=== PATIENT | female | born 1985 | race Caucasian/White ===

== ENCOUNTER 2023-04-05 19:44 | Outpatient (REF) | payer MEDICAID, SELFPAY ==
[2023-04-12 16:09] LABS: Age Gdln ACOG Testing Note (.); HPV Aptima Negative (Negative); IGP, Aptima HPV, rfx 16/18,45 Note (.)
== END 2023-04-05 19:45 ==
LOC: LAB 19:44
PROVIDERS: PCP Physician Assistant; Visit Provider Physician Assistant
DX: Z12.4 Encounter for screening for malignant neoplasm of cervix (principal)
CPT/HCPCS: 87624; G0145

== ENCOUNTER 2023-05-03 16:01 | Outpatient (OUT) | payer MEDICAID, SELFPAY ==
--- NOTE | 2023-05-03 16:18 | XR_ITS ---
[address] [address] Patient Name: KATIA CODY MRN: [id number] date: 1985 Sex: F Assigned Patient Location: [facility] Current Patient Location: Accession/Order Number: [id number] Exam Date: 05/03/2023 16:10 Report Date: 05/04/2023 05:57 At the request of: JOEL CLARK Procedure: XR ankle RT min 3V PROCEDURE: XR ankle RT min 3V COMPARISON: None. HISTORY: M25.579 ANKLE PAIN FINDINGS: BONES:No fracture, acute abnormality, or significant arthropathy. SOFT TISSUES:Negative. No visible soft tissue swelling. EFFUSION:None visible. OTHER: Negative. IMPRESSION: No acute radiographic abnormality Electronically authenticated by: BENITO SHAVER Date: 05/04/2023 05:57
== END 2023-05-03 16:02 | disposition home or self-care (01) ==
LOC: RAD 16:02
PROVIDERS: PCP Family Medicine; Visit Provider Family Medicine
DX: M25.571 Pain in right ankle and joints of right foot (principal)
CPT/HCPCS: 73610

== ENCOUNTER 2023-06-20 10:35 | Emergency (ER) | payer OTHER, MEDICAID, SELFPAY ==
[2023-06-20 10:43] VITALS: BP 130/84; PULSE 77; RESP 18; TEMP 36.8; O2SAT 98; BMI 22.9
--- NOTE | 2023-06-20 10:57 | XR_ITS ---
The [address] [address] Patient Name: KATIA CODY MRN: [id number] date: 1985 Sex: F Assigned Patient Location: ER Current Patient Location: ER Accession/Order Number: [id number] Exam Date: 06/20/2023 11:22 Report Date: 06/20/2023 11:43 At the request of: MONROE FREEMAN Procedure: XR lumbar spine 2-3V XR lumbar spine 2-3V, 06/20/2023 11:22 AM EDT, OH001 INDICATION: pain, injury COMPARISON: None FINDINGS: 3 images are submitted. The vertebral bodies demonstrate normal sagittal alignment. No acute fracture or subluxation is identified. There is slight disc space narrowing and endplate osteophyte formation at L2-L3. The visualized soft tissues appear unremarkable. XR/XR lumbar spine 2-3V IMPRESSION: No acute fracture or subluxation is seen. Slight degenerative change. Electronically authenticated by: JEN BARLOW Date: 06/20/2023 11:43
--- NOTE | 2023-06-20 10:59 | ED_ITS ---
HPI - Back Pain/Injury General Chief Complaint: Back Pain/Injury Stated Complaint: POSS STRAIN IN BACK Time Seen by Provider: 06/20/23 10:38 Source: family Mode of arrival: walk-in Limitations: no limitations History of Present Illness HPI Narrative: 37-year-old female to the emergency Department chief complaint of back injury. She works for the [employer]. 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 She denies any numbness, weakness, tingling. She denies any bowel or bladder incontinence/retention. Injury and hour and half prior to arrival in the emergency department. She reports the pain is spasm like. The Lower Lumbar Back. It Does Not Radiate. She has otherwise been at her baseline health. She denies fever, sweats, chills, nausea, abdominal pain. She denies , has history of tubal ligation. Related Data Previous Rx's Medication Instructions Recorded cyclobenzaprine 10 mg tablet 10 mg PO BID PRN muscle spasm #10 06/20/23 tabs naproxen 500 mg tablet 500 mg PO BID PRN pain #14 tabs 06/20/23 Allergies Allergy/AdvReac Type Severity Reaction Status Date / Time EFFEXOR AdvReac Intermediate Hypertensio Uncoded 06/20/23 10:49 n Review of Systems ROS Status of ROS 10 or more systems reviewed and unremarkable except as noted in history and below [facility] Social History Smoking status: Current every day smoker Exam Narrative Exam Narrative: VITALS: I have reviewed the triage vital signs. GENERAL: Well developed, well appearing adult in no acute distress. NEURO: Alert and oriented. Moves all extremities. Face is symmetric and expressive. Patellar reflexes brisk and equal bilaterally. Normal gait. Plantar flexion/dorsiflexion, knee flexion/extension, hip flexion/extension are grossly intact with 5/5 strength. Sensation is intact across the bilateral lower extremities. SPINE: No midline cervical, thoracic, or lumbar tenderness. No step-off or deformities. No paraspinal muscle tenderness or increased tone. EYES: PERRL. No scleral icterus or conjunctival injection. No discharge. HENT: Normocephalic, atraumatic. Hearing is grossly intact. Nares grossly patent and without discharge. Mucous membranes moist. NECK: No JVD. Patient moves neck without restriction. EXTREMITIES: Symmetric muscle bulk. No joint swelling. No clubbing, cyanosis, or deformity. SKIN: Warm and dry. Normal turgor. No rash or lesions appreciated. PSYCH: Mood, affect, and interaction is appropriate to the setting. Constitutional Vital Signs, click to edit/add: Last Vital Signs Temp 98.3 F 06/20/23 10:43 Pulse 77 06/20/23 10:43 Resp 18 06/20/23 10:43 BP 130/84 06/20/23 10:43 Pulse Ox 98 06/20/23 10:43 O2 Del Method Room Air 06/20/23 10:43 Course Vital Signs Vital signs: Vital Signs Temperature 98.3 F 06/20/23 10:43 Pulse Rate 77 06/20/23 10:43 Respiratory Rate 18 06/20/23 10:43 Blood Pressure 130/84 06/20/23 10:43 Pulse Oximetry 98 06/20/23 10:43 Oxygen Delivery Method Room Air 06/20/23 10:43 Temperature 98.3 F 06/20/23 10:43 Pulse Rate 77 06/20/23 10:43 Respiratory Rate 18 06/20/23 10:43 Blood Pressure 130/84 06/20/23 10:43 Pulse Oximetry 98 06/20/23 10:43 Oxygen Delivery Method Room Air 06/20/23 10:43 MDM - Back Pain/Injury MDM Narrative Medical decision making narrative: MDM Data External documents reviewed: Not applicable My EKG interpretation: Not applicable My CT interpretation: Not applicable My X-ray interpretation: Reviewed My Ultrasound interpretation: Not applicable Decision rules/scores evaluated: Not applicable Discussed with: Not applicable Treatment and Disposition ED Course: 29-year-old female C emergency department with chief complaint of back pain after attempting to 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 Vital stable, the patient is afebrile. X-ray to be ordered. Symptomatically therapy of IM Toradol and Norflex. She complains test. Her neurologic exam is nonfocal. No signs of cord compressing lesion by history or exam. X-ray without acute findings. She is able to ambulate. Has no apparent limitations at this time. MEDCO completed. Naproxen and Flexeril for symptoms. F/u with [facility]. Patient was discharged home. Shared decision making: As above Code status: Not addressed during this visit Discharge Plan Discharge Chief Complaint: Back Pain/Injury Clinical Impression: Strain of lumbar region Patient Disposition: Home, Self-Care Time of Disposition Decision: 11:55 Condition: Good Mode of Transportation: Private Vehicle Prescriptions / Home Meds: New cyclobenzaprine 10 mg tablet 10 mg PO BID PRN (Reason: muscle spasm) Qty: 10 0RF naproxen 500 mg tablet 500 mg PO BID PRN (Reason: pain) Qty: 14 0RF Print Language: Liberian Instructions: Low Back Strain (ED), Lower Back Exercises (ED) Stand Alone Forms: Portal Instructions Referrals: [facility] - 1 week Arnold Schroeder MD [Primary Care Provider] - 1 week
[2023-06-20] MEDS: ORPHENADRINE 60 MG/ 2 ML VIAL IM (11:12)
[2023-06-20] MEDS: KETOROLAC TROMETHAMINE 30 MG/ML VIAL IM (11:13)
[2023-06-20 12:18] VITALS: BP 121/84; PULSE 61; RESP 18; O2SAT 94
== END 2023-06-20 12:20 | disposition home or self-care (01) ==
PROVIDERS: Emergency Provider Student in an Organized Health Care Education/Training Program; PCP Family Medicine
DX: S39.012A Strain of muscle, fascia and tendon of lower back, initial encounter (principal); X50.0XXA Overexertion from strenuous movement or load, initial encounter
CPT/HCPCS: 72100; 96372; 99284

== ENCOUNTER 2023-08-11 10:54 | Outpatient (OUT) | payer MEDICAID, SELFPAY ==
[2023-08-11 11:33] LABS: Basophils Absolute Auto 0.1 10^3/uL (0.0-0.1); Basophils Percent Auto 0.6 % (0.2-2.0); Eosinophils Percent Auto 0.4 % (0.9-7.0); Hematocrit 38.4 % (36.0-48.0); Hemoglobin 12.8 g/dL (12.0-16.0); Immature Granulocytes Abs Auto 0.02 10^3/uL (0.00-0.03); Immature Granulocytes Pct Auto 0.2 % (0.0-0.5); Lymphocytes Absolute Auto 2.1 10^3/uL (1.2-3.8); Lymphocytes Percent Auto 24.7 % (20.5-60.0); Mean Corpuscular HGB Conc 33.3 g/dL (29.9-35.2); Mean Corpuscular Volume 90.1 fL (81.0-99.0); Mean Platelet Volume 9.2 fL (9.5-13.5); Monocytes Absolute Auto 0.5 10^3/uL (0.3-0.8); Monocytes Percent Auto 6.4 % (1.7-12.0); Neutrophils Absolute Auto 5.6 10^3/uL (1.4-6.5); Neutrophils Percent Auto 67.7 % (43.0-75.0); Platelet Count 280 10^3/uL (150-450); Red Blood Count 4.26 10^6/uL (4.20-5.40); Red Cell Distribution Width 13.2 % (11.0-15.0); White Blood Count 8.3 10^3/uL (4.0-11.0)
== END 2023-08-11 10:55 | disposition home or self-care (01) ==
LOC: PST 10:55
PROVIDERS: PCP Family Medicine; Visit Provider Obstetrics & Gynecology
DX: Z01.812 Encounter for preprocedural laboratory examination (principal); R39.89 Other symptoms and signs involving the genitourinary system; A63.0 Anogenital (venereal) warts
CPT/HCPCS: 85025

== ENCOUNTER 2023-08-25 08:05 | Day surgery (SDC) | payer MEDICAID, SELFPAY ==
[2023-08-11 11:23] VITALS: BP 115/73; PULSE 75; RESP 16; TEMP 36.4; O2SAT 100; BMI 23.8
[2023-08-25] VITALS (9 sets, daily range): BP systolic 96–134; BP diastolic 49–100; PULSE 70–90; RESP 7–18; TEMP 36.6; O2SAT 96–100; BMI 23.7
[2023-08-25] MEDS: LACTATED RINGER'S SOLUTION 1,000 ML 50 ML IV (08:29)
[2023-08-25 08:35] LABS: HCG Quantitative <1 mIU/mL
[2023-08-25] MEDS: SILVER SULFADIAZINE 1% CREAM 25 GM TUBE 1 APPLIC TOPICAL (11:08)
--- NOTE | 2023-08-25 11:19 | PM.ONB ---
Brief Operative Note Date of procedure: 08/25/23 Pre-op diagnosis: genital warts Post-op diagnosis: same as pre-op Procedure: NAME OF PROCEDURE: [destruction of genital warts, extensive] PROCEDURE: Patient was taken back to the Operating Room where she was given general anesthesia without difficulty. She was then placed in the dorsal lithotomy position. She was then prepped and draped in the normal sterile fashion. The extensive genital warts along the perineum and anus were identified, cautery was used to destroy the lesions, excellent hemostasis, silvadine cream to be placed, pt taken out of dorsal lithotomy and awoken by anesthesia Anesthesia: JULIANA Surgeon: Kel Gurrola Estimated blood loss (mL): 5 Pathology: none sent Condition: stable Disposition: PACU
== END 2023-08-25 12:27 | disposition home or self-care (01) ==
PROVIDERS: PCP Family Medicine; Visit Provider Obstetrics & Gynecology
PROC: (CPT 940; principal; 2023-08-25 09:55)
DX: A63.0 Anogenital (venereal) warts (principal); R39.89 Other symptoms and signs involving the genitourinary system; D64.9 Anemia, unspecified; F17.210 Nicotine dependence, cigarettes, uncomplicated; Z98.51 Tubal ligation status; F39 Unspecified mood [affective] disorder; E27.40 Unspecified adrenocortical insufficiency; N92.0 Excessive and frequent menstruation with regular cycle
CPT/HCPCS: 57065; 36415; 84702; J2704

== ENCOUNTER 2023-09-23 22:08 | Emergency (ER) | payer MEDICAID, SELFPAY ==
[2023-09-23 22:16] VITALS: BP 131/82; PULSE 96; RESP 20; TEMP 36.5; O2SAT 98; BMI 22.8
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
[2023-09-23] MEDS: ACETAMINOPHEN 500 MG TABLET 1000 MG PO (23:01)
[2023-09-23] MEDS: LORAZEPAM 0.5 MG TABLET PO (23:01)
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
== END 2023-09-24 00:39 | disposition home or self-care (01) ==
PROVIDERS: Emergency Provider Emergency Medicine; PCP Family Medicine
DX: S09.90XA Unspecified injury of head, initial encounter (principal); M54.2 Cervicalgia; S50.01XA Contusion of right elbow, initial encounter; S70.02XA Contusion of left hip, initial encounter; R68.84 Jaw pain; F41.9 Anxiety disorder, unspecified; Y04.2XXA Assault by strike against or bumped into by another person, initial encounter; F17.210 Nicotine dependence, cigarettes, uncomplicated; Z98.890 Other specified postprocedural states; Z90.79 Acquired absence of other genital organ(s); Z98.82 Breast implant status; Z98.891 History of uterine scar from previous surgery; Z98.51 Tubal ligation status
CPT/HCPCS: 70450; 70486; 72125; 73080; 73502; 99284

== ENCOUNTER 2023-12-20 08:27 | Emergency (ER) | payer SELFPAY ==
[2023-12-20 08:22] VITALS: BP 121/66; PULSE 80; RESP 20; TEMP 36.7; O2SAT 100; BMI 22.0
--- OUTSIDE RECORDS SUMMARY | 2023-12-20 08:32 | XMS_ITS | CCD ---
Author Name Unknown Address [address] [facility] [address] [facility] [address] [place] [address] Organization [facility] Care Team Providers Care Health Lead Name Role Phone HATIPOGLU, BETUL A Unavailable Unavailable HATIPOGLU, BETUL A Unavailable Unavailable FOSTERSKYLER BEYERLO F Unavailable Unavailable VORKEN BENAVIDEZ Unavailable Unavaila ble HATIPOGLU, BETUL A Unavailable Unavailable HATIPOGLU, BETUL A Unavailable Unavailable KEN JORDAN Unavailable Unavaila Chito Garcia Admitting Unavailable Chito Duarte Attending Unavailable Joel Schroeder~[phone] UNKNOWN Primary Care Unavailable Joel Schroeder~[phone] UNKNOWN Primary Care Unavailable Daniela Kay Unavailable Obed James Unavailable MD Joel Schroeder Primary Care Provider [phone] KATHY Miles Attending Provider [phone] Jamia Miles Unavailable Jamia Miles Attending Unavailable Jamia Miles Admitting Unavailable Joel Schroeder Primary Care Unavailable DR JOEL SCHROEDER Primary Care Unavailable JONG NAVA Attending Unavailable JONG NAVA Admitting Unavailable DR JOEL SCHROEDER Consulting Unavailable DR JOEL SCHROEDER Primary Care Unavailable DR JOEL SCHROEDER Attending Unavailable DR JOEL SCHROEDER Admitting Unavailable DR JOEL SCHROEDER Consulting Unavailable DR ASHLEY JANSEN Primary Care Unavailable DR JOEL SCHROEDER Attending Unavailable DR JOEL SCHROEDER Admitting Unavailable BRIELLE IZAGUIRRE Consulting Unavailable BRIELLE IZAGUIRRE Attending Unavailable BRIELLE IZAGUIRRE Admitting Unavailable DR JOEL SCHROEDER Primary Care Unavailable DR JOEL SCHROEDER Primary Care Unavailable DR KEL GURROLA Attending Unavailable DR KEL GURROLA Admitting Unavailable KI, DR MADDEN Consulting Unavailable AMBER, DR MALDONADO Primary Care Unavailable KI, DR MADDEN Attending Unavailable KI, DR MADDEN Admitting Unavailable AMBER, DR MALDONADO Primary Care Unavailable JONG NAVA Attending Unavailable JONG NAVA Admitting Unavailable BRIANA JENNINGS Consulting Unavailable AMBER, DR MALDONADO Primary Care Unavailable BRIANA JENNINGS Attending Unavailable BRIANA JENNINGS Admitting Unavailable KI, DR MADDEN Consulting Unavailable AMBER, DR MALDONADO Primary Care Unavailable KI, DR MADDEN Attending Unavailable KI, DR MADDEN Admitting Unavailable KI, DR MADDEN Consulting Unavailable AMBER, DR MALDONADO Primary Care Unavailable KI, DR MADDEN Attending Unavailable KI, DR MADDEN Admitting Unavailable ZIEBER, DR JULIAN Ortiz Consulting Unavailable KI, DR MADDEN Consulting Unavailable AMBER, DR MALDONADO Primary Care Unavailable KI, DR MADDEN Attending Unavailable KI, DR MADDEN Admitting Unavailable KI, DR MADDEN Consulting Unavailable AMBER, DR MALDONADO Primary Care Unavailable KI, DR MADDEN Attending Unavailable KI, DR MADDEN Admitting Unavailable AMBER, DR MALDONADO Consulting Unavailable AMBER, DR MALDONADO Primary Care Unavailable AMBER, DR MALDONADO Attending Unavailable AMBER, DR MALDONADO Admitting Unavailable KI, DR MADDEN Consulting Unavailable AMBER, DR MALDONADO Primary Care Unavailable KI, DR MADDEN Attending Unavailable KI, DR MADDEN Admitting Unavailable MACEY SERRA Consulting Unavailable PONCE (ERROR), MACEY Consulting Unavailable JULIAN WOODS Consulting Unavailable SOPHIE, DR MTOA Consulting Unavailable SOPHIE, DR MOTA Attending Unavailable SOPHIE, DR MOTA Admitting Unavailable AMBER, DR MALDONADO Primary Care Unavailable LADI, DR JOSE LUIS Ortiz Consulting Unavailable LADI, DR JOSE LUIS Ortiz Attending Unavailable LADI, DR JOSE LUIS Ortiz Admitting Unavailable AMBER, DR MALDONADO Primary Care Unavailable BENITO ROWLAND Consulting Unavailable AMBER, DR MALDONADO Consulting Unavailable INDERJIT, DR RAMIREZ Primary Care Unavailable AMBER, DR MALDONADO Attending Unavailable AMBER, DR MALDONADO Admitting Unavailable AMBER, DR MALDONADO Consulting Unavailable AMBER, DR MALDONADO Primary Care Unavailable AMBER, DR MALDONADO Attending Unavailable AMBER, DR MALDONADO Admitting Unavailable Unavailable Unavailable Unavailable Allergies Allergy Classification Reported Allergen(s) Allergy Type Date of Onset Reaction(s) Facility (3 sources) venlafaxine Drug Allergy Unknown [employer] Other (2 sources) venlafaxine; Translations: [Effexor] Drug Allergy high BP/Heartrate [facility] (1 source) Codeine Drug Allergy [facility] Medications Current Medications Medication Drug Class(es) Dates Sig (Normalized) Sig (Original) [place] (No Known Home Meds) (1 source) Start: 09-05-2019 [place] (No Known Home Meds) Active September 05, 2019 1:00am polymyxin b 41913 unt/ml / trimethoprim 1 mg/ml ophthalmic solution (1 source) Dihydrofolate Reductase Inhibitor Antibacterial, Polymyxin-class Antibacterial Start: 11-10-2021 take 1 drop(s) into the eye(s) four times daily Polymyxin B-Trimethoprim 76174-4.1 UNIT/ML 1 drop into both eyes Ophthalmic Four times a day for 7 day(s) Oct, Active Prosacea (1 source) Prosacea Active Completed/Discontinued Medications Medication Drug Class(es) Dates Sig (Normalized) Sig (Original) hydrocortisone 5 mg oral tablet (2 sources) Corticosteroid Start: 05-14-2018 End: 09-05-2019 take 10 mg by mouth once daily in the morning Hydrocortisone Discontinued 10 MG PO Every morning May 14, 2018 12:00am September 05, 2019 10:43am Start: 05-14-2018 End: 09-05-2019 take 5 mg by mouth at bedtime Hydrocortisone Discontin ued 5 MG PO Bedtime May 14, 2018 12:00am September 05, 2019 10:43am Sulfamethoxazole (2 sources) Sulfonamide Antimicrobial Sulfam ethoxazole Not-Taking Sulfamethoxazole Active Problems Active Problems Problem Classification Problem Date Documented Date Episodic/Chronic Anxiety disorders (7 sources) Generalized anxiety disorder; Translations: [Generalized anxiety disorder] Onset: 11-14-2022 Chronic Cardiac dysrhythmias (4 sources) Supraventricular tachycardia; Translations: [SUPRAVENTRICULAR TACHYCARDIA] Onset: 12-11-2021 Chronic Genitourinary symptoms and ill-defined conditions (4 sources) Dysuria; Translations: [Dysuria] Onset: 08-30-2021 Resolved: 08-30-2021 Episodic Immunizations and screening for infectious disease (6 sources) Contact with and (suspected) exposure to infections with a predominantly sexual mode of transmission; Translations: [Encounter for screening for human papillomavirus (HPV)] Onset: 03-24-2022 Episodic Menstrual disorders (5 sources) Excessive and frequent menstruation with regular cycle; Translations: [EXCESS FREQ MENSTRUATION W/REG CYCL] Onset: 05-09-2022 Chronic Other aftercare (1 source) Other jail (current) drug therapy; Translations: [OTH RETIREMENT CURRENT DRUG THERAPY] Onset: 11-15-2022 Episodic Other non-traumatic joint disorders (1 source) Pain in right ankle and joints of right foot Episodic Sprains and strains (1 source) Sprain of unspecified ligament of right ankle, initial encounter Episodic Substance-related disorders (1 source) Nicotine dependence, cigarettes, uncomplicated; Translations: [NICOTINE DEPEND CIGARETTES UNCOMP] Onset: 09-06-2022 Chronic Unclassified (1 source) Pain in right ankle and joints of right foot; Translations: [Pain in right ankle and joints of right foot] Onset: 08-14-2022 Unclassified (3 sources) COUGH, UNSPECIFIED; Translations: [COUGH, UNSPECIFIED] Onset: 09-06-2022 Unclassified (1 source) UNVACCINATED FOR COVID-19; Translations: [UNVACCINATED FOR COVID-19] Onset: 09-06-2022 Unclassified (4 sources) CONTACT W/AND (SUSP) EXPOS COVID-19; Translations: [CONTACT W/AND (SUSP) EXPOS COVID-19] Onset: 12-15-2021 Past or Other Problems Problem Classification Problem Date Documented Date Episodic/Chronic Acute and chronic tonsillitis (1 source) Acute tonsillitis, unspecified; Translations: [ACUTE TONSILLITIS UNSPECIFIED] Onset: 01-06-2022 Episodic Deficiency and other anemia (4 sources) Iron deficiency anemia, unspecified; Translations: [IRON DEFICIENCY ANEMIA UNSPECIFIED] Onset: 12-31-2021 Episodic Inflammation; infection of eye (except that caused by tuberculosis or sexually transmitteddisease) (1 source) Unspecified conjunctivitis Onset: 11-10-2021 Resolved: 11-10-2021 Episodic Other female genital disorders (5 sources) Other specified noninflammatory disorders of vagina; Translations: [OTH SPEC NONINFLAMMATORY D/O VAGINA] Onset: 03-24-2022 Episodic Other screening for suspected conditions (not mental disorders or infectious disease) (4 sources) Encounter for screening for malignant neoplasm of cervix; Translations: [ENC SCREENING MALIG NEOPLASM CERV] Onset: 03-22-2022 Episodic Other upper respiratory infections (3 sources) Acute pharyngitis, unspecified; Translations: [ACUTE PHARYNGITIS UNSPECIFIED] Onset: 01-02-2022 Episodic Residual codes; unclassified (1 source) Acquired absence of other genital organ(s); Translations: [ACQUIRED ABSENCE OTH GENITAL ORGANS] Onset: 05-16-2022 Episodic Unclassified (1 source) COUGH, UNSPECIFIED; Translations: [COUGH, UNSPECIFIED] Onset: 09-03-2022 Unclassified (1 source) CONTACT W/AND (SUSP) EXPOS COVID-19; Translations: [CONTACT W/AND (SUSP) EXPOS COVID-19] Onset: 12-10-2021 Results Test Name Value Interpretation Reference Range Facility CHLAMYDIA/GONOCOCCUS ADRIEL ( AB/URINE/PAPon 10-04-2022 Chlamydia trachomatis, ADRIEL Negative Normal Negative [facility] Comment on above: Performed By: #### VAGINT #### [facility] [address] [place] [address] Dr. Ximena Billings Neisseria gonorrhoeae, ADRIEL Negative Normal Negative [facility] Comment on above: Performed By: #### VAGINT #### [facility] [address] [place] [address] Dr. Ximena Billings VAGINITIS/VAGINOSIS DNA PROB Eugene 10-02-2022 Adriana species Negative Normal Negative [facility] Comment on above: Performed By: #### VAGINT #### [facility] [address] [place] [address] Dr. Ximena Billings Gardnerella vaginalis Negative Normal Negative [facility] Comment on above: Performed By: #### VAGINT #### [facility] [address] [address] [address] Ximena Billings Trichomonas vaginalis Negative Normal Negative [facility] Comment on above: Performed By: #### VAGINT #### [facility] [address] [place] [address] Dr. Ximena Billings Covid-19 PCR (CVDTBH)on SARS-CoV-2 (COVID-19) RNA ADRIEL+probe Ql (Unsp spec) Not detected Normal NOT DETECTED [facility] Comment on above: Result Comment: When diagnostic testing is negative, the possibility of a false negative should be considered in the context of a patient's recent exposures and the presence of clinical signs and symptoms consistent with SARS-CoV-2. This test is not yet approved or cleared by the [place] FDA. When there are no FDA-approved or cleared tests available, and other criteria are met, FDA can make tests available under an emergency access mechanism called an Emergency Use Authorization (EUA). The EUA for this test is supported by the Senior Director Finance of Health and Human Service's declaration that circumstances exist to justify the emergency use of in vitro diagnostics for the detection and/or diagnosis of the virus that causes COVID-19. This EUA will remain in effect for the duration of the COVID-19 declaration justifying emergency of IVDs, unless it is terminated or revoked by the FDA (after which the test may no longer be used). Performed By: #### C T/NGNA #### [facility] [address] [address] [address] Ximena Billings XR CHEST 1 Von 09-03-2022 XR CHEST 1 V EXAMINATION: XR CHES T 1 V HISTORY: Acute cough COMPARISON: Chest x-rays 10/14/2018 TECHNIQUE: Portable chest FINDINGS: The lung parenchyma is free of consolidation or infiltrate. No pneumothorax or pleural effusion. The cardiac, mediastinal and hilar contours are normal. The visualized osseous structures exhibit no gross abnormality. IMPRESSION: Normal chest x-ray Electronically authenticated by: BENITO ROWLAND Date: 2022-09-03 21:59 Normal [facility] XR ankle RT min 3V*on 2021 XR ankle RT min 3V* [facility] [place] [address] [place] [address] XRay Report Signed Patient: Patsy Cody MR#: [id number] : 1985 Acct:[id number] Age/Sex: 37 / F ADM Date: 08/14/22 Loc: XDUCLY Room: Type: [facility] CLI Attending Dr: Jamia Miles APRN Copies to: Jamia Miles APRN Ordering Provider: Jamia Miles APRN Date of Service: 08/14/22 XR/XR ankle RT min 3V*: RIGHT ANKLE PAIN RIGHT ANKLE - 3 views CLINICAL DATA: Medial ankle pain without specific injury. COMPARISON: None AP, lateral and oblique views were obtained. There is no evidence of fracture or dislocation. The talar dome is intact. There is slight lateral soft tissue swelling. XR/XR ankle RT min 3V* IMPRESSION: NO ACUTE BONY FINDINGS. Impression dictated by: Aurora Keith M.D.08/14/2022 2:07 PM Dictation Location: [place] [address] Transcribed By: [facility] 08/14/221406 Dictated By: Aurora Keith MD 08/14/221405 Signed By: 08/14/221406 [facility] XR ankle RT min 3V* [facility] [employer] Other XR ankle RT min 3V* [facility] [employer] Other XR ankle RT min 3V* [address] [place] [address] [employer] Other XR ankle RT min 3V* [place] [address] [employer] Other XR ankle RT min 3V* XRay Report [employer] Other XR ankle RT min 3V* Signed [employer] Other XR ankle RT min 3V* Patient: Patsy Cody MR#: [id number] [employer] Other XR ankle RT min 3V* [id number] [employer] Other XR ankle RT min 3V* : 1985 Acct:[id number] [employer] Other XR ankle RT min 3V* Age/Sex: 37 / F ADM Date: 08/14/22 [employer] Other XR ankle RT min 3V* Loc: XDUCLY Room: Type: [facility] [employer] Other XR ankle RT min 3V* Attending Dr: Jamia Miles APRN [employer] Other XR ankle RT min 3V* Copies to: Jamia Miles APRN [employer] Other XR ankle RT min 3V* Ordering Provider: Jamia Miles APRN [employer] Other XR ankle RT min 3V* Date of Service: 08/14/22 [employer] Other XR ankle RT min 3V* XR/XR ankle RT min 3V*: RIGHT ANKLE PAIN [employer] Other XR ankle RT min 3V* RIGHT ANKLE - 3 views [employer] Other XR ankle RT min 3V* CLINICAL DATA: Medial ankle pain without specific injury. [employer] [facility] Other XR ankle RT min 3V* COMPARISON: None [employer] Other XR ankle RT min 3V* AP, lateral and oblique views were obtained. There is no evidence of fracture or dislocation. [employer] Other XR ankle RT min 3V* The talar dome is intact. There is slight lateral soft tissue swelling. [employer] Other XR ankle RT min 3V* XR/XR ankle RT min 3V* [employer] Other XR ankle RT min 3V* IMPRESSION: [employer] Other XR ankle RT min 3V* NO ACUTE BONY FINDINGS. [employer] Other XR ankle RT min 3V* Impression dictated by: Aurora Keith M.D.08/14/2022 2:07 PM [employer] Other XR ankle RT min 3V* Dictation Location: [facility]- [employer] Other XR ankle RT min 3V* Transcribed By: KRISTIN 08/14/22 [facility] [employer] Other XR ankle RT min 3V* Dictated By: Aurora Keith MD 08/14/22 [facility] [employer] Other XR ankle RT min 3V* Signed By: [employer] Other XR ankle RT min 3V* 08/14/22 [facility] [employer] Other CBC AUTO DIFFon 05-13-2022 BASO # 0.0 103/ul Normal 0.0-0.1 [facility] Comment on above: Performed By: #### VAGINT #### [facility] [address] [place] [address] Dr. Ximena Billings Basophils/100 WBC (Bld) 0.5 % Normal 0.2-2.0 [facility] Comment on above: Performed By: #### VAGINT #### [facility] [address] [place] [address] Dr. Ximena Billings EO # 0.1 103/ul Normal 0.0-0.7 [facility] Comment on above: Performed By: #### VAGINT #### [facility] [address] [place] [address] Dr. Ximena Billings Eosinophils/100 WBC (Bld) 1.4 % Normal 0.9-7.0 [facility] Comment on above: Performed By: #### VAGINT #### [facility] [address] [place] [address] Dr. Ximena Billings Erythrocyte distribution width (RBC) [Ratio] 13.3 % Normal 11.0-15.0 [facility] Comment on above: Performed By: #### VAGINT #### [facility] [address] [place] [address] Dr. Ximena Billings Hematocrit (Bld) [Volume fraction] 39.2 % Normal 36.0-48.0 [facility] Comment on above: Performed By: #### VAGINT #### [facility] [address] [place] [address] Dr. Ximena Billings Hemoglobin (Bld) [Mass/Vol] 12.8 g/dL Normal 12.0-16.0 [facility] Comment on above: Performed By: #### VAGINT #### [facility] [address] [place] [address] Dr. Ximena Billings IG # 0.01 10e3/ul Normal 0.00-0.03 [facility] Comment on above: Performed By: #### VAGINT #### [facility] [address] [place] [address] Dr. Ximena Billings IG % 0.2 % Normal 0.0-0.5 [facility] Comment on above: Performed By: #### VAGINT #### [facility] [address] [place] [address] Dr. Ximena Billings LYMPH # 1.9 103/ul Normal 1.2-3.8 [facility] Comment on above: Performed By: #### VAGINT #### [facility] [address] [place] [address] Dr. Ximena Billings Lymphocytes/100 WBC (Bld) 34.5 % Normal 20.5-60.0 [facility] Comment on above: Performed By: #### VAGINT #### [facility] [address] [place] [address] Dr. Ximena Billings MANUAL DIFF REQ NO Normal [facility] Comment on above: Performed By: #### VAGINT #### [facility] [address] [place] [address] Dr. Ximena Billings MCH (RBC) [Entitic mass] 30.5 pg Normal 26.7-34.0 [facility] Comment on above: Performed By: #### VAGINT #### [facility] [address] [place] [address] Dr. Ximena Billings MCHC (RBC) [Mass/Vol] 32.7 g/dL Normal 29.9-35.2 [facility] Comment on above: Performed By: #### VAGINT #### [facility] [address] [address] [address] Ximena Billings MCV (RBC) [Entitic vol] 93.3 fL Normal 81.0-99.0 [facility] Comment on above: Performed By: #### VAGINT #### [facility] [address] [address] [address] Ximena Billings MONO # 0.5 103/ul Normal 0.3-0.8 [facility] Comment on above: Performed By: #### VAGINT #### [facility] [address] [place] [address] Dr. Ximena Billings Monocytes/100 WBC (Bld) 8.6 % Normal 1.7-12.0 [facility] Comment on above: Performed By: #### VAGINT #### [facility] [address] [place] [address] Dr. Ximena Billings NEUT # 3.1 103/ul Normal 1.4-6.5 [facility] Comment on above: Performed By: #### VAGINT #### [facility] [address] [place] [address] Dr. Ximena Billings Neutrophils/100 WBC (Bld) 54.8 % Normal 43.0-75.0 [facility] Comment on above: Performed By: #### VAGINT #### [facility] [address] [place] [address] Dr. Ximena Billings Platelet mean volume (Bld) [Entitic vol] 9.2 fL Critically low 9.5-13.5 [facility] Comment on above: Performed By: #### VAGINT #### [facility] [address] [place] [address] Dr. Ximena Billings PLT 258 103/ul Normal 150-450 [facility] Comment on above: Performed By: #### VAGINT #### [facility] [address] [place] [address] Dr. Ximena Billings RBC 4.20 106/ul Normal 4.20-5.40 [facility] Comment on above: Performed By: #### VAGINT #### [facility] [address] [address] [address] Ximena Billings WBC 5.6 103/ul Normal 4.0-11.0 [facility] Comment on above: Performed By: #### VAGINT #### [facility] [address] [place] [address] Dr. Ximena Billings PREG HCG QUALon 05-13-2022 , QUAL Negative Normal NEGATIVE [facility] Comment on above: Performed By: #### PREG #### [facility] [address] [place] [address] Dr. Ximena Billings Covid-19 PCR (CVDTBH)on 04-29 SARS-CoV-2 (COVID-19) RNA ADRIEL+probe Ql (Unsp spec) Not detected Normal NOT DETECTED [facility] Comment on above: Result Comment: This test is not yet woo roved or cleared by the [place] FDA. When there are no FDA-approved or cleared tests available, and other criteria are met, FDA can make tests available under an emergency access mechanism called an Emergency Use Authorization (EUA). The EUA for this test is supported by the [place] of Health and Human Service's (HHS's) declaration that circumstances exist to justify the emergency use of in vitro diagnostics for the detection and/or diagnosis of the virus that causes COVID-19. This EUA will remain in effect (meaning this test can be used) for the duration of the COVID-19 declaration justifying emergency of IVDs, unless it is terminated or revoked by FDA (after which the test may no longer be used). When diagnostic testing is negative, the possibility of a false negative should be considered in the context of a patient's recent exposures and the presence of clinical signs and symptoms consistent with SARS-CoV-2. Performed By: #### C VDTBH #### [facility] [address] [place] [address] Dr. Ximena Billings CHLAMYDIA/GONOCOCCUS ADRIEL (SW AB/URINE/PAPon 04-30-2022 Chlamydia trachomatis, ADRIEL Negative Normal Negative [facility] Comment on above: Performed By: #### CT/NGNA #### [facility] [address] [place] [address] Dr. Ximena Billings Neisseria gonorrhoeae, ADRIEL Negative Normal Negative [facility] Comment on above: Performed By: #### CT/NGNA #### [facility] [address] [place] [address] Dr. Ximena Billings VAGINITIS/VAGINOSIS DNA PROB Eugene 04-29-2022 Adriana species Negative Normal Negative [facility] Comment on above: Performed By: #### CT/NGNA #### [facility] [address] [place] [address] Dr. Ximena Billings Gardnerella vaginalis Positive Abnormal Negative [facility] Comment on above: Performed By: #### CT/NGNA #### [facility] [address] [place] [address] Dr. Ximena Billings Trichomonas vaginalis Negative Normal Negative [facility] Comment on above: Performed By: #### CT/NGNA #### [facility] [address] [place] [address] Dr. Ximena Billings CBC AUTO DIFFon 04-04-2022 BASO # 0.0 103/ul Normal 0.0-0.1 [facility] Comment on above: Performed By: #### CBC #### [facility] [address] [place] [address] Dr. Ximena Billings Basophils/100 WBC (Bld) 0.7 % Normal 0.2-2.0 [facility] Comment on above: Performed By: #### CBC #### [facility] [address] [place] [address] Dr. Ximena Billings EO # 0.1 103/ul Normal 0.0-0.7 [facility] Comment on above: Performed By: #### CBC #### [facility] [address] [place] [address] Dr. Ximena Billings Eosinophils/100 WBC (Bld) 1.8 % Normal 0.9-7.0 [facility] Comment on above: Performed By: #### CBC #### [facility] [address] [place] [address] Dr. Ximena Billings Erythrocyte distribution width (RBC) [Ratio] 14.6 % Normal 11.0-15.0 [facility] Comment on above: Performed By: #### CBC #### [facility] [address] [place] [address] Dr. Ximena Billings Hematocrit (Bld) [Volume fraction] 38.1 % Normal 36.0-48.0 [facility] Comment on above: Performed By: #### CBC #### [facility] [address] [place] [address] Dr. Ximena Billings Hemoglobin (Bld) [Mass/Vol] 12.5 g/dL Normal 12.0-16.0 [facility] Comment on above: Performed By: #### CBC #### [facility] [address] [place] [address] Dr. Ximena Billings IG # 0.01 10e3/ul Normal 0.00-0.03 [facility] Comment on above: Performed By: #### CBC #### [facility] [address] [place] [address] Dr. Ximena Billings IG % 0.2 % Normal 0.0-0.5 [facility] Comment on above: Performed By: #### CBC #### [facility] [address] [place] [address] Dr. Ximena Billings LYMPH # 1.9 103/ul Normal 1.2-3.8 [facility] Comment on above: Performed By: #### CBC #### [facility] [address] [place] [address] Dr. Ximena Billings Lymphocytes/100 WBC (Bld) 34.6 % Normal 20.5-60.0 [facility] Comment on above: Performed By: #### CBC #### [facility] [address] [place] [address] Dr. Ximena Billings MANUAL DIFF REQ NO Normal [facility] Comment on above: Performed By: #### CBC #### [facility] [address] [place] [address] Dr. Ximena Billings MCH (RBC) [Entitic mass] 30.1 pg Normal 26.7-34.0 [facility] Comment on above: Performed By: #### CBC #### [facility] [address] [address] [address] Ximena Billings MCHC (RBC) [Mass/Vol] 32.8 g/dL Normal 29.9-35.2 [facility] Comment on above: Performed By: #### CBC #### [facility] [address] [address] [address] Ximena Billings MCV (RBC) [Entitic vol] 91.8 fL Normal 81.0-99.0 [facility] Comment on above: Performed By: #### CBC #### [facility] [address] [address] [address] Ximena Billings MONO # 0.4 103/ul Normal 0.3-0.8 [facility] Comment on above: Performed By: #### CBC #### [facility] [address] [place] [address] Dr. Ximena Billings Monocytes/100 WBC (Bld) 7.0 % Normal 1.7-12.0 [facility] Comment on above: Performed By: #### CBC #### [facility] [address] [address] [address] Ximena Billings NEUT # 3.1 103/ul Normal 1.4-6.5 [facility] Comment on above: Performed By: #### CBC #### [facility] [address] [place] [address] Dr. Ximena Billings Neutrophils/100 WBC (Bld) 55.7 % Normal 43.0-75.0 [facility] Comment on above: Performed By: #### CBC #### [facility] [address] [place] [address] Dr. Ximena Billings Platelet mean volume (Bld) [Entitic vol] 9.0 fL Critically low 9.5-13.5 [facility] Comment on above: Performed By: #### CBC #### [facility] [address] [place] [address] Dr. Ximena Billings PLT 261 103/ul Normal 150-450 [facility] Comment on above: Performed By: #### CBC #### [facility] [address] [address] [address] Ximena Billings RBC 4.15 106/ul Critically low 4.20-5.40 [facility] Comment on above: Performed By: #### CBC #### [facility] [address] [place] [address] Dr. Ximena Billings WBC 5.6 103/ul Normal 4.0-11.0 [facility] Comment on above: Performed By: #### CBC #### [facility] [address] [place] [address] Dr. Ximena Billings PREG QUANT HCGon 04-04-2022 HCG QUANT 1 mIU/mL Normal [facility] Comment on above: Performed By: #### PREGQNT, TSH #### [facility] [address] [place] [address] Dr. Ximena Billings HCG RANGE SEE BELOW Normal [facility] Comment on above: Result Comment: 5-50 0-1 WEEK 40-300 1-2 WEEKS 100-1,000 2-3 WEEKS 500-6,000 3-4 WEEKS 5,000-200,000 1-2 MONTHS 10,000-100,000 2-3 MONTHS 3,000-50,000 2ND TRIMESTER 1,000-50,000 3RD TRIMESTER Performed By: #### P REGQNT, TSH #### [facility] [address] [place] [address] Dr. Ximena Billings PROTIMEon 04-04-2022 INR Coag (PPP) [Relative time] 1.07 {INR} Normal [facility] Comment on above: Performed By: #### CT/NGNA #### [facility] [address] [place] [address] Dr. Ximena Billings INR GUIDELINES SEE BELOW Normal [facility] Comment on above: Result Comment: DESIRED INR: 2.0 - 3.0 C ONDITIONS NOT LISTED BELOW 2.5 - 3.5 FOR PROSTHETIC HEART VALVE REPLACEMENT 2.5 - 3.5 RECURRENT THROMBOSIS Performed By: #### C T/NGNA #### [facility] [address] [place] [address] Dr. Ximena Billings PT Coag (PPP) [Time] 11.5 s Normal 9.0-11.6 [facility] Comment on above: Performed By: #### CT/NGNA #### [facility] [address] [address] [address] Ximena Billings PTTon 04-04-2022 aPTT Coag (Bld) [Time] 28.3 s Normal 22.3-36.2 [facility] Comment on above: Performed By: #### CT/NGNA #### [facility] [address] [address] [address] Ximena Billings TSHon 04-04-2022 TSH 1.116 uIU/mL Normal 0.358-3.740 [facility] Comment on above: Performed By: #### PREGQNT, TSH #### [facility] [address] [address] [address] Ximena Billings TSH RANGE SEE BELOW Normal [facility] Comment on above: Result Comment: <0.34 UIU/ml HYPERTHYROI D 0.34-5.60 UIU/ml EUTHYROID >5.60 UIU/ml HYPOTHYROID Performed By: #### P REGQNT, TSH #### [facility] [address] [address] [address] Ximena Billings US PELVIS AND TRANSVAGon US PELVIS AND TRANSVAG EXAMINATION: US PELVIS AND TRANSVAG HISTORY: Excessive and frequent menstruation COMPARISON: No relevant comparison available. TECHNIQUE: Transabdominal and transvaginal sonographic examination. FINDINGS: UTERUS: Hypoechoic, heterogeneous mass within posterior wall myometrium, 1.5 cm, suspected represent a leiomyoma. Uterus size: 10.1 x 6.4 x 5.3 cm ENDOMETRIUM: Normal homogeneous appearance. Endometrial thickness: 6 mm RIGHT OVARY: Normal size and appearance. Duplex Doppler demonstrates normal waveform and flow; resistive index 0.55. Ovary size: 2.7 x 2.4 x 2.3 cm LEFT OVARY: Normal size and appearance. Duplex Doppler demonstrates normal waveform and flow; resistive index 0.54. Ovary size: 2.7 x 2.7 x 2.3 cm CUL-DE-SAC: Unremarkable. No significant free fluid. BLADDER: Unremarkable. OTHER: None. IMPRESSION: 1. Posterior uterine wall myometrial 1.5 cm leiomyoma of doubtful clinical significance. 2. No suspicious findings to account for patient's symptoms. Electronically authenticated by: JULIAN GARCIA Date: 2022-04-01 08:40 Normal [facility] PAP ACOG PANEL 2: 30 to 65on 03-29-2022 . . Normal [facility] Comment on above: Result Comment: Performed at: BA Performed By: #### V AGINT #### [facility] [address] [address] [address] Ximena Billings Age Gdln ACOG Testing 30-65 Normal [facility] Comment on above: Performed By: #### VAGINT #### [facility] [address] [address] [address] Ximena Billings DIAGNOSIS: Comment Normal [facility] Comment on above: Result Comment: NEGATIVE FOR INTRAEPITHE LIAL LESION OR MALIGNANCY. THIS SPECIMEN WAS RESCREENED PART OF OUR FILM SPLICER PROGRAM. Performed at: BA Performed By: #### V AGINT #### [facility] [address] [address] [address] Ximena Billings HPV Aptima Negative Normal Negative [facility] Comment on above: Result Comment: This nucleic acid amplif ication test detects fourteen high-risk HPV types (16,18,31,33,35,39,45,51,52,56,58,59,66,68) without differentiation. Performed at: =G Performed By: #### V AGINT #### [facility] [address] [address] [address] Ximena Billings Methodology: Comment Normal [facility] Comment on above: Result Comment: This liquid based ThinPr ep(R) pap test was screened with the use of an image guided system. Performed at: WB Performed By: #### V AGINT #### [facility] [address] [place] [address] Dr. Ximena Billings Note: Comment Normal [facility] Comment on above: Result Comment: The Pap smear is a scree [place] test designed to aid in the detection of premalignant and malignant conditions of the uterine cervix. It is not a diagnostic procedure and should not be used as the sole means of detecting cervical cancer. Both false-positive and false-negative reports do occur. . Performed at: WB Performed By: #### V AGINT #### [facility] [address] [place] [address] Dr. Ximena Billings Performed by: Comment Normal [facility] Comment on above: Result Comment: Omaira Ferreira, Cytotechn ologist (ASCP) Performed at: BA Performed By: #### V AGINT #### [facility] [address] [place] [address] Dr. Ximena Billings QC reviewed by: Comment Normal [facility] Comment on above: Result Comment: Anthony Garvin, Cytotech nologist (ASCP) Performed at: BA Performed By: #### V AGINT #### [facility] [address] [place] [address] Dr. Ximena Billings Specimen adequacy: Comment Normal [facility] Comment on above: Result Comment: Satisfactory for evaluat ion. Endocervical and/or squamous metaplastic cells (endocervical component) are present. Areas of partially obscuring inflammatory exudate are present. Performed at: BA Performed By: #### V AGINT #### [facility] [address] [place] [address] Dr. Ximena Billings CHLAMYDIA/GONOCOCCUS ADRIEL (SW AB/URINE/PAPon 03-24-2022 Chlamydia trachomatis, ADRIEL Negative Normal Negative [facility] Comment on above: Performed By: #### CT/NGNA #### [facility] [address] [place] [address] Dr. Ximena Billings Neisseria gonorrhoeae, ADRIEL Negative Normal Negative [facility] Comment on above: Performed By: #### CT/NGNA #### [facility] [address] [place] [address] Dr. Ximena Billings VAGINITIS/VAGINOSIS DNA PROB Eugene 03-24-2022 Adriana species Negative Normal Negative [facility] Comment on above: Performed By: #### VAGINT #### [facility] [address] [place] [address] Dr. Ximena Billings Gardnerella vaginalis Positive Abnormal Negative [facility] Comment on above: Performed By: #### VAGINT #### [facility] [address] [place] [address] Dr. Ximena Billings Trichomonas vaginalis Negative Normal Negative [facility] Comment on above: Performed By: #### VAGINT #### [facility] [address] [place] [address] Dr. Ximena Billings GROUP A STREP CULTUREon S. pyogenes Ag Ql (Unsp spec) Culture Observations: NEGATIVE FOR GROUP A STREPTOCOCCUS. Normal [facility] Comment on above: Performed By: #### VAGINT #### [facility] [address] [place] [address] Dr. Ximena Billings STREPT SCREENon 01-02-2022 STREP SCREEN A Negative Normal NEGATIVE [facility] Comment on above: Performed By: #### VAGINT #### [facility] [address] [place] [address] Dr. Ximena Billings CBC AUTO DIFFon 12-11-2021 BASO # 0.0 103/ul Normal 0.0-0.1 [facility] Comment on above: Performed By: #### CBC #### [facility] [address] [place] [address] Dr. Ximena Billings Basophils/100 WBC (Bld) 0.7 % Normal 0.2-2.0 [facility] Comment on above: Performed By: #### CBC #### [facility] [address] [place] [address] Dr. Ximena Billings EO # 0.1 103/ul Normal 0.0-0.7 [facility] Comment on above: Performed By: #### CBC #### [facility] [address] [place] [address] Dr. Ximena Billings Eosinophils/100 WBC (Bld) 1.0 % Normal 0.9-7.0 [facility] Comment on above: Performed By: #### CBC #### [facility] [address] [place] [address] Dr. Ximena Billings Erythrocyte distribution width (RBC) [Ratio] 18.9 % Critically high 11.0-15.0 [facility] Comment on above: Performed By: #### CBC #### [facility] [address] [place] [address] Dr. Ximena Billings Hematocrit (Bld) [Volume fraction] 27.9 % Critically low 36.0-48.0 [facility] Comment on above: Performed By: #### CBC #### [facility] [address] [place] [address] Dr. Ximena Billings Hemoglobin (Bld) [Mass/Vol] 8.4 g/dL Critically low 12.0-16.0 [facility] Comment on above: Performed By: #### CBC #### [facility] [address] [place] [address] Dr. Ximena Billings IG # 0.01 10e3/ul Normal 0.00-0.03 [facility] Comment on above: Performed By: #### CBC #### [facility] [address] [place] [address] Dr. Ximena Billings IG % 0.2 % Normal 0.0-0.5 [facility] Comment on above: Performed By: #### CBC #### [facility] [address] [place] [address] Dr. Ximena Billings LYMPH # 2.2 103/ul Normal 1.2-3.8 [facility] Comment on above: Performed By: #### CBC #### [facility] [address] [place] [address] Dr. Ximena Billings Lymphocytes/100 WBC (Bld) 37.6 % Normal 20.5-60.0 [facility] Comment on above: Performed By: #### CBC #### [facility] [address] [place] [address] Dr. Ximena Billings MANUAL DIFF REQ NO Normal [facility] Comment on above: Performed By: #### CBC #### [facility] [address] [place] [address] Dr. Ximena Billings MCH (RBC) [Entitic mass] 21.9 pg Critically low 26.7-34.0 [facility] Comment on above: Performed By: #### CBC #### [facility] [address] [place] [address] Dr. Ximena Billings MCHC (RBC) [Mass/Vol] 30.1 g/dL Normal 29.9-35.2 [facility] Comment on above: Performed By: #### CBC #### [facility] [address] [place] [address] Dr. Ximena Billings MCV (RBC) [Entitic vol] 72.7 fL Critically low 81.0-99.0 [facility] Comment on above: Performed By: #### CBC #### [facility] [address] [place] [address] Dr. Ximena Billings MONO # 0.7 103/ul Normal 0.3-0.8 [facility] Comment on above: Performed By: #### CBC #### [facility] [address] [place] [address] Dr. Ximena Billings Monocytes/100 WBC (Bld) 11.4 % Normal 1.7-12.0 [facility] Comment on above: Performed By: #### CBC #### [facility] [address] [place] [address] Dr. Ximena Billings NEUT # 2.8 103/ul Normal 1.4-6.5 [facility] Comment on above: Performed By: #### CBC #### [facility] [address] [place] [address] Dr. Ximena Billings Neutrophils/100 WBC (Bld) 49.1 % Normal 43.0-75.0 [facility] Comment on above: Performed By: #### CBC #### [facility] [address] [address] [address] Ximena Billings Platelet mean volume (Bld) [Entitic vol] 8.8 fL Critically low 9.5-13.5 [facility] Comment on above: Performed By: #### CBC #### [facility] [address] [address] [address] Ximena Billings PLT 262 103/ul Normal 150-450 [facility] Comment on above: Performed By: #### CBC #### [facility] [address] [place] [address] Dr. Ximena Billings RBC 3.84 106/ul Critically low 4.20-5.40 [facility] Comment on above: Performed By: #### CBC #### [facility] [address] [address] [address] Ximena Billings WBC 5.7 103/ul Normal 4.0-11.0 [facility] Comment on above: Performed By: #### CBC #### [facility] [address] [address] [address] Ximena Billings Covid-19 PCR ([facility])on 11-30 SARS-CoV-2 (COVID-19) RNA ADRIEL+probe Ql (Unsp spec) Not detected Normal NOT DETECTED [facility] Comment on above: Result Comment: This test is not yet woo roved or cleared by the [place] FDA. When there are no FDA-approved or cleared tests available, and other criteria are met, FDA can make tests available under an emergency access mechanism called an Emergency Use Authorization (EUA). The EUA for this test is supported by the Senior Director Finance of Health and Human Service's (HHS's) declaration that circumstances exist to justify the emergency use of in vitro diagnostics for the detection and/or diagnosis of the virus that causes COVID-19. This EUA will remain in effect (meaning this test can be used) for the duration of the COVID-19 declaration justifying emergency of IVDs, unless it is terminated or revoked by FDA (after which the test may no longer be used). When diagnostic testing is negative, the possibility of a false negative should be considered in the context of a patient's recent exposures and the presence of clinical signs and symptoms consistent with SARS-CoV-2. Performed By: #### V AGINT #### [facility] [address] [address] [address] Ximena Billings ASYMPTOMATIC COVID-19 ANTIGE Non 11-27-2021 EUA Statement SEE BELOW Normal [facility] Comment on above: Result Comment: This test has not been F DA cleared or approved, but has been authorized by the FDA under an Emergency Use Authorization (EUA) for use by authorized laboratories certified under CLIA that meet the requirements to perform moderate or high complexity testing. This test has been authorized only for the detection of proteins from SARS-CoV-2, not for any other viruses or pathogens. The emergency use of this test is authorized for the duration of the declaration that circumstances exist justifying the authorization of emergency use of in vitro diagnostic tests for detection and/or diagnosis of Covid-19 under section 564(b)(1) of the Act, 21 U.S.C. 360bbb-3(b)(1), unless the declaration is terminated or authorization is revoked sooner. Performed By: #### V AGINT #### [facility] [address] [place] [address] Dr. Ximena Billings SARS-CoV-2 (COVID-19) RNA ADRIEL+probe Ql (Unsp spec) Negative Normal NEGATIVE [facility] Comment on above: Result Comment: Negative results are pre sumptive. They do not preclude infection and should not be used as the sole basis for treatment decisions. Additional confirmatory testing by a molecular method should be considered. Performed By: #### V AGINT #### [facility] [address] [place], [place] [id number] Dr. Ximena Billings Urinalysis - AUTOMATEDon Appearance (U) clear [facility] Other Bilirubin Ql (U) Negative [employer] Other Color (U) yellow [employer] Other Glucose Ql (U) Negative [facility] Other Hemoglobin Ql (U) Negative [employer] Other Ketones Ql (U) Negative [facility] Other Leukocyte esterase Test strip Ql (U) Negative [employer] Other Nitrite Ql (U) Negative [facility] Other pH (U) 6.0 [pH] [employer] Other Protein Ql (U) Negative [facility] Other Specific gravity (U) [Rel density] 1.010 [employer] Other Urobilinogen (U) [Mass/Vol] 0.2 mg/dL [employer] Other Urinalysis - AUTOMATED [employer] Other [place] 03-17-2020 CNPN Telephone ([facility]AD[facility]) PATSY CODY ([id number]) 1985 F Date Time Provider Department 03/17/20 KEN JORDAN [facility] During your visit today, we recorded the following information about you: Sarah Qiu 03/17/2020 10:19 AM Signed Patient called stating she has two upcoming procedures in [place] (ECT therapy for seizures with Dr. Obrien and a TMS procedure with Dr Foster). She will need neurology clearance from Dr. Jordan because of the Chiari. Please call patient at [phone] Xavi Mccormick, RN, RN 03/17/2020 10:21 AM Signed Please advise. Keila Correa PA-C 03/17/2020 2:[address] Jordan. OK to go forward with Tx's. The risk is slightly higher than someone without the chiari malformation, however, she has well maintained cisterna magna and tonsils are well rounded. Xavi Mccormick, RN, RN 03/17/2020 3:46 PM Signed Spoke with patient and informed of PA's response. 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] 07/22/2016 Encounter Status:Closed by XAVI MCCORMICK on [facility]/17/20 [facility] (ENDPMN[facility] -ESCOBARPATSY Preciado ([id number]) 1985 [facility] Time Provider Cppdibratw38/7/18 12:15 PM ROXANNA MERINO ENDPMCharlene During your visit today, we recorded the following information about you: Temperature Pulse Respiration Blood pressure 98.2 degrees 92/minute 20/minute 123/82 Weight Last Period 72.8 kg 09/21/18Genna Larsen Ma 10/05/2018 12:19 PM SignedAdditional intake questions:Has the patient had nausea, vomiting, diarrhea, constipation, fatigue for > 1week? None of the aboveDoes the patient have a decreased appetite? NoDoes patient want to see a House Visitor? No(yes to any of above refer patient to schedulers for dietitian appointment) )Does patient have any new or increased numbness or tingling of extremities? NoIs patient interested in fertility information? NoDoes patient need any prescription refills? NoElectronically Signed By: Genna Merino MD 10/05/2018 5:29 PM SignedCc Pituitary adenomaAdrenal insufficiencyLast seen June 2016HPIThcherelle is a very pleasant female 33y/oShe was originally seen during dizziness episode. She was found and told tohave pituitary adenoma as well as lesion most cystic around1.03x0.9 cm she wasalso seen for Chiari malformation when an MRI was done for dizzinessDuring her workup or originallyCortisol Basal ug/dL 5.8Comment: Cortisol Reference Range: AM = 3.4-26.9, PM = 0.9-15.8Cortisol 30 min ug/dL 15.1Cortisol 60 min ug/dL 10.3Interpretation (ACTHST) A peak value ofWe started her on small dose of hydrocortisone 10 and 5We will see him this was secondary to a general insufficiencyAs her ACTH was only 13She is here. She was seen by neurosurgery and told that this was the pituitarycyst looks stable. She does not need surgery or any other removalShe also stopped hydrocortisone tapering down due to 1 ACTH stim test when shewas actually close to normal. She also find out that before we did her ACTHstim test on July 26, 2016. She actually took one Medrol Cas April, so it is possible she is a slow metabolizer and had somewhat of historyof present illness axis suppression. She is going to have an ACTH stim test.She said arranged in [facility] reviewed with [employer] Of SystemsGENERAL:Negative for malaise, significant weight loss and feverHEENT:Negative for frequent or significant headaches, significant changes invision or vision problems, significant ear problems or hearing loss, nasaldischarge or nose bleeds and sore throat, difficulty swallowing, mouth lesionsNECK:Negative for lumps, goiter, pain and significant neck swellingRESPIRATORY: Negative for cough, wheezing and shortness of breathCARDIOVASCULAR: Negative for chest pain, leg swelling and palpitationsGASTROINTESTINAL: Negative for abdominal discomfort, blood in stools or blackstools and change in bowel habitsGENITOURINARY: Negative for dysuria, frequency and incontinenceMUSCULOSKELETAL: Negative for joint pain or swelling, back pain, and musclepain.NEUROLOGIC:Negativ e for focal numbness or weakness, headaches and dizziness.SKIN:Negative for lesions, rash, and itching.PSYCHIATRIC: Negative for sleep disturbance, mood disorder and recentpsychosocial stressors.HEMATOLOGIC/LYMPHAT IC/IMMUNOLOGIC:Negative for prolonged bleeding, bruisingeasily, and swollen nodes.ENDOCRINE: Negative for cold or heat intolerance, polyuria, polydipsia andgoiter.PAST MEDICAL HISTORYDiagnosis Date- Anemia- Hypotension- Pituitary cyst (HCC) pituitary cystNo past surgical history on file. negative surgical historySocial History Marital status: Spouse name: Years of education: Number of children:Social History Main Topics Smoking status: Current Every Day Smoker Packs/day: 1.00 Years: 0.00 Types: Cigarettes Smokeless tobacco: Never Used Alcohol use: Yes Drug use: NoFAMILY HISTORYProblem Relation Age of Onset- Diabetes Paternal Grandmother- Cancer Paternal Grandmother- No Ocular Disease OtherALLERGIESNo Known AllergiesCurrent Outpatient Prescriptions:hydrocortisone (CORTEF) 5 mg tablet TAKE 2 TABLETS BY MOUTH EVERY MORNING ANDTAKE 1 TABLET BY MOUTH EVERY EVENING, double the dose for 3 (THREE) days ifsickNo current facility-administered medications for this visit.BP 123/82 Pulse 92 Temp (Src) 98.2 (Oral) Resp 20 Wt 160 lb 6.4 oz(72.8kg) SpO2 100% LMP 09/21/2018General appearance: NAD, conversantEyes: anicteric sclerae, moist conjunctivae; no lid-lag; PERRLAHENT: Atraumatic; oropharynx clear with moist mucous membranes and no mucosalulcerations; normal hard and soft palateNeck: Trachea midline; FROM, supple, no thyromegaly or lymphadenopathyLungs: CTA, with normal respiratory effort and no intercostal retractionsCV: RRR, no MRGsAbdomen: Soft, non-tender; no masses or HSMExtremities: No peripheral edema or extremity lymphadenopathySkin: Normal temperature, turgor and texture; no rash, ulcers or subcutaneousnodulesPsych: Appropriate affect, alert and oriented to person, place and timeACTHDate Value Ref Range Fgwqyv2907/26/2016 13 8 - 42 pg/mL Final ProlactinDate Value Ref Range Lwdxtj4207/26/2016 6.2 2.0 - 17.4 ng/mL Final TSHDate Value Ref Range Ntjcbe7907/26/2016 2.250 0.400 - 5.500 uU/mL FinalComment:If the patient is , TSH reference range varies by gestational period:First Trimester 0.1-2.5 uU/mLSecond Trimester 0.2-3.0 uU/mLThird Trimester 0.3-3.0 uU/mL Free T3Date Value Ref Range Ybtdam5407/26/2016 2.9 1.8 - 4.6 pg/mL Final Free T4Date Value Ref Range Otbvar1907/26/2016 1.2 0.7 - 1.8 ng/dL Final FSHDate Value Ref Range Eolqlr3607/26/2016 2.1 mU/mL FinalComment:Reference range: Follicular: 2-11 Midcycle: 10-30 Luteal: 1-9 Post [place]: 20-100 Male: 1.0-10.0 ]A/pLabs and history and records reviewedPituitary adenoma/cyst. Secondary adrenal insufficiency diagnosed June 2016Currently she tapered down her hydrocortisoneHer last ACTH was borderlineShe is scheduled to [facility] another [facility] OctoberWe discussed that she might be slow metabolizerAnd sensitive to do exposure as one Medrol Cas unlikely but could have causedher to be suppressed even up to 2 months after she stopped the medicationShe is going to send me a message with her results. We will decide if sheneeds further treatment forWe discussed once moreDiscussedWhat is pituitary glandWhat is the functionWhy a tumor formsWhy a tumor needs to be removedWhat can be done about low hormonesReviewed MRI pituitary togetherAll questions answeredNo barriers for learningThank you for allowing me to participate in the medical care of PatsyAXEL Berumenonsultation requested by Dr. Kristin ALVARADO for an opinion regarding pituitary adenoma . 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 None of the aboveDoes the patient have a decreased appetite? NoDoes patient want to see a House Visitor? No(yes to any of above refer patient to schedulers for dietitianappointment) )Does patient have any new or increased numbness or tingling ofextremities? NoIs patient interested in fertility information? NoDoes patient need any prescription refills? NoElectronically Signed By: Genna Ratliff Number: [id number] Status:Closed by ROXANNA MERINO MD on 10/05/18 Normal [facility] PROGRESSon 10-05-2018 Protein mass conc HNO ID: [id number]: Roxanna Pepervice: (none)Author Type: PhysicianType: Progress NotesFiled: 10/05/2018 5:29 PMNote Text:Cc Pituitary adenomaAdrenal insufficiencyLast seen June 2016HPIThcherelle is a very pleasant female 33y/oShe was originally seen during dizziness episode. She was found and toldto have pituitary adenoma as well as lesion most cystic around1.03x0.9 cmshe was also seen for Chiari malformation when an MRI was done fordizzinessDuring her workup or originallyCortisol Basal ug/dL 5.8Comment: Cortisol Reference Range: AM = 3.4-26.9, PM = 0.9-15.8Cortisol 30 min ug/dL 15.1Cortisol 60 min ug/dL 10.3Interpretation (ACTHST) A peak value ofWe started her on small dose of hydrocortisone 10 and 5We will see him this was secondary to a general insufficiencyAs her ACTH was only 13She is here. She was seen by neurosurgery and told that this was thepituitary cyst looks stable. She does not need surgery or any otherremovalShe also stopped hydrocortisone tapering down due to 1 ACTH stim test whenshe was actually close to normal. She also find out that before we didher ACTH stim test on July 26, 2016. She actually took one MedrolPak May 09, 2016, so it is possible she is a slow metabolizer and hadsomewhat of history of present illness axis suppression. She is going tohave an ACTH stim test. She said arranged in October [facility] reviewed with Javier Of SystemsGENERAL:Negative for malaise, significant weight loss and feverHEENT:Negative for frequent or significant headaches, significant changesin vision or vision problems, significant ear problems or hearing loss,nasal discharge or nose bleeds and sore throat, difficulty swallowing,mouth lesionsNECK:Negative for lumps, goiter, pain and significant neck swellingRESPIRATORY: Negative for cough, wheezing and shortness of breathCARDIOVASCULAR: Negative for chest pain, leg swelling and palpitationsGASTROINTESTINAL: Negative for abdominal discomfort, blood in stools orblack stools and change in bowel habitsGENITOURINARY: Negative for dysuria, frequency and incontinenceMUSCULOSKELETAL: Negative for joint pain or swelling, back pain, andmuscle pain.NEUROLOGIC:Negative for focal numbness or weakness, headaches anddizziness.SKIN:Negative for lesions, rash, and itching.PSYCHIATRIC: Negative for sleep disturbance, mood disorder and recentpsychosocial stressors.HEMATOLOGIC/LYMPHAT IC/IMMUNOLOGIC:Negative for prolonged bleeding,bruising easily, and swollen nodes.ENDOCRINE: Negative for cold or heat intolerance, polyuria, polydipsia andgoiter.PAST MEDICAL HISTORYDiagnosis Date- Anemia- Hypotension- Pituitary cyst (HCC) pituitary cystNo past surgical history on file. negative surgical historySocial History Marital status: Spouse name: Years of education: Number of children:Social History Main Topics Smoking status: Current Every Day Smoker Packs/day: 1.00 Years: 0.00 Types: Cigarettes Smokeless tobacco: Never Used Alcohol use: Yes Drug use: NoFAMILY HISTORYProblem Relation Age of Onset- Diabetes Paternal Grandmother- Cancer Paternal Grandmother- No Ocular Disease OtherALLERGIESNo Known AllergiesCurrent Outpatient Prescriptions:hydrocortisone (CORTEF) 5 mg tablet TAKE 2 TABLETS BY MOUTH EVERY MORNINGAND TAKE 1 TABLET BY MOUTH EVERY EVENING, double the dose for 3 (THREE) daysif sickNo current facility-administered medications for this visit.BP 123/82 Pulse 92 Temp (Src) 98.2 (Oral) Resp 20 Wt 160 lb 6.4 oz(72.8kg) SpO2 100% LMP 09/21/2018General appearance: NAD, conversantEyes: anicteric sclerae, moist conjunctivae; no lid-lag; PERRLAHENT: Atraumatic; oropharynx clear with moist mucous membranes and nomucosal ulcerations; normal hard and soft palateNeck: Trachea midline; FROM, supple, no thyromegaly or lymphadenopathyLungs: CTA, with normal respiratory effort and no intercostal retractionsCV: RRR, no MRGsAbdomen: Soft, non-tender; no masses or HSMExtremities: No peripheral edema or extremity lymphadenopathySkin: Normal temperature, turgor and texture; no rash, ulcers orsubcutaneous nodulesPsych: Appropriate affect, alert and oriented to person, place and timeACTHDate Value Ref Range Qrjjan4807/26/2016 13 8 - 42 pg/mL Final ProlactinDate Value Ref Range Veuwpb6807/26/2016 6.2 2.0 - 17.4 ng/mL Final TSHDate Value Ref Range Lwamfh8407/26/2016 2.250 0.400 - 5.500 uU/mL FinalComment:If the patient is , TSH reference range varies by gestationalperiod:First Trimester 0.1-2.5 uU/mLSecond Trimester 0.2-3.0 uU/mLThird Trimester 0.3-3.0 uU/mL Free T3Date Value Ref Range Jbucpa0707/26/2016 2.9 1.8 - 4.6 pg/mL Final Free T4Date Value Ref Range Nkkiwf5807/26/2016 1.2 0.7 - 1.8 ng/dL Final FSHDate Value Ref Range Ntyrfn6007/26/2016 2.1 mU/mL FinalComment:Reference range: Follicular: 2-11 Midcycle: 10-30 Luteal: 1-9 Post [place]: 20-100 Male: 1.0-10.0 ]A/pLabs and history and records reviewedPituitary adenoma/cyst. Secondary adrenal insufficiency diagnosed June 2016Currently she tapered down her hydrocortisoneHer last ACTH was borderlineShe is scheduled to have another one ACTH stim test in [place] blameJanuaryWe discussed that she might be slow metabolizerAnd sensitive to do exposure as one Medrol Cas unlikely but could havecaused her to be suppressed even up to 2 months after she stopped themedicationShe is going to send me a message with her results. We will decide if sheneeds further treatment forWe discussed once moreDiscussedWhat is pituitary glandWhat is the functionWhy a tumor formsWhy a tumor needs to be removedWhat can be done about low hormonesReviewed MRI pituitary togetherAll questions answeredNo barriers for learningThank you for allowing me to participate in the medical care of Lucy Alvarado Karenwhitleykingsleycali [facility] TULSAonsultation requested by Dr. Kristin ALVARADO for an opinion regarding pituitary adenoma . My final recommendationswill be communicated back to the requesting physician by way of sharedmedical record or letter via US mail Normal [facility] CNOVon 09-11-2018 CNOV Office Visit (NSCAMN) -PATSY CODY ([id number]) 1985 [facility] Time Provider Oywjmkoeiz26/13/18 8:10 AM PENELOPE FOSTER NSCAMN During your visit today, we recorded the following information about you: Temperature Pulse Respiration Blood pressure 98.5 degrees 83/minute 18/minute 125/80 Weight Height 74.8 kg 1.727 [facility] 09/11/2018 8:27 AM SignedAdditional intake questions:Has the patient had nausea, vomiting, diarrhea, constipation, fatigue for > 1week? Vomiting, Yes, MD NotifiedNausea, Yes, MD NotifiedFatigue, Yes, MD NotifiedDiarrhea, Yes, MD NotifiedConstipation, Yes, MD NotifiedDoes the patient have a decreased appetite? NoDoes patient want to see a House Visitor? No(yes to any of above refer patient to schedulers for dietitian appointment) )Does patient have any new or increased numbness or tingling of extremities? NoIs patient interested in fertility information? NoDoes patient need any prescription refills? NoElectronically Signed By: Julian Foster MD 09/14/2018 12:54 PM SignedSECTION OF SKULL BASE SURGERYMINIMALLY INVASIVE CRANIAL BASE AND PITUITARY SURGERY PROGRAMLilly aLverne Wittt Brain Tumor and Neuro- Oncology CenterHOPI HEALTH CARE CENTERHead and Neck [place], Peoples HospitalCC: Cristine Grimes, LAIRD HOSPITALSSESSMENT: In summary, Patsy Cody is a very pleasant 33 year oldfemale with pituitary cystic lesion. 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 Merino given that Ithink it unlikely to be the cause give that it was present in 2013 prior to herdeveloping the symptoms in 2016 and has not changed. We also discussed that ifthings continue as they are, that we would not recommend surgery as I think itextremely unlikely to provide benefit and simply carry a risk of an unnecessaryprocedure. If additional information were obtained with Dr. Merino whichwould change this, we could certainly reconsider this.Vimal Maurice MD (Fellow)I have reviewed the history AND physical obtained and documented by the fellowwho scribed on my behalf. I examined the patient and evaluated all availablefilms and pertinent documents. This note accurately reflects work and decisionsmade by me.Penelope Foster MDThe patient is referred by Dr. Ken Jordan for neurosurgical evaluation givenmy specific expertise in pituitary disease. Final recommendations will becommunicated back to the requesting physician by way of the shared medicalrecords, or letters to requesting physician via US Mail.Chief Complaint: Pituitary adenomaHistory of Present Illness: Patient is accompanied by her , Romario . Thepatient is a 33 year old female who presents with a cystic pituitary lesion.She has a history of pituitary adenoma and chiari malformation first diagnosedin 2016 and complains of anxiety and headaches. Patient states that shefollowed up with the ag equipment field service technician, and she was put on hydrocortisone [id number] .Her dizziness has improved after taking hydrocortison . She complainsabout headaches and severe anxiety. She feels like she is overstimulated, andshe has a heightened sense of smell.She states that she has been feeling tired. She states that her vision is blurry and she cannot focus. The visual fieldexam didn't show any visual field deficits. She is here to discuss the surgicaloption for pituitary adenoma.Past Medical History:PAST MEDICAL HISTORYDiagnosis Date- Anemia- HypotensionPast Surgical History: No past surgical history on file.Family History:FAMILY HISTORYProblem Relation Age of Onset- Diabetes Paternal Grandmother- Cancer Paternal Grandmother- No Ocular Disease OtherSocial History: Social History Marital status: Spouse name: Years of education: Number of children:Social History Main Topics Smoking status: Current Every Day Smoker Packs/day: 1.00 Years: 0.00 Types: Cigarettes Smokeless tobacco: Never Used Alcohol use: Yes Drug use: NoMedications:Current Outpatient Prescriptions on File Prior to Visit:hydrocortisone (CORTEF) 5 mg tablet TAKE 2 TABLETS BY MOUTH EVERY MORNING ANDTAKE 1 TABLET BY MOUTH EVERY EVENING, double the dose for 3 (THREE) days ifsickNo current facility-administered medications on file prior to visit.Allergies: ALLERGIESNo Known AllergiesIndependentReview of Systems:Constitutional: no fever/chills, unintentional weight loss, she feels tired.Neurologic: no TIA/stroke, weakness, numbness or tingling, speech difficulty,memory loss, or seizures. Complaint of headache.Eyes: no change in visionHEENT: no trouble swallowing, loss of smell/taste, or hearing lossCardiovascular: no chest pain, palpitations, or leg swellingRespiratory: no cough, shortness of breath, recent pneumonia, or UMESH onCPAP/BiPAPGastrointestinal: no stomach pain, nausea, or vomitingGenitourinary: no pain while urinating, trouble initiating streamMusculoskeletal: no joint pain or swellingHematology: no easy bruising or bleedingPhysical Examination:Constitutional: BP 125/80 Pulse 83 Temp (Src) 98.5 (Oral) Resp 18 Ht 5'8 (1.73m) Wt 164 lb 12.8 oz (74.8kg) SpO2 100% BMI 25.06 kg/(m2). Well developed, well nourishedNeurological:Higher integrative functions: Oriented to person, place, and timeMemory: Good recent and remoteSpeech: Normal fluency and comprehensionFunds of knowledge: NormalAttention span and concentration: Rtje8bp cranial nerve: Full visual fieldsFundoscopy revealed no obvious papilledema or pfcvrwgrrgv1xo, 4th, and 6th cranial nerves: Pupils equally round and reactive to light,extraocularmovements intact without nystagmus or subjective scseyaxg6vi cranial nerve: V1-3 intact to light touch tlvneybhpkx7zl cranial nerve: Facial muscles full and symmetric xnhwpbndegn8zj cranial nerve: hearing intact to finger rub yzkkbamntds4ic cranial nerve: gag reflex test gjstfmyg92wk cranial nerve: Palate elevates symmetrically and uvula in the efcaeqh59uz cranial nerve: shoulder shrug 5/5 [id number] cranial nerve: tongue protrudes in the midlineMotors: Normal muscle tone, 5/5 strength throughout without pronator driftSensation: Intact to light touch and proprioception in all extremitiesCoordination: no dysmetria on fingers-nose testing bilaterallyReflexes: 2+ reflexes throughout with no Tinsley or clonus bilaterallyGait: able to stand and ambulate independently with normal gait includingtandem gaitCardiovascular: regular rate and rhythm, normal S1/2 sounds, no carotid bruitsLungs: clear to auscultation bilaterallyExtremities: no peripheral edemaData Review:Component Latest Ref Rng AND Units 07/26/2016Protein, Total 6.3 - 8.0 g/dL 7.5Albumin 3.9 - 4.9 g/dL 4.3Calcium 8.5 - 10.5 mg/dL 9.0Bilirubin, Total 0.2 - 1.3 mg/dL 0.2Alkaline Phosphatase 32 - 117 U/L 60AST 13 - 35 U/L 13Glucose 74 - 99 mg/dL 85BUN 7 - 21 mg/dL 10Creatinine 0.58 - 0.96 mg/dL 0.63Sodium 136 - 144 mmol/L 140Potassium 3.7 - 5.1 mmol/L 3.9Chloride 97 - 105 mmol/L 103CO2 22 - 30 mmol/L 23Anion Gap 9 - 18 mmol/L 14ALT 7 - 38 U/L 7eGFR- >60eGFR-All Other Races . >60Cortisol Basal ug/dL 5.8Cortisol 30 min ug/dL 15.1Cortisol 60 min ug/dL 10.3Interpretation (ACTHST) A peak value of at least 18 ug/dL is a normal responseto cortrosyn stimulation.TSH 0.400 - 5.500 uU/mL 2.250ACTH 8 - 42 pg/mL 13Insulin-like Growth Factor I 93 - 278 ng/mL 154Prolactin 2.0 - 17.4 ng/mL 6.2Estradiol 17B pg/mL 146FSH mU/mL 2.1Prashad Foster MD 09/11/2018 9:50 AM SignedWe discussed I believe this is most likely a pituitary cyst (so called parsintermedia cyst) although the possibility that this could less likely representa small cystic pituitary tumor was also discussed.The natural history ofpituitary cysts and tumors was discussed in detail. In this case, I recommendre-evaluation with Dr. Merino given that I think it unlikely to be the causegive that it was present prior to you developing the symptoms and has notchanged. We also discussed that if things continue as they are, that I wouldnot recommend surgery as I think it extremely unlikely to provide benefit withrisk of the procedure. If additional information were obtained with which would change this, we could certainly reconsider this. Thankyou for allowing me to participate in your care. 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 In this case, I recommend re-evaluation with Dr. Merino given that I think it unlikely to be the cause give that it was present prior to you developing the symptoms and has not changed. We also discussed that if things continue as they are, that I would not recommend surgery as I think it extremely unlikely to provide benefit with risk of the procedure. If additional information were obtained with Dr. Merino which would change this, we could certainly reconsider this. Thank you for allowing me to participate in your care. Please do not hesitate to call with questions.Visit Notes:>> Julian Colon Sep 11, 2018 8:26 AM Status: SignedAdditional intake questions:Has the patient had nausea, vomiting, diarrhea, constipation, fatigue for> 1 week? Vomiting, Yes, MD NotifiedNausea, Yes, MD NotifiedFatigue, Yes, MD NotifiedDiarrhea, Yes, MD NotifiedConstipation, Yes, MD NotifiedDoes the patient have a decreased appetite? NoDoes patient want to see a House Visitor? No(yes to any of above refer patient to schedulers for dietitianappointment) )Does patient have any new or increased numbness or tingling ofextremities? NoIs patient interested in fertility information? NoDoes patient need any prescription refills? NoElectronically Signed By: Julian Dudley LPNFollow-up and Disposition History RecordedEncounter Number: [id number] Status:Closed by PENELOPE FOSTER MD on 09/14/18 Normal [facility] PROGRESSon 09-11-2018 Protein mass conc HNO ID: [id number]: Penelope FosterService: (none)Author Type: PhysicianType: Progress NotesFiled: 09/14/2018 12:54 PMNote Text:SECTION OF SKULL BASE SURGERYMINIMALLY INVASIVE CRANIAL BASE AND PITUITARY SURGERY PROGRAMRose Laverne Hernandez Brain Tumor and Neuro- Oncology CenterHOPI HEALTH CARE CENTERHead and Neck [place], [facility] HospitalCC: Cristine Grimes, KAISER FOUNDATION HOSPITALESSMENT: In summary, Patsy Cody is a very pleasant 33 year oldfemale with pituitary cystic lesion. 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 Merino giventhat I think it unlikely to be the cause give that it was present in 2014prior to her developing the symptoms in 2016 and has not changed. We alsodiscussed that if things continue as they are, that we would not recommendsurgery as I think it extremely unlikely to provide benefit and simplycarry a risk of an unnecessary procedure. If additional information wereobtained with Dr. Merino which would change this, we could certainlyreconsider this.Vimal Maurice MD (Fellow)I have reviewed the history AND physical obtained and documented by thefellow who scribed on my behalf. I examined the patient and evaluated allavailable films and pertinent documents. This note accurately reflectswork and decisions made by me.Penelope Foster MDThe patient is referred by Dr. Ken Jordan for neurosurgical evaluationgiven my specific expertise in pituitary disease. Final recommendationswill be communicated back to the requesting physician by way of the sharedmedical records, or letters to requesting physician via US Mail.Chief Complaint: Pituitary adenomaHistory of Present Illness: Patient is accompanied by her , Romario. The patient is a 33 year old female who presents with a cystic pituitarylesion.She has a history of pituitary adenoma and chiari malformation firstdiagnosed in 2016 and complains of anxiety and headaches. Patient statesthat she followed up with the ag equipment field service technician, and she was put onhydrocortisone since 2016 .Her dizziness has improved after takinghydrocortison . She complains about headaches and severe anxiety. Shefeels like she is overstimulated, and she has a heightened sense ofsmell.She states that she has been feeling tired. She states that hervision is blurry and she cannot focus. The visual field exam didn't showany visual field deficits. She is here to discuss the surgical option forpituitary adenoma.Past Medical History:PAST MEDICAL HISTORYDiagnosis Date- Anemia- HypotensionPast Surgical History: No past surgical history on file.Family History:FAMILY HISTORYProblem Relation Age of Onset- Diabetes Paternal Grandmother- Cancer Paternal Grandmother- No Ocular Disease OtherSocial History: Social History Marital status: Spouse name: Years of education: Number of children:Social History Main Topics Smoking status: Current Every Day Smoker Packs/day: 1.00 Years: 0.00 Types: Cigarettes Smokeless tobacco: Never Used Alcohol use: Yes Drug use: NoMedications:Current Outpatient Prescriptions on File Prior to Visit:hydrocortisone (CORTEF) 5 mg tablet TAKE 2 TABLETS BY MOUTH EVERY MORNINGAND TAKE 1 TABLET BY MOUTH EVERY EVENING, double the dose for 3 (THREE) daysif [facility] current facility-administered medications on file prior to visit.Allergies: ALLERGIESNo Known AllergiesIndependentReview of Systems:Constitutional: no fever/chills, unintentional weight loss, she feelstired.Neurologic: no TIA/stroke, weakness, numbness or tingling, speechdifficulty, memory loss, or seizures. Complaint of headache.Eyes: no change in visionHEENT: no trouble swallowing, loss of smell/taste, or hearing lossCardiovascular: no chest pain, palpitations, or leg swellingRespiratory: no cough, shortness of breath, recent pneumonia, or UMESH onCPAP/BiPAPGastrointestinal: no stomach pain, nausea, or vomitingGenitourinary: no pain while urinating, trouble initiating streamMusculoskeletal: no joint pain or swellingHematology: no easy bruising or bleedingPhysical Examination:Constitutional: BP 125/80 Pulse 83 Temp (Src) 98.5 (Oral) Resp 18 Ht 5' 8 (1.73m) Wt 164 lb 12.8 oz (74.8kg) SpO2 100% BMI 25.06kg/(m2). Well developed, well nourishedNeurological:Higher integrative functions: Oriented to person, place, and timeMemory: Good recent and remoteSpeech: Normal fluency and comprehensionFunds of knowledge: NormalAttention span and concentration: Hiks7jp cranial nerve: Full visual fieldsFundoscopy revealed no obvious papilledema or aqyimmeeomv4ff, 4th, and 6th cranial nerves: Pupils equally round and reactive tolight, extraocularmovements intact without nystagmus or subjective [id number] cranial nerve: V1-3 intact to light touch bxdyqvdywtl6qo cranial nerve: Facial muscles full and symmetric dskvfxoglnn4xo cranial nerve: hearing intact to finger rub [id number] cranial nerve: gag reflex test [id number] cranial nerve: Palate elevates symmetrically and uvula in the onufduu39ky cranial nerve: shoulder shrug 5/5 [id number] cranial nerve: tongue protrudes in the midlineMotors: Normal muscle tone, 5/5 strength throughout without pronator driftSensation: Intact to light touch and proprioception in all extremitiesCoordination: no dysmetria on fingers-nose testing bilaterallyReflexes: 2+ reflexes throughout with no Tinsley or clonus bilaterallyGait: able to stand and ambulate independently with normal gait includingtandem gaitCardiovascular: regular rate and rhythm, normal S1/2 sounds, no carotidbruitsLungs: clear to auscultation bilaterallyExtremities: no peripheral edemaData Review:Component Latest Ref Rng AND Units 07/26/2016Protein, Total 6.3 - 8.0 g/dL 7.5Albumin 3.9 - 4.9 g/dL 4.3Calcium 8.5 - 10.5 mg/dL 9.0Bilirubin, Total 0.2 - 1.3 mg/dL 0.2Alkaline Phosphatase 32 - 117 U/L 60AST 13 - 35 U/L 13Glucose 74 - 99 mg/dL 85BUN 7 - 21 mg/dL 10Creatinine 0.58 - 0.96 mg/dL 0.63Sodium 136 - 144 mmol/L 140Potassium 3.7 - 5.1 mmol/L 3.9Chloride 97 - 105 mmol/L 103CO2 22 - 30 mmol/L 23Anion Gap 9 - 18 mmol/L 14ALT 7 - 38 U/L 7eGFR- >60eGFR-All Other Races . >60Cortisol Basal ug/dL 5.8Cortisol 30 min ug/dL 15.1Cortisol 60 min ug/dL 10.3Interpretation (ACTHST) A peak value of at least 18 ug/dL is a normalresponse to cortrosyn stimulation.TSH 0.400 - 5.500 uU/mL 2.250ACTH 8 - 42 pg/mL 13Insulin-like Growth Factor I 93 - 278 ng/mL 154Prolactin 2.0 - 17.4 ng/mL 6.2Estradiol 17B pg/mL 146FSH mU/mL 2.1 Normal [facility] CNOVon 08-21-2018 CNOV Office Visit (NSFRVW) -PATSY CODY ([id number]) 1985 FDate Time Provider Wvfubiamja36/23/18 3:10 PM KEN JORDAN NSFRVW During your visit today, we recorded the following information about you: Temperature Pulse Blood pressure Weight 98.4 degrees 106/minute 118/77 71.2 kg Height 1.727 Chinedu Jordan MD 08/24/2018 2:18 PM SignedCC : Rio with a chief complaint of anxiety.Interval HPI : Ms. Cody is 33 year old female with a history of pituitaryadenoma and chiari malformation and complains of anxiety and headaches.Patient states that she followed up with the ag equipment field service technician, and she was puton hydrocortisone. She states that she is not sure if the hydrocortisone ishelping. If she does not take it she gets anxious, if she takes too much of itshe also gets anxious. She states that she cannot drive due to anxiety. She hassevere anxiety and she cannot process things. She feels like she isoverstimulated, and she has a heightened sense of smell.She states that she hasbeen feeling tiered. She also states that she gets headaches. She states thather vision is blurry and she cannot focus. She states that she is achy allover. She states that it has been progressively worse since the last time shewas here. In the last year it has gotten significantly worse. She is here totalk about having the pituitary adenoma removed.ROS: see chartCurrent Medications : all meds are on the chart and have been reviewed by me.No changes.-- Xanax for anxiety. Has only taken 1.5 pillsAllergies : allergies are on the chart and have been reviewed by me. Antonio.EXAM :NADAlert and Oriented X 3Head NormocephalicEOMIVisual Gutierrez intactCranial Nerves 7,9,10,11,12 intactReflexes intact bilaterallyMuscle strength 5/5 in bilateral upper and lower extremitiesNormal GaitThe following other neurologic findings were found : NoneDiagnostic studies reviewed : most recent imaging. 08/17/18 MRI Pituitary W/WOCON compared with MRI from 01/2017Assessment : Pituitary adenoma and chiari malformation .Plan : Per Dr. Jordan refer to endocrinology to adjust hydrocortisone dose,and refer to Rosalba Foster for surgical consult.Patsy Nicole [id number] Harry WARREN-Student under the supervision of Keila WARREN-CFindings discussed with ptShe is using Steroid replacement therapy and wants to consider surgicaltreatment of her non-secretory pituitary adenomaI have referred her to my colleague Dr Penelope Foster for consideration of TSHShe agreesKen Jordan, Eran Provider: SELF [200]Allergies As of Date: 08/21/2018(No Known Allergies)Date Reviewed: 08/21/2018Reviewed by: Amanda Corado Ma - Fully AssessedReason for Visit: Follow Up [171]Primary Visit Diagnosis:Pituitary adenoma (HCC) [D35.2]Order(s):CONSULT TO NEUROSURGERY [19991105] Order #: [id number]: 1Prescriptions as of 08/21/2018 Sig:X HYDROCORTISONE 5 MG TABLET Take 2 tb in am ( 10 mg) and *Problem List As Of Date 08/21/2018 Noted Resolved Pituitary adenoma (HCC) [D35.2] INVALID FOR* Status:Closed by KEN JORDAN MD on 08/24/18 Normal [facility] PROGRESSon 08-21-2018 Protein mass conc HNO ID: [id number]: Ken Huntervice: (none)Author Type: PhysicianType: Progress NotesFiled: 08/24/2018 2:18 PMNote Text:CC : Isidorotent with a chief complaint of anxiety.Interval HPI : Ms. Cody is 33 year old female with a history ofpituitary adenoma and chiari malformation and complains of anxiety andheadaches. 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 She states that she is not sure if thehydrocortisone is helping. If she does not take it she gets anxious, ifshe takes too much of it she also gets anxious. She states that she cannotdrive due to anxiety. She has severe anxiety and she cannot processthings. She feels like she is overstimulated, and she has a heightenedsense of smell.She states that she has been feeling tiered. She alsostates that she gets headaches. She states that her vision is blurry andshe cannot focus. She states that she is achy all over. She states that ithas been progressively worse since the last time she was here. In the lastyear it has gotten significantly worse. She is here to talk about havingthe pituitary adenoma removed.ROS: see chartCurrent Medications : all meds are on the chart and have been reviewed byme. No changes.-- Xanax for anxiety. Has only taken 1.5 pillsAllergies : allergies are on the chart and have been reviewed by me. Antonio.EXAM :NADAlert and Oriented X 3Head NormocephalicEOMIVisual Gutierrez intactCranial Nerves 7,9,10,11,12 intactReflexes intact bilaterallyMuscle strength 5/5 in bilateral upper and lower extremitiesNormal GaitThe following other neurologic findings were found : NoneDiagnostic studies reviewed : most recent imaging. 08/17/18 MRI PituitaryW/WO CON compared with MRI from 01/2017Assessment : Pituitary adenoma and chiari malformation .Plan : Per Dr. Jordan refer to endocrinology to adjust hydrocortisonedose, and refer to Rosalba Foster for surgical consult.Patsy DennisonGeovannyober [id number] Harry WARREN-Student under the supervision of Keila WARREN-CFindings discussed with ptShe is using Steroid replacement therapy and wants to consider surgicaltreatment of her non-secretory pituitary adenomaI have referred her to my colleague Dr Penelope Foster for consideration ofTSHShe agreesKen Jordan MD Normal [facility] MR-MRI PITUITARY W/WO CON IM Onur 08-17-2018 MR-MRI PITUITARY W/WO CON IMPORT Images were obtained outside of [facility] [id number] Normal [facility] Coding Summary.on 06-22-2018 Coding Summary. CODING DATE: 018 FINAL [facility] STATUS: Home (Routine DC) PAYOR: Medicaid EAPG DESCRIPTION 0390 LEVEL I PATHOLOGY ADMIT DX: REASON FOR VISIT DX: D49.2 Neoplasm of unspecified behavior of bone, soft tissue, and skin FINAL DX: PRINCIPAL: D49.2 Neoplasm of unspecified behavior of bone, soft tissue, and skin SECONDARY: PYMT PROC EAPG STAT DESCRIPTION DOCTOR NAME DATE NOTE: The code number assigned matches the documented diagnosis and / or procedure in the patient's chart. However, the narrative phrase printed from the coding software may appear abbreviated, or result in slightly different terminology. Coded By: Trupti Oliva Date Saved: 06/22/2018 02:32 pm Normal [facility] Vital Signs Date Time Vital Sign Value Performing Clinician Facility 08-14-2022 14:00-0400 Body height 172.72 cm Jamia Miles Other [facility] Other 08-14-2022 14:00-0400 Body mass index (BMI) [Ratio] 22.35 kg/m2 Jamia Miles Other [facility] Other 08-14-2022 14:00-0400 Body temperature 99.1 [degF] Jamia Miles Other [facility] Other 08-14-2022 14:00-0400 Body weight 66.68 kg Jamia Miles Other [facility] Other 08-14-2022 14:00-0400 Diastolic blood pressure 74 mm[Hg] Jamia Miles Other [facility] Other 08-14-2022 14:00-0400 Respiratory rate 18 /min Jamia Miles Other [facility] Other 08-14-2022 14:00-0400 SaO2% (BldA) [Mass fraction] 98 % Jamia Miles Other [facility] Other 08-14-2022 14:00-0400 Systolic blood pressure 116 mm[Hg] Jamia Miles Other [facility] Other 11-10-2021 10:45-0500 Body height 172.72 cm Obed James Other [facility] Other 11-10-2021 10:45-0500 Body mass index (BMI) [Ratio] 22.96 kg/m2 Obed Augustinaker Other [facility] Other 11-10-2021 10:45-0500 Body temperature 98.4 [degF] Obed James Other [facility] Other 11-10-2021 10:45-0500 Body weight 68.49 kg Obed James Other [facility] Other 11-10-2021 10:45-0500 Diastolic blood pressure 79 mm[Hg] Obed James Other [facility] Other 11-10-2021 10:45-0500 Respiratory rate 18 /min Obed James Other [facility] Other 11-10-2021 10:45-0500 SaO2% (BldA) [Mass fraction] 100 % Obed James Other [facility] Other 11-10-2021 10:45-0500 Systolic blood pressure 133 mm[Hg] Obed James Other [facility] Other 08-30-2021 13:35-0400 Body height 172.72 cm Daniela Kay Other [facility] Other 08-30-2021 13:35-0400 Body mass index (BMI) [Ratio] 23.26 kg/m2 Daniela Kay Other [facility] Other 08-30-2021 13:35-0400 Body temperature 98 [degF] Daniela Perryault Other [facility] Other 08-30-2021 13:35-0400 Body weight 69.4 kg Daniela Kay Other [facility] Other 08-30-2021 13:35-0400 Diastolic blood pressure 87 mm[Hg] Daniela Perryault Other [facility] Other 08-30-2021 13:35-0400 Respiratory rate 18 /min Daniela Perryault Other [facility] Other 08-30-2021 13:35-0400 SaO2% (BldA) [Mass fraction] 100 % Daniela Perryault Other [facility] Other 08-30-2021 13:35-0400 Systolic blood pressure 142 mm[Hg] Daniela Perryault Other [facility] Other Encounters Encounter Date Encounter Type Care Provider Facility Start: 11-14-2022 End: 11-14-[address] SVETLANA BARRIOS Facility:[facility] Start: 09-29-2022 End: 09-29-2022 ambulatory BRIANA JENNINGS Facility:[facility] Start: 09-03-2022 End: 09-04-[address] JOSE LUIS CORADO Facility:[facility] Start: 08-14-2022 End: 08-14-2022 ambulatory Jamia Miles Facility:[facility] Start: 08-14-2022 Office outpatient vi sit 15 minutes Jamia Miles [facility] Start: 08-14-2022 End: 08-14-2022 ambulatory MD Joel Schroeder Work Phone: [facility] Work Phone: Start: 08-14-2022 End: 08-14-2022 Patient encounter procedure MD Joel Schroeder Work Phone: [facility] Start: 05-16-2022 Encounter for preprocedural laboratory examination DR KEL GURROLA [facility] Start: 05-13-2022 End: 05-13-[address] KEL GURROLA Facility:[facility] Start: 05-10-2022 End: 05-11-[address] KEL GURROLA Facility:[facility] Start: 05-10-2022 End: 05-11-2022 Encounter for preprocedural laboratory examination DR KEL GURROLA Facility:[facility] Start: 05-09-2022 Encounter for other preprocedural examination DR KEL GURROLA [facility] Start: 05-05-2022 End: 05-06-[address] JOEL SCHROEDER Facility:[facility] Start: 05-05-2022 End: 05-06-2022 Encounter for other preprocedural examination DR JOEL SCHROEDER Facility:[facility] Start: 04-28-2022 End: 04-28-[address] KEL GURROLA Facility:[facility] Start: 04-04-2022 End: 04-05-[address] KEL GURROLA Facility:[facility] Start: 03-31-2022 End: 04-01-[address] KEL GURROLA Facility:[facility] Start: 03-22-2022 End: 03-22-[address] KEL GURROLA Facility:[facility] Start: 02-04-[address] JOEL SCHROEDER Facility :[facility] Start: 01-02-2022 End: 01-02-2022 ambulatory BRIELLE IZAGUIRRE Facility:[facility] Start: 12-31-2021 End: 12-31-[address] JOEL SCHROEDER Facility:[facility] Start: 12-24-2021 End: 12-27-[address] JOEL SCHROEDER Facility:[facility] Start: 12-11-2021 End: 12-12-[address] JOEL SCHROEDER Facility:[facility] Start: 12-10-2021 End: 12-10-[address] JOEL SCHROEDER Facility:[facility] Start: 11-27-2021 End: 11-28-[address] JOEL SCHROEDER Facility:[facility] Start: 11-10-2021 End: 11-10-2021 ambulatory Obed Pemberton Other [facility] Other Start: 11-10-2021 Office outpatient vi sit 15 minutes Obed James [facility] Start: 08-30-2021 End: 08-30-2021 ambulatory Danielajosefina Kay Other [facility] Other Start: 08-30-2021 Office outpatient vi sit 5 minutes Danielajosefina Kay [facility] Start: 02-13-2019 Patient encounter procedure Joel~[id number] RUTH ANN Amber Facility:CD:[id number] Start: 10-05-2018 End: 10-08-2018 Patient encounter procedure ROXANNA A ANGELIQUE [facility] Start: 09-11-2018 End: 09-14-2018 Patient encounter procedure PENELOPE FOSTER [facility] Start: 08-21-2018 End: 08-24-2018 Patient encounter procedure KEN JORDAN [facility] Start: 06-19-2018 End: 06-20-2018 Patient encounter procedure Chito Duarte [place] Start: 12-01-2017 Patient encounter procedure ROXANNA A CARLTONU [facility] Procedures Date Procedure Procedure Detail Performing Clinician Start: 08-14-2022 X-ray of right ankle MD Joel Schroeder Work Phone: Payers Date Payer Category Payer Self-pay [id number] 2018 Unknown [id number] 1985 Unknown [id number] 2.16.84 [id number] 1985 Unknown [id number] 2.16.84 0.1.772729.3.579.2.727 1985 Unknown [id number] 2.16.84 0.1.369888.3.579.2.593 1985 Unknown [id number] 2.16.84 0.1.903429.3.579.2.593 1985 Unknown [id number] 2.16.84 0.1.392991.3.579.2.593 1985 Unknown [id number] 2.16.84 0.1.217932.3.579.2.593 1984 Unknown [id number] 2.16.84 0.1.386290.3.579.2.593 1984 Unknown [id number] 2.16.84 0.1.868961.3.579.2.593 1984 Unknown [id number] 2.16.84 0.1.068695.3.579.2.593 1984 Unknown [id number] 2.16.84 0.1.947886.3.579.2.593 1984 Unknown [id number] 2.16.84 0.1.448340.3.579.2.593 1984 Unknown [id number] 2.16.84 0.1.124047.3.579.2.593 1984 Unknown [id number] 2.16.84 0.1.858124.3.579.2.593 1984 Unknown [id number] 2.16.84 0.1.108506.3.579.2.593 1984 Unknown [id number] 2.16.84 0.1.360035.3.579.2.593 1984 Unknown [id number] 2.16.84 0.1.917765.3.579.2.593 1984 Unknown [id number] 2.16.84 0.1.813234.3.579.2.593 1984 Unknown [id number] 2.16.84 0.1.059606.3.579.2.593 1984 Unknown [id number] 2.16.84 0.1.581517.3.579.2.593 1984 Unknown [id number] 2.16.84 0.1.208536.3.579.2.593 1960 Self-pay [id number] 1960 Unknown [id number] 2.1 6.840.1.841595.19 Unknown [id number] 2.16.8 40.1.506836.3.579.2.531 Social History Date Type Detail Facility Tobacco smoking status [facility] Unknown if ever smoked [facility] Start: 1985 Sex Assigned At Female F [facility] Sex Assigned At Sex Assigned At Bir th [employer] [facility] Other Start: 09-05-2019 Tobacco smoking status ILIS Ex-smoker (finding) [facility] Medical Equipment Procedure Code Equipment Code Equipment Origin al Text Equipment Identifier Dates [id number] FDA Start: 09-05-2019 Silicone gel-fay led breast implant [id number] FDA Start: 09-05-2019 Goals Date Patient Goal Desired Activity /State Evaluation note 08-14-2022 Note Date & Type Note Facility 08-14-2022 Evaluation note Encounter Date Diagnosis Assessment Notes Jul, Acute right ankle pain (ICD-10 - M25.571) Jul, Sprain of right ankle, unspecified ligament, initial encounter (ICD-10 - S93.401A) XR images and final report reviewed, mild soft tissue swelling noted. Area wrapped today in SKINNY wraps. Encouraged RICE therapy discussed- rest extremity, avoid excessive or strenuous activity, complete activity as tolerated; ice area for 15-20 minutes at a time multiple times a day, ensure thin cloth barrier between skin and ice; Splint/SKINNY wrap area; keep extremity elevated. Advised patient to use OTC NSAIDs/Tylenol as directed as needed for discomfort. Instructed patient to follow up with PCP or ortho if sx do not improve in the next 5-7 days. Immediate eval by ER for warning s/sx as discussed. Patient verbalizes understanding and is agreeable to treatment plan [facility] Other Clinical Note 05-13-2022 Note Date & Type Note Facility 05-13-2022 Note OPERATIVE NOTE OPERATION DATE: 05/13/2022 PROCEDURE: Julianna endometrial ablation with hysteroscopy. PREOPERATIVE DIAGNOSIS: Menorrhagia. POSTOPERATIVE DIAGNOSIS: Menorrhagia. ANESTHESIA: General. SURGEON: Kel Gurrola D.O. DENTAL INSTRUMENT MAKER: None. BLOOD LOSS: 5 mL. URINE OUTPUT: Yellow and clear. FINDINGS: Normal appearing uterus. No gross evidence of polyps, fibroids, malignancy. Both ostia were seen. SPECIMEN: None. PROCEDURE: The patient was taken back to the OR where she was prepped and draped in the normal sterile fashion after being placed in the dorsal lithotomy position, after being placed under general anesthesia without difficulty. A weighted speculum was placed into the vagina. The anterior lip was grasped with a single tooth tenaculum. The patient was then sounded to approximated 8 cm. The patient's cervix was gently dilated using Hegar dilators. The hysteroscope was passed through the cervix into the uterus where both ostia were seen. No gross evidence of polyps, fibroids or malignancy. The cervical length was noted to be 4 cm. The total cavity length is 4 cm. The Julianna ablation apparatus was set to approximately 4 cm in length. This was placed through the cervix and into the uterus. After the seal was tested, at that time the total ablation of 120 seconds was performed with the Julianna without difficulty. All instruments were removed from the vagina. Excellent hemostasis noted. Sponge and lap count correct times 2. Patient taken to recovery in stable condition. [facility] Signed and Approved by: DR KEL GURROLA . 05/20/2022 08:19:00 [facility] Evaluation note 11-10-2021 Note Date & Type Note Facility 11-10-2021 Evaluation note Encounter Date Diagnosis Assessment Notes Oct, Bacterial conjunctivitis of right eye (ICD-10 - H10.9) Use medication as directed. Recommend discarding makeup if applicable. Need to wash linens on bed. Follow up with eye doctor or urgent care if symptoms worsen or are not improving in 2-3 days. No evidence of periorbital cellulitis, orbital cellulitis, dacryocystitis , or retrobulbar abscess as there has been no recent trauma. Exam is not consistent with endophthalmiti s, iritis, or perforated globe. Sign and symptoms are consistent with bacterial conjunctivitis . Will treat with polytrim. Given strict precautions about when she may need to go to the ER. Pt understands and agrees with the plan. [facility] Other Evaluation note 08-30-2021 Note Date & Type Note Facility 08-30-2021 Evaluation note Encounter Date Diagnosis Assessment Notes Aug, Dysuria (ICD-10 - R30.0) Patient referred to specialist at this time. Patient has had these symptoms and has been treated with different medications without results. Patient made follow up with Amy Olmso. [employer] Other Evaluation note Note Date & Type Note Facility Evaluation [facility] History general Narrative - Reported Note Date & Type Note Facility History general Narrative - Reported Type Medical History chiari malformation type 1 Surgical History , laparascopy, breast implant. Surgical History sphincter Surgical History hemorrhoidectomy [employer] Other History general Narrative - Reported Note Date & Type Note Facility History general Narrative - Reported Type Medical History chiari malformation type 1 Surgical History , laparascopy, breast implant. Surgical History sphincter Surgical History hemorrhoidectomy Surgical History y-vanoplasty Surgical History fissurectomy Surgical History sphencterotomy Hospitalization History see above [employer] Other History general Narrative - Reported Note Date & Type Note Facility History general Narrative - Reported Type Medical History chiari malformation type 1 Surgical History Uretha sling 12/21 Surgical History Salpingectomy 12/21 Hospitalization History see above [employer] Other Summary Purpose Family History No Family History Records Found Relationship Condition Age at Onset Recorded Date/T zenon Not Specified No pertinent family history Unknown Advance Directives No Advanced Directives Records Found Advance Directive Response Recorded Date/ Time Advance Directives No May 10 1:56pm Assessments No Assessments Information AvailableNo Assessments Information AvailableNo Assessments Information AvailableNo Assessments Information Available Additional Source Comments INFORMATION SOURCE (unrecogn ized section and content) DATE CREATED AUTHOR 10/10/2018 [facility] DATE CREATED AUTHOR AUTHOR'S ORGANIZ ATION 02/13/2019 [facility] DATE CREATED AUTHOR AUTHOR'S ORGANIZ ATION 03/17/2020 [facility] DATE CREATED AUTHOR AUTHOR'S ORGANIZ ATION 08/26/2022 [facility] DATE CREATED AUTHOR AUTHOR'S ORGANIZ ATION 11/16/2022 [facility] REASON FOR VISIT (unrecogniz ed section and content) DYSURIA, INCONTINANCE, FREQU ENCYPOSS PINK EYERIGHT ANKLE PAIN Care Teams (unrecognized sec tion and content) Team Status: Inactive Member Role Status Dates Joel Schroeder MD Primary Care Provider Active Jamia Miles APRN Attending Provider Active Team Status: Active Member Role Status Dates Joel Schroeder MD Primary Care Provider Active Goals (unrecognized section and content) Goals may be documented in a n alternate section FOR RECORDS PERTAINING TO PATIENTS WHO ARE OR HAVE BEEN ENROLLED IN A CHEMICAL DEPENDENCY/SUBSTANCEABUSE PROGRAM, SOME INFORMATION MAY BE OMITTED. This clinical summary was aggregated from multiple sources. Caution should be exercised in using it in the provision of clinical care. This summary normalizes information from multiple sources, and as a consequence, information in this document may materially change the coding, format and clinical context of patient data. In addition, data may be omitted in some cases. CLINICAL DECISIONS SHOULD BE BASED ON THE PRIMARY CLINICAL RECORDS. [employer] [facility]. provides no warranty or guarantee of the accuracy or completeness of information in this document.
--- NOTE | 2023-12-20 08:35 | ECG_ITS ---
[facility] Test Date: 2023-12-20 Pat Name: KATIA CODY Department: Room: - Gender: Female Facility Security Officer: : 1985 Requested By: [id number] Order Number: [id number] Reading MD: SILVANA BARRIOS Measurements Intervals Lutz Rate: 69 P: 69 VT: 162 QRS: 81 QRSD: 94 T: 70 QT: 430 QTc: 449 Interpretive Statements 1100 Sinus rhythm 2420 RSR (QR) in lead V1/V2, consistent with right ventricular conduction delay 9130 borderline ECG Compared to ECG 09/03/2022 20:54:18 No significant changes Electronically Signed On 12-26-2023 22:49:47 EST by SILVANA BARRIOS
--- NOTE | 2023-12-20 08:36 | ED_ITS ---
HPI - Anxiety General Chief Complaint: Anxiety Stated Complaint: anxiety Time Seen by Provider: 12/20/23 08:31 Source: patient Mode of arrival: ambulance History of Present Illness HPI narrative: 38-year-old female presents for what she describes as an anxiety attack. She states that in the middle of the night she woke up and she felt like her heart was racing and she felt anxious. She took a dose of Xanax but did not feel much better and she was brought in by paramedics. No fever or vomiting. She is not suicidal. Related Data Home Medications Medication Instructions Recorded Confirmed No Known Home Medications 09/23/23 12/20/23 Allergies Allergy/AdvReac Type Severity Reaction Status Date / Time venlafaxine [From Effexor] Allergy Severe Verified 12/20/23 08:31 Review of Systems ROS Narrative A ten point review of systems is negative except as noted above. [facility] Medical History (Updated 12/20/23 @ 10:03 by Pablito Dawson MD) Anemia ?D64.9 - Anemia, unspecified (ICD-10) Anxiety ?F41.9 - Anxiety disorder, unspecified (ICD-10) Genital warts ?A63.0 - Anogenital (venereal) warts (ICD-10) Surgical History (Updated 08/11/23 @ 11:16 by Shasha Harvey NP) H/O vein stripping ?Z98.890 - Other specified postprocedural states (ICD-10) History of breast augmentation ?Z98.82 - Breast implant status (ICD-10) History of bilateral salpingectomy ?Z90.79 - Acquired absence of other genital organ(s) (ICD-10) History of tubal ligation ?Z98.51 - Tubal ligation status (ICD-10) History of laparoscopy ?Z98.890 - Other specified postprocedural states (ICD-10) History of section ?Z98.891 - History of uterine scar from previous surgery (ICD-10) Family History (Updated 08/11/23 @ 11:16 by Shasha Harvey NP) Other Family history of diabetes mellitus Family history of hypertension Family history of prostate cancer Social History (Updated 08/11/23 @ 11:12 by Shasha Harvey NP) Within the past year, how often did you have a drink containing alcohol: monthly or less Smoking status: Current every day smoker What tobacco products do you use: cigarettes Cigarettes per day: 20 Years smoked: 20 Smoking pack-years: 20.00 Non-prescribed substance use: denies use Previous occupational history: [employer] Highest level of school completed/degree received: high school graduate Exam Narrative Exam Narrative: Nurses note and vital signs reviewed and patient is not hypoxic. General: The patient appears well and in no apparent distress. Patient is resting comfortably on cart. Skin: Warm, dry, no pallor noted. There is no rash noted. Head: Normocephalic, atraumatic Eye: Normal conjunctiva, no drainage Ears, Nose, Mouth, and Throat: oral mucosa is moist. Cardiovascular: Regular Rate and Rhythm Respiratory: Patient is in no distress, no accessory muscle use, lungs are clear to auscultation, no wheezing, rales or rhonchi Back: non-tender GI: Soft and nontender Musculoskeletal: The patient has no evidence of calf tenderness, no pitting edema, symmetrical pulses noted bilaterally Neurological: A&O, normal speech Psychiatric: Cooperative Constitutional Vital Signs, click to edit/add: Last Vital Signs Temp 98.0 F 12/20/23 08:22 Pulse 80 12/20/23 08:22 Resp 20 12/20/23 08:22 BP 121/66 12/20/23 08:22 Pulse Ox 100 12/20/23 08:22 O2 Del Method Room Air 12/20/23 08:22 Course Vital Signs Vital signs: Vital Signs Temperature 98.0 F 12/20/23 08:22 Pulse Rate 80 12/20/23 08:22 Respiratory Rate 20 12/20/23 08:22 Blood Pressure 121/66 12/20/23 08:22 Pulse Oximetry 100 12/20/23 08:22 Oxygen Delivery Method Room Air 12/20/23 08:22 Temperature 98.0 F 12/20/23 08:22 Pulse Rate 80 12/20/23 08:22 Respiratory Rate 20 12/20/23 08:22 Blood Pressure 121/66 12/20/23 08:22 Pulse Oximetry 100 12/20/23 08:22 Oxygen Delivery Method Room Air 12/20/23 08:22 MDM - Anxiety MDM Narrative Medical decision making narrative: The patient was given IV Ativan and feels much better and is able to be discharged home. Treatment diagnosis and follow-up were discussed with the patient. Differential Diagnosis Differential diagnosis: Likely panic disorder and acute anxiety Lab Data Attestation: I reviewed the patient's lab results. Labs: Lab Results 12/20/23 Range/Units 08:45 WBC 4.9 (4.0-11.0) 10^3/uL RBC 4.17 L (4.20-5.40) 10^6/uL Hgb 12.2 (12.0-16.0) g/dL Hct 37.7 (36.0-48.0) % MCV 90.4 (81.0-99.0) fL MCH 29.3 (26.7-34.0) pg MCHC 32.4 (29.9-35.2) g/dL RDW 13.5 (11.0-15.0) % Plt Count 276 (150-450) 10^3/uL MPV 9.8 (9.5-13.5) fL Neut % (Auto) 62.6 (43.0-75.0) % Lymph % (Auto) 26.7 (20.5-60.0) % [place] % (Auto) 8.1 (1.7-12.0) % Eos % (Auto) 1.6 (0.9-7.0) % Baso % (Auto) 0.8 (0.2-2.0) % Neut # (Auto) 3.1 (1.4-6.5) 10^3/uL Lymph # (Auto) 1.3 (1.2-3.8) 10^3/uL [place] # (Auto) 0.4 (0.3-0.8) 10^3/uL Eos # (Auto) 0.1 (0.0-0.7) 10^3/uL Baso # (Auto) 0.0 (0.0-0.1) 10^3/uL Abs Immat Gran (auto) 0.01 (0.00-0.03) 10^3/uL Imm/Tot Granulo (auto) 0.2 (0.0-0.5) % Sodium 138 (136-145) mmol/L Potassium 4.2 (3.5-5.1) mmol/L Chloride 105 (98-107) mmol/L Carbon Dioxide 23.8 (21.0-32.0) mmol/L Anion Gap 13.4 BUN 11.0 (7.0-18.0) mg/dL Creatinine 0.73 (0.55-1.02) mg/dL Est GFR ( Amer) >60 (>=60) Est GFR (Non-Af Amer) >60 (>=60) BUN/Creatinine Ratio 15.1 Glucose 83 (74-106) mg/dL Calcium 8.5 (8.5-10.1) mg/dL ECG Data Attestation: I personally reviewed and interpreted this ECG as follows: ([id number],, and patient shows sinus rhythm without acute change.) Discharge Plan Discharge Chief Complaint: Anxiety Clinical Impression: Acute anxiety Patient Disposition: Home, Self-Care Time of Disposition Decision: 10:03 Condition: Good Mode of Transportation: Private Vehicle Prescriptions / Home Meds: No Action No Known Home Medications Instructions: Anxiety (ED) Stand Alone Forms: Portal Instructions Referrals: Arnold Schroeder MD [Primary Care Provider] - 1 week
[2023-12-20] MEDS: LORAZEPAM 2 MG/ML 1 ML VIAL 1 MG IV (08:54)
[2023-12-20 09:05] LABS: Basophils Percent Auto 0.8 % (0.2-2.0); Eosinophils Absolute Auto 0.1 10^3/uL (0.0-0.7); Eosinophils Percent Auto 1.6 % (0.9-7.0); Hematocrit 37.7 % (36.0-48.0); Hemoglobin 12.2 g/dL (12.0-16.0); Immature Granulocytes Abs Auto 0.01 10^3/uL (0.00-0.03); Immature Granulocytes Pct Auto 0.2 % (0.0-0.5); Lymphocytes Absolute Auto 1.3 10^3/uL (1.2-3.8); Lymphocytes Percent Auto 26.7 % (20.5-60.0); Mean Corpuscular HGB Conc 32.4 g/dL (29.9-35.2); Mean Corpuscular Hemoglobin 29.3 pg (26.7-34.0); Mean Corpuscular Volume 90.4 fL (81.0-99.0); Mean Platelet Volume 9.8 fL (9.5-13.5); Monocytes Absolute Auto 0.4 10^3/uL (0.3-0.8); Monocytes Percent Auto 8.1 % (1.7-12.0); Neutrophils Absolute Auto 3.1 10^3/uL (1.4-6.5); Neutrophils Percent Auto 62.6 % (43.0-75.0); Platelet Count 276 10^3/uL (150-450); Red Blood Count 4.17 10^6/uL (4.20-5.40); Red Cell Distribution Width 13.5 % (11.0-15.0); White Blood Count 4.9 10^3/uL (4.0-11.0)
[2023-12-20 09:15] LABS: Anion Gap 13.4; BUN Creatinine Ratio 15.1; Calcium 8.5 mg/dL (8.5-10.1); Carbon Dioxide 23.8 mmol/L (21.0-32.0); Chloride 105 mmol/L (98-107); Estimated GFR (African America >60 (>=60); Estimated GFR (Non-African Ame >60 (>=60); Glucose 83 mg/dL (74-106); Potassium 4.2 mmol/L (3.5-5.1); Sodium 138 mmol/L (136-145)
[2023-12-20 10:18] VITALS: BP 126/84; PULSE 99; RESP 18; O2SAT 100
== END 2023-12-20 10:27 | disposition home or self-care (01) ==
PROVIDERS: Emergency Provider Emergency Medicine; PCP Family Medicine
DX: F41.9 Anxiety disorder, unspecified (principal); Z98.82 Breast implant status; Z98.51 Tubal ligation status; Z90.79 Acquired absence of other genital organ(s); F17.210 Nicotine dependence, cigarettes, uncomplicated
CPT/HCPCS: 36415; 80048; 85025; 93005; 96374; 99284; J2060

== ENCOUNTER 2023-12-21 21:24 | Emergency (ER) | payer SELFPAY ==
--- OUTSIDE RECORDS SUMMARY | 2023-12-21 21:44 | XMS_ITS | CCD ---
Author Name Unknown Address [address] [place] [address] Organization [facility] Care Team Providers Care Custodian Manager Name Role Phone HATIPOGLU, BETUL A Unavailable Unavailable HATIPOGLU, BETUL A Unavailable Unavailable FOSTERSKYLER BEYERLO F Unavailable Unavailable VORKEN BENAVIDEZ Unavailable Unavaila ble HATIPOGLU, BETUL A Unavailable Unavailable HATIPOGLU, BETUL A Unavailable Unavailable KEN JORDAN Unavailable Unavaila Chito Garcia Admitting Unavailable Chito Duarte Attending Unavailable Joel Schroeder~[phone] UNKNOWN Primary Care Unavailable Joel Schroeder~[phone] UNKNOWN Primary Care Unavailable Daniela Kay Unavailable Obed James Unavailable MD Joel Schroeder Primary Care Provider [phone] KATHY Miles Attending Provider [phone] Jamia Miles Unavailable Jamia Miles Attending Unavailable [...] Unavailable JULIAN WOODS Consulting Unavailable SOPHIE, DR MOTA Consulting Unavailable SOPHIE, DR MOTA Attending Unavailable [...] Facility (3 sources) venlafaxine Drug Allergy Unknown [facility] Other (2 sources) venlafaxine; Translations: [Effexor] Drug Allergy high BP/Heartrate [facility] Repository (1 source) Codeine Drug Allergy [facility] Medications Current Medications Medication Drug Class(es) Dates Sig (Normalized) Sig (Original) [place] (No Known Home Meds) (1 source) Start: 09-05-2019 [place] (No Known Home Meds) Active September 05, 2019 1:00am polymyxin b 27241 unt/ml / trimethoprim 1 mg/ml ophthalmic solution (1 source) Dihydrofolate Reductase Inhibitor Antibacterial, Polymyxin-class Antibacterial Start: 11-10-2021 take 1 drop(s) into the eye(s) four times daily Polymyxin B-Trimethoprim 64797-8.1 UNIT/ML 1 drop into both eyes Ophthalmic [...] 05-09-2022 Chronic Other aftercare (1 source) Other snf (current) drug therapy; Translations: [OTH CARE HOME CURRENT DRUG THERAPY] Onset: 11-15-2022 Episodic Other [...] 10-04-2022 Chlamydia trachomatis, ADRIEL Negative Normal Negative [facility] Comment on above: Performed By: #### VAGINT #### [facility] [address] [place] [address] Dr. Ximena Billings Neisseria gonorrhoeae, ADRIEL Negative Normal Negative [facility] Comment on above: Performed By: #### VAGINT #### [facility] [address] [place] [address] Dr. Ximena Billings VAGINITIS/VAGINOSIS DNA PROB Eugene 10-02-2022 Adriana species Negative Normal Negative [facility] Comment on above: Performed By: #### VAGINT #### [facility] [address] [place] [address] Dr. Ximena Billings Gardnerella vaginalis Negative Normal Negative [facility] Comment on above: Performed By: #### VAGINT #### [facility] [address] [address] [address] Ximena Billings Trichomonas vaginalis Negative Normal Negative [facility] Comment on above: Performed By: #### VAGINT #### [facility] [address] [place] [address] Dr. Ximena Billings Covid-19 PCR (CVDTBH)on SARS-CoV-2 (COVID-19) RNA ADRIEL+probe Ql (Unsp spec) Not detected Normal NOT DETECTED [facility] Comment on above: Result Comment: When diagnostic [...] for this test is supported by the Client Service Executive of Health and Human Service's declaration that [...] used). Performed By: #### C T/NGNA #### [facility] [address] [address] [address] Ximena Billings XR CHEST 1 Von [...] BENITO ROW[place] Date: 2022-09-03 21:59 Normal [facility] XR ankle RT min 3V*on 2021 XR ankle RT min 3V* [facility] [place] [address] [place] [address] XRay Report Signed Patient: Patsy Cody MR#: [id number] : 1985 Acct:[id number] Age/Sex: 37 / F ADM Date: 08/14/22 Loc: XDUCLY Room: Type: [facility] CLI Attending Dr: Jamia Miles APRN [...] Aurora Keith M.D.08/14/2022 2:07 PM Dictation Location: [place] [address] Transcribed By: [facility] 08/14/221406 Dictated By: Aurora Keith MD 08/14/221405 Signed By: 08/14/221406 [facility] XR ankle RT min 3V* [facility] [employer] Other XR ankle RT min 3V* [facility] [employer] Other XR ankle RT min 3V* [address] [place] [address] [facility] Other XR ankle RT min 3V* [place] [address] [facility] Other XR ankle RT min 3V* XRay Report [facility] Other XR ankle RT min 3V* Signed [facility] Other XR ankle RT min 3V* Patient: Patsy Cody MR#: [id number] [facility] Other XR ankle RT min 3V* [id number] [facility] Other XR ankle RT min 3V* : 1985 Acct:[id number] [facility] Other XR ankle RT min 3V* Age/Sex: 37 / F ADM Date: 08/14/22 [facility] Other XR ankle RT min 3V* Loc: XDUCLY Room: Type: [facility] Other XR ankle RT min 3V* Attending Dr: Jamia Miles APRN [facility] Other XR ankle RT min 3V* Copies to: Jamia Miles APRN [facility] Other XR ankle RT min 3V* Ordering Provider: Jamia Miles APRN [facility] Other XR ankle RT min 3V* Date of Service: 08/14/22 [facility] Other XR ankle RT min 3V* XR/XR ankle RT min 3V*: RIGHT ANKLE PAIN [facility] Other XR ankle RT min 3V* RIGHT ANKLE - 3 views [employer] Other XR ankle RT min 3V* CLINICAL DATA: Medial ankle pain without specific injury. [employer] Other XR ankle RT min 3V* COMPARISON: None [facility] Other XR ankle RT min 3V* AP, lateral and oblique views were obtained. There is no evidence of fracture or dislocation. [facility] Other XR ankle RT min 3V* The talar dome is intact. There is slight lateral soft tissue swelling. [facility] Other XR ankle RT min 3V* XR/XR ankle RT min 3V* [facility] Other XR ankle RT min 3V* IMPRESSION: [facility] Other XR ankle RT min 3V* NO ACUTE BONY FINDINGS. [employer] Other XR ankle RT min 3V* Impression dictated by: Aurora Keith M.D.08/14/2022 2:07 PM [facility] Other XR ankle RT min 3V* Dictation Location: [facility] [employer] Other XR ankle RT min 3V* Transcribed By: KRISTIN 08/14/22 [facility]7 [facility] Other XR ankle RT min 3V* Dictated By: Aurora Keith MD 08/14/22 [facility] [employer] Other XR ankle RT min 3V* Signed By: [employer] Other XR ankle RT min 3V* 08/14/22 [facility]3 [facility] Other CBC AUTO DIFFon 05-13-2022 BASO # 0.0 103/ul Normal 0.0-0.1 [facility] Comment on above: Performed By: #### VAGINT #### [facility] [address] [place] [address] Dr. Ximena Billings Basophils/100 WBC (Bld) 0.5 % Normal 0.2-2.0 [facility] Comment on above: Performed By: #### VAGINT #### [facility] [address] [place] [address] Dr. Ximena Billings EO # 0.1 103/ul Normal 0.0-0.7 [facility] Comment on above: Performed By: #### VAGINT #### [facility] [address] [place] [address] Dr. Ximena Billings Eosinophils/100 WBC (Bld) 1.4 % Normal 0.9-7.0 [facility] Comment on above: Performed By: #### VAGINT #### [facility] [address] [place] [address] Dr. Ximena Billings Erythrocyte distribution width (RBC) [Ratio] 13.3 % Normal 11.0-15.0 [facility] Comment on above: Performed By: #### VAGINT #### [facility] [address] [place] [address] Dr. Ximena Billings Hematocrit (Bld) [Volume fraction] 39.2 % Normal 36.0-48.0 [facility] Comment on above: Performed By: #### VAGINT #### [facility] [address] [place] [address] Dr. Ximena Billings Hemoglobin (Bld) [Mass/Vol] 12.8 g/dL Normal 12.0-16.0 [facility] Comment on above: Performed By: #### VAGINT #### [facility] [address] [place] [address] Dr. Ximena Billings IG # 0.01 10e3/ul Normal 0.00-0.03 [facility] Comment on above: Performed By: #### VAGINT #### [facility] [address] [place] [address] Dr. Ximena Billings IG % 0.2 % Normal 0.0-0.5 [facility] Comment on above: Performed By: #### VAGINT #### [facility] [address] [place] [address] Dr. Ximena Billings LYMPH # 1.9 103/ul Normal 1.2-3.8 [facility] Comment on above: Performed By: #### VAGINT #### [facility] [address] [place] [address] Dr. Ximena Billings Lymphocytes/100 WBC (Bld) 34.5 % Normal 20.5-60.0 [facility] Comment on above: Performed By: #### VAGINT #### [facility] [address] [place] [address] Dr. Ximena Billings MANUAL DIFF REQ NO Normal [facility] Comment on above: Performed By: #### VAGINT #### [facility] [address] [place] [address] Dr. Ximena Billings MCH (RBC) [Entitic mass] 30.5 pg Normal 26.7-34.0 [facility] Comment on above: Performed By: #### VAGINT #### [facility] [address] [place] [address] Dr. Ximena Billings MCHC (RBC) [Mass/Vol] 32.7 g/dL Normal 29.9-35.2 [facility] Comment on above: Performed By: #### VAGINT #### [facility] [address] [address] [address] Ximena Billings MCV (RBC) [Entitic vol] 93.3 fL Normal 81.0-99.0 [facility] Comment on above: Performed By: #### VAGINT #### [facility] [address] [address] [address] Ximena Billings MONO # 0.5 103/ul Normal 0.3-0.8 [facility] Comment on above: Performed By: #### VAGINT #### [facility] [address] [place] [address] Dr. Ximena Billings Monocytes/100 WBC (Bld) 8.6 % Normal 1.7-12.0 [facility] Comment on above: Performed By: #### VAGINT #### [facility] [address] [place] [address] Dr. Ximena Billings NEUT # 3.1 103/ul Normal 1.4-6.5 [facility] Comment on above: Performed By: #### VAGINT #### [facility] [address] [place] [address] Dr. Ximena Billings Neutrophils/100 WBC (Bld) 54.8 % Normal 43.0-75.0 [facility] Comment on above: Performed By: #### VAGINT #### [facility] [address] [place] [address] Dr. Ximena Billings Platelet mean volume (Bld) [Entitic vol] 9.2 fL Critically low 9.5-13.5 [facility] Comment on above: Performed By: #### VAGINT #### [facility] [address] [place] [address] Dr. Ximena Billings PLT 258 103/ul Normal 150-450 [facility] Comment on above: Performed By: #### VAGINT #### [facility] [address] [place] [address] Dr. Ximena Billings RBC 4.20 106/ul Normal 4.20-5.40 [facility] Comment on above: Performed By: #### VAGINT #### [facility] [address] [address] [address] Ximena Billings WBC 5.6 103/ul Normal 4.0-11.0 [facility] Comment on above: Performed By: #### VAGINT #### [facility] [address] [place] [address] Dr. Ximena Billings PREG HCG QUALon 05-13-2022 , QUAL Negative Normal NEGATIVE [facility] Comment on above: Performed By: #### PREG #### [facility] [address] [place] [address] Dr. Ximena Billings Covid-19 PCR (CVDTBH)on 04-29 SARS-CoV-2 (COVID-19) RNA ADRIEL+probe Ql (Unsp spec) Not detected Normal NOT DETECTED [facility] Comment on above: Result Comment: This test is not yet woo roved or cleared by the [place] FDA. When there are no FDA-approved or cleared tests available, and other criteria are met, FDA can make tests available under an emergency access mechanism called an Emergency Use Authorization (EUA). The EUA for this test is supported by the [place] of Health and Human Service's (HHS's) declaration [...] SARS-CoV-2. Performed By: #### C VDTBH #### [facility] [address] [place] [address] Dr. Ximena Billings CHLAMYDIA/GONOCOCCUS ADRIEL (SW AB/URINE/PAPon 04-30-2022 Chlamydia trachomatis, ADRIEL Negative Normal Negative [facility] Comment on above: Performed By: #### CT/NGNA #### [facility] [address] [place] [address] Dr. Ximena Billings Neisseria gonorrhoeae, ADRIEL Negative Normal Negative [facility] Comment on above: Performed By: #### CT/NGNA #### [facility] [address] [place] [address] Dr. Ximena Billings VAGINITIS/VAGINOSIS DNA PROB Eugene 04-29-2022 Adriana species Negative Normal Negative [facility] Comment on above: Performed By: #### CT/NGNA #### [facility] [address] [place] [address] Dr. Ximena Billings Gardnerella vaginalis Positive Abnormal Negative [facility] Comment on above: Performed By: #### CT/NGNA #### [facility] [address] [place] [address] Dr. Ximena Billings Trichomonas vaginalis Negative Normal Negative [facility] Comment on above: Performed By: #### CT/NGNA #### [facility] [address] [place] [address] Dr. Ximena Billings CBC AUTO DIFFon 04-04-2022 BASO # 0.0 103/ul Normal 0.0-0.1 [facility] Comment on above: Performed By: #### CBC #### [facility] [address] [place] [address] Dr. Ximena Billings Basophils/100 WBC (Bld) 0.7 % Normal 0.2-2.0 [facility] Comment on above: Performed By: #### CBC #### [facility] [address] [place] [address] Dr. Ximena Billings EO # 0.1 103/ul Normal 0.0-0.7 [facility] Comment on above: Performed By: #### CBC #### [facility] [address] [place] [address] Dr. Ximena Billings Eosinophils/100 WBC (Bld) 1.8 % Normal 0.9-7.0 [facility] Comment on above: Performed By: #### CBC #### [facility] [address] [place] [address] Dr. Ximena Billings Erythrocyte distribution width (RBC) [Ratio] 14.6 % Normal 11.0-15.0 [facility] Comment on above: Performed By: #### CBC #### [facility] [address] [place] [address] Dr. Ximena Billings Hematocrit (Bld) [Volume fraction] 38.1 % Normal 36.0-48.0 [facility] Comment on above: Performed By: #### CBC #### [facility] [address] [place] [address] Dr. Ximena Billings Hemoglobin (Bld) [Mass/Vol] 12.5 g/dL Normal 12.0-16.0 [facility] Comment on above: Performed By: #### CBC #### [facility] [address] [place] [address] Dr. Ximena Billings IG # 0.01 10e3/ul Normal 0.00-0.03 [facility] Comment on above: Performed By: #### CBC #### [facility] [address] [place] [address] Dr. Ximena Billings IG % 0.2 % Normal 0.0-0.5 [facility] Comment on above: Performed By: #### CBC #### [facility] [address] [place] [address] Dr. Ximena Billings LYMPH # 1.9 103/ul Normal 1.2-3.8 [facility] Comment on above: Performed By: #### CBC #### [facility] [address] [place] [address] Dr. Ximena Billings Lymphocytes/100 WBC (Bld) 34.6 % Normal 20.5-60.0 [facility] Comment on above: Performed By: #### CBC #### [facility] [address] [place] [address] Dr. Ximena Billings MANUAL DIFF REQ NO Normal [facility] Comment on above: Performed By: #### CBC #### [facility] [address] [place] [address] Dr. Ximena Billings MCH (RBC) [Entitic mass] 30.1 pg Normal 26.7-34.0 [facility] Comment on above: Performed By: #### CBC #### [facility] [address] [address] [address] Ximena Billings MCHC (RBC) [Mass/Vol] 32.8 g/dL Normal 29.9-35.2 [facility] Comment on above: Performed By: #### CBC #### [facility] [address] [address] [address] Ximena Billings MCV (RBC) [Entitic vol] 91.8 fL Normal 81.0-99.0 [facility] Comment on above: Performed By: #### CBC #### [facility] [address] [address] [address] Ximena Billings MONO # 0.4 103/ul Normal 0.3-0.8 [facility] Comment on above: Performed By: #### CBC #### [facility] [address] [place] [address] Dr. Ximena Billings Monocytes/100 WBC (Bld) 7.0 % Normal 1.7-12.0 [facility] Comment on above: Performed By: #### CBC #### [facility] [address] [address] [address] Ximena Billings NEUT # 3.1 103/ul Normal 1.4-6.5 [facility] Comment on above: Performed By: #### CBC #### [facility] [address] [place] [address] Dr. Ximena Billings Neutrophils/100 WBC (Bld) 55.7 % Normal 43.0-75.0 [facility] Comment on above: Performed By: #### CBC #### [facility] [address] [place] [address] Dr. Ximena Billings Platelet mean volume (Bld) [Entitic vol] 9.0 fL Critically low 9.5-13.5 [facility] Comment on above: Performed By: #### CBC #### [facility] [address] [place] [address] Dr. Ximena Billings PLT 261 103/ul Normal 150-450 [facility] Comment on above: Performed By: #### CBC #### [facility] [address] [address] [address] Ximena Billings RBC 4.15 106/ul Critically low 4.20-5.40 [facility] Comment on above: Performed By: #### CBC #### [facility] [address] [place] [address] Dr. Ximena Billings WBC 5.6 103/ul Normal 4.0-11.0 [facility] Comment on above: Performed By: #### CBC #### [facility] [address] [place] [address] Dr. Ximena Billings PREG QUANT HCGon 04-04-2022 HCG QUANT 1 mIU/mL Normal [facility] Comment on above: Performed By: #### PREGQNT, TSH #### [facility] [address] [place] [address] Dr. Ximena Billings HCG RANGE SEE BELOW Normal [facility] Comment on above: Result Comment: 5-50 0-1 WEEK 40-300 1-2 WEEKS 100-1,000 2-3 WEEKS 500-6,000 3-4 WEEKS 5,000-200,000 1-2 MONTHS 10,000-100,000 2-3 MONTHS 3,000-50,000 2ND TRIMESTER 1,000-50,000 3RD TRIMESTER Performed By: #### P REGQNT, TSH #### [facility] [address] [place] [address] Dr. Ximena Billings PROTIMEon 04-04-2022 INR Coag (PPP) [Relative time] 1.07 {INR} Normal [facility] Comment on above: Performed By: #### CT/NGNA #### [facility] [address] [place] [address] Dr. Ximena Billings INR GUIDELINES SEE BELOW Normal [facility] Comment on above: Result Comment: DESIRED INR: 2.0 - 3.0 C ONDITIONS NOT LISTED BELOW 2.5 - 3.5 FOR PROSTHETIC HEART VALVE REPLACEMENT 2.5 - 3.5 RECURRENT THROMBOSIS Performed By: #### C T/NGNA #### [facility] [address] [place] [address] Dr. Ximena Billings PT Coag (PPP) [Time] 11.5 s Normal 9.0-11.6 [facility] Comment on above: Performed By: #### CT/NGNA #### [facility] [address] [address] [address] Ximena Billnigs PTTon 04-04-2022 aPTT Coag (Bld) [Time] 28.3 s Normal 22.3-36.2 [facility] Comment on above: Performed By: #### CT/NGNA #### [facility] [address] [address] [address] Ximena Billings TSHon 04-04-2022 TSH 1.116 uIU/mL Normal 0.358-3.740 [facility] Comment on above: Performed By: #### PREGQNT, TSH #### [facility] [address] [address] [address] Ximena Billings TSH RANGE SEE BELOW Normal [facility] Comment on above: Result Comment: <0.34 UIU/ml HYPERTHYROI D 0.34-5.60 UIU/ml EUTHYROID >5.60 UIU/ml HYPOTHYROID Performed By: #### P REGQNT, TSH #### [facility] [address] [address] [address] Ximena Billings US PELVIS AND TRANSVAGon [...] by: JULIAN GARCIA Date: 2022-04-01 08:40 Normal [facility] PAP ACOG PANEL 2: 30 to 65on 03-29-2022 . . Normal [facility] Comment on above: Result Comment: Performed at: [facility] Performed By: #### V AGINT #### [facility] [address] [address] [address] Ximena Billings Age Gdln ACOG Testing 30-65 Normal [facility] Comment on above: Performed By: #### VAGINT #### [facility] [address] [address] [address] Ximena Billings DIAGNOSIS: Comment Normal [facility] Comment on above: Result Comment: NEGATIVE FOR INTRAEPITHE LIAL LESION OR MALIGNANCY. THIS SPECIMEN WAS RESCREENED PART OF OUR CORPORATE VP ADVERTISING & ONLINE PROGRAM. Performed at: BA Performed By: #### V AGINT #### [facility] [address] [address] [address] Ximena Billings HPV Aptima Negative Normal Negative [facility] Comment on above: Result Comment: This nucleic acid amplif ication test detects fourteen high-risk HPV types (16,18,31,33,35,39,45,51,52,56,58,59,66,68) without differentiation. Performed at: =G Performed By: #### V AGINT #### [facility] [address] [address] [address] Ximena Billings Methodology: Comment Normal [facility] Comment on above: Result Comment: This liquid based ThinPr ep(R) pap test was screened with the use of an image guided system. Performed at: WB Performed By: #### V AGINT #### [facility] [address] [place] [address] Dr. Ximena Billings Note: Comment Normal [facility] Comment on above: Result Comment: The Pap [...] WB Performed By: #### V AGINT #### [facility] [address] [place] [address] Dr. Ximena Billings Performed by: Comment Normal [facility] Comment on above: Result Comment: Omaira Ferreira, Cytotechn ologist (ASCP) Performed at: BA Performed By: #### V AGINT #### [facility] [address] [place] [address] Dr. Ximena Billings QC reviewed by: Comment Normal [facility] Comment on above: Result Comment: Anthony Garvin, Cytotech nologist (ASCP) Performed at: BA Performed By: #### V AGINT #### [facility] [address] [place] [address] Dr. Ximena Billings Specimen adequacy: Comment Normal [facility] Comment on above: Result Comment: Satisfactory for evaluat ion. Endocervical and/or squamous metaplastic cells (endocervical component) are present. Areas of partially obscuring inflammatory exudate are present. Performed at: BA Performed By: #### V AGINT #### [facility] [address] [place] [address] Dr. Ximena Billings CHLAMYDIA/GONOCOCCUS ADRIEL (SW AB/URINE/PAPon 03-24-2022 Chlamydia trachomatis, ADRIEL Negative Normal Negative [facility] Comment on above: Performed By: #### CT/NGNA #### [facility] [address] [place] [address] Dr. Ximena Billings Neisseria gonorrhoeae, ADRIEL Negative Normal Negative [facility] Comment on above: Performed By: #### CT/NGNA #### [facility] [address] [place] [address] Dr. Ximena Billings VAGINITIS/VAGINOSIS DNA PROB Eugene 03-24-2022 Adriana species Negative Normal Negative [facility] Comment on above: Performed By: #### VAGINT #### [facility] [address] [place] [address] Dr. Ximena Billings Gardnerella vaginalis Positive Abnormal Negative [facility] Comment on above: Performed By: #### VAGINT #### [facility] [address] [place] [address] Dr. Ximena Billings Trichomonas vaginalis Negative Normal Negative [facility] Comment on above: Performed By: #### VAGINT #### [facility] [address] [place] [address] Dr. Ximena Billings GROUP A STREP CULTUREon S. pyogenes Ag Ql (Unsp spec) Culture Observations: NEGATIVE FOR GROUP A STREPTOCOCCUS. Normal [facility] Comment on above: Performed By: #### VAGINT #### [facility] [address] [place] [address] Dr. Ximena Billings STREPT SCREENon 01-02-2022 STREP SCREEN A Negative Normal NEGATIVE [facility] Comment on above: Performed By: #### VAGINT #### [facility] [address] [place] [address] Dr. Ximena Billings CBC AUTO DIFFon 12-11-2021 BASO # 0.0 103/ul Normal 0.0-0.1 [facility] Comment on above: Performed By: #### CBC #### [facility] [address] [place] [address] Dr. iXmena Billings Basophils/100 WBC (Bld) 0.7 % Normal 0.2-2.0 [facility] Comment on above: Performed By: #### CBC #### [facility] [address] [place] [address] Dr. Ximena Billings EO # 0.1 103/ul Normal 0.0-0.7 [facility] Comment on above: Performed By: #### CBC #### [facility] [address] [place] [address] Dr. Ximena Billings Eosinophils/100 WBC (Bld) 1.0 % Normal 0.9-7.0 [facility] Comment on above: Performed By: #### CBC #### [facility] [address] [place] [address] Dr. Ximena Billings Erythrocyte distribution width (RBC) [Ratio] 18.9 % Critically high 11.0-15.0 [facility] Comment on above: Performed By: #### CBC #### [facility] [address] [place] [address] Dr. Ximena Billings Hematocrit (Bld) [Volume fraction] 27.9 % Critically low 36.0-48.0 [facility] Comment on above: Performed By: #### CBC #### [facility] [address] [place] [address] Dr. Ximena Billings Hemoglobin (Bld) [Mass/Vol] 8.4 g/dL Critically low 12.0-16.0 [facility] Comment on above: Performed By: #### CBC #### [facility] [address] [place] [address] Dr. Ximena Billings IG # 0.01 10e3/ul Normal 0.00-0.03 [facility] Comment on above: Performed By: #### CBC #### [facility] [address] [place] [address] Dr. Ximena Billings IG % 0.2 % Normal 0.0-0.5 [facility] Comment on above: Performed By: #### CBC #### [facility] [address] [place] [address] Dr. Ximena Billings LYMPH # 2.2 103/ul Normal 1.2-3.8 [facility] Comment on above: Performed By: #### CBC #### [facility] [address] [place] [address] Dr. Ximena Billings Lymphocytes/100 WBC (Bld) 37.6 % Normal 20.5-60.0 [facility] Comment on above: Performed By: #### CBC #### [facility] [address] [place] [address] Dr. Ximena Billings MANUAL DIFF REQ NO Normal [facility] Comment on above: Performed By: #### CBC #### [facility] [address] [place] [address] Dr. Ximena Billings MCH (RBC) [Entitic mass] 21.9 pg Critically low 26.7-34.0 [facility] Comment on above: Performed By: #### CBC #### [facility] [address] [place] [address] Dr. Ximena Billings MCHC (RBC) [Mass/Vol] 30.1 g/dL Normal 29.9-35.2 [facility] Comment on above: Performed By: #### CBC #### [facility] [address] [place] [address] Dr. Ximena Billings MCV (RBC) [Entitic vol] 72.7 fL Critically low 81.0-99.0 [facility] Comment on above: Performed By: #### CBC #### [facility] [address] [place] [address] Dr. Ximena Billings MONO # 0.7 103/ul Normal 0.3-0.8 [facility] Comment on above: Performed By: #### CBC #### [facility] [address] [place] [address] Dr. Ximena Billings Monocytes/100 WBC (Bld) 11.4 % Normal 1.7-12.0 [facility] Comment on above: Performed By: #### CBC #### [facility] [address] [place] [address] Dr. Ximena Billings NEUT # 2.8 103/ul Normal 1.4-6.5 [facility] Comment on above: Performed By: #### CBC #### [facility] [address] [place] [address] Dr. Ximena Billings Neutrophils/100 WBC (Bld) 49.1 % Normal 43.0-75.0 [facility] Comment on above: Performed By: #### CBC #### [facility] [address] [address] [address] Ximena Billings Platelet mean volume (Bld) [Entitic vol] 8.8 fL Critically low 9.5-13.5 [facility] Comment on above: Performed By: #### CBC #### [facility] [address] [address] [address] Ximena Billings PLT 262 103/ul Normal 150-450 [facility] Comment on above: Performed By: #### CBC #### [facility] [address] [place] [address] Dr. Ximena Billings RBC 3.84 106/ul Critically low 4.20-5.40 [facility] Comment on above: Performed By: #### CBC #### [facility] [address] [address] [address] Ximena Billings WBC 5.7 103/ul Normal 4.0-11.0 [facility] Comment on above: Performed By: #### CBC #### [facility] [address] [address] [address] Ximena Billings Covid-19 PCR ([facility])on 11-30 SARS-CoV-2 (COVID-19) RNA ADRIEL+probe Ql (Unsp spec) Not detected Normal NOT DETECTED [facility] Comment on above: Result Comment: This test is not yet woo roved or cleared by the [place] FDA. When there are no FDA-approved or cleared tests available, and other criteria are met, FDA can make tests available under an emergency access mechanism called an Emergency Use Authorization (EUA). The EUA for this test is supported by the Client Service Executive of Health and Human Service's (HHS's) declaration [...] SARS-CoV-2. Performed By: #### V AGINT #### [facility] [address] [address] [address] Ximena Billings ASYMPTOMATIC COVID-19 ANTIGE Non 11-27-2021 EUA Statement SEE BELOW Normal [facility] Comment on above: Result Comment: This [...] sooner. Performed By: #### V AGINT #### [facility] [address] [place] [address] Dr. Ximena Billings SARS-CoV-2 (COVID-19) RNA ADRIEL+probe Ql (Unsp spec) Negative Normal NEGATIVE [facility] Comment on above: Result Comment: Negative results are pre sumptive. They do not preclude infection and should not be used as the sole basis for treatment decisions. Additional confirmatory testing by a molecular method should be considered. Performed By: #### V AGINT #### [facility] [address] [place], [place] [id number] Dr. Ximena Billings Urinalysis - AUTOMATEDon Appearance (U) clear [facility] Other Bilirubin Ql (U) Negative [facility] Other Color (U) yellow [facility] Other Glucose Ql (U) Negative [employer] Other Hemoglobin Ql (U) Negative [facility] Other Ketones Ql (U) Negative [facility] Other Leukocyte esterase Test strip Ql (U) Negative [facility] Other Nitrite Ql (U) Negative [facility] Other pH (U) 6.0 [pH] [facility] Other Protein Ql (U) Negative [employer] Other Specific gravity (U) [Rel density] 1.010 [facility] Other Urobilinogen (U) [Mass/Vol] 0.2 mg/dL [facility] Other Urinalysis - AUTOMATED [facility] Other [place] 03-17-2020 CNPN Telephone (NEADFV) PATSY CODY ([id number]) 1985 F Date Time Provider Department 03/17/20 KEN JORDAN NEADFV During your visit today, we recorded the following information about you: Sarah Qiu 03/17/2020 10:19 AM Signed Patient called stating she has two upcoming procedures in [place] (ECT therapy for seizures with Dr. Obrien and a TMS procedure with Dr Foster). She will need neurology clearance from Dr. Jordan because of the Chiari. Please call patient at [phone] Xavi Mccormick, RN, RN 03/17/2020 10:21 AM [...] Encounter Status:Closed by XAVI MCCORMICK on 03/17/20 [facility] (ENDPMN[facility] -ESCOBARPATSY Preciado ([id number]) 1985 [facility] Time Provider Qpfvmsjjsu95/7/18 12:15 PM ROXANNA MERINO ENDPMCharlene During your [...] appetite? NoDoes patient want to see a Medical Records Custodian? No(yes to any of above refer patient [...] stim test.She said arranged in October in [facility] reviewed with Javier Of SystemsGENERAL:Negative for malaise, [...] person, place and timeACTHDate Value Ref Range Csrvfd8507/26/2016 13 8 - 42 pg/mL Final ProlactinDate Value Ref Range Dppnfy4707/26/2016 6.2 2.0 - 17.4 ng/mL Final TSHDate Value Ref Range Ylbjvx6007/26/2016 2.250 0.400 - 5.500 uU/mL FinalComment:If the patient is , TSH reference range varies by gestational period:First Trimester 0.1-2.5 uU/mLSecond Trimester 0.2-3.0 uU/mLThird Trimester 0.3-3.0 uU/mL Free T3Date Value Ref Range Irgllo6107/26/2016 2.9 1.8 - 4.6 pg/mL Final Free T4Date Value Ref Range Bexycy4607/26/2016 1.2 0.7 - 1.8 ng/dL Final FSHDate Value Ref Range Hvougz9407/26/2016 2.1 mU/mL FinalComment:Reference range: Follicular: 2-11 Midcycle: 10-30 Luteal: 1-9 Post [place]: 20-100 Male: 1.0-10.0 ]A/pLabs and history and records reviewedPituitary adenoma/cyst. Secondary adrenal insufficiency diagnosed June 2016Currently she tapered down her hydrocortisoneHer last ACTH was borderlineShe is scheduled to have another one ACTH stim test in [facility] OctoberWe discussed that she might be [...] letter via [place] mailReferring Provider: ROXANNA MERINO [[id number]]Allergies As of Date: 10/05/2018(No Known Allergies)Date Reviewed: [...] appetite? NoDoes patient want to see a Medical Records Custodian? No(yes to any of above refer patient to schedulers for dietitianappointment) )Does patient have any new or increased numbness or tingling ofextremities? NoIs patient interested in fertility information? NoDoes patient need any prescription refills? NoElectronically Signed By: Genna Ratliff Number: [id number] Status:Closed by ROXANNA MERINO MD on 10/05/18 Normal [facility] PROGRESSon 10-05-2018 Protein mass conc HNO ID: [id number]: Roxanna Pepervice: (none)Author Type: PhysicianType: Progress NotesFiled: [...] test. She said arranged in October in [facility] reviewed with Javier Of SystemsGENERAL:Negative for malaise, [...] person, place and timeACTHDate Value Ref Range Cdiugk4907/26/2016 13 8 - 42 pg/mL Final ProlactinDate Value Ref Range Qrvdqm5707/26/2016 6.2 2.0 - 17.4 ng/mL Final TSHDate Value Ref Range Pvuxva2607/26/2016 2.250 0.400 - 5.500 uU/mL FinalComment:If the patient is , TSH reference range varies by gestationalperiod:First Trimester 0.1-2.5 uU/mLSecond Trimester 0.2-3.0 uU/mLThird Trimester 0.3-3.0 uU/mL Free T3Date Value Ref Range Jhhwav0507/26/2016 2.9 1.8 - 4.6 pg/mL Final Free T4Date Value Ref Range Mbqujw9907/26/2016 1.2 0.7 - 1.8 ng/dL Final FSHDate Value Ref Range Rlpvjl4407/26/2016 2.1 mU/mL FinalComment:Reference range: Follicular: 2-11 Midcycle: [...] medical care of Lucy Alvarado Karenwhitleykingsleycali [facility] ASSOCIATIONonsultation requested by Dr. Kristin ALVARADO for an opinion regarding pituitary adenoma . My final recommendationswill be communicated back to the requesting physician by way of sharedmedical record or letter via US mail Normal [facility] CNOVon 09-11-2018 CNOV Office Visit (NSCAMN) -PATSY CODY ([id number]) 1985 [facility] Time Provider Wtibumxndq51/13/18 8:10 AM PENELOPE FOSTER NSCAMN During your visit today, we recorded the following information about you: Temperature Pulse Respiration Blood pressure 98.5 degrees 83/minute 18/minute 125/80 Weight Height 74.8 kg 1.727 [facility] 09/11/2018 8:27 AM SignedAdditional intake questions:Has the patient had nausea, vomiting, diarrhea, constipation, fatigue for > 1week? Vomiting, Yes, MD NotifiedNausea, Yes, MD NotifiedFatigue, Yes, MD NotifiedDiarrhea, Yes, MD NotifiedConstipation, Yes, MD NotifiedDoes the patient have a decreased appetite? NoDoes patient want to see a Medical Records Custodian? No(yes to any of above refer patient to schedulers for dietitian appointment) )Does patient have any new or increased numbness or tingling of extremities? NoIs patient interested in fertility information? NoDoes patient need any prescription refills? NoElectronically Signed By: Julian Foster MD 09/14/2018 12:54 PM SignedSECTION OF SKULL BASE SURGERYMINIMALLY INVASIVE CRANIAL BASE AND PITUITARY SURGERY PROGRAMRural Valley Laverne Wittt Brain Tumor and Neuro- Oncology CenterBANNER PAYSON MEDICAL CENTERHead and Neck [place], [place] [facility] Memorial HospitalCC: Cristine Grimes, TRACE REGIONAL HOSPITALSSESSMENT: In summary, Patsy Cody is a [...] Patient states that shefollowed up with the telehealth director, and she was put on hydrocortisone [id number] .Her dizziness has improved after taking hydrocortison [...] comprehensionFunds of knowledge: NormalAttention span and concentration: Qyic7yd cranial nerve: Full visual fieldsFundoscopy revealed no obvious papilledema or vlcronpgqer6gp, 4th, and 6th cranial nerves: Pupils equally round and reactive to light,extraocularmovements intact without nystagmus or subjective iybebwya7th cranial nerve: V1-3 intact to light touch usrpefriyll7it cranial nerve: Facial muscles full and symmetric yyoueymipje4md cranial nerve: hearing intact to finger rub wsriarodzbt8bv cranial nerve: gag reflex test ndxmzzbf75lc cranial nerve: Palate elevates symmetrically and uvula in the cfehksn54bw cranial nerve: shoulder shrug 5/5 mtjvnhyvfbi73iv cranial nerve: tongue protrudes in the midlineMotors: [...] hesitate tocall with questions.Referring Provider: KEN JORDAN [[id number]]Allergies As of Date: 09/11/2018(No Known Allergies)Date Reviewed: [...] appetite? NoDoes patient want to see a Medical Records Custodian? No(yes to any of above refer patient to schedulers for dietitianappointment) )Does patient have any new or increased numbness or tingling ofextremities? NoIs patient interested in fertility information? NoDoes patient need any prescription refills? NoElectronically Signed By: Julian Dudley LPNFollow-up and Disposition History RecordedEncounter Number: [id number] Status:Closed by PENELOPE FOSTER MD on 09/14/18 [facility] PROGRESSon 09-11-2018 Protein mass conc HNO ID: [id number]: Penelope FosterService: (none)Author Type: PhysicianType: Progress NotesFiled: 09/14/2018 12:54 PMNote Text:SECTION OF SKULL BASE SURGERYMINIMALLY INVASIVE CRANIAL BASE AND PITUITARY SURGERY PROGRAMRose Laverne Hernandez Brain Tumor and Neuro- Oncology CenterBANNER PAYSON MEDICAL CENTERHead and Neck [place], [place] [facility] HospitalCC: Cristine Grimes, [facility]ITAL OAKLANDESSMENT: In summary, Patsy Cody is a very [...] accurately reflectswork and decisions made by me.Penelope Fostre MDThe patient is referred by Dr. Ken [...] Patient statesthat she followed up with the telehealth director, and she was put onhydrocortisone since 2016 [...] double the dose for 3 (THREE) daysif [facility] current facility-administered medications on file prior to [...] comprehensionFunds of knowledge: NormalAttention span and concentration: Uajn6je cranial nerve: Full visual fieldsFundoscopy revealed no obvious papilledema or ychydfjpzjx6us, 4th, and 6th cranial nerves: Pupils equally round and reactive tolight, extraocularmovements intact without nystagmus or subjective fuoendgu5ov cranial nerve: V1-3 intact to light touch udnfzaeifjc5br cranial nerve: Facial muscles full and symmetric ozomwhcqfzj4hy cranial nerve: hearing intact to finger rub kljplkcoffv6xw cranial nerve: gag reflex test yzlgsjpu85zl cranial nerve: Palate elevates symmetrically and uvula in the npuwzhn34aw cranial nerve: shoulder shrug 5/5 ifyevmqrvfr03tu cranial nerve: tongue protrudes in the midlineMotors: [...] 6.2Estradiol 17B pg/mL 146FSH mU/mL 2.1 [facility] CNOVon 08-21-2018 CNOV Office Visit (NSFRVW) -PATSY CODY ([id number]) 1985 FDate Time Provider Eyfwqwjsnw44/23/18 3:10 PM KEN JORDAN NSFRVW During your [...] states that she followed up with the telehealth director, and she was puton hydrocortisone. She states [...] (HCC) [D35.2]Order(s):CONSULT TO NEUROSURGERY [19991105] Order #: [id number]: 1Prescriptions as of 08/21/2018 Sig:X HYDROCORTISONE 5 MG TABLET Take 2 tb in am ( 10 mg) and *Problem List As Of Date 08/21/2018 Noted Resolved Pituitary adenoma (HCC) [D35.2] INVALID FOR* Status:Closed by KEN JORDAN MD on 08/24/18 [facility] PROGRESSon 08-21-2018 Protein mass conc HNO ID: [id number]: Ken Huntervice: (none)Author Type: PhysicianType: Progress NotesFiled: 08/24/2018 2:18 PMNote Text:CC : Isidorotent with a chief complaint of anxiety.Interval HPI : Ms. Cody is 33 year old female with a history ofpituitary adenoma and chiari malformation and complains of anxiety andheadaches. Patient states that she followed up with the telehealth director,and she was put on hydrocortisone. She states [...] for consideration ofTSHShe agreesKen Jordan MD [facility] MR-MRI PITUITARY W/WO CON IM Onur 08-17-2018 MR-MRI PITUITARY W/WO CON IMPORT Images were obtained outside of [facility] [id number] [facility] Coding Summary.on 06-22-2018 Coding Summary. CODING DATE: 018 FINAL [facility] STATUS: Home (Routine DC) PAYOR: Medicaid EAPG [...] Oliva Date Saved: 06/22/2018 02:32 pm Normal [facility] Vital Signs Date Time Vital Sign Value Performing Clinician Facility 08-14-2022 14:00-0400 Body height 172.72 cm Jamia Miles Other [facility] Other 08-14-2022 14:00-0400 Body mass index (BMI) [Ratio] 22.35 kg/m2 Jamia Miles Other [facility] Other 08-14-2022 14:00-0400 Body temperature 99.1 [degF] Jamia Miles Other [facility] Other 08-14-2022 14:00-0400 Body weight 66.68 kg Jamia Miles Other [facility] Other 08-14-2022 14:00-0400 Diastolic blood pressure 74 mm[Hg] Jamia Miles Other [facility] Other 08-14-2022 14:00-0400 Respiratory rate 18 /min Jamia Miles Other [facility] Other 08-14-2022 14:00-0400 SaO2% (BldA) [Mass fraction] 98 % Jamia Miles Other [facility] Other 08-14-2022 14:00-0400 Systolic blood pressure 116 mm[Hg] Jamia Miles Other [facility] Other 11-10-2021 10:45-0500 Body height 172.72 cm Obed James Other [facility] Other 11-10-2021 10:45-0500 Body mass index (BMI) [Ratio] 22.96 kg/m2 Obed Augustinaker Other [facility] Other 11-10-2021 10:45-0500 Body temperature 98.4 [degF] Obed James Other [facility] Other 11-10-2021 10:45-0500 Body weight 68.49 kg Obed James Other [facility] Other 11-10-2021 10:45-0500 Diastolic blood pressure 79 mm[Hg] Obed James Other [facility] Other 11-10-2021 10:45-0500 Respiratory rate 18 /min Obed James Other [facility] Other 11-10-2021 10:45-0500 SaO2% (BldA) [Mass fraction] 100 % Obed James Other [facility] Other 11-10-2021 10:45-0500 Systolic blood pressure 133 mm[Hg] Obed James Other [facility] Other 08-30-2021 13:35-0400 Body height 172.72 cm Daniela Kay Other [facility] Other 08-30-2021 13:35-0400 Body mass index (BMI) [Ratio] 23.26 kg/m2 Daniela Kay Other [facility] Other 08-30-2021 13:35-0400 Body temperature 98 [degF] Daniela Perryault Other [facility] Other 08-30-2021 13:35-0400 Body weight 69.4 kg Daniela Kay Other [facility] Other 08-30-2021 13:35-0400 Diastolic blood pressure 87 mm[Hg] Daniela Perryault Other [facility] Other 08-30-2021 13:35-0400 Respiratory rate 18 /min Daniela Perryault Other [facility] Other 08-30-2021 13:35-0400 SaO2% (BldA) [Mass fraction] 100 % Daniela Perryault Other [facility] Other 08-30-2021 13:35-0400 Systolic blood pressure 142 mm[Hg] Daniela Perryault Other [facility] Other Encounters Encounter Date Encounter Type Care Provider Facility Start: 11-14-2022 End: 11-14-[address] SVETLANA BARRIOS Facility:[facility] Start: 09-29-2022 End: 09-29-2022 ambulatory BRIANA JENNINGS Facility:[facility] Start: 09-03-2022 End: 09-04-[address] JOSE LUIS CORADO Facility:[facility] Start: 08-14-2022 End: 08-14-2022 ambulatory Jamia Miles Facility:[facility] Start: 08-14-2022 Office outpatient vi sit 15 minutes Jamia Miles [facility] Start: 08-14-2022 End: 08-14-2022 ambulatory MD Joel Schroeder Work Phone: [facility] Work Phone: Start: 08-14-2022 End: 08-14-2022 Patient encounter procedure MD Joel Schroeder Work Phone: [facility] Start: 05-16-2022 Encounter for preprocedural laboratory examination DR KEL GURROLA [facility] Start: 05-13-2022 End: 05-13-[address] KEL GURROLA Facility:[facility] Start: 05-10-2022 End: 05-11-[address] KEL GURROLA Facility:[facility] Start: 05-10-2022 End: 05-11-2022 Encounter for preprocedural laboratory examination DR KEL GURROLA Facility:[facility] Start: 05-09-2022 Encounter for other preprocedural examination DR KEL GURROLA [facility] Start: 05-05-2022 End: 05-06-[address] JOEL [...] Facility:[facility] Start: 11-10-2021 End: 11-10-2021 ambulatory Obed [place] Other [facility] Other Start: 11-10-2021 Office outpatient vi sit 15 minutes Obed James [facility] Start: 08-30-2021 End: 08-30-2021 ambulatory Danielajosefina Kay Other [facility] Other Start: 08-30-2021 Office outpatient vi sit 5 minutes Danielajosefina Kay [facility] Start: 02-13-2019 Patient encounter procedure Joel~[id number] RUTH ANN Amber Facility:CD:[id number] Start: 10-05-2018 End: 10-08-2018 Patient encounter procedure ROXANNA A ANGELIQUE [facility] Start: 09-11-2018 End: 09-14-2018 Patient encounter procedure PENELOPE FOSTER [facility] Start: 08-21-2018 End: 08-24-2018 Patient encounter procedure KEN JORDAN [facility] Start: 06-19-2018 End: 06-20-2018 Patient encounter procedure Chito Duarte Facility:[facility] Start: 12-01-2017 Patient encounter procedure ROXANNA A CARLTONU [facility] Procedures Date Procedure Procedure Detail Performing Clinician Start: 08-14-2022 X-ray of right ankle MD Joel Schroeder Work Phone: Payers Date Payer Category Payer Self-pay [id number] 2018 Unknown [id number] 1985 Unknown [id number] 2.16.84 [id number] 1985 Unknown [id number] 2.16.84 0.1.942553.3.579.2.727 1984 Unknown [id number] 2.16.84 0.1.270842.3.579.2.593 1984 Unknown [id number] 2.16.84 0.1.254305.3.579.2.593 1984 Unknown [id number] 2.16.84 0.1.053140.3.579.2.593 1984 Unknown [id number] 2.16.84 0.1.350236.3.579.2.593 1984 Unknown [id number] 2.16.84 0.1.864522.3.579.2.593 1984 Unknown [id number] 2.16.84 0.1.903739.3.579.2.593 1984 Unknown [id number] 2.16.84 0.1.290351.3.579.2.593 1984 Unknown [id number] 2.16.84 0.1.854038.3.579.2.593 1984 Unknown [id number] 2.16.84 0.1.658270.3.579.2.593 1984 Unknown [id number] 2.16.84 0.1.756787.3.579.2.593 1984 Unknown [id number] 2.16.84 0.1.087747.3.579.2.593 1984 Unknown [id number] 2.16.84 0.1.121315.3.579.2.593 1984 Unknown [id number] 2.16.84 0.1.900154.3.579.2.593 1984 Unknown [id number] 2.16.84 0.1.268834.3.579.2.593 1984 Unknown [id number] 2.16.84 0.1.139216.3.579.2.593 1984 Unknown [id number] 2.16.84 0.1.537696.3.579.2.593 1984 Unknown [id number] 2.16.84 0.1.617514.3.579.2.593 1984 Unknown [id number] 2.16.84 0.1.500468.3.579.2.593 1959 Self-pay [id number] 1960 Unknown [id number] 2.1 6.840.1.558052.19 Unknown [id number] 2.16.8 40.1.334533.3.579.2.531 Social History Date Type Detail Facility Tobacco smoking status [facility] Unknown if ever smoked [facility] Start: 1985 Sex Assigned At Female F [facility] Sex Assigned At Sex Assigned At Bir th [facility] Other Start: 09-05-2019 Tobacco smoking status MAIS Ex-smoker (finding) [facility] Medical Equipment Procedure Code Equipment Code Equipment Origin al Text Equipment Identifier Dates [id number] FDA Start: 09-05-2019 Silicone gel-fay led breast implant ()[id number] FDA Start: 09-05-2019 Goals Date Patient [...] understanding and is agreeable to treatment plan [facility] Other Clinical Note 05-13-2022 Note Date & Type Note Facility 05-13-2022 Note OPERATIVE NOTE OPERATION DATE: 05/13/2022 PROCEDURE: Julianna endometrial ablation with hysteroscopy. PREOPERATIVE DIAGNOSIS: Menorrhagia. POSTOPERATIVE DIAGNOSIS: Menorrhagia. ANESTHESIA: General. SURGEON: Kel Gurrola D.O. REPROGRAPHICS ASSOCIATE: None. BLOOD LOSS: 5 mL. URINE OUTPUT: [...] Patient taken to recovery in stable condition. [facility] Signed and Approved by: DR KEL GURROLA . 05/20/2022 08:19:00 [facility] Evaluation note 11-10-2021 Note Date & Type [...] Pt understands and agrees with the plan. [facility] Other Evaluation note 08-30-2021 Note Date & Type Note Facility 08-30-2021 Evaluation note Encounter Date Diagnosis Assessment Notes Aug, Dysuria (ICD-10 - R30.0) Patient referred to specialist at this time. Patient has had these symptoms and has been treated with different medications without results. Patient made follow up with Amy Olmos. [facility] Other Evaluation note Note Date & Type Note Facility Evaluation note [facility] History general Narrative - Reported Note Date & Type Note Facility History general Narrative - Reported Type Medical History chiari malformation type 1 Surgical History , laparascopy, breast implant. Surgical History sphincter Surgical History hemorrhoidectomy [facility] Other History general Narrative - Reported Note Date & Type Note Facility History general Narrative - Reported Type Medical History chiari malformation type 1 Surgical History , laparascopy, breast implant. Surgical History sphincter Surgical History hemorrhoidectomy Surgical History y-vanoplasty Surgical History fissurectomy Surgical History sphencterotomy Hospitalization History see above [facility] Other History general Narrative - Reported Note Date & Type Note Facility History general Narrative - Reported Type Medical History chiari malformation type 1 Surgical History Uretha sling 12/21 Surgical History Salpingectomy 12/21 Hospitalization History see above [facility] Other Summary Purpose Family History No Family [...] section and content) DATE CREATED AUTHOR 10/10/2018 [facility] DATE CREATED AUTHOR AUTHOR'S ORGANIZ ATION 02/13/2019 [facility] DATE CREATED AUTHOR AUTHOR'S ORGANIZ ATION 03/17/2020 [facility] DATE CREATED AUTHOR AUTHOR'S ORGANIZ ATION 08/26/2022 [facility] DATE CREATED AUTHOR AUTHOR'S ORGANIZ ATION [...] BE BASED ON THE PRIMARY CLINICAL RECORDS. [facility]. provides no warranty or guarantee of the accuracy or completeness of information in this document.
[2023-12-21 21:46] VITALS: BP 142/78; PULSE 88; RESP 18; TEMP 36.7; O2SAT 98
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
--- NOTE | 2023-12-21 22:13 | ECG_ITS ---
[facility] Test Date: 2023-12-21 Pat Name: KATIA CODY Department: Room: - Gender: Female Home Child Care Provider: : 1985 Requested By: JOEL CLARK Order Number: [id number] Reading MD: SILVANA BARRIOS Measurements Intervals [place] Rate: 74 P: 74 MT: 166 QRS: 84 QRSD: 98 T: 68 QT: 414 QTc: 441 Interpretive Statements 1100 Sinus rhythm 2420 RSR (QR) in lead V1/V2, consistent with right ventricular conduction delay 9130 borderline ECG Compared to ECG 12/20/2023 08:42:34 No significant changes Electronically Signed On 12-26-2023 22:52:17 EST by SILVANA BARRIOS
[2023-12-21 22:34] LABS: Basophils Percent Auto 0.5 % (0.2-2.0); Eosinophils Absolute Auto 0.1 10^3/uL (0.0-0.7); Eosinophils Percent Auto 0.7 % (0.9-7.0); Hematocrit 38.3 % (36.0-48.0); Hemoglobin 12.4 g/dL (12.0-16.0); Immature Granulocytes Abs Auto 0.02 10^3/uL (0.00-0.03); Immature Granulocytes Pct Auto 0.3 % (0.0-0.5); Lymphocytes Absolute Auto 1.9 10^3/uL (1.2-3.8); Lymphocytes Percent Auto 26.5 % (20.5-60.0); Mean Corpuscular HGB Conc 32.4 g/dL (29.9-35.2); Mean Corpuscular Hemoglobin 29.2 pg (26.7-34.0); Mean Corpuscular Volume 90.3 fL (81.0-99.0); Monocytes Absolute Auto 0.6 10^3/uL (0.3-0.8); Monocytes Percent Auto 8.1 % (1.7-12.0); Neutrophils Absolute Auto 4.7 10^3/uL (1.4-6.5); Neutrophils Percent Auto 63.9 % (43.0-75.0); Platelet Count 260 10^3/uL (150-450); Red Blood Count 4.24 10^6/uL (4.20-5.40); Red Cell Distribution Width 13.7 % (11.0-15.0); White Blood Count 7.3 10^3/uL (4.0-11.0)
[2023-12-21 22:45] LABS: Alanine Aminotransferase 14 U/L (14-59); Albumin Level 3.7 g/dL (3.4-5.0); Alkaline Phosphatase 60 U/L (46-116); Anion Gap 13.3; Aspartate Amino Transferase 14 U/L (15-37); BUN Creatinine Ratio 15.5; Bilirubin Total 0.2 mg/dL (0.2-1.0); Calcium 8.8 mg/dL (8.5-10.1); Carbon Dioxide 26.7 mmol/L (21.0-32.0); Chloride 107 mmol/L (98-107); Estimated GFR (African America >60 (>=60); Estimated GFR (Non-African Ame >60 (>=60); Ethanol <3 mg/dL; Globulin 3.8 g/dL; Glucose 92 mg/dL (74-106); Salicylate 4.3 mg/dL (<=19.9); Sodium 143 mmol/L (136-145); Total Protein 7.5 g/dL (6.4-8.2)
[2023-12-21 22:57] LABS: Acetaminophen <2.8 ug/mL (10.0-30.0)
[2023-12-21 23:14] LABS: Amphetamine Screen Urine NEGATIVE (NEGATIVE); Barbiturates Screen Urine NEGATIVE (NEGATIVE); Benzodiazepines Screen Urine POSITIVE (NEGATIVE); Buprenorphine Screen Urine NEGATIVE (NEGATIVE); Cannabinoid Screen Urine NEGATIVE (NEGATIVE); Cocaine Screen Urine NEGATIVE (NEGATIVE); Methadone Screen Urine NEGATIVE (NEGATIVE); Methamphetamines Screen Urine NEGATIVE (NEGATIVE); Opiate Screen Urine NEGATIVE (NEGATIVE); Oxycodone Screen Urine NEGATIVE (NEGATIVE); Phencyclidine Screen Urine NEGATIVE (NEGATIVE); Tricyclic Antidepressant Urine NEGATIVE (NEGATIVE)
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
--- NOTE | 2023-12-22 00:51 | PC.NURSE ---
Patient is accepted at [address] with a bed assignment. Transport is not available until after 8am. Patient asked if she is able to drive herself since she has not been medicated. Walt is called and asked if this is a possibility. Walt asked if there is anyone the patient can call to ride with her due to her frame of mind at this time. The patient says there is not anyone available. Walt is going to call her stewardess supervisor and call us back.
--- NOTE | 2023-12-22 01:14 | PC.NURSE ---
Walt called back after speaking with her supervisor fusing room to say that they were not comfortable with the patient driving herself. Walt spoke with the patient to explain the situation. Patient is agreeable to staying here until transport can come in the morning. She is asking for something to help her sleep. Dr Colin notified.
[2023-12-22 02:57] VITALS: BP 111/71; PULSE 77; RESP 16; O2SAT 97
== END 2023-12-22 03:03 ==
PROVIDERS: Emergency Provider Internal Medicine; PCP Family Medicine
DX: F43.11 Post-traumatic stress disorder, acute (principal); F41.9 Anxiety disorder, unspecified; Z79.899 Other long term (current) drug therapy; Z98.82 Breast implant status; Z98.890 Other specified postprocedural states; Z98.51 Tubal ligation status; Z98.891 History of uterine scar from previous surgery; Z90.79 Acquired absence of other genital organ(s); F17.210 Nicotine dependence, cigarettes, uncomplicated
CPT/HCPCS: 36415; 80053; 80179; 80307; 80320; 80329; 85025; 93005; 99285

== ENCOUNTER 2024-03-01 09:47 | Emergency (ER) | payer SELFPAY ==
[2024-03-01 09:51] VITALS: BP 158/84; PULSE 88; TEMP 36.8; O2SAT 100; BMI 22.0
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
--- NOTE | 2024-03-01 10:05 | XR_ITS ---
The [address] [address] Patient Name: KATIA CODY MRN: [id number] date: 1985 Sex: F Assigned Patient Location: ER Current Patient Location: ER Accession/Order Number: [id number] Exam Date: 03/01/2024 10:27 Report Date: 03/01/2024 10:36 At the request of: MONROE FREEMAN Procedure: XR chest 2V EXAMINATION: XR chest 2V HISTORY: shortness of breath COMPARISON: 09/03/2022 TECHNIQUE: PA and lateral FINDINGS: LUNGS: No significant pulmonary parenchymal abnormalities. VASCULATURE: No increased pulmonary vasculature. PLEURA: No pneumothorax, effusion, or pleural thickening. CARDIAC: No cardiomegaly or cardiac silhouette abnormality. MEDIASTINUM: No visible mass or adenopathy. BONES: No fracture or visible bone lesion. OTHER: Negative. XR/XR chest 2V IMPRESSION: No acute cardiopulmonary process Electronically authenticated by: BENITO SHAVER Date: 03/01/2024 10:36
--- NOTE | 2024-03-01 10:05 | ECG_ITS ---
[facility] Test Date: 2024-03-01 Pat Name: KATIA CODY Department: Room: - Gender: Female It Support Technician: : 1985 Requested By: JOEL CLARK Order Number: [id number] Reading MD: SILVANA BARRIOS Measurements Intervals [place] Rate: 78 P: 82 DC: 158 QRS: 91 QRSD: 96 T: 75 QT: 414 QTc: 447 Interpretive Statements 1100 Sinus rhythm 2420 RSR (QR) in lead V1/V2, consistent with right ventricular conduction delay 7102 Moderate right axis deviation 9130 borderline ECG Compared to ECG 12/21/2023 22:36:19 Right-axis deviation now present Electronically Signed On 03-05-2024 22:30:40 EDT by SILVANA BARRIOS
[2024-03-01] MEDS: LORAZEPAM 2 MG/ML VIAL IM (10:16)
--- NOTE | 2024-03-01 10:30 | ED.GENADUL1 ---
HPI HPI - General Adult General Chief complaint: Anxiety Stated complaint: SOB Time Seen by Provider: 03/01/24 09:56 Source: patient Mode of arrival: walk-in Limitations: no limitations History of Present Illness HPI narrative: 38-year-old female to the emergency contact. Several months ago. He has PTSD and severe anxiety from this. She reports she was doing well over the last week has had some episodes of panic associated. She denies any chest pain or shortness of breath. Feeling of doom, heart racing, Perseveration on past events. She took her Xanax this morning 0.5 mg at 8:00 however had no effect on the symptoms. She follows with psychiatry for this. She denies . Related Data Home Medications ?Medication ?Instructions ?Recorded ?Confirmed alprazolam 0.25 mg tablet 0.25 mg PO TID PRN anxiety 12/21/23 03/01/24 buspirone 10 mg tablet 10 mg PO DAILY 03/01/24 03/01/24 sertraline 50 mg tablet 50 mg PO Q24H 03/01/24 03/01/24 Previous Rx's ?Medication ?Instructions ?Recorded lorazepam 2 mg tablet (Ativan) 2 mg PO Q8H PRN Panic Attack #9 03/01/24 tabs Allergies Allergy/AdvReac Type Severity Reaction Status Date / Time venlafaxine [From Effexor] Allergy Severe Verified 03/01/24 09:51 Opioid HPI Opioid Management Most Recent Opioid Data: Last Pain Scale 6 06/20/23 11:13 Ur Phencyclidine Scrn Negative (NEGATIVE) 12/21/23 22:55 Review of Systems ROS Status of ROS 10 or more systems reviewed and unremarkable except as noted in history and below [facility] Medical History (Updated 03/01/24 @ 10:43 by Omkar Chilel MD) Anemia ?D64.9 - Anemia, unspecified (ICD-10) Anxiety ?F41.9 - Anxiety disorder, unspecified (ICD-10) Genital warts ?A63.0 - Anogenital (venereal) warts (ICD-10) Surgical History (Updated 08/11/23 @ 11:16 by Shasha Harvey NP) H/O vein stripping ?Z98.890 - Other specified postprocedural states (ICD-10) History of breast augmentation ?Z98.82 - Breast implant status (ICD-10) History of bilateral salpingectomy ?Z90.79 - Acquired absence of other genital organ(s) (ICD-10) History of tubal ligation ?Z98.51 - Tubal ligation status (ICD-10) History of laparoscopy ?Z98.890 - Other specified postprocedural states (ICD-10) History of section ?Z98.891 - History of uterine scar from previous surgery (ICD-10) Family History (Updated 08/11/23 @ 11:16 by Shasha Harvey NP) Other Family history of diabetes mellitus Family history of hypertension Family history of prostate cancer Social History (Updated 08/11/23 @ 11:12 by Shasha Harvey NP) Within the past year, how often did you have a drink containing alcohol: monthly or less Smoking status: Current every day smoker What tobacco products do you use: cigarettes Cigarettes per day: 20 Years smoked: 20 Smoking pack-years: 20.00 Non-prescribed substance use: denies use 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 GENERAL: Well developed, well appearing adult in no acute distress. NEURO: Alert and oriented. Moves all extremities. Face is symmetric and expressive. EYES: PERRL. No scleral icterus or conjunctival injection. No discharge. HENT: Normocephalic, atraumatic. Hearing is grossly intact. Nares grossly patent and without discharge. Mucous membranes moist. NECK: No JVD. Patient moves neck without restriction. CARDIO: Rhythm regular. Normal rate. No murmur, rub, or gallop. Pulses equal bilaterally in the upper and lower extremity. No lower extremity edema. PULM: Lungs clear to auscultation in all solomon. No wheezes, rales, or rhonchi. No conversational dyspnea. No splinting, stridor, or accessory muscle use. GI/: Abdomen is soft and non-tender. Normoactive bowel sounds. EXTREMITIES: Symmetric muscle bulk. No joint swelling. No clubbing, cyanosis, or deformity. SKIN: Warm and dry. Normal turgor. No rash or lesions appreciated. PSYCH: Anxious Constitutional Vital Signs, click to edit/add: Last Vital Signs Temp 98.2 F 03/01/24 09:51 Pulse 88 03/01/24 09:51 Resp 20 03/01/24 09:51 BP 158/84 H 03/01/24 09:51 Pulse Ox 100 03/01/24 09:51 O2 Del Method Room Air 03/01/24 09:51 Course Vital Signs Vital signs: Vital Signs Temperature 98.2 F 03/01/24 09:51 Pulse Rate 88 03/01/24 09:51 Respiratory Rate 20 03/01/24 09:51 Blood Pressure 158/84 H 03/01/24 09:51 Pulse Oximetry 100 03/01/24 09:51 Oxygen Delivery Method Room Air 03/01/24 09:51 Temperature 98.2 F 03/01/24 09:51 Pulse Rate 88 03/01/24 09:51 Respiratory Rate 20 03/01/24 09:51 Blood Pressure 158/84 H 03/01/24 09:51 Pulse Oximetry 100 03/01/24 09:51 Oxygen Delivery Method Room Air 03/01/24 09:51 Medical Decision Making MDM Narrative Medical decision making narrative: 38-year-old female to the emergency department with chief complaint of panic episode. Vital stable, the patient is afebrile. Chest x-ray and EKG are ordered. Patient does not believe the symptoms represent any other entities than her known anxiety. I offered further workup and she declined. My clinical suspicion for ACS, PE or other acute medical emergency causing her symptoms is low given her reported history and exam. Patient was given a dose of Ativan. EKG without acute findings. Chest x-ray is without acute findings. Patient's symptoms terminated with the Ativan. She feels much improved. She is eager for discharge home. She lives Ativan worked better than her Xanax. We'll switch her to Ativan. Discussed that these medications cannot be taken together. She'll follow-up with her counselor today with phone call. She'll follow-up with her PCP. Return precautions were discussed. All questions were answered. The patient was discharged home. Medical Records Medical records reviewed: Yes I reviewed the patient's medical records Imaging Data Chest x-ray: Attestation: I have reviewed the pertinent imaging results. Radiologist's impression: ITS Impressions Chest X-Ray 03/01/24 10:05 IMPRESSION: No acute cardiopulmonary process Electronically authenticated by: BENITO SHAVER Date: 03/01/2024 10:36 ECG Data Attestation: I personally reviewed and interpreted this ECG as follows: (Normal sinus rhythm at a rate of seventy-eight. No acute ischemic pattern. Normal QTC.) Discharge Plan Discharge Stand Alone Forms: Portal Instructions Chief Complaint: Anxiety Clinical Impression: Acute posttraumatic stress disorder, Anxiety Patient Disposition: Home, Self-Care Time of Disposition Decision: 10:43 Mode of Transportation: Private Vehicle Prescriptions / Home Meds: New lorazepam [Ativan] 2 mg tablet 2 mg PO Q8H PRN (Reason: Panic Attack) Qty: 9 0RF No Action buspirone 10 mg tablet 10 mg PO DAILY sertraline 50 mg tablet 50 mg PO Q24H alprazolam 0.25 mg tablet 0.25 mg PO TID PRN (Reason: anxiety) Print Language: Occitan Instructions: Panic Disorder (ED), Anxiety (ED) Additional Instructions: Speak with her counselor by her anxiety today. Do not take Ativan and Xanax at the same time. Use the Ativan to abort panic attacks. Referrals: Arnold Schroeder MD [Primary Care Provider] - 1 week Discharge Date/Time: 03/01/24 10:56
== END 2024-03-01 10:56 | disposition home or self-care (01) ==
PROVIDERS: Emergency Provider Student in an Organized Health Care Education/Training Program; PCP Family Medicine
DX: F43.11 Post-traumatic stress disorder, acute (principal); F41.9 Anxiety disorder, unspecified; Z79.899 Other long term (current) drug therapy; Z98.890 Other specified postprocedural states; Z98.82 Breast implant status; Z90.79 Acquired absence of other genital organ(s); Z98.51 Tubal ligation status; Z98.891 History of uterine scar from previous surgery; F17.210 Nicotine dependence, cigarettes, uncomplicated
CPT/HCPCS: 71046; 93005; 96372; 99284

== ENCOUNTER 2024-04-06 23:20 | Emergency (ER) | payer BC, SELFPAY ==
[2024-04-06 23:25] VITALS: BP 146/95; PULSE 78; TEMP 36.6; O2SAT 100; BMI 22.0
--- OUTSIDE RECORDS SUMMARY | 2024-04-06 23:29 | XMS_ITS ---
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 Name Role Phone HATIPOGLU, BETUL A Unavailable Unavailable HATIPOGLU, BETUL A Unavailable Unavailable FOSTER, PENELOPE F Unavailable Unavailable VORKEN BENAVIDEZ Unavailable Unavaila ble HATIPOGLU, BETUL A Unavailable Unavailable HATIPOGLU, BETUL A Unavailable Unavailable KEN JORDAN Unavailable Unavaila Chito Garcia Admitting Unavailable Chito Duarte Attending Unavailable Joel Clark~[id number] UNKNOWN Primary Care Unavailable Joel Clark~[id number] UNKNOWN Primary Care Unavailable Daniela Kay Unavailable Obed James Unavailable MD Joel Clark Primary Care Provider [phone] KATHY Miles Attending Provider [phone] Jamia Miles Unavailable DR JOEL CLARK Primary Care Unavailable JONG NAVA Attending Unavailable JONG NAVA Admitting Unavailable DR JOEL CLARK Consulting Unavailable DR JOEL CLARK Primary Care Unavailable DR JOLE CLARK Attending Unavailable DR JOEL CLARK Admitting Unavailable DR JOEL CLARK Consulting Unavailable DR ASHLEY JANSEN Primary Care Unavailable DR JOEL CLARK Attending Unavailable DR JOEL CLARK Admitting Unavailable BRIELLE IZAGUIRRE Consulting Unavailable BRIELLE IZAGUIRRE Attending Unavailable BRIELLE IZAGUIRRE Admitting Unavailable DR JOEL CLARK Primary Care Unavailable DR JOEL CLARK Primary Care Unavailable DR KEL GURROLA Attending Unavailable DR KEL GURROLA Admitting Unavailable DR KEL GURROLA Consulting Unavailable DR JOEL CLARK Primary Care Unavailable KI, DR MADDEN Attending Unavailable KI, DR MADDEN Admitting Unavailable DR JOEL CLARK Primary Care Unavailable JONG NAVA Attending Unavailable [...] Attending Unavailable AMBER, DR MALDONADO Admitting Unavailable MD Joel Clark Primary Care Provider [phone] MD Theo Guzman Admit Provider MD Theo Guzman Attending Provider Joel Clark Primary Care Unavailable Theo Guzman Admitting Unavailable Theo Guzman Attending Unavailable Phil Singleton Admitting Unavailab Phil Mendez Attending Unavailab Joel Lara Primary Care Unavailable Unavailable Unavailable Unavailable Allergies Allergy Classification Reported Allergen(s) Allergy Type Date of Onset Reaction(s) Facility (3 sources) venlafaxine Drug Allergy Unknown [facility] Other (2 sources) venlafaxine; Translations: [Effexor] Drug Allergy high BP/Heartrate [facility] Repository (1 source) Codeine Drug Allergy [facility] Repository (1 source) venlafaxine Drug Allergy [facility] Repository Encounters Encounter Date Encounter Type Care Provider Facility Start: 03-04-2024 ambulatory Phil Santana acility:[facility] Start: 12-22-2023 Non-patient / Non-visit MD Mayela Clark Work Phone: [facility] Work Phone: Start: 12-22-2023 End: 12-24-2023 Evaluation and management of inpatient Joel Clark Facility:[facility] Start: 12-22-2023 End: 12-24-2023 Evaluation and management of inpatient MD Joel Clark Work Phone: [facility] Work Phone: Start: 11-14-2022 End: 11-14-[address] SVETLANA BARRIOS Facility:[facility] Start: 09-29-2022 End: 09-29-2022 ambulatory BRIANA JENNINGS Facility:[facility] Start: 09-03-2022 End: 09-04-[address] JOSE LUIS CORADO Facility:[facility] Start: 08-14-2022 Office outpatient vi sit 15 minutes [facility] Start: 08-14-2022 End: 08-14-2022 ambulatory MD Joel Clark Work Phone: [facility] Work Phone: Start: 08-14-2022 End: 08-14-2022 Patient encounter procedure MD Joel Clark Work Phone: [facility] Start: 05-16-2022 Encounter for preprocedural laboratory examination DR KEL GURROLA [facility] Start: 05-13-2022 End: 05-13-[address] KEL GURROLA Facility:[facility] Start: 05-10-2022 End: 05-11-[address] KEL GURROLA Facility:[facility] Start: 05-10-2022 End: 05-11-2022 Encounter for preprocedural laboratory examination DR KEL GURROLA Facility:[facility] Start: 05-09-2022 Encounter for other preprocedural examination DR KEL GURROLA [facility] Start: 05-05-2022 End: 05-06-[address] JOEL CLARK Facility:[facility] Start: 05-05-2022 End: 05-06-2022 Encounter for other preprocedural examination DR JOEL CLARK Facility:[facility] Start: 04-28-2022 End: 04-28-[address] KEL GURROLA Facility:[facility] Start: 04-04-2022 End: 04-05-[address] KEL GURROLA Facility:[facility] Start: 03-31-2022 End: 04-01-[address] KEL GURROLA Facility:[facility] Start: 03-22-2022 End: 03-22-[address] KEL GURROLA Facility:[facility] Start: 02-04-[address] JOEL CLARK Facility :[facility] Start: 01-02-2022 End: 01-02-2022 ambulatory BRIELLE IZAGUIRRE Facility:[facility] Start: 12-31-2021 End: 12-31-[address] JOEL CLARK Facility:[facility] Start: 12-24-2021 End: 12-27-[address] JEOL CLARK Facility:[facility] Start: 12-11-2021 End: 12-12-[address] JOEL CLARK Facility:[facility] Start: 12-10-2021 End: 12-10-[address] JOEL CLARK Facility:[facility] Start: 11-27-2021 End: 11-28-[address] JOEL CLARK Facility:[facility] Start: 11-10-2021 End: 11-10-2021 ambulatory Obed James Other [facility] Other Start: 11-10-2021 Office outpatient vi sit 15 minutes Obed James [facility] Start: 08-30-2021 End: 08-30-2021 ambulatory Daniela Rahul Other [facility] Other Start: 08-30-2021 Office outpatient vi sit 5 minutes Daniela Rahul [facility] Start: 02-13-2019 Patient encounter procedure Joel~[id number] RUTH ANN Clark Facility:CD:[id number] Start: 10-05-2018 End: 10-08-2018 Patient encounter procedure ROXANNA HAN [facility] Start: 09-11-2018 End: 09-14-2018 Patient encounter procedure PENELOPE FOSTER [facility] Start: 08-21-2018 End: 08-24-2018 Patient encounter procedure KEN JORDAN [facility] Start: 06-19-2018 End: 06-20-2018 Patient encounter procedure Chito Duarte Facility:[facility] Start: 12-01-2017 Patient encounter procedure ROXANNA Alvarado ANGELIQUE [facility] Medical Equipment Procedure Code Equipment Code Equipment Origin al Text Equipment Identifier Dates ()[id number] FDA Start: 09-05-2019 Silicone gel-fay led breast implant ()[id number] FDA Start: 09-05-2019 Goals Date Patient Goal Desired Activity /State Medications Current Medications Medication Drug Class(es) Dates Sig (Normalized) Sig (Original) ALPRAZolam 0.25 mg oral tablet (2 sources) Benzodiazepine Start: 12-24-2023 take 0.25 mg by mouth once daily Alprazolam Active 0.25 MG PO Daily 5 December 24, 2023 12:00am Start: 12-22-2023 End: 12-24-2023 take 0.25 mg by mouth three times daily Alprazolam Discontinued 0.25 MG PO Three times daily December 22, 2023 12:00am December 24, 2023 11:28am busPIRone hydrochloride 10 mg oral tablet (1 source) Start: 12-24-2023 take 10 mg by mouth three times daily Buspirone Active 10 MG PO Three times daily December 24, 2023 12:00am [place] (No Known Home Meds) (1 source) Start: 09-05-2019 [place] (No Known Home Meds) Active September 05, 2019 1:00am polymyxin b 01833 unt/ml / trimethoprim 1 mg/ml ophthalmic solution (1 source) Dihydrofolate Reductase Inhibitor Antibacterial, Polymyxin-class Antibacterial Start: 11-10-2021 take 1 drop(s) into the eye(s) four times daily Polymyxin B-Trimethoprim 56863-2.1 UNIT/ML 1 drop into both eyes Ophthalmic Four times a day for 7 day(s) Oct, Active Prosacea (1 source) Prosacea Active sertraline 50 mg oral tablet (1 source) Serotonin Reuptake Inhibitor Start: 12-24-2023 take 50 mg by mouth once daily in the morning Sertraline Active 50 MG PO Every morning December 24, 2023 12:00am Completed/Discontinued Medications Medication Drug Class(es) Dates Sig (Normalized) Sig (Original) hydrocortisone 5 mg oral tablet (4 sources) Corticosteroid Start: 05-14-2018 End: 09-05-2019 take 10 mg by mouth once daily in the morning Hydrocortisone Discontinued 10 MG PO Every morning May 13, 2018 11:00pm September 05, 2019 9:43am Start: 05-14-2018 End: 09-05-2019 take 5 mg by mouth at bedtime Hydrocortisone Discontin ued 5 MG PO Bedtime May 13, 2018 11:00pm September 05, 2019 9:43am Sulfamethoxazole (2 sources) Sulfonamide Antimicrobial Sulfam ethoxazole Not-Taking Sulfamethoxazole Active Payers Date Payer Category Payer Unknown [id number] 1985 Unknown [id number] 1985 Unknown [id number] 2.16.840.1.885156.3.579.2.727 1985 Unknown [id number] 2.16.840.1.087489.3.579.2.593 1985 Unknown [id number] 2.16.840.1.463993.3.579.2.593 1984 Unknown [id number] 2.16.840.1.024921.3.579.2.593 1984 Unknown [id number] 2.16.840.1.601280.3.579.2.593 1984 Unknown [id number] 2.16.840.1.677215.3.579.2.593 1984 Unknown [id number] 2.16.840.1.483524.3.579.2.593 1984 Unknown [id number] 2.16.840.1.683806.3.579.2.593 1984 Unknown [id number] 2.16.840.1.622624.3.579.2.593 1984 Unknown [id number] 2.16.840.1.024070.3.579.2.593 1984 Unknown [id number] 2.16.840.1.250737.3.579.2.593 1984 Unknown [id number] 2.16.840.1.263857.3.579.2.593 1984 Unknown [id number] 2.16.840.1.050194.3.579.2.593 1984 Unknown [id number] 2.16.840.1.303379.3.579.2.593 1984 Unknown [id number] 2.16.840.1.828720.3.579.2.593 1984 Unknown [id number] 2.16.840.1.777064.3.579.2.593 1984 Unknown [id number] 2.16.840.1.419586.3.579.2.593 1984 Unknown [id number] 2.16.840.1.223220.3.579.2.593 1984 Unknown [id number] 2.16.840.1.754719.3.579.2.593 1960 Self-pay [id number] 1960 Unknown [id number] 2.16.840.1.015750.19 Self-pay Self Pay Cosmetic/Pain Mgmt [id number] Unknown [employer] [id number] Unknown [id number] 2.16.840.1.342316.3.579.2.531 Unknown [id number] 2.16.840.1.435681.3.579.2.531 Plan of Treatment Date Care Activity Detail Author Start: 12-24-2023 [facility] Start: 12-22-2023 Hospital admission [facility] Patient Education Anxiety, Adult (DC) [facility] Behavioral Health DC Instructions 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] Onset: 11-15-2022 Episodic Other non-traumatic joint disorders (1 source) Pain in right ankle and joints of right foot Episodic Sprains and strains (1 source) Sprain of unspecified ligament of right ankle, initial encounter Episodic Substance-related disorders (1 source) Nicotine dependence, cigarettes, uncomplicated; Translations: [NICOTINE DEPEND CIGARETTES UNCOMP] Onset: 09-06-2022 Chronic Unclassified (3 sources) COUGH, UNSPECIFIED; Translations: [COUGH, [...] [CONTACT W/AND (SUSP) EXPOS COVID-19] Onset: 12-10-2021 Procedures Date Procedure Procedure Detail Performing Clinician Start: 08-14-2022 X-ray of right ankle MD Joel Clark Work Phone: Results Test Name Value Interpretation Reference Range Facility Cholesterol [Mass/volume] in Serum or PlasmaOrdered By: Theo Guzman on 12-22-2023 Cholesterol [Mass/Vol] 157 mg/dL 140-200 [facility] Comment on above: Chol less than 200 m g/dl low riskChol 201-239 mg/dl borderline riskChol 240 mg/dl and greater high risk Cholesterol in LDL Calc [Mas s/Vol]Ordered By: Theo Guzman on 12-22-2023 Cholesterol in LDL [Mass/Vol] 69 mg/dL 0-100 [facility] Comment on above: LDL ATP III CLASSIFI CATIONLDL less than 100 mg/dL OptimalLDL 100-129 mg/dL Near or above optimalLDL 130-159 mg/dL Borderline highLDL 160-189 mg/dL HighLDL greater than 189 mg/dL Very high Cholesterol in VLDL Calc [Ma ss/Vol]Ordered By: Theo Guzman on 12-22-2023 Cholesterol in VLDL [Mass/Vol] 16 mg/dL [facility] ECG 12 lead ECGon 12-22-2023 ECG 12 lead ECG [facility] [place] [address] Electrocardiograph Report Signed Patient: Patsy Cody MR#: [id number] : 1985 Acct:[id number] Age/Sex: 38 / F ADM Date: 12/22/23 Loc: Room: [address] [place] [address] Type: ADM IN Attending Dr: Theo Guzman MD Ordering Provider: Theo Guzman MD Date of Service: 12/22/23 ECG/ECG 12 lead ECG: use of antipsychotics Copies to: Test Reason : Blood Pressure : / mmHG Vent. Rate : 059 BPM Atrial Rate : 059 BPM P-R Int : 158 ms QRS Dur : 094 ms QT Int : 432 ms P-R-T Axes : 070 085 070 degrees QTc Int : 427 ms Sinus bradycardia with sinus arrhythmia ST abnormality, possible digitalis effect Abnormal ECG No previous ECGs available Confirmed by ZORAIDA ALVARADO FACEDMAR ([id number]) on 12/22/2023 6:07:07 PM Referred By: Electronically Signed By:EDMAR HAUSER MD [facility] Transcribed By: MUS Signed By Vini Hauser MD 12/22/23 1807 Normal [facility] Lipid Panelon 12-22-2023 Cholesterol [Mass/Vol] 157 mg/dL Normal 140-200 [facility] Comment on above: Result Comment: Chol less than 200 mg/dl low risk Chol 201-239 mg/dl borderline risk Chol 240 mg/dl and greater high risk Performed By: #### V [id number], LIPID, TSH3 wRFLX #### [facility] [address] [place] [address] [place] Cholesterol in HDL [Mass/Vol] 72 mg/dL Normal 23-92 [facility] Comment on above: Result Comment: HDL CHOL ATP-III CLASSIFICATION Cardiovascular Risk HDL > or equal to 60 mg/dL LOW HDL < 40 mg/dL HIGH Performed By: #### V [id number], LIPID, TSH3 wRFLX #### [facility] [address] [place] [address] [facility] Cholesterol.total/Ch olesterol in HDL [Mass ratio] 2.2 {ratio} Normal <5.0 [facility] Comment on above: Performed By: #### V [id number], LIPID, TSH3 wRFLX #### [facility] [address] [place] [id number] [place] LDL Cholesterol,Calculat ed 69 mg/dL Normal 0-100 [facility] Comment on above: Result Comment: LDL ATP III CLASSIFICATION LDL less than 100 mg/dL Optimal LDL 100-129 mg/dL Near or above optimal LDL 130-159 mg/dL Borderline high LDL 160-189 mg/dL High LDL greater than 189 mg/dL Very high Performed By: #### V [id number], LIPID, TSH3 wRFLX #### [facility] [address] Triglyceride w/Reflex 82 mg/dL Normal 0-149 [facility] Comment on above: Result Comment: TRIG ATP III CLASSIFICATION TRIG less than 150 mg/dL Normal TRIG 150-199 mg/dL Borderline high TRIG 200-500 mg/dL High TRIG greater than 500 mg/dL Very high Standard traceable to the Center for Disease Conrtrol and Prevention (CDC) test method. Performed By: #### V [id number], LIPID, TSH3 wRFLX #### [facility] [address] VLDL CHOLESTEROL 16 mg/dL Normal [facility] Comment on above: Performed By: #### V [id number], LIPID, TSH3 wRFLX #### [facility] [address] Serum or plasma high density lipoprotein (HDL) cholesterol measurementOrdered By: Theo Guzman on 12-22-2023 Cholesterol in HDL [Mass/Vol] 72 mg/dL [facility] Comment on above: HDL CHOL ATP-III CLA SSIFICATION Cardiovascular RiskHDL > or equal to 60 mg/dL LOWHDL < 40 mg/dL HIGH Serum or plasma total choles terol/high density lipoprotein (HDL) cholesterol mass ratOrdered By: Theo Guzman on 12-22-2023 Cholesterol.total/Ch olesterol in HDL [Mass ratio] 2.2 {ratio} <5.0 [facility] Thyroid Stim Hormone w/Rflxo n 12-22-2023 Thyroid Stim Hormone w/Rflx 3.43 u[iU]/mL Normal 0.45-5.33 [facility] Comment on above: Performed By: #### V [id number], LIPID, TSH3 wRFLX #### [facility] [address] Thyrotropin [Units/volume] i n Serum or PlasmaOrdered By: Theo Guzman on 12-22-2023 TSH Qn 3.43 m[IU]/L 0.45-5.33 [facility] Triglyceride [Mass/volume] i n Serum or PlasmaOrdered By: Theoruddy Guzman on 12-22-2023 Triglyceride [Mass/Vol] 82 mg/dL 0-149 [facility] Comment on above: TRIG ATP III CLASSIF ICATIONTRIG less than 150 mg/dL NormalTRIG 150-199 mg/dL Borderline highTRIG 200-500 mg/dL High TRIG greater than 500 mg/dL Very highStandard traceable to the Center for Disease Conrtrol and Prevention (CDC) test method. Vitamin D 25 Hydroxy Totalon 12-22-2023 Vitamin D 25 Hydroxy Total 20.5 ng/mL Low 30-100 [facility] Comment on above: Result Comment: TUSHAR MIN D STATUS 25(OH)VITAMIN D RANGE (ng/mL) Deficient <20 Insufficient 20 to <30 Sufficient 30 to 100 Reference: Michael Joel, Zari CRUZ, et al. Evaluation,treatment, and prevention of vitamin D deficiency; an Endocrine Society clinical practice guideline. JCEM. 2010; 96(7):1911-30. PERFORMED BY: [place] [address] PATHOLOGIST POWER BARKER OPERATOR JEFF CARDENAS M.D. Performed By: #### V [id number], LIPID, TSH3 wRFLX #### [address] Vitamin D+Metabolites [Mass/ volume] in Serum or PlasmaOrdered By: Theo Guzman on 12-22-2023 Vitamin D+Metabolites [Mass/Vol] 20.5 ng/mL 30-100 [facility] Comment on above: VITAMIN D STATUS 25( [place])VITAMIN D RANGE (ng/mL) Deficient <20 Insufficient 20 to <30Sufficient 30 to 100Reference: Michael Joel, Zari CRUZ et al. Evaluation,treatment, and prevention of vitamin D deficiency; an Endocrine Society clinical practice guideline. JCEM. 2010; 96(7):1911-30. CHLAMYDIA/GONOCOCCUS ADRIEL (SW AB/URINE/PAPon 10-04-2022 Chlamydia trachomatis, ADRIEL Negative Normal Negative [facility] Comment on above: Performed By: #### V AGINT #### [facility] [address] [place] [address] Dr. Ximena Billings Neisseria gonorrhoeae, ADRIEL Negative Normal Negative [facility] Comment on above: Performed By: #### V AGINT #### [facility] [address] [address] [address] Ximena Billings VAGINITIS/VAGINOSIS DNA PROB Eugene 10-02-2022 Adriana species Negative Normal Negative [facility] Comment on above: Performed By: #### V AGINT #### [facility] [address] [place] [address] Dr. Ximena Billings Gardnerella vaginalis Negative Normal Negative [facility] Comment on above: Performed By: #### V AGINT #### [facility] [address] [place] [address] Dr. Ximena Billings Trichomonas vaginalis Negative Normal Negative [facility] Comment on above: Performed By: #### V AGINT #### [facility] [address] [place] [address] Dr. Ximena Billings Covid-19 PCR ([facility])on SARS-CoV-2 (COVID-19) RNA ADRIEL+probe Ql (Unsp spec) Not detected Normal NOT DETECTED [facility] Comment on above: Result Comment: When diagnostic [...] for this test is supported by the [place] of Health and Human Service's declaration that [...] longer be used). Performed By: #### C Amalia/ARIAN #### [facility] [address] [place] [id number] [address] Ximena Billings XR CHEST 1 Von [...] BENITO ROWLAND Date: 2022-09-03 21:[address] [facility] XR ankle RT min 3V*on 2021 XR ankle RT min 3V* [facility] Other XR ankle RT min 3V* [facility] Other XR ankle RT min 3V* [address] [place] [address] [facility] Other XR ankle RT min 3V* [place], [place] [id number] [place] [address] [facility] Other XR ankle RT min 3V* XRay Report Nort [facility] Other XR ankle RT min 3V* Signed [facility] Other XR ankle RT min 3V* Patient: Patsy Cody MR#: [id number] [facility] Other XR ankle RT min 3V* [id number] [facility] Other XR ankle RT min 3V* : 1985 Acct:[id number] [facility] Other XR ankle RT min 3V* Age/Sex: 37 / F ADM Date: 08/14/22 [facility] Other XR ankle RT min 3V* Loc: XDUCLY Room: Ty pe: REG CLI [facility] Other XR ankle RT min 3V* Attending Dr: Jamia Miles [facility] Other XR ankle RT min 3V* Copies to: Jamia juarez, [facility] Other XR ankle RT min 3V* Ordering Provider: Christiano Miles, FIREWORKS INSPECTOR [facility] Other XR ankle RT min 3V* Date of Service: 08/14/22 [facility] Other XR ankle RT min 3V* [id number]) XR/XR ankle RT min 3V*: RIGHT ANKLE PAIN [facility] Other XR ankle RT min 3V* RIGHT ANKLE - 3 views [facility] Other XR ankle RT min 3V* CLINICAL DATA: Media l ankle pain without specific injury. [facility] Other XR ankle RT min 3V* COMPARISON: None [facility] Other XR ankle RT min 3V* AP, lateral and obli que views were obtained. There is no evidence of fracture or dislocation. [facility] Other XR ankle RT min 3V* The talar dome is in tact. There is slight lateral soft tissue swelling. [facility] Other XR ankle RT min 3V* X R/XR ankle RT min 3V* [facility] Other XR ankle RT min 3V* IMPRESSION: Nort [employer] Other XR ankle RT min 3V* NO ACUTE BONY FINDINGS. [facility] Other XR ankle RT min 3V* Impression dictated by: Aurora Keith M.D.08/14/2022 2:07 PM [facility] Other XR ankle RT min 3V* Dictation Location: [facility]-- [facility] Other XR ankle RT min 3V* Transcribed By: KRISTIN 08/14/22 1407 [facility] Other XR ankle RT min 3V* Dictated By: Aurora Keiht MD 08/14/22 1406 [facility] Other XR ankle RT min 3V* Signed By: [facility] Other XR ankle RT min 3V* 08/14/22 1407 No rt t-Art Other CBC AUTO DIFFon 05-13-2022 BASO # 0.0 103/ul Normal 0.0-0.1 [facility] Comment on above: Performed By: #### V AGINT #### [facility] [address] [place] [address] Dr. Ximena Billings Basophils/100 WBC (Bld) 0.5 % Normal 0.2-2.0 [facility] Comment on above: Performed By: #### V AGINT #### [facility] [address] [place] [address] Dr. Ximena Billings EO # 0.1 103/ul Normal 0.0-0.7 [facility] Comment on above: Performed By: #### V AGINT #### [facility] [address] [place] [address] Dr. Ximena Billings Eosinophils/100 WBC (Bld) 1.4 % Normal 0.9-7.0 [facility] Comment on above: Performed By: #### V AGINT #### [facility] [address] [place] [address] Dr. Ximena Billings Erythrocyte distribution width (RBC) [Ratio] 13.3 % Normal 11.0-15.0 [facility] Comment on above: Performed By: #### V AGINT #### [facility] [address] [place] [address] Dr. Ximena Billings Hematocrit (Bld) [Volume fraction] 39.2 % Normal 36.0-48.0 [facility] Comment on above: Performed By: #### V AGINT #### [facility] [address] [place] [address] Dr. Ximena Billings Hemoglobin (Bld) [Mass/Vol] 12.8 g/dL Normal 12.0-16.0 [facility] Comment on above: Performed By: #### V AGINT #### [facility] [address] [place] [address] Dr. Ximena Billings IG # 0.01 10e3/ul Normal 0.00-0.03 [facility] Comment on above: Performed By: #### V AGINT #### [facility] [address] [place] [address] Dr. Ximena Billings IG % 0.2 % Normal 0.0-0.5 [facility] Comment on above: Performed By: #### V AGINT #### [facility] [address] [place] [address] Dr. Ximena Billings LYMPH # 1.9 103/ul Normal 1.2-3.8 [facility] Comment on above: Performed By: #### V AGINT #### [facility] [address] [place] [address] Dr. Ximena Billings Lymphocytes/100 WBC (Bld) 34.5 % Normal 20.5-60.0 [facility] Comment on above: Performed By: #### V AGINT #### [facility] [address] [place] [address] Dr. Ximena Billings MANUAL DIFF REQ NO Normal [facility] Comment on above: Performed By: #### V AGINT #### [facility] [address] [place] [address] Dr. Ximena Billings MCH (RBC) [Entitic mass] 30.5 pg Normal 26.7-34.0 [facility] Comment on above: Performed By: #### V AGINT #### [facility] [address] [place] [address] Dr. Ximena Billings MCHC (RBC) [Mass/Vol] 32.7 g/dL Normal 29.9-35.2 [facility] Comment on above: Performed By: #### V AGINT #### [facility] [address] [place] [address] Dr. Ximena Billings MCV (RBC) [Entitic vol] 93.3 fL Normal 81.0-99.0 [facility] Comment on above: Performed By: #### V AGINT #### [facility] [address] [place] [address] Dr. Ximena Billings MONO # 0.5 103/ul Normal 0.3-0.8 [facility] Comment on above: Performed By: #### V AGINT #### [facility] [address] [place] [address] Dr. Ximena Billings Monocytes/100 WBC (Bld) 8.6 % Normal 1.7-12.0 [facility] Comment on above: Performed By: #### V AGINT #### [facility] [address] [place] [address] Dr. Ximena Billings NEUT # 3.1 103/ul Normal 1.4-6.5 [facility] Comment on above: Performed By: #### V AGINT #### [facility] [address] [place] [address] Dr. Ximena Billings Neutrophils/100 WBC (Bld) 54.8 % Normal 43.0-75.0 [facility] Comment on above: Performed By: #### V AGINT #### [facility] [address] [place] [address] Dr. Ximena Billings Platelet mean volume (Bld) [Entitic vol] 9.2 fL Critically low 9.5-13.[address] [facility] Comment on above: Performed By: #### V AGINT #### [facility] [address] [place] [address] Dr. Ximena Billings PLT 258 103/ul Normal 150-[address] [facility] Comment on above: Performed By: #### V AGINT #### [facility] [address] [place] [address] Dr. Ximena Billings RBC 4.20 106/ul Normal 4.20-5.[address] [facility] Comment on above: Performed By: #### V AGINT #### [facility] [address] [address] [address] Ximena Billings WBC 5.6 103/ul Normal 4.0-11.0 [facility] Comment on above: Performed By: #### V AGINT #### [facility] [address] [address] [address] Ximena Billings PREG HCG QUALon 05-13-2022 , QUAL Negative Normal NEGATIVE [facility] Comment on above: Performed By: #### P REG #### [facility] [address] [address] [address] Ximena Billings [facility] SARS-CoV-2 (COVID-19) RNA ADRIEL+probe Ql (Unsp spec) Not detected Normal NOT DETECTED [facility] Comment on above: Result Comment: This test is not yet approved or cleared by the [place] FDA. When there are no FDA-approved or cleared tests available, and other criteria are met, FDA can make tests available under an emergency access mechanism called an Emergency Use Authorization (EUA). The EUA for this test is supported by the [place] of Health and Human Service's (HHS's) declaration [...] SARS-CoV-2. Performed By: #### C VDTBH #### [facility] [address] [place] [address] Dr. Ximena Billings CHLAMYDIA/GONOCOCCUS ADRIEL (SW AB/URINE/PAPon 04-30-2022 Chlamydia trachomatis, ADRIEL Negative Normal Negative [facility] Comment on above: Performed By: #### C T/NGNA #### [facility] [address] [place] [address] Dr. Ximena Billings Neisseria gonorrhoeae, ADRIEL Negative Normal Negative [facility] Comment on above: Performed By: #### C T/NGNA #### [facility] [address] [place] [address] Dr. Ximena Billings VAGINITIS/VAGINOSIS DNA PROB Eugene 04-29-2022 Adriana species Negative Normal Negative [facility] Comment on above: Performed By: #### C T/NGNA #### [facility] [address] [place] [address] Dr. Ximena Billings Gardnerella vaginalis Positive Abnormal Negative [facility] Comment on above: Performed By: #### C T/NGNA #### [facility] [address] [place] [address] Dr. Ximena Billings Trichomonas vaginalis Negative Normal Negative [facility] Comment on above: Performed By: #### C T/NGNA #### [facility] [address] [place] [address] Dr. Ximena Billings CBC AUTO DIFFon 04-04-2022 BASO # 0.0 103/ul Normal 0.0-0.1 [facility] Comment on above: Performed By: #### C BC #### [facility] [address] [place] [address] Dr. Ximena Billings Basophils/100 WBC (Bld) 0.7 % Normal 0.2-2.0 [facility] Comment on above: Performed By: #### C BC #### [facility] [address] [place] [address] Dr. Ximena Billings EO # 0.1 103/ul Normal 0.0-0.7 [facility] Comment on above: Performed By: #### C BC #### [facility] [address] [place] [address] Dr. Ximena Billings Eosinophils/100 WBC (Bld) 1.8 % Normal 0.9-7.0 [facility] Comment on above: Performed By: #### C BC #### [facility] [address] [place] [address] Dr. Ximena Billings Erythrocyte distribution width (RBC) [Ratio] 14.6 % Normal 11.0-15.[address] [facility] Comment on above: Performed By: #### C BC #### [facility] [address] [place] [address] Dr. Ximena Billings Hematocrit (Bld) [Volume fraction] 38.1 % Normal 36.0-48.0 [facility] Comment on above: Performed By: #### C BC #### [facility] [address] [place] [address] Dr. Ximena Billings Hemoglobin (Bld) [Mass/Vol] 12.5 g/dL Normal 12.0-16.[address] [facility] Comment on above: Performed By: #### C BC #### [facility] [address] [place] [address] Dr. Ximena Billings IG # 0.01 10e3/ul Normal 0.00-0.03 [facility] Comment on above: Performed By: #### C BC #### [facility] [address] [place] [address] Dr. Ximena Billings IG % 0.2 % Normal 0.0-0.5 [facility] Comment on above: Performed By: #### C BC #### [facility] [address] [place] [address] Dr. Ximena Billings LYMPH # 1.9 103/ul Normal 1.2-3.[address] [facility] Comment on above: Performed By: #### C BC #### [facility] [address] [place] [address] Dr. Ximena Billings Lymphocytes/100 WBC (Bld) 34.6 % Normal 20.5-60.[address] [facility] Comment on above: Performed By: #### C BC #### [facility] [address] [place] [address] Dr. Ximena Billings MANUAL DIFF REQ NO Normal [facility] Comment on above: Performed By: #### C BC #### [facility] [address] [place] [address] Dr. Ximena Billings MCH (RBC) [Entitic mass] 30.1 pg Normal 26.7-34.0 [facility] Comment on above: Performed By: #### C BC #### [facility] [address] [place] [address] Dr. Ximena Billings MCHC (RBC) [Mass/Vol] 32.8 g/dL Normal 29.9-35.2 [facility] Comment on above: Performed By: #### C BC #### [facility] [address] [place] [address] Dr. Ximena Billings MCV (RBC) [Entitic vol] 91.8 fL Normal 81.0-99.0 [facility] Comment on above: Performed By: #### C BC #### [facility] [address] [place] [address] Dr. Ximena Billings MONO # 0.4 103/ul Normal 0.3-0.8 [facility] Comment on above: Performed By: #### C BC #### [facility] [address] [place] [address] Dr. Ximena Billings Monocytes/100 WBC (Bld) 7.0 % Normal 1.7-12.0 [facility] Comment on above: Performed By: #### C BC #### [facility] [address] [place] [address] Dr. Ximena Billings NEUT # 3.1 103/ul Normal 1.4-6.5 [facility] Comment on above: Performed By: #### C BC #### [facility] [address] [place] [address] Dr. Ximena Billings Neutrophils/100 WBC (Bld) 55.7 % Normal 43.0-75.[address] [facility] Comment on above: Performed By: #### C BC #### [facility] [address] [place] [address] Dr. Ximena Billings Platelet mean volume (Bld) [Entitic vol] 9.0 fL Critically low 9.5-13.5 [facility] Comment on above: Performed By: #### C BC #### [facility] [address] [place] [address] Dr. Ximena Billings PLT 261 103/ul Normal 150-[address] [facility] Comment on above: Performed By: #### C BC #### [facility] [address] [address] [address] Ximena Billings RBC 4.15 106/ul Critically low 4.20-5.40 [facility] Comment on above: Performed By: #### C BC #### [facility] [address] [address] [address] Ximena Billings WBC 5.6 103/ul Normal 4.0-11.0 [facility] Comment on above: Performed By: #### C BC #### [facility] [address] [place] [address] Dr. Ximena Billings PREG QUANT HCGon 04-04-2022 HCG QUANT 1 mIU/mL Normal [facility] Comment on above: Performed By: #### P REGQNT, TSH #### [facility] [address] [place] [address] Dr. Ximena Billings HCG RANGE SEE BELOW Normal [facility] Comment on above: Result Comment: 5-50 0-1 WEEK 40-300 1-2 WEEKS 100-1,000 2-3 WEEKS 500-6,000 3-4 WEEKS 5,000-200,000 1-2 MONTHS 10,000-100,000 2-3 MONTHS 3,000-50,000 2ND TRIMESTER 1,000-50,000 3RD TRIMESTER Performed By: #### P REGQNT, TSH #### [facility] [address] [place] [address] Dr. Ximena Billings PROTIMEon 04-04-2022 INR Coag (PPP) [Relative time] 1.07 {INR} Normal [facility] Comment on above: Performed By: #### C T/NGNA #### [facility] [address] [place] [address] Dr. Ximena Billings INR GUIDELINES SEE BELOW Normal [facility] Comment on above: Result Comment: KRISTI RED INR: 2.0 - 3.0 CONDITIONS NOT LISTED BELOW 2.5 - 3.5 FOR PROSTHETIC HEART VALVE REPLACEMENT 2.5 - 3.5 RECURRENT THROMBOSIS Performed By: #### C T/NGNA #### [facility] [address] [place] [address] Dr. Ximena Billings PT Coag (PPP) [Time] 11.5 s Normal 9.0-11.6 [facility] Comment on above: Performed By: #### C T/NGNA #### [facility] [address] [place] [address] Dr. Ximena Billings PTTon 04-04-2022 aPTT Coag (Bld) [Time] 28.3 s Normal 22.3-36.2 [facility] Comment on above: Performed By: #### C T/NGNA #### [facility] [address] [place] [address] Dr. Ximena Billings TSHon 04-04-2022 TSH 1.116 uIU/mL Normal 0.358-3.74 0 [facility] Comment on above: Performed By: #### P REGQNT, TSH #### [facility] [address] [place] [address] Dr. Ximena Billings TSH RANGE SEE BELOW Normal [facility] Comment on above: Result Comment: <0.3 4 UIU/ml HYPERTHYROID 0.34-5.60 UIU/ml EUTHYROID >5.60 UIU/ml HYPOTHYROID Performed By: #### P REGQNT, TSH #### [facility] [address] [place] [address] Dr. Ximena Billings US PELVIS AND TRANSVAGon [...] by: JULIAN GARCIA Date: 2022-04-01 08:40 Normal [facility] PAP ACOG PANEL 2: 30 to 65on 03-29-2022 . . Normal [facility] Comment on above: Result Comment: Perf ormed at: BA Performed By: #### V AGINT #### [facility] [address] [place] [address] Dr. Ximena Billings Age Gdln ACOG Testing - [facility] Comment on above: Performed By: #### V AGINT #### [facility] [address] [place] [address] Dr. Ximena Billings DIAGNOSIS: Comment Normal [facility] Comment on above: Result Comment: NEGA TIVE FOR INTRAEPITHELIAL LESION OR MALIGNANCY. THIS SPECIMEN WAS RESCREENED PART OF OUR ASSISTANT TRACK COACH PROGRAM. Performed at: BA Performed By: #### V AGINT #### [facility] [address] [address] [address] Ximena Billings HPV Aptima Negative Normal Negative [facility] Comment on above: Result Comment: This nucleic acid amplification test detects fourteen high-risk HPV types (16,18,31,33,35,39,45,51,52,56,58,59,66,68) without differentiation. Performed at: =G Performed By: #### V AGINT #### [facility] [address] [address] [address] Ximena Billings Methodology: Comment Normal [facility] Comment on above: Result Comment: This liquid based ThinPrep(R) pap test was screened with the use of an image guided system. Performed at: WB Performed By: #### V AGINT #### [facility] [address] [place] [address] Dr. Ximena Billings Note: Comment Normal [facility] Comment on above: Result Comment: The Pap smear is a screening test designed to aid in the detection of premalignant and malignant conditions of the uterine cervix. It is not a diagnostic procedure and should not be used as the sole means of detecting cervical cancer. Both false-positive and false-negative reports do occur. . Performed at: WB Performed By: #### V AGINT #### [facility] [address] [place] [address] Dr. Ximena Billings Performed by: Comment Normal [facility] Comment on above: Result Comment: Omaira Ferreira, Ground Equipment Mechanic (ASCP) Performed at: BA Performed By: #### V AGINT #### [facility] [address] [place] [address] Dr. Ximena Billings QC reviewed by: Comment Normal [facility] Comment on above: Result Comment: Pardeep Garvin, Ground Equipment Mechanic (ASCP) Performed at: BA Performed By: #### V AGINT #### [facility] [address] [place] [address] Dr. Ximena Billings Specimen adequacy: Comment Normal [facility] Comment on above: Result Comment: Sati sfactory for evaluation. Endocervical and/or squamous metaplastic cells (endocervical component) are present. Areas of partially obscuring inflammatory exudate are present. Performed at: BA Performed By: #### V AGINT #### [facility] [address] [place] [address] Dr. Ximena Billings CHLAMYDIA/GONOCOCCUS ADRIEL (SW AB/URINE/PAPon 03-24-2022 Chlamydia trachomatis, ADRIEL Negative Normal Negative [facility] Comment on above: Performed By: #### C T/NGNA #### [facility] [address] [place] [address] Dr. Ximena Billings Neisseria gonorrhoeae, ADRIEL Negative Normal Negative [facility] Comment on above: Performed By: #### C T/NGNA #### [facility] [address] [place] [address] Dr. Ximena Billings VAGINITIS/VAGINOSIS DNA PROB Eugene 03-24-2022 Adriana species Negative Normal Negative [facility] Comment on above: Performed By: #### V AGINT #### [facility] [address] [place] [address] Dr. Ximena Billings Gardnerella vaginalis Positive Abnormal Negative [facility] Comment on above: Performed By: #### V AGINT #### [facility] [address] [place] [address] Dr. Ximena Billings Trichomonas vaginalis Negative Normal Negative [facility] Comment on above: Performed By: #### V AGINT #### [facility] [address] [place] [address] Dr. Ximena Billings GROUP A STREP CULTUREon S. pyogenes Ag Ql (Unsp spec) Culture Observations: NEGATIVE FOR GROUP A STREPTOCOCCUS. Normal [facility] Comment on above: Performed By: #### V AGINT #### [facility] [address] [place] [address] Dr. Ximena Billings STREPT SCREENon 01-02-2022 STREP SCREEN A Negative Normal NEGATIVE [facility] Comment on above: Performed By: #### V AGINT #### [facility] [address] [place] [address] Dr. Ximena Billings CBC AUTO DIFFon 12-11-2021 BASO # 0.0 103/ul Normal 0.0-0.1 [facility] Comment on above: Performed By: #### C BC #### [facility] [address] [place] [address] Dr. Ximena Billings Basophils/100 WBC (Bld) 0.7 % Normal 0.2-2.0 [facility] Comment on above: Performed By: #### C BC #### [facility] [address] [place] [address] Dr. Ximena Billings EO # 0.1 103/ul Normal 0.0-0.[address] [facility] Comment on above: Performed By: #### C BC #### [facility] [address] [place] [address] Dr. Ximena Billings Eosinophils/100 WBC (Bld) 1.0 % Normal 0.9-7.0 [facility] Comment on above: Performed By: #### C BC #### [facility] [address] [place] [address] Dr. Ximena Billings Erythrocyte distribution width (RBC) [Ratio] 18.9 % Critically high 11.0-15.0 [facility] Comment on above: Performed By: #### C BC #### [facility] [address] [place] [address] Dr. Ximena Billings Hematocrit (Bld) [Volume fraction] 27.9 % Critically low 36.0-48.0 [facility] Comment on above: Performed By: #### C BC #### [facility] [address] [place] [address] Dr. Ximena Billings Hemoglobin (Bld) [Mass/Vol] 8.4 g/dL Critically low 12.0-16.0 [facility] Comment on above: Performed By: #### C BC #### [facility] [address] [place] [address] Dr. Ximena Billings IG # 0.01 10e3/ul Normal 0.00-0.03 [facility] Comment on above: Performed By: #### C BC #### [facility] [address] [place] [address] Dr. Ximena Billings IG % 0.2 % Normal 0.0-0.5 [facility] Comment on above: Performed By: #### C BC #### [facility] [address] [place] [address] Dr. Ximena Billings LYMPH # 2.2 103/ul Normal 1.2-3.8 [facility] Comment on above: Performed By: #### C BC #### [facility] [address] [place] [address] Dr. Ximena Billings Lymphocytes/100 WBC (Bld) 37.6 % Normal 20.5-60.0 [facility] Comment on above: Performed By: #### C BC #### [facility] [address] [place] [address] Dr. Ximena Billings MANUAL DIFF REQ NO Normal [facility] Comment on above: Performed By: #### C BC #### [facility] [address] [place] [address] Dr. Ximena Billings MCH (RBC) [Entitic mass] 21.9 pg Critically low 26.7-34.[address] [facility] Comment on above: Performed By: #### C BC #### [facility] [address] [place] [address] Dr. Ximena Billings MCHC (RBC) [Mass/Vol] 30.1 g/dL Normal 29.9-35.[address] [facility] Comment on above: Performed By: #### C BC #### [facility] [address] [place] [address] Dr. Ximena Billings MCV (RBC) [Entitic vol] 72.7 fL Critically low 81.0-99.0 [facility] Comment on above: Performed By: #### C BC #### [facility] [address] [place] [address] Dr. Ximena Billings MONO # 0.7 103/ul Normal 0.3-0.[address] [facility] Comment on above: Performed By: #### C BC #### [facility] [address] [place] [address] Dr. Ximena Billings Monocytes/100 WBC (Bld) 11.4 % Normal 1.7-12.0 [facility] Comment on above: Performed By: #### C BC #### [facility] [address] [place] [address] Dr. Ximena Billings NEUT # 2.8 103/ul Normal 1.4-6.[address] [facility] Comment on above: Performed By: #### C BC #### [facility] [address] [place] [address] Dr. Ximena Billings Neutrophils/100 WBC (Bld) 49.1 % Normal 43.0-75.[address] [facility] Comment on above: Performed By: #### C BC #### [facility] [address] [place] [address] Dr. Ximena Billings Platelet mean volume (Bld) [Entitic vol] 8.8 fL Critically low 9.5-13.[address] [facility] Comment on above: Performed By: #### C BC #### [facility] [address] [address] [address] Ximena Billings PLT 262 103/ul Normal 150-[address] [facility] Comment on above: Performed By: #### C BC #### [facility] [address] [address] [address] Ximena Billings RBC 3.84 106/ul Critically low 4.20-5.40 [facility] Comment on above: Performed By: #### C BC #### [facility] [id number] Ximena Billings WBC 5.7 103/ul Normal 4.0-11.0 [facility] Comment on above: Performed By: #### C BC #### [facility] [facility] [address] [address] [address] Ximena Billings Covid-19 PCR (CVDTB)on 11-30 SARS-CoV-2 (COVID-19) RNA ADRIEL+probe Ql (Unsp spec) Not detected Normal NOT DETECTED [facility] Comment on above: Result Comment: This test is not yet approved or cleared by the [place] FDA. When there are no FDA-approved or cleared tests available, and other criteria are met, FDA can make tests available under an emergency access mechanism called an Emergency Use Authorization (EUA). The EUA for this test is supported by the Obstetrical Tech of Health and Human Service's (HHS's) declaration [...] SARS-CoV-2. Performed By: #### V AGINT #### [facility] [address] [place] [address] Dr. Ximena Billings ASYMPTOMATIC COVID-19 ANTIGE Non 11-27-2021 EUA Statement SEE BELOW Normal [facility] Comment on above: Result Comment: This test has not been FDA cleared or approved, but has been authorized [...] sooner. Performed By: #### V AGINT #### [facility] [address] [place] [address] Dr. Ximena Billings SARS-CoV-2 (COVID-19) RNA ADRIEL+probe Ql (Unsp spec) Negative Normal NEGATIVE [facility] Comment on above: Result Comment: Nega tive results are presumptive. They do not preclude infection and should not be used as the sole basis for treatment decisions. Additional confirmatory testing by a molecular method should be considered. Performed By: #### V AGINT #### [facility] [address] [place], [place] [id number] Dr. Ximena Billings Urinalysis - AUTOMATEDon Appearance (U) clear [address] Other Bilirubin Ql (U) Negative [employer] Other Color (U) yellow [employer] Other Glucose Ql (U) Negative [address] Other Hemoglobin Ql (U) Negative [facility] Other Ketones Ql (U) Negative [address] Other Leukocyte esterase Test strip Ql (U) Negative [employer] Other Nitrite Ql (U) Negative [address] Other pH (U) 6.0 [pH] [employer] Other Protein Ql (U) Negative [address] Other Specific gravity (U) [Rel density] 1.010 [employer] Other Urobilinogen (U) [Mass/Vol] 0.2 mg/dL [employer] Other Urinalysis - AUTOMATED [employer] Other CNPNon 03-17-2020 CNPN Telephone (NEADFV) PATSY CODY ([id number]) 1985 F Date Time Provider Department 03/17/20 KEN JORDAN NEZACHARYFV During your visit today, we recorded the following information about you: Sarah Huggins [facility] 03/17/2020 10:19 AM Signed Patient called stating she has two upcoming procedures in [place] (ECT therapy for seizures with Dr. Obrien and a TMS procedure with Dr Foster). She will need neurology clearance from Dr. Jordan because of the Chiari. Please call patient at [phone] Xavi Ferris, RN, RN 03/17/2020 10:21 AM Signed Please advise. Keila Correa PA-C 03/17/2020 2:[address] Jordan. OK to go forward with Tx's. The risk is slightly higher than someone without the chiari malformation, however, she has well maintained cisterna magna and tonsils are well rounded. Xavi Ferris, RN, RN 03/17/2020 3:46 PM Signed Spoke [...] (HCC) [E23.6] 07/22/2016 Encounter Status:Closed by XAVI FERRIS on 03/17/20 [facility] CNOVon 10-05-2018 CNOV Office Visit (ENDPMN) -------PATSY CODY ([id number]) 1985 [facility] Time Provider Jtkuscuuur70/7/18 12:15 PM ROXANNA HAN ENDCharlene During your visit today, we recorded the following information about you: Temperature Pulse Respiration Blood pressure 98.2 degrees 92/minute 20/minute 123/82 Weight Last Period 72.8 kg 09/21/18Genna Larsen Ma 10/05/2018 12:19 PM SignedAdditional intake questions:Has the patient had nausea, vomiting, diarrhea, constipation, fatigue for > 1week? None of the aboveDoes the patient have a decreased appetite? NoDoes patient want to see a Stripper Soft Plastic? No(yes to any of above refer patient to schedulers for dietitian appointment) )Does patient have any new or increased numbness or tingling of extremities? NoIs patient interested in fertility information? NoDoes patient need any prescription refills? NoElectronically Signed By: Genna Han MD 10/05/2018 5:29 PM SignedCc Pituitary adenomaAdrenal insufficiencyLast seen June 2016HPIThis is a very pleasant female 33y/oShe was [...] stim test.She said arranged in October in [facility] reviewed with Javier Of SystemsGENERAL:Negative for [...] Negative for chest pain, leg swelling and palpitationsGASTROINTESTINA L: Negative for abdominal discomfort, blood in stools or blackstools and change in bowel habitsGENITOURINARY: Negative for dysuria, frequency and incontinenceMUSCULOSKELETAL : Negative for joint pain or swelling, back pain, and musclepain.NEUROLOGIC:Negat pedro for focal numbness or weakness, headaches and dizziness.SKIN:Negative for lesions, rash, and itching.PSYCHIATRIC: Negative for sleep disturbance, mood disorder and recentpsychosocial stressors.HEMATOLOGIC/LYMPH ATIC/IMMUNOLOGIC:Negative for prolonged bleeding, bruisingeasily, and swollen nodes.ENDOCRINE: [...] No Ocular Disease OtherALLERGIESNo Known AllergiesCurrent Outpatient Prescriptions:hydrocortison e (CORTEF) 5 mg tablet TAKE 2 TABLETS [...] person, place and timeACTHDate Value Ref Range Qcdvob7407/26/2016 13 8 - 42 pg/mL Final ProlactinDat e Value Ref Range Fjelrs8907/26/2016 6.2 2.0 - 17.4 ng/mL Final TSHDate Value Ref Range Jyjqsm2307/26/2016 2.250 0.400 - 5.500 uU/mL FinalComment:If the patient is , TSH reference range varies by gestational period:First Trimester 0.1-2.5 uU/mLSecond Trimester 0.2-3.0 uU/mLThird Trimester 0.3-3.0 uU/mL Free T3Date Value Ref Range Kawbzi6507/26/2016 2.9 1.8 - 4.6 pg/mL Final Free T4Date Value Ref Range Popjqn2307/26/2016 1.2 0.7 - 1.8 ng/dL Final FSHDate Value Ref Range Lqecwh7107/26/2016 2.1 mU/mL FinalComment:Reference range: Follicular: 2-11 Midcycle: 10-30 Luteal: 1-9 Post [place]: 20-100 Male: 1.0-10.0 ]A/pLabs and history and records reviewedPituitary adenoma/cyst. Secondary adrenal insufficiency diagnosed June 2016Currently she tapered down her hydrocortisoneHer last ACTH was borderlineShe is scheduled to have another [facility] JanuaryWe discussed that she might be slow metabolizerAnd [...] to participate in the medical care of AXEL Ashleyonsultation requested by Dr. Kristin ALVARADO for an opinion regarding pituitary adenoma . 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 None of the aboveDoes the patient have a decreased appetite? NoDoes patient want to see a Stripper Soft Plastic? No(yes to any of above refer patient to schedulers for dietitianappointment) )Does patient have any new or increased numbness or tingling ofextremities? NoIs patient interested in fertility information? NoDoes patient need any prescription refills? NoElectronically Signed By: Genna Bearer Number: [id number] Status:Closed by ROXANNA HAN MD on 10/05/18 [facility] PROGRESSon 10-05-2018 Protein mass conc HNO ID: [id number] thor: Roxanna Pepervice: (none)Author Type: PhysicianType: Progress NotesFiled: 10/05/2018 5:29 PMNote Text:Cc Pituitary adenomaAdrenal insufficiencyLast seen June 2016HPIThis is a very pleasant female 33y/oShe was [...] test. She said arranged in October in [facility] reviewed with Javier Of SystemsGENERAL:Negative for malaise, significant weight loss and feverHEENT:Negative for frequent or significant headaches, significant changesin vision or vision problems, significant ear problems or hearing loss,nasal discharge or nose bleeds and sore throat, difficulty swallowing,mouth lesionsNECK:Negative for lumps, goiter, pain and significant neck swellingRESPIRATORY: Negative for cough, wheezing and shortness of breathCARDIOVASCULAR: Negative for chest pain, leg swelling and palpitationsGASTROINTESTINA L: Negative for abdominal discomfort, blood in stools orblack stools and change in bowel habitsGENITOURINARY: Negative for dysuria, frequency and incontinenceMUSCULOSKELETAL : Negative for joint pain or swelling, back pain, andmuscle pain.NEUROLOGIC:Negative for focal numbness or weakness, headaches anddizziness.SKIN:Negative for lesions, rash, and itching.PSYCHIATRIC: Negative for sleep disturbance, mood disorder and recentpsychosocial stressors.HEMATOLOGIC/LYMPH ATIC/IMMUNOLOGIC:Negative for prolonged bleeding,bruising easily, and swollen nodes.ENDOCRINE: [...] No Ocular Disease OtherALLERGIESNo Known AllergiesCurrent Outpatient Prescriptions:hydrocortison e (CORTEF) 5 mg tablet TAKE 2 TABLETS BY MOUTH EVERY MORNINGAND TAKE 1 TABLET BY MOUTH EVERY EVENING, double the dose for 3 (THREE) daysif [facility] current facility-administered medications for this visit.BP 123/82 [...] person, place and timeACTHDate Value Ref Range Thydyn4807/26/2016 13 8 - 42 pg/mL Final ProlactinDat e Value Ref Range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
[2024-04-06 23:35] VITALS: PULSE 76
[2024-04-06 23:40] VITALS: PULSE 78
--- NOTE | 2024-04-06 23:43 | XR_ITS ---
The [address] [address] Patient Name: KATIA CODY MRN: [id number] date: 1985 Sex: F Assigned Patient Location: ED.MAIN Current Patient Location: Accession/Order Number: [id number] Exam Date: 04/06/2024 23:59 Report Date: 04/07/2024 02:13 At the request of: SAIRA HAIRSTON Procedure: XR chest 1V EXAM: XR chest 1V HISTORY: Chest pain COMPARISON: Chest x-ray 03/01/2024 TECHNIQUE: Single frontal view chest x-ray FINDINGS: No lung consolidation, large pleural effusion, pneumothorax, or acute bony abnormality. Cardiac size is unremarkable. XR/XR chest 1V IMPRESSION: No radiographic evidence for acute chest abnormality. Electronically authenticated by: LOURDES ESQUIVEL Date: 04/07/2024 02:13
--- NOTE | 2024-04-06 23:43 | ECG_ITS ---
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
--- NOTE | 2024-04-06 23:44 | ED.CHESTPAI1 ---
HPI - Chest Pain General Chief Complaint: Chest Pain Stated Complaint: chest pain Time Seen by Provider: 04/06/24 23:39 Source: patient Mode of arrival: walk-in Limitations: no limitations History of Present Illness HPI narrative: 38-year-old female presents for chest pain. She took some medicine at 11 PM and about 10 minutes later the symptoms started. She thinks it is heartburn but wanted to be sure. It is in her throat and in the upper part of the midline sternal region. It does not radiate. No shortness of breath or trauma. No vomiting. She has no history of heart issues. She denies any back pain. Related Data Home Medications ?Medication ?Instructions ?Recorded ?Confirmed alprazolam 0.25 mg tablet 0.25 mg PO TID PRN anxiety 12/21/23 03/01/24 buspirone 10 mg tablet 10 mg PO DAILY 03/01/24 03/01/24 sertraline 50 mg tablet 50 mg PO Q24H 03/01/24 03/01/24 Previous Rx's ?Medication ?Instructions ?Recorded lorazepam 2 mg tablet (Ativan) 2 mg PO Q8H PRN Panic Attack #9 03/01/24 tabs Allergies Allergy/AdvReac Type Severity Reaction Status Date / Time venlafaxine [From Effexor] Allergy Severe Verified 04/06/24 23:29 Review of Systems ROS Narrative A ten point review of systems is negative except as noted above. [facility] Medical History (Updated 04/07/24 @ 01:46 by Pablito Dawson MD) Anemia ?D64.9 - Anemia, unspecified (ICD-10) Anxiety ?F41.9 - Anxiety disorder, unspecified (ICD-10) Genital warts ?A63.0 - Anogenital (venereal) warts (ICD-10) Surgical History (Updated 08/11/23 @ 11:16 by Shasha Harvey NP) H/O vein stripping ?Z98.890 - Other specified postprocedural states (ICD-10) History of breast augmentation ?Z98.82 - Breast implant status (ICD-10) History of bilateral salpingectomy ?Z90.79 - Acquired absence of other genital organ(s) (ICD-10) History of tubal ligation ?Z98.51 - Tubal ligation status (ICD-10) History of laparoscopy ?Z98.890 - Other specified postprocedural states (ICD-10) History of section ?Z98.891 - History of uterine scar from previous surgery (ICD-10) Family History (Updated 08/11/23 @ 11:16 by Shasha Harvey NP) Other Family history of diabetes mellitus Family history of hypertension Family history of prostate cancer Social History (Updated 08/11/23 @ 11:12 by hSasha Harvey NP) Within the past year, how often did you have a drink containing alcohol: monthly or less Smoking status: Current every day smoker What tobacco products do you use: cigarettes Cigarettes per day: 20 Years smoked: 20 Smoking pack-years: 20.00 Non-prescribed substance use: denies use 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 General: The patient appears well and in no apparent distress. Skin: Warm, dry, no pallor noted. There is no rash noted. Head: Normocephalic, atraumatic Eye: Normal conjunctiva, no drainage Ears, Nose, Mouth, and Throat: oral mucosa is moist. Nares patent. Cardiovascular: Regular Rate and Rhythm Respiratory: Patient is in no distress, no accessory muscle use, lungs are clear to auscultation, no wheezing, rales or rhonchi Back: non-tender GI: Soft and nontender Musculoskeletal: The patient has no evidence of calf tenderness, no pitting edema, symmetrical pulses noted bilaterally Neurological: A&O, normal speech Psychiatric: Cooperative Constitutional Vital Signs, click to edit/add: Last Vital Signs Temp 98 F 04/06/24 23:25 Pulse 78 04/06/24 23:25 Resp 18 04/06/24 23:25 BP 146/95 H 04/06/24 23:25 Pulse Ox 100 04/06/24 23:25 O2 Del Method Room Air 04/06/24 23:25 Course Vital Signs Vital signs: Vital Signs Temperature 98 F 04/06/24 23:25 Pulse Rate 78 04/06/24 23:25 Respiratory Rate 18 04/06/24 23:25 Blood Pressure 146/95 H 04/06/24 23:25 Pulse Oximetry 100 04/06/24 23:25 Oxygen Delivery Method Room Air 04/06/24 23:25 Temperature 98 F 04/06/24 23:25 Pulse Rate 78 04/06/24 23:25 Respiratory Rate 18 04/06/24 23:25 Blood Pressure 146/95 H 04/06/24 23:25 Pulse Oximetry 100 04/06/24 23:25 Oxygen Delivery Method Room Air 04/06/24 23:25 MDM - Chest Pain MDM Narrative Medical decision making narrative: Her workup including 2 sets of troponin is negative. Likely she has symptoms due to GE reflux. There is no evidence of heart disease and I have no clinical suspicion of pulmonary embolism. She seems to be feeling improved. Treatment diagnosis and follow-up were discussed with the patient. Differential Diagnosis Differential diagnosis: Likely pneumothorax, atypical chest pain, st elevation myocardial infarction, costochondritis, chest pain and other (GE reflux) Lab Data Attestation: I reviewed the patient's lab results. Labs: Lab Results 04/06/24 04/07/24 Range/Units 23:53 01:00 WBC 7.6 (4.0-11.0) 10^3/uL RBC 3.93 L (4.20-5.40) 10^6/uL Hgb 11.5 L (12.0-16.0) g/dL Hct 35.3 L (36.0-48.0) % MCV 89.8 (81.0-99.0) fL MCH 29.3 (26.7-34.0) pg MCHC 32.6 (29.9-35.2) g/dL RDW 14.1 (11.0-15.0) % Plt Count 246 (150-450) 10^3/uL MPV 9.6 (9.5-13.5) fL Neut % (Auto) 47.3 (43.0-75.0) % Lymph % (Auto) 37.6 (20.5-60.0) % [place] % (Auto) 11.1 (1.7-12.0) % Eos % (Auto) 2.9 (0.9-7.0) % Baso % (Auto) 0.8 (0.2-2.0) % Neut # (Auto) 3.6 (1.4-6.5) 10^3/uL Lymph # (Auto) 2.8 (1.2-3.8) 10^3/uL [place] # (Auto) 0.8 (0.3-0.8) 10^3/uL Eos # (Auto) 0.2 (0.0-0.7) 10^3/uL Baso # (Auto) 0.1 (0.0-0.1) 10^3/uL Abs Immat Gran (auto) 0.02 (0.00-0.03) 10^3/uL Imm/Tot Granulo (auto) 0.3 (0.0-0.5) % Sodium 139 (136-145) mmol/L Potassium 3.8 (3.5-5.1) mmol/L Chloride 106 (98-107) mmol/L Carbon Dioxide 24.6 (21.0-32.0) mmol/L Anion Gap 12.2 BUN 17.0 (7.0-18.0) mg/dL Creatinine 0.76 (0.55-1.02) mg/dL Est GFR ( Amer) >60 (>=60) Est GFR (Non-Af Amer) >60 (>=60) BUN/Creatinine Ratio 22.4 Glucose 96 (74-106) mg/dL Calcium 8.5 (8.5-10.1) mg/dL Troponin I High Sens <4.0 L <4.0 L (4.0-51.3) pg/mL ECG Data Attestation: I personally reviewed and interpreted this ECG as follows: (EKG on my interpretation shows normal sinus rhythm with a rate of 68 and no acute changes) Heart Score History: Slightly/Non-Suspicious ECG: Normal Age: <45 years Risk Factors: No Risk Factors Troponin: <Normal Limit Total Heart Score Recommendations & Risks:: 0 Discharge Plan Discharge Stand Alone Forms: Portal Instructions Chief Complaint: Chest Pain Clinical Impression: Chest pain Patient Disposition: Home, Self-Care Time of Disposition Decision: 01:46 Condition: Good Mode of Transportation: Private Vehicle Prescriptions / Home Meds: No Action buspirone 10 mg tablet 10 mg PO DAILY sertraline 50 mg tablet 50 mg PO Q24H lorazepam [Ativan] 2 mg tablet 2 mg PO Q8H PRN (Reason: Panic Attack) Qty: 9 0RF alprazolam 0.25 mg tablet 0.25 mg PO TID PRN (Reason: anxiety) Print Language: [place] Instructions: Chest Pain (ED) Referrals: Arnold Schroeder MD [Primary Care Provider] - 1 week
[2024-04-06 23:50] VITALS: PULSE 75
[2024-04-06 23:59] LABS: Basophils Absolute Auto 0.1 10^3/uL (0.0-0.1); Basophils Percent Auto 0.8 % (0.2-2.0); Eosinophils Absolute Auto 0.2 10^3/uL (0.0-0.7); Eosinophils Percent Auto 2.9 % (0.9-7.0); Hematocrit 35.3 % (36.0-48.0); Hemoglobin 11.5 g/dL (12.0-16.0); Immature Granulocytes Abs Auto 0.02 10^3/uL (0.00-0.03); Immature Granulocytes Pct Auto 0.3 % (0.0-0.5); Lymphocytes Absolute Auto 2.8 10^3/uL (1.2-3.8); Lymphocytes Percent Auto 37.6 % (20.5-60.0); Mean Corpuscular HGB Conc 32.6 g/dL (29.9-35.2); Mean Corpuscular Hemoglobin 29.3 pg (26.7-34.0); Mean Corpuscular Volume 89.8 fL (81.0-99.0); Mean Platelet Volume 9.6 fL (9.5-13.5); Monocytes Absolute Auto 0.8 10^3/uL (0.3-0.8); Monocytes Percent Auto 11.1 % (1.7-12.0); Neutrophils Absolute Auto 3.6 10^3/uL (1.4-6.5); Neutrophils Percent Auto 47.3 % (43.0-75.0); Platelet Count 246 10^3/uL (150-450); Red Blood Count 3.93 10^6/uL (4.20-5.40); Red Cell Distribution Width 14.1 % (11.0-15.0); White Blood Count 7.6 10^3/uL (4.0-11.0)
[2024-04-07] VITALS (11 sets, daily range): PULSE 65–88
[2024-04-07] MEDS: lidocaine HCL 15 ML, MAG HYDROX/ALUMINUM HYD/SIMETH 30 ML, HYOSCYAMINE SULFATE 0.25 MG PO (00:15)
[2024-04-07 00:17] LABS: Anion Gap 12.2; BUN Creatinine Ratio 22.4; Calcium 8.5 mg/dL (8.5-10.1); Carbon Dioxide 24.6 mmol/L (21.0-32.0); Chloride 106 mmol/L (98-107); Estimated GFR (African America >60 (>=60); Estimated GFR (Non-African Ame >60 (>=60); Glucose 96 mg/dL (74-106); Potassium 3.8 mmol/L (3.5-5.1); Sodium 139 mmol/L (136-145); Troponin I High Sensitivity <4.0 pg/mL (4.0-51.3)
[2024-04-07] MEDS: FAMOTIDINE/PF 20 MG/2 ML VIAL IV (00:44)
[2024-04-07 01:41] LABS: Troponin I High Sensitivity <4.0 pg/mL (4.0-51.3)
[2024-04-07] MEDS: KETOROLAC TROMETHAMINE 30 MG/ML VIAL IVP (01:59)
== END 2024-04-07 02:06 | disposition home or self-care (01) ==
PROVIDERS: Emergency Provider Emergency Medicine; PCP Family Medicine
DX: R07.9 Chest pain, unspecified (principal); F17.210 Nicotine dependence, cigarettes, uncomplicated
CPT/HCPCS: 36415; 71045; 80048; 84484; 85025; 93005; 96374; 96375; 99285

== ENCOUNTER 2024-05-24 00:06 | Emergency (ER) | payer BC, SELFPAY ==
[2024-05-24 00:16] VITALS: BP 145/92; PULSE 69; TEMP 36.3; O2SAT 100; BMI 22.8
--- OUTSIDE RECORDS SUMMARY | 2024-05-24 00:22 | XMS_ITS | CCD ---
Author Organization [facility] Care Team Providers Care Ncqa Specialist Name Role Phone HATIPOGLU, BETUL A Unavailable Unavailable HATIPOGLU, BETUL A Unavailable Unavailable FOSTER, PENELOPE F Unavailable Unavailable KEN JORDAN Unavailable Unavaila ble HATIPOGLU, BETUL A Unavailable Unavailable HATIPOGLU, BETUL A Unavailable Unavailable KEN JORDAN Unavailable Unavaila Chito Garcia Admitting Unavailable Chito Duarte Attending Unavailable Joel Clark~[phone] UNKNOWN Primary Care Unavailable Joel Clark~[phone] UNKNOWN Primary Care Unavailable Daniela Kay Unavailable Obed James Unavailable MD Joel Clark Primary Care Provider [phone] KATHY Miles Attending Provider Jamia Miles Unavailable DR JOEL CLARK Primary Care Unavailable JONG NAVA Attending Unavailable JONG NAVA Admitting Unavailable DR JOEL CLARK Consulting Unavailable DR JOEL CLARK Primary Care Unavailable DR JOEL CLARK Attending Unavailable DR JOEL CLARK Admitting Unavailable DR JOEL CLARK Consulting Unavailable DR ASHLEY JANSEN Primary Care Unavailable DR JOEL CLARK Attending Unavailable DR JOEL CLARK Admitting Unavailable BRIELLE IZAGUIRRE Consulting Unavailable BRIELLE IZAGUIRRE Attending Unavailable BRIELLE IZAGUIRRE Admitting Unavailable DR JOEL CLARK Primary Care Unavailable DR JOEL CLARK Primary Care Unavailable DR KEL GURROLA Attending Unavailable KI, DR MADDEN Admitting Unavailable KI, DR MADDEN Consulting Unavailable DR JOEL CLARK Primary Care Unavailable DR KEL GURROLA Attending Unavailable KI, DR MADDEN Admitting Unavailable HOY, DR MALDONADO [facility] Care Unavailable JONG NAVA Attending Unavailable JONG [...] Admitting Unavailable KI, DR MADDEN Consulting Unavailable JOSELUISY, DR MALDONADO Primary Care Unavailable KI, DR [...] Attending Unavailable SOPHIE, DR MOTA Admitting Unavailable AMEBR, DR MALDONADO Primary Care Unavailable LADI, DR [...] Unavailable MD Joel Clark Primary Care Provider [phone] MD Theo Guzman Admit Provider [phone] MD Theo Guzman Attending Provider Theo Guzman Attending Unavailable Theo Guzman Admitting Unavailable Joel Clark Primary Care Unavailable Joel Clark Primary Care Unavailable Phil Singleton Attending Unavailab le Phil Singleton Admitting Unavailab le Unavailable Unavailable Unavailable Allergies Allergy Classification Reported Allergen(s) Allergy Type Date of Onset Reaction(s) Facility (3 sources) venlafaxine Drug Allergy Unknown [facility] Other (2 sources) venlafaxine; Translations: [Effexor] Drug Allergy high BP/Heartrate [facility] Repository (1 source) Codeine Drug Allergy [facility] Repository (1 source) venlafaxine Drug Allergy [facility] Repository Medications Current Medications Medication Drug Class(es) [...] Three times daily December 24, 2023 12:00am Roots (No Known Home Meds) (1 source) Start: 09-05-2019 Roots (No Known Home Meds) Active September 05, 2019 1:00am polymyxin b 07730 unt/ml / trimethoprim 1 mg/ml ophthalmic solution (1 source) Dihydrofolate Reductase Inhibitor Antibacterial, Polymyxin-class Antibacterial Start: 11-10-2021 take 1 drop(s) into the eye(s) four times daily Polymyxin B-Trimethoprim 67939-2.1 UNIT/ML 1 drop into both eyes Ophthalmic [...] 05-09-2022 Chronic Other aftercare (1 source) 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; 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] Onset: 11-15-2022 Episodic Other [...] Guzman on 12-22-2023 Cholesterol [Mass/Vol] 157 mg/dL Normal 140-200 [facility] Comment on above: Chol less than 200 m g/dl low riskChol 201-239 mg/dl borderline riskChol 240 mg/dl and greater high risk Result Comment: Chol less than 200 mg/dl low risk Chol 201-239 mg/dl borderline risk Chol 240 mg/dl and greater high risk Performed By: #### V [id number], LIPID, TSH3 wRFLX #### [facility] [address] [place] [address] [place] Cholesterol in LDL Calc [Mas s/Vol]Ordered By: Theo Guzman on 12-22-2023 Cholesterol in LDL [Mass/Vol] 69 mg/dL 0-100 [facility] Comment on above: LDL ATP III CLASSIFI CATIONLDL less than 100 mg/dL OptimalLDL 100-129 mg/dL Near or above optimalLDL 130-159 mg/dL Borderline highLDL 160-189 mg/dL HighLDL greater than 189 mg/dL Very high Cholesterol in VLDL Calc [Ma ss/Vol]Ordered By: Theo Guzman on 12-22-2023 Cholesterol in VLDL [Mass/Vol] 16 mg/dL [facility] ECG 12 lead ECGon 12-22-2023 ECG 12 lead ECG [facility] [place] [address] [place] [address] Electrocardiograph Report Signed Patient: Patsy Cody MR#: [id number] : 1985 Acct:[id number] Age/Sex: 38 / F ADM Date: 12/22/23 Loc: Room: [address] [place] [address] Type: ADM IN Attending Dr: Theo Guzman [...] previous ECGs available Confirmed by [facility]ORAIDA [facility]ADO [id number] on 12/22/2023 6:07:07 PM Referred By: Electronically Signed By:EDMAR HAUSER MD, FACC Transcribed By: MUS Signed By Vini Hauser MD 12/22/23 1807 Normal [facility] Lipid Panelon 12-22-2023 LDL Cholesterol,Calculat ed 69 mg/dL Normal 0-100 [facility] Comment on above: Result Comment: LDL ATP III CLASSIFICATION LDL less than 100 mg/dL Optimal LDL 100-129 mg/dL Near or above optimal LDL 130-159 mg/dL Borderline high LDL 160-189 mg/dL High LDL greater than 189 mg/dL Very high Performed By: #### V [id number], LIPID, TSH3 wRFLX #### [facility] [address] Triglyceride w/Reflex 82 mg/dL Normal 0-149 [facility] Comment on above: Result Comment: TRIG ATP III CLASSIFICATION TRIG less than 150 mg/dL Normal TRIG 150-199 mg/dL Borderline high TRIG 200-500 mg/dL High TRIG greater than 500 mg/dL Very high Standard traceable to the Center for Disease Conrtrol and Prevention (CDC) test method. Performed By: #### V [id number], LIPID, TSH3 wRFLX #### [facility] [address] VLDL CHOLESTEROL 16 mg/dL Normal [facility] Comment on above: Performed By: #### V [id number], LIPID, TSH3 wRFLX #### [facility] [address] Serum or plasma high density lipoprotein (HDL) cholesterol measurementOrdered By: Theo Guzman on 12-22-2023 Cholesterol in HDL [Mass/Vol] 72 mg/dL Normal 23-92 [facility] Comment on above: HDL CHOL ATP-III CLA SSIFICATION Cardiovascular RiskHDL > or equal to 60 mg/dL LOWHDL < 40 mg/dL HIGH Result Comment: HDL CHOL ATP-III CLASSIFICATION Cardiovascular Risk HDL > or equal to 60 mg/dL LOW HDL < 40 mg/dL HIGH Performed By: #### V [id number], LIPID, TSH3 wRFLX #### [facility] [address] Serum or plasma total choles terol/high density lipoprotein (HDL) cholesterol mass ratOrdered By: Theo Guzman on 12-22-2023 Cholesterol.total/Ch olesterol in HDL [Mass ratio] 2.2 {ratio} Normal <5.0 [facility] Comment on above: Performed By: #### V [id number], LIPID, TSH3 wRFLX #### [facility] [address] Thyroid Stim Hormone w/Rflxo n 12-22-2023 Thyroid Stim Hormone w/Rflx 3.43 u[iU]/mL Normal 0.45-5.33 [facility] Comment on above: Performed By: #### V [id number], LIPID, TSH3 wRFLX #### [facility] [address] [place] [address] Thyrotropin [Units/volume] i n Serum or PlasmaOrdered By: Theo Guzman on 12-22-2023 TSH Qn 3.43 m[IU]/L 0.45-5.33 [facility] Triglyceride [Mass/volume] i n Serum or PlasmaOrdered By: Theo Guzman on 12-22-2023 Triglyceride [Mass/Vol] 82 mg/dL 0-149 [facility] Comment on above: TRIG ATP III CLASSIF ICATIONTRIG less than 150 mg/dL NormalTRIG 150-199 mg/dL Borderline highTRIG 200-500 mg/dL High TRIG greater than 500 mg/dL Very highStandard traceable to the Center for Disease Conrtrol and Prevention (CDC) test method. Vitamin D 25 Hydroxy Totalon 12-22-2023 Vitamin D 25 Hydroxy Total 20.5 ng/mL Low 30-100 [facility] Comment on above: Result Comment: TUSHAR MIN D STATUS 25(OH)VITAMIN D RANGE (ng/mL) Deficient <20 Insufficient 20 to <30 Sufficient 30 to 100 Reference: Destiney MF,Michael NC, Zari CRUZ, et al. Evaluation,treatment, and prevention of vitamin D deficiency; an Endocrine Society clinical practice guideline. JCEM. 2010; 96(7):1911-. PERFORMED BY: [facility] [address] [place] [address] PATHOLOGIST IRS AGENT JEFF CARDENAS M.D. Performed By: #### V [id number], LIPID, TSH3 wRFLX #### [facility] [address] Vitamin D+Metabolites [Mass/ volume] in Serum or PlasmaOrdered By: Theo Guzman on 12-22-2023 Vitamin D+Metabolites [Mass/Vol] 20.5 ng/mL 30-100 [facility] Comment on above: VITAMIN D STATUS 25( [place])VITAMIN D RANGE (ng/mL) Deficient <20 Insufficient 20 to <30Sufficient 30 to 100Reference: Destiney MF,Michael BENTLEY, Zari CRUZ, et al. Evaluation,treatment, and prevention of vitamin D deficiency; an Endocrine Society clinical practice guideline. JCEM. 2010; 96(7):1911-30. CHLAMYDIA/GONOCOCCUS ADRIEL (SW AB/URINE/PAPon 10-04-2022 Chlamydia trachomatis, ADRIEL Negative Normal Negative [facility] Comment on above: Performed By: #### V AGINT #### [facility] [address] [place] [address] Dr. Ximena Billings Neisseria gonorrhoeae, ADRIEL Negative Normal Negative [facility] Comment on above: Performed By: #### V AGINT #### [facility] [address] [place] [address] [address] Ximena Billings VAGINITIS/VAGINOSIS DNA PROB Eugene 10-02-2022 Adriana species Negative Normal Negative [facility] Comment on above: Performed By: #### V AGINT #### [facility] [address] [address] [address] Ximena Billings Gardnerella vaginalis Negative Normal Negative [facility] Comment on above: Performed By: #### V AGINT #### [facility] [address] [place] [address] [address] Ximena Billings Trichomonas vaginalis Negative Normal Negative [facility] Comment on above: Performed By: #### V AGINT #### [facility] [address] [place], [place] [address] Dr. Ximena Billings Covid-19 PCR ([facility])on SARS-CoV-2 (COVID-19) RNA ADRIEL+probe Ql (Unsp spec) Not detected Normal NOT DETECTED [facility] Comment on above: Result Comment: When [...] for this test is supported by the Electrolysis Investigator of Health and Human Service's declaration that [...] used). Performed By: #### C T/NGNA #### [facility] [address] [place], [place] [id number] Dr. Ximena Billings XR CHEST 1 Von [...] BENITO ROWLAND Date: 2022-09-03 21:59 Normal [facility] XR ankle RT min 3V*on 2021 XR ankle RT min 3V* [facility] [employer] Other XR ankle RT min 3V* [facility] [employer] [place] Other XR ankle RT min 3V* [address] [facility] Other XR ankle RT min 3V* GEGE Foster [address] [facility] [employer] [place] Other XR ankle RT min 3V* XRay Beto Gandhi [facility] Other XR ankle RT min 3V* Signed [facility] Other XR ankle RT min 3V* Patient: Patsy Cody MR#: [id number] [place] [facility] Other XR ankle RT min 3V* [id number] [facility] Other XR ankle RT min 3V* : 1985 Acct:[id number] [facility] Other XR ankle RT min 3V* Age/Sex: 37 / F ADM Date: 08/14/22 [facility] Other XR ankle RT min 3V* Loc: XDUCLY Room: Ty pe: REG CLI [facility] Other XR ankle RT min 3V* Attending Dr: Jamia Miles [facility] Other XR ankle RT min 3V* Copies to: Jamia juarez [facility] Other XR ankle RT min 3V* Ordering Provider: Christiano Miles CONCRETE FINISHER APPRENTICE [facility] Other XR ankle RT min 3V* Date of Service: 08/14/22 [facility] Other XR ankle RT min 3V* 22005) XR/XR ankle RT min 3V*: RIGHT ANKLE PAIN [facility] Other XR ankle RT min 3V* RIGHT ANKLE - 3 views [facility] Other XR ankle RT min 3V* CLINICAL DATA: Media l ankle pain without specific injury. [facility] Other XR ankle RT min 3V* COMPARISON: None [facility] Other XR ankle RT min 3V* AP, lateral and obli que views were obtained. There is no evidence of fracture or dislocation. [facility] Other XR ankle RT min 3V* The talar dome is in tact. There is slight lateral soft tissue swelling. [facility] Other XR ankle RT min 3V* X R/XR ankle RT min 3V* [facility] Other XR ankle RT min 3V* IMPRESSION: [employer] Other XR ankle RT min 3V* NO ACUTE BONY FINDINGS. [facility] Other XR ankle RT min 3V* Impression dictated by: Aurora Keith M.D.08/14/2022 2:07 PM [facility] Other XR ankle RT min 3V* Dictation Location: [place] [address] [facility] Other XR ankle RT min 3V* Transcribed By: [facility] 08/14/22 1407 [facility] Other XR ankle RT min 3V* Dictated By: Aurora Keith MD 08/14/22 140 [facility] Other XR ankle RT min 3V* Signed By: [facility] Other XR ankle RT min 3V* 08/14/22 140 No rt [facility] Other CBC AUTO DIFFon 05-13-2022 BASO # 0.0 103/ul Normal 0.0-0.1 [facility] Comment on above: Performed By: #### V AGINT #### [facility] [address] [address] [address] Ximena Billings Basophils/100 WBC (Bld) 0.5 % Normal 0.2-2.0 [facility] Comment on above: Performed By: #### V AGINT #### [facility] [address] [place] [address] Dr. Ximena Billings EO # 0.1 103/ul Normal 0.0-0.7 [facility] Comment on above: Performed By: #### V AGINT #### [facility] [address] [place] [address] Dr. Ximena Billings Eosinophils/100 WBC (Bld) 1.4 % Normal 0.9-7.0 [facility] Comment on above: Performed By: #### V AGINT #### [facility] [address] [place] [address] Dr. Ximena Billings Erythrocyte distribution width (RBC) [Ratio] 13.3 % Normal 11.0-15.0 [facility] Comment on above: Performed By: #### V AGINT #### [facility] [address] [place] [address] Dr. Ximena Billings Hematocrit (Bld) [Volume fraction] 39.2 % Normal 36.0-48.0 [facility] Comment on above: Performed By: #### V AGINT #### [facility] [address] [place] [address] Dr. Ximena Billings Hemoglobin (Bld) [Mass/Vol] 12.8 g/dL Normal 12.0-16.0 [facility] Comment on above: Performed By: #### V AGINT #### [facility] [address] [place] [address] Dr. Ximena Billings IG # 0.01 10e3/ul Normal 0.00-0.03 [facility] Comment on above: Performed By: #### V AGINT #### [facility] [address] [place] [address] Dr. Ximena Billings IG % 0.2 % Normal 0.0-0.5 [facility] Comment on above: Performed By: #### V AGINT #### [facility] [address] [place] [address] Dr. Ximena Billings LYMPH # 1.9 103/ul Normal 1.2-3.8 [facility] Comment on above: Performed By: #### V AGINT #### [facility] [address] [place] [address] Dr. Ximena Billings Lymphocytes/100 WBC (Bld) 34.5 % Normal 20.5-60.0 [facility] Comment on above: Performed By: #### V AGINT #### [facility] [address] [place] [address] Dr. Ximena Billings MANUAL DIFF REQ NO Normal [facility] Comment on above: Performed By: #### V AGINT #### [facility] [address] [place] [address] Dr. Ximena Billings MCH (RBC) [Entitic mass] 30.5 pg Normal 26.7-34.0 [facility] Comment on above: Performed By: #### V AGINT #### [facility] [address] [place] [address] Dr. Ximena Billings MCHC (RBC) [Mass/Vol] 32.7 g/dL Normal 29.9-35.2 [facility] Comment on above: Performed By: #### V AGINT #### [facility] [address] [place] [address] Dr. Ximena Billings MCV (RBC) [Entitic vol] 93.3 fL Normal 81.0-99.0 [facility] Comment on above: Performed By: #### V AGINT #### [facility] [address] [place] [address] Dr. Ximena Billings MONO # 0.5 103/ul Normal 0.3-0.8 [facility] Comment on above: Performed By: #### V AGINT #### [facility] [address] [place] [address] Dr. Ximena Billings Monocytes/100 WBC (Bld) 8.6 % Normal 1.7-12.0 [facility] Comment on above: Performed By: #### V AGINT #### [facility] [address] [place] [address] Dr. Ximena Billings NEUT # 3.1 103/ul Normal 1.4-6.5 [facility] Comment on above: Performed By: #### V AGINT #### [facility] [address] [address] [address] Ximena Billings Neutrophils/100 WBC (Bld) 54.8 % Normal 43.0-75.0 [facility] Comment on above: Performed By: #### V AGINT #### [facility] [address] [place] [address] Dr. Ximena Billings Platelet mean volume (Bld) [Entitic vol] 9.2 fL Critically low 9.5-13.5 [facility] Comment on above: Performed By: #### V AGINT #### [facility] [address] [place] [address] Dr. Ximena Billings PLT 258 103/ul Normal 150-450 [facility] Comment on above: Performed By: #### V AGINT #### [facility] [address] [place] [address] Dr. Ximena Billings RBC 4.20 106/ul Normal 4.20-5.40 [facility] Comment on above: Performed By: #### V AGINT #### [facility] [address] [place] [address] Dr. Ximena Billings WBC 5.6 103/ul Normal 4.0-11.0 [facility] Comment on above: Performed By: #### V AGINT #### [facility] [address] [place] [address] Dr. Ximena Billings PREG HCG QUALon 05-13-2022 , QUAL Negative Normal NEGATIVE [facility] Comment on above: Performed By: #### P REG #### [facility] [address] [place] [address] Dr. Ximena Billings [facility] SARS-CoV-2 (COVID-19) RNA ADRIEL+probe Ql (Unsp spec) Not detected Normal NOT DETECTED [facility] Comment on above: Result Comment: This test is not yet approved or cleared by the [place] FDA. When there are no FDA-approved or cleared tests available, and other criteria are met, FDA can make tests available under an emergency access mechanism called an Emergency Use Authorization (EUA). The EUA for this test is supported by the Electrolysis Investigator of Health and Human Service's (HHS's) declaration [...] SARS-CoV-2. Performed By: #### C VDTBH #### [facility] [address] [place] [address] Dr. Ximena Billings CHLAMYDIA/GONOCOCCUS ADRIEL (SW AB/URINE/PAPon 04-30-2022 Chlamydia trachomatis, ADRIEL Negative Normal Negative [facility] Comment on above: Performed By: #### C T/NGNA #### [facility] [address] [place] [address] Dr. Ximena Billings Neisseria gonorrhoeae, ADRIEL Negative Normal Negative [facility] Comment on above: Performed By: #### C T/NGNA #### [facility] [address] [place] [address] Dr. Ximena Billings VAGINITIS/VAGINOSIS DNA PROB Eugene 04-29-2022 Adriana species Negative Normal Negative [facility] Comment on above: Performed By: #### C T/NGNA #### [facility] [address] [place] [address] Dr. Ximena Billings Gardnerella vaginalis Positive Abnormal Negative [facility] Comment on above: Performed By: #### C T/NGNA #### [facility] [address] [place] [address] Dr. Ximena Billings Trichomonas vaginalis Negative Normal Negative [facility] Comment on above: Performed By: #### C T/NGNA #### [facility] [address] [place], [place] [address] Dr. Ximena Billings CBC AUTO DIFFon 04-04-2022 BASO # 0.0 103/ul Normal 0.0-0.1 [facility] Comment on above: Performed By: #### C BC #### [facility] [address] [place] [address] Dr. Ximena Billings Basophils/100 WBC (Bld) 0.7 % Normal 0.2-2.0 [facility] Comment on above: Performed By: #### C BC #### [facility] [address] [place] [address] Dr. Ximena Billings EO # 0.1 103/ul Normal 0.0-0.7 [facility] Comment on above: Performed By: #### C BC #### [facility] [address] [place] [address] Dr. Ximena Billings Eosinophils/100 WBC (Bld) 1.8 % Normal 0.9-7.0 [facility] Comment on above: Performed By: #### C BC #### [facility] [address] [place] [address] Dr. Ximena Billings Erythrocyte distribution width (RBC) [Ratio] 14.6 % Normal 11.0-15.0 [facility] Comment on above: Performed By: #### C BC #### [facility] [address] [place] [address] Dr. Ximena Billings Hematocrit (Bld) [Volume fraction] 38.1 % Normal 36.0-48.0 [facility] Comment on above: Performed By: #### C BC #### [facility] [address] [place] [address] Dr. Ximena Billings Hemoglobin (Bld) [Mass/Vol] 12.5 g/dL Normal 12.0-16.0 [facility] Comment on above: Performed By: #### C BC #### [facility] [address] [place] [address] Dr. Ximena Billings IG # 0.01 10e3/ul Normal 0.00-0.03 [facility] Comment on above: Performed By: #### C BC #### [facility] [address] [place] [address] Dr. Ximena Billings IG % 0.2 % Normal 0.0-0.5 [facility] Comment on above: Performed By: #### C BC #### [facility] [address] [place] [address] Dr. Ximena Billings LYMPH # 1.9 103/ul Normal 1.2-3.8 [facility] Comment on above: Performed By: #### C BC #### [facility] [address] [place] [address] Dr. Ximena Billings Lymphocytes/100 WBC (Bld) 34.6 % Normal 20.5-60.0 [facility] Comment on above: Performed By: #### C BC #### [facility] [address] [place] [address] Dr. Ximena Billings MANUAL DIFF REQ NO Normal [facility] Comment on above: Performed By: #### C BC #### [facility] [address] [place] [address] Dr. Ximena Billings MCH (RBC) [Entitic mass] 30.1 pg Normal 26.7-34.0 [facility] Comment on above: Performed By: #### C BC #### [facility] [address] [place] [address] Dr. Ximena Billings MCHC (RBC) [Mass/Vol] 32.8 g/dL Normal 29.9-35.2 [facility] Comment on above: Performed By: #### C BC #### [facility] [address] [place] [address] Dr. Ximena Billings MCV (RBC) [Entitic vol] 91.8 fL Normal 81.0-99.0 [facility] Comment on above: Performed By: #### C BC #### [facility] [address] [place] [address] Dr. Ximena Billings MONO # 0.4 103/ul Normal 0.3-0.8 [facility] [facility] Comment on above: Performed By: #### C BC #### [facility] [address] [place] [address] Dr. Ximena Billings Monocytes/100 WBC (Bld) 7.0 % Normal 1.7-12.0 [facility] Comment on above: Performed By: #### C BC #### [facility] [address] [place] [address] Dr. Ximena Billings NEUT # 3.1 103/ul Normal 1.4-6.5 [facility] Comment on above: Performed By: #### C BC #### [facility] [address] [place] [address] Dr. Ximena Billings Neutrophils/100 WBC (Bld) 55.7 % Normal 43.0-75.0 [facility] Comment on above: Performed By: #### C BC #### [facility] [address] [place] [address] Dr. Ximena Billings Platelet mean volume (Bld) [Entitic vol] 9.0 fL Critically low 9.5-13.5 [facility] Comment on above: Performed By: #### C BC #### [facility] [address] [place] [address] Dr. Ximena Billings PLT 261 103/ul Normal 150-450 [facility] Comment on above: Performed By: #### C BC #### [facility] [address] [place] [address] Dr. Ximena Billings RBC 4.15 106/ul Critically low 4.20-5.40 [facility] Comment on above: Performed By: #### C BC #### [facility] [address] [place] [address] Dr. Ximena Billings WBC 5.6 103/ul Normal 4.0-11.0 [facility] Comment on above: Performed By: #### C BC #### [facility] [address] [place] [address] Dr. Ximena Billings PREG QUANT HCGon 04-04-2022 HCG QUANT 1 mIU/mL Normal [facility] Comment on above: Performed By: #### P REGQNT, TSH #### [facility] [address] [place] [address] Dr. Ximena Billings HCG RANGE SEE BELOW Normal [facility] Comment on above: Result Comment: 5-50 0-1 WEEK 40-300 1-2 WEEKS 100-1,000 2-3 WEEKS 500-6,000 3-4 WEEKS 5,000-200,000 1-2 MONTHS 10,000-100,000 2-3 MONTHS 3,000-50,000 2ND TRIMESTER 1,000-50,000 3RD TRIMESTER Performed By: #### P REGQNT, TSH #### [facility] [address] [place] [address] Dr. Ximena Billings PROTIMEon 04-04-2022 INR Coag (PPP) [Relative time] 1.07 {INR} Normal [facility] Comment on above: Performed By: #### C T/NGNA #### [facility] [address] [place] [address] Dr. Ximena Billings INR GUIDELINES SEE BELOW Normal [facility] Comment on above: Result Comment: KRISTI RED INR: 2.0 - 3.0 CONDITIONS NOT LISTED BELOW 2.5 - 3.5 FOR PROSTHETIC HEART VALVE REPLACEMENT 2.5 - 3.5 RECURRENT THROMBOSIS Performed By: #### C T/NGNA #### [facility] [address] [place] [address] Dr. Ximena Billings PT Coag (PPP) [Time] 11.5 s Normal 9.0-11.6 [facility] Comment on above: Performed By: #### C T/NGNA #### [facility] [address] [place] [address] Dr. Ximena Billings PTTon 04-04-2022 aPTT Coag (Bld) [Time] 28.3 s Normal 22.3-36.2 [facility] Comment on above: Performed By: #### C T/NGNA #### [facility] [address] [place] [address] Dr. Ximena Billings TSHon 04-04-2022 TSH 1.116 uIU/mL Normal 0.358-3.74 0 [facility] Comment on above: Performed By: #### P REGQNT, TSH #### [facility] [address] [place] [address] Dr. Ximena Billings TSH RANGE SEE BELOW Normal [facility] Comment on above: Result Comment: <0.3 4 UIU/ml HYPERTHYROID 0.34-5.60 UIU/ml EUTHYROID >5.60 UIU/ml HYPOTHYROID Performed By: #### P REGQNT, TSH #### [facility] [address] [place], [place] [address] Dr. Ximena Billings US PELVIS AND TRANSVAGon [...] by: JULIAN GARCIA Date: 2022-04-01 08:40 Normal [facility] PAP ACOG PANEL 2: 30 to 65on 03-29-2022 . . Normal [facility] Comment on above: Result Comment: Perf ormed at: BA Performed By: #### V AGINT #### [facility] [address] [place] [address] [address] Ximena Billings Age Gdln ACOG Testing 30-65 Normal [facility] Comment on above: Performed By: #### V AGINT #### [facility] [address] [place], [place] [address] Dr. Ximena Billings DIAGNOSIS: Comment Normal [facility] Comment on above: Result Comment: NEGA TIVE FOR INTRAEPITHELIAL LESION OR MALIGNANCY. THIS SPECIMEN WAS RESCREENED PART OF OUR SWITCHER PROGRAM. Performed at: BA Performed By: #### V AGINT #### [facility] [address] [place] [address] Dr. Ximena Billings HPV Aptima Negative Normal Negative [facility] Comment on above: Result Comment: This nucleic acid amplification test detects fourteen high-risk HPV types (16,18,31,33,35,39,45,51,52,56,58,59,66,68) without differentiation. Performed at: =G Performed By: #### V AGINT #### [facility] [address] [place] [address] Dr. Ximena Billings Methodology: Comment Normal [facility] Comment on above: Result Comment: This liquid based ThinPrep(R) pap test was screened with the use of an image guided system. Performed at: WB Performed By: #### V AGINT #### [facility] [address] [place] [address] Dr. Ximena Billings Note: Comment Normal [facility] Comment on above: Result Comment: The [...] WB Performed By: #### V AGINT #### [facility] [address] [place] [address] Dr. Ximena Billings Performed by: Comment Normal [facility] Comment on above: Result Comment: Omaira Ferreira, Intermediate Manager (ASCP) Performed at: BA Performed By: #### V AGINT #### [facility] [address] [id number] [address] Ximena Billings QC reviewed by: Comment Normal [facility] Comment on above: Result Comment: Pardeep Garvin, Intermediate Manager (ASCP) Performed at: BA Performed By: #### V AGINT #### [facility] [address] [place] [address] Dr. Ximena Billings Specimen adequacy: Comment Normal [facility] Comment on above: Result Comment: Sati sfactory for evaluation. Endocervical and/or squamous metaplastic cells (endocervical component) are present. Areas of partially obscuring inflammatory exudate are present. Performed at: BA Performed By: #### V AGINT #### [facility] [address] [place] [address] Dr. Ximena Billings CHLAMYDIA/GONOCOCCUS ADRIEL (SW AB/URINE/PAPon 03-24-2022 Chlamydia trachomatis, ADRIEL Negative Normal Negative [facility] Comment on above: Performed By: #### C T/NGNA #### [facility] [address] [place] [address] Dr. Ximena Billings Neisseria gonorrhoeae, ADRIEL Negative Normal Negative [facility] Comment on above: Performed By: #### C T/NGNA #### [facility] [address] [place] [address] Dr. Ximena Billings VAGINITIS/VAGINOSIS DNA PROB Eugene 03-24-2022 Adriana species Negative Normal Negative [facility] Comment on above: Performed By: #### V AGINT #### [facility] [address] [place] [address] Dr. Ximena Billings Gardnerella vaginalis Positive Abnormal Negative [facility] Comment on above: Performed By: #### V AGINT #### [facility] [address] [place] [address] Dr. Ximena Billings Trichomonas vaginalis Negative Normal Negative [facility] Comment on above: Performed By: #### V AGINT #### [facility] [address] [place] [address] Dr. Ximena Billings GROUP A STREP CULTUREon S. pyogenes Ag Ql (Unsp spec) Culture Observations: NEGATIVE FOR GROUP A STREPTOCOCCUS. Normal [facility] Comment on above: Performed By: #### V AGINT #### [facility] [address] [place] [address] Dr. Ximena Billings STREPT SCREENon 01-02-2022 STREP SCREEN A Negative Normal NEGATIVE [facility] Comment on above: Performed By: #### V AGINT #### [facility] [address] [place] [address] Dr. Ximena Billings CBC AUTO DIFFon 12-11-2021 BASO # 0.0 103/ul Normal 0.0-0.1 [facility] Comment on above: Performed By: #### C BC #### [facility] [address] [place] [address] Dr. Ximena Billings Basophils/100 WBC (Bld) 0.7 % Normal 0.2-2.0 [facility] Comment on above: Performed By: #### C BC #### [facility] [address] [place] [address] Dr. Ximena Billings EO # 0.1 103/ul Normal 0.0-0.7 [facility] Comment on above: Performed By: #### C BC #### [facility] [address] [place] [address] Dr. Ximena Billings Eosinophils/100 WBC (Bld) 1.0 % Normal 0.9-7.0 [facility] Comment on above: Performed By: #### C BC #### [facility] [address] [place] [address] Dr. Ximena Billings Erythrocyte distribution width (RBC) [Ratio] 18.9 % Critically high 11.0-15.0 [facility] Comment on above: Performed By: #### C BC #### [facility] [address] [place] [address] Dr. Ximena Billings Hematocrit (Bld) [Volume fraction] 27.9 % Critically low 36.0-48.0 [facility] Comment on above: Performed By: #### C BC #### [facility] [address] [place] [address] Dr. Ximena Billings Hemoglobin (Bld) [Mass/Vol] 8.4 g/dL Critically low 12.0-16.0 [facility] Comment on above: Performed By: #### C BC #### [facility] [address] [place] [address] Dr. Ximena Billings IG # 0.01 10e3/ul Normal 0.00-0.03 [facility] Comment on above: Performed By: #### C BC #### [facility] [address] [place] [address] Dr. Ximena Billings IG % 0.2 % Normal 0.0-0.5 [facility] Comment on above: Performed By: #### C BC #### [facility] [address] [place] [address] Dr. Ximena Billings LYMPH # 2.2 103/ul Normal 1.2-3.8 [facility] Comment on above: Performed By: #### C BC #### [facility] [address] [place] [address] Dr. Ximena Billings Lymphocytes/100 WBC (Bld) 37.6 % Normal 20.5-60.0 [facility] Comment on above: Performed By: #### C BC #### [facility] [address] [place] [address] Dr. Ximena Billings MANUAL DIFF REQ NO Normal [facility] Comment on above: Performed By: #### C BC #### [facility] [address] [place] [address] Dr. Ximena Billings MCH (RBC) [Entitic mass] 21.9 pg Critically low 26.7-34.0 [facility] Comment on above: Performed By: #### C BC #### [facility] [address] [place] [address] Dr. Ximena Billings MCHC (RBC) [Mass/Vol] 30.1 g/dL Normal 29.9-35.2 [facility] Comment on above: Performed By: #### C BC #### [facility] [address] [place] [address] Dr. Ximena Billings MCV (RBC) [Entitic vol] 72.7 fL Critically low 81.0-99.0 [facility] Comment on above: Performed By: #### C BC #### [facility] [address] [place] [address] Dr. Ximena Billings MONO # 0.7 103/ul Normal 0.3-0.8 [facility] Comment on above: Performed By: #### C BC #### [facility] [address] [place] [address] Dr. Ximena Billings Monocytes/100 WBC (Bld) 11.4 % Normal 1.7-12.0 [facility] Comment on above: Performed By: #### C BC #### [facility] [address] [place] [address] Dr. Ximena Billings NEUT # 2.8 103/ul Normal 1.4-6.5 [facility] Comment on above: Performed By: #### C BC #### [facility] [address] [place] [address] Dr. Ximena Billings Neutrophils/100 WBC (Bld) 49.1 % Normal 43.0-75.0 [facility] Comment on above: Performed By: #### C BC #### [facility] [address] [place] [address] Dr. Ximena Billings Platelet mean volume (Bld) [Entitic vol] 8.8 fL Critically low 9.5-13.5 [facility] Comment on above: Performed By: #### C BC #### [facility] [address] [place] [address] Dr. Ximena Billings PLT 262 103/ul Normal 150-450 [facility] Comment on above: Performed By: #### C BC #### [facility] [address] [place] [address] Dr. Ximena Billings RBC 3.84 106/ul Critically low 4.20-5.40 [facility] Comment on above: Performed By: #### C BC #### [facility] [address] [place] [address] Dr. Ximena Billings WBC 5.7 103/ul Normal 4.0-11.0 [facility] Comment on above: Performed By: #### C BC #### [facility] [address] [place] [address] Dr. Ximena Billings Covid-19 PCR [facility]on [facility]30 SARS-CoV-2 (COVID-19) RNA ADRIEL+probe Ql (Unsp spec) Not detected Normal NOT DETECTED [facility] Comment on above: Result Comment: This test is not yet approved or cleared by the [place] FDA. When there are no FDA-approved or cleared tests available, and other criteria are met, FDA can make tests available under an emergency access mechanism called an Emergency Use Authorization (EUA). The EUA for this test is supported by the Electrolysis Investigator of Health and Human Service's (HHS's) declaration [...] SARS-CoV-2. Performed By: #### V AGINT #### [facility] [address] [place] [address] Dr. Ximena Billings ASYMPTOMATIC COVID-19 ANTIGE Non 11-27-2021 EUA Statement SEE BELOW Normal [facility] Comment on above: Result Comment: [...] sooner. Performed By: #### V AGINT #### [facility] [address] [place] [address] Dr. Ximena Billings SARS-CoV-2 (COVID-19) RNA ADRIEL+probe Ql (Unsp spec) Negative Normal NEGATIVE [facility] Comment on above: Result Comment: Nega tive results are presumptive. They do not preclude infection and should not be used as the sole basis for treatment decisions. Additional confirmatory testing by a molecular method should be considered. Performed By: #### V AGINT #### [facility] [address] [place] [address] Dr. Ximena Billings Urinalysis - AUTOMATEDon Appearance (U) clear [employer] Other Bilirubin Ql (U) Negative [employer] Other Color (U) yellow [employer] Other Glucose Ql (U) Negative [employer] Other Hemoglobin Ql (U) Negative [employer] Other Ketones Ql (U) Negative [employer] Other Leukocyte esterase Test strip Ql (U) Negative [employer] Other Nitrite Ql (U) Negative [employer] Other pH (U) 6.0 [pH] [employer] Other Protein Ql (U) Negative [employer] Other Specific gravity (U) [Rel density] 1.010 [employer] Other Urobilinogen (U) [Mass/Vol] 0.2 mg/dL [employer] Other Urinalysis - AUTOMATED [employer] Other [employer] 03-17-2020 [employer] Telephone (NEADFV) PATSY CODY ([id number]) 1985 F Date Time Provider Department 03/17/20 KEN JORDAN During your visit today, we recorded the following information about you: Sarah Huggins Pss 03/17/2020 10:19 AM Signed Patient called stating she has two upcoming procedures in [place] (ECT therapy for seizures with Dr. Obrien and a TMS procedure with Dr Foster). She will need neurology clearance from Dr. Jordan because of the Chiari. Please call patient at [phone] Xavi Ferris, RN, RN 03/17/2020 10:21 AM Signed Please advise. Keila Correa PA-C 03/17/2020 2:[address] Jordan. OK to go forward with Tx's. The risk is slightly higher than someone without the chiari malformation, however, she has well maintained cisterna magna and tonsils are well rounded. Xavi Ferris RN, RN 03/17/2020 3:46 PM Signed Spoke [...] Encounter Status:Closed by XAVI FERRIS on 03/17/20 [facility] CNOVon 10-05-2018 OV Office Visit (ENDPMN) -------PATSY CODY ([id number]) 1985 FDate Time Provider Syxpjlwxns58/7/18 12:15 PM ROXANNA HNA During your visit today, we recorded the following information about you: Temperature Pulse Respiration Blood pressure 98.2 degrees 92/minute 20/minute 123/82 Weight Last Period 72.8 kg 09/21/18Genna Larsen Ma 10/05/2018 12:19 PM SignedAdditional intake questions:Has the patient had nausea, vomiting, diarrhea, constipation, fatigue for > 1week? None of the aboveDoes the patient have a decreased appetite? NoDoes patient want to see a College Physics Instructor? No(yes to any of above refer patient [...] stim test.She said arranged in October in [facility] reviewed with Javier Of SystemsGENERAL:Negative [...] person, place and timeACTHDate Value Ref Range Qmprrl4407/26/2016 13 8 - 42 pg/mL Final ProlactinDat e Value Ref Range Fldzcx7607/26/2016 6.2 2.0 - 17.4 ng/mL Final TSHDate Value Ref Range Xcesfe5907/26/2016 2.250 0.400 - 5.500 uU/mL FinalComment:If the patient is , TSH reference range varies by gestational period:First Trimester 0.1-2.5 uU/mLSecond Trimester 0.2-3.0 uU/mLThird Trimester 0.3-3.0 uU/mL Free T3Date Value Ref Range Fpayiy9607/26/2016 2.9 1.8 - 4.6 pg/mL Final Free T4Date Value Ref Range Xfhhpe3907/26/2016 1.2 0.7 - 1.8 ng/dL Final FSHDate Value Ref Range Iqeacd5907/26/2016 2.1 mU/mL FinalComment:Reference range: Follicular: 2-11 Midcycle: 10-30 Luteal: 1-9 Post [place]: 20-100 Male: 1.0-10.0 ]A/pLabs and history and records reviewedPituitary adenoma/cyst. Secondary adrenal insufficiency diagnosed June 2016Currently she tapered down her hydrocortisoneHer last ACTH was borderlineShe is scheduled to have another one ACTH stim test [facility] discussed that she might be slow metabolizerAnd [...] in the medical care of Lucy Alvarado [facility]ING[facility]ultation requested by Dr. Kristin ALVARADO for an opinion regarding pituitary adenoma . My final recommendations will becommunicated back to the requesting physician by way of shared medical recordor letter via [place] mailReferring Provider: ROXANNA HAN [[id number]]Allergies As of Date: 10/05/2018(No Known Allergies)Date Reviewed: [...] appetite? NoDoes patient want to see a College Physics Instructor? No(yes to any of above refer patient to schedulers for dietitianappointment) )Does patient have any new or increased numbness or tingling ofextremities? NoIs patient interested in fertility information? NoDoes patient need any prescription refills? NoElectronically Signed By: Genna Ratliff Number: [id number] Status:Closed by ROXANNA HAN MD on 10/05/18 Normal [facility] PROGRESSon 10-05-2018 Protein mass conc HNO ID: [id number] thor: Roxanna Christiano Myrvice: (none)Author Type: PhysicianType: Progress NotesFiled: 10/05/2018 5:29 [...] test. She said arranged in October in [facility] reviewed with Javier Of SystemsGENERAL:Negative [...] double the dose for 3 (THREE) daysif [facility] current facility-administered medications for this visit.BP 123/82 [...] person, place and timeACTHDate Value Ref Range Hyhmzh4807/26/2016 13 8 - 42 pg/mL Final ProlactinDat e Value Ref Range Rdqtvv4507/26/2016 6.2 2.0 - 17.4 ng/mL Final TSHDate Value Ref Range Tfjwyp8207/26/2016 2.250 0.400 - 5.500 uU/mL FinalComment:If the patient is , TSH reference range varies by gestationalperiod:First Trimester 0.1-2.5 uU/mLSecond Trimester 0.2-3.0 uU/mLThird Trimester 0.3-3.0 uU/mL Free T3Date Value Ref Range Iqiggp6807/26/2016 2.9 1.8 - 4.6 pg/mL Final Free T4Date Value Ref Range Ixjjwc5607/26/2016 1.2 0.7 - 1.8 ng/dL Final FSHDate Value Ref Range Lhnhbb3007/26/2016 2.1 mU/mL FinalComment:Reference range: Follicular: 2-11 Midcycle: 10-30 Luteal: 1-9 Post [place]: 20-100 Male: 1.0-10.0 ]A/pLabs and history and records reviewedPituitary adenoma/cyst. Secondary adrenal insufficiency diagnosed June 2016Currently she tapered down her hydrocortisoneHer last ACTH was borderlineShe is scheduled to [facility] discussed that she might be slow metabolizerAnd [...] to participate in the medical care of EshaUsama Han, MDConsultation requested by Dr. Kristin ALVARADO for an opinion regarding pituitary adenoma . My final recommendationswill be communicated back to the requesting physician by way of sharedmedical record or letter via [place] mail Normal [facility] CNOVon 09-11-2018 CNOV Office Visit (NSCAMN) -------PATSY CODY ([id number]) 1985 FDate Time Provider Ehppkyquhr94/13/18 8:10 AM PENELOPE FOSTER NSCAMN During your visit today, we recorded the following information about you: Temperature Pulse Respiration Blood pressure 98.5 degrees 83/minute 18/minute 125/80 Weight Height 74.8 kg 1.727 Jennifer Dudley LPN 09/11/2018 8:27 AM SignedAdditional intake questions:Has the patient had nausea, vomiting, diarrhea, constipation, fatigue for > 1week? Vomiting, Yes, NotifiedNausea, Yes, NotifiedFatigue, Yes, NotifiedDiarrhea, Yes, NotifiedConstipation, Yes, MD NotifiedDoes the patient have a decreased appetite? NoDoes patient want to see a College Physics Instructor? No(yes to any of above refer patient to schedulers for dietitian appointment) )Does patient have any new or increased numbness or tingling of extremities? NoIs patient interested in fertility information? NoDoes patient need any prescription refills? NoElectronically Signed By: Julian Foster MD 09/14/2018 12:54 PM SignedSECTION OF SKULL BASE SURGERYMINIMALLY INVASIVE CRANIAL BASE AND PITUITARY SURGERY PROGRAMLou Hernandez Brain Tumor and Neuro- Oncology CenterSAGE MEMORIAL HOSPITALHead and Neck [place], [facility] CampusCC: Cristine Grimes MDASSESSMENT: In summary, Patsy [...] Patient states that shefollowed up with the precision machinist, and she was put on hydrocortisone [id number] .Her dizziness has improved after taking hydrocortison [...] comprehensionFunds of knowledge: NormalAttention span and concentration: [id number] cranial nerve: Full visual fieldsFundoscopy revealed no obvious papilledema or esexabuempt8jd, 4th, and 6th cranial nerves: Pupils equally round and reactive to light,extraocularmovements intact without nystagmus or subjective [id number] cranial nerve: V1-3 intact to light touch mwwjgiapkar7yd cranial nerve: Facial muscles full and symmetric junrkqgyunj5oi cranial nerve: hearing intact to finger rub [id number] cranial nerve: gag reflex test isoleiic97jx cranial nerve: Palate elevates symmetrically and uvula in the hvbexor67mr cranial nerve: shoulder shrug 5/5 oloqulsidie57sg cranial nerve: tongue protrudes in the midlineMotors: [...] change this, we could certainly reconsider this. Thanku for allowing me to participate in your care. Please do not hesitate tocall with questions.Referring Provider: KEN JORDAN [[id number]]Allergies As of Date: 09/11/2018(No Known Allergies)Date Reviewed: [...] hesitate to call with questions.Visit Notes:>> Julian Luis Enrique CARTWRIGHT Darlene Sep 11, 2018 8:26 AM Status: SignedAdditional intake questions:Has the patient had nausea, vomiting, diarrhea, constipation, fatigue for> 1 week? Vomiting, Yes, MD NotifiedNausea, Yes, MD NotifiedFatigue, Yes, MD NotifiedDiarrhea, Yes, MD NotifiedConstipation, Yes, MD NotifiedDoes the patient have a decreased appetite? NoDoes patient want to see a College Physics Instructor? No(yes to any of above refer patient to schedulers for dietitianappointment) )Does patient have any new or increased numbness or tingling ofextremities? NoIs patient interested in fertility information? NoDoes patient need any prescription refills? NoElectronically Signed By: Julian Dudley LPNFollow-up and Disposition History RecordedEncounter Number: [id number] Status:Closed by PENELOPE FOSTER MD on 09/14/18 Normal [facility] PROGRESSon 09-11-2018 Protein mass conc HNO ID: [id number] thor: Penelope FosterService: (none)Author Type: PhysicianType: Progress NotesFiled: 09/14/2018 12:54 PMNote Text:SECTION OF SKULL BASE SURGERYMINIMALLY INVASIVE CRANIAL BASE AND PITUITARY SURGERY PROGRAMLewis Laverne Carbajalhardt Brain Tumor and Neuro- Oncology CenterSAGE MEMORIAL HOSPITALHead and Neck [place], [facility] CampusCC: Cristine Grimes, DEWAYNESSESSMENT: In summary, Patsy [...] 2013prior to her developing the symptoms in 2016 [...] Patient statesthat she followed up with the precision machinist, and she was put onhydrocortisone since 2016 [...] comprehensionFunds of knowledge: NormalAttention span and concentration: Ymsl0dr cranial nerve: Full visual fieldsFundoscopy revealed no obvious papilledema or wmqzkoioiuj6li, 4th, and 6th cranial nerves: Pupils equally round and reactive tolight, extraocularmovements intact without nystagmus or subjective kqzqdzei2lj cranial nerve: V1-3 intact to light touch qxzgjbtejgf6nh cranial nerve: Facial muscles full and symmetric gigaoshcujm2hq cranial nerve: hearing intact to finger rub nmewcfhaczg5xl cranial nerve: gag reflex test emflknss75qf cranial nerve: Palate elevates symmetrically and uvula in the gaqyaac11dg cranial nerve: shoulder shrug 5/5 ojlhisjahlh86us cranial nerve: tongue protrudes in the midlineMotors: [...] 6.2Estradiol 17B pg/mL 146FSH mU/mL 2.1 Normal [facility] CNOVon 08-21-2018 CNOV Office Visit (NSFRVW) -------PATSY CODY ([id number]) 1985 FDate Time Provider Cbgmzhzvyc80/23/18 3:10 PM KEN JORDAN NSFRVW During your [...] states that she followed up with the precision machinist, and she was puton hydrocortisone. She states [...] refer to Rosalba Foster for surgical consult.Patsy Castellanosclaudia [id number] Harry WARREN-Student under the supervision of [...] (HCC) [D35.2]Order(s):CONSULT TO NEUROSURGERY [19991105] Order #: [id number]: 1Prescriptions as of 08/21/2018 Sig:X HYDROCORTISONE 5 MG TABLET Take 2 tb in am ( 10 mg) and *Problem List As Of Date 08/21/2018 Noted Resolved Pituitary adenoma (HCC) [D35.2] INVALID FOR* Status:Closed by KEN JORDAN MD on 08/24/18 Normal [facility] PROGRESSon 08-21-2018 Protein mass conc HNO ID: [id number] thor: Ken Huntervice: (none)Author Type: PhysicianType: Progress NotesFiled: 08/24/2018 2:18 PMNote Text:CC : Paitent with a chief complaint of anxiety.Interval HPI : Ms. Cody is 33 year old female with a history ofpituitary adenoma and chiari malformation and complains of anxiety andheadaches. Patient states that she followed up with the precision machinist,and she was put on hydrocortisone. She states [...] refer to Rosalba Foster for surgical consult.[facility]y [facility] [id number] Harry WARREN-Student under the supervision of Keila WARREN-CFindings discussed with ptShe is using Steroid replacement therapy and wants to consider surgicaltreatment of her non-secretory pituitary adenomaI have referred her to my colleague Dr Penelope Foster for consideration ofTSHShe agreesSaremigio Jordan MD Normal [facility] MR-MRI PITUITARY W/WO CON IM PORTon 08-17-2018 MR-MRI PITUITARY W/WO CON IMPORT Images were obtained outside of [facility] [id number] Normal [facility] Coding Summary.on 06-22-2018 Coding Summary. CODING DATE: 018 FINAL [facility] STATUS: Home (Routine DC) PAYOR: Medicaid EAPG [...] Oliva Date Saved: 06/22/2018 02:32 pm Normal [facility] Vital Signs Date Time Vital Sign Value Performing Clinician Facility 12-24-2023 07:30-0500 Body temperature 97.9 [degF] MD Joel Clark Work Phone: [facility] 12-24-2023 07:30-0500 Heart rate 70 /min MD Joel Clark Work Phone: [facility] 12-24-2023 07:30-0500 Respiratory rate 16 /min MD Joel Clark Work Phone: [facility] 12-24-2023 07:30-0500 SaO2% (BldA) [Mass fraction] 97 % MD Joel Clark Work Phone: [facility] 12-23-2023 20:24-0500 Diastolic blood pressure 87 mm[Hg] MD Joel Clark Work Phone: [facility] 12-23-2023 20:24-0500 Systolic blood pressure 127 mm[Hg] MD Joel Clark Work Phone: [facility] 12-22-2023 12:42-0500 Body height 172.72 cm MD Joel Clark Work Phone: [facility] 12-22-2023 04:16-0500 Body weight 68.03 kg MD Joel Clark Work Phone: [facility] 08-14-2022 14:00-0400 Body height 172.72 cm Jamia Miles Other [facility] Other 08-14-2022 14:00-0400 Body mass index (BMI) [Ratio] 22.35 kg/m2 Jamia Miles Other [facility] Other 08-14-2022 14:00-0400 Body temperature 99.1 [degF] Jamia Miles Other [facility] Other 08-14-2022 14:00-0400 Body weight 66.68 kg Jamia Miles Other [facility] Other 08-14-2022 14:00-0400 Diastolic blood pressure 74 mm[Hg] Jamia Miles Other [facility] Other 08-14-2022 14:00-0400 Respiratory rate 18 /min Jamia Miles Other [facility] Other 08-14-2022 14:00-0400 SaO2% (BldA) [Mass fraction] 98 % Jamia Miles Other [facility] Other 08-14-2022 14:00-0400 Systolic blood pressure 116 mm[Hg] Jamia Miles Other [facility] Other 11-10-2021 10:45-0500 Body height 172.72 cm Obed James Other [facility] Other 11-10-2021 10:45-0500 Body mass index (BMI) [Ratio] 22.96 kg/m2 Obed James Other [facility] Other 11-10-2021 10:45-0500 Body temperature 98.4 [degF] Obed James Other [facility] Other 11-10-2021 10:45-0500 Body weight 68.49 kg Obed James Other [facility] Other 11-10-2021 10:45-0500 Diastolic blood pressure 79 mm[Hg] Obed James Other [facility] Other 11-10-2021 10:45-0500 Respiratory rate 18 /min Obed James Other [facility] Other 11-10-2021 10:45-0500 SaO2% (BldA) [Mass fraction] 100 % Obed James Other [facility] Other 11-10-2021 10:45-0500 Systolic blood pressure 133 mm[Hg] Obed James Other [facility] Other 08-30-2021 13:35-0400 Body height 172.72 cm Daniela Kay Other [facility] Other 08-30-2021 13:35-0400 Body mass index (BMI) [Ratio] 23.26 kg/m2 Daniela Kay Other [facility] Other 08-30-2021 13:35-0400 Body temperature 98 [degF] Daniela Perryault Other [facility] Other 08-30-2021 13:35-0400 Body weight 69.4 kg Daniela Perryault Other [facility] Other 08-30-2021 13:35-0400 Diastolic blood pressure 87 mm[Hg] Daniela Rahul Other [facility] Other 08-30-2021 13:35-0400 Respiratory rate 18 /min Daniela Kay Other [facility] Other 08-30-2021 13:35-0400 SaO2% (BldA) [Mass fraction] 100 % Daniela Kay Other [facility] Other 08-30-2021 13:35-0400 Systolic blood pressure 142 mm[Hg] Daniela Kay Other [facility] Other Encounters Encounter Date Encounter Type Care Provider Facility Start: 04-11-2024 ambulatory Joel Clark Facility: [facility] Start: 12-22-2023 Non-patient / Non-visit MD Mayela Clark Work Phone: [facility] Work Phone: Start: 12-22-2023 End: 12-24-2023 Evaluation and management of inpatient MD Joel Clark Work Phone: [facility] Work Phone: Start: 11-14-2022 End: 11-14-[address] SVETLANA BARRIOS Facility:[facility] Start: 09-29-2022 End: 09-29-2022 ambulatory BRIANA JENNINGS Facility:[facility] Start: 09-03-2022 End: 09-04-[address] JOSE LUIS CORADO Facility:[facility] Start: 08-14-2022 Office outpatient vi sit 15 minutes [facility] Start: 08-14-2022 End: 08-14-2022 ambulatory MD Joel Clark Work Phone: [facility] Work Phone: Start: 08-14-2022 End: 08-14-2022 Patient encounter procedure MD Joel Clark Work Phone: [facility] Start: 05-16-2022 Encounter for preprocedural laboratory examination DR KEL GURROLA [facility] Start: 05-13-2022 End: 05-13-[address] KEL GURROLA Facility:[facility] Start: 05-10-2022 End: 05-11-[address] KEL GURROLA Facility:[facility] Start: 05-10-2022 End: 05-11-2022 Encounter for preprocedural laboratory examination DR KEL GURROLA Facility:[facility] Start: 05-09-2022 Encounter for other preprocedural examination DR KEL GURROLA [facility] Start: 05-05-2022 End: 05-06-[address] [...] GURROLA Facility:[facility] Start: 02-04-[address] JOEL LCARK Facility :[facility] Start: 01-02-2022 End: 01-02-2022 ambulatory BRIELLE IZAGUIRRE Facility:[facility] Start: 12-31-2021 End: 12-31-[address] JOEL CLARK Facility:[facility] Start: 12-24-2021 End: 12-27-[address] JOEL CLARK Facility:[facility] Start: 12-11-2021 End: 12-12-[address] JOEL CLARK Facility:[facility] Start: 12-10-2021 End: 12-10-[address] JOEL CLARK Facility:[facility] Start: 11-27-2021 End: 11-28-[address] JOEL CLARK Facility:[facility] Start: 11-10-2021 End: 11-10-2021 ambulatory Obed James Other [facility] Other Start: 11-10-2021 Office outpatient vi sit 15 minutes Obed James [facility] Start: 08-30-2021 End: 08-30-2021 ambulatory Daniela Kay Other [facility] [employer] Other Start: 08-30-2021 Office outpatient vi sit 5 minutes Daniela Kay [facility] Start: 02-13-2019 Patient encounter procedure Joel~[id number] UNKNOWN Joseluistamy Facility:CD:[id number] Start: 10-05-2018 End: 10-08-2018 Patient encounter procedure ROXANNA A EMELY [facility] Start: 09-11-2018 End: 09-14-2018 Patient encounter procedure PENELOPE Esther KRISTIN [facility] Start: 08-21-2018 End: 08-24-2018 Patient encounter procedure KEN JORDAN [facility] Start: 06-19-2018 End: 06-20-2018 Patient encounter procedure Chito Duatre [facility] Start: 12-01-2017 Patient encounter procedure ROXANNA A CARLTONU [facility] Procedures Date Procedure Procedure Detail Performing Clinician Start: 08-14-2022 X-ray of right ankle MD Joel Clark Work Phone: Plan of Treatment Date Care Activity Detail Author Start: 12-24-2023 [facility] Start: 12-22-2023 Hospital admission [facility] Patient Education Anxiety, Adult (DC) [facility] Behavioral Health [place] Instructions [facility] Work Phone: Patient referral [facility] Work Phone: Payers Date Payer Category Payer Unknown [id number] 1985 Unknown [id number] 1985 Unknown [id number] 2.16.840.1.877762.3.579.2.727 1985 Unknown [id number] 2.16.840.1.184737.3.579.2.593 1984 Unknown [id number] 2.16.840.1.387016.3.579.2.593 1984 Unknown [id number] 2.16.840.1.898265.3.579.2.593 1984 Unknown [id number] 2.16.840.1.310907.3.579.2.593 1984 Unknown [id number] 2.16.840.1.133250.3.579.2.593 1984 Unknown [id number] 2.16.840.1.948492.3.579.2.593 1984 Unknown [id number] 2.16.840.1.403605.3.579.2.593 1984 Unknown [id number] 2.16.840.1.760353.3.579.2.593 1984 Unknown [id number] 2.16.840.1.475634.3.579.2.593 1984 Unknown [id number] 2.16.840.1.530803.3.579.2.593 1984 Unknown [id number] 2.16.840.1.642886.3.579.2.593 1984 Unknown [id number] 2.16.840.1.780699.3.579.2.593 1984 Unknown [id number] 2.16.840.1.675135.3.579.2.593 1984 Unknown [id number] 2.16.840.1.121332.3.579.2.593 1984 Unknown [id number] 2.16.840.1.452315.3.579.2.593 1984 Unknown [id number] 2.16.840.1.265573.3.579.2.593 1984 Unknown [id number] 2.16.840.1.433877.3.579.2.593 1984 Unknown [id number] 2.16.840.1.206595.3.579.2.593 1960 Self-pay [id number] Unknown [id number] 2.16.840.1.545785.19 Self-pay Self Pay Cosmetic/Pain Mgmt [id number] Unknown [employer] [id number] Unknown [id number] 2.16.840.1.309653.3.579.2.531 Unknown [id number] 2.16.840.1.584298.3.579.2.531 Social History Date Type Detail Facility Tobacco smoking status [facility] Unknown if ever smoked [facility] Start: 1985 Sex Assigned At Female F [facility] Sex Assigned At Sex Assigned At Bir th [place] [facility] Other Start: 09-05-2019 Tobacco smoking status ORIS Ex-smoker (finding) [facility] Start: 12-22-2023 Tobacco smoking status [facility] Smoker (finding) [facility] Medical Equipment Procedure Code Equipment Code Equipment Origin al Text Equipment Identifier Dates ()[id number] FDA Start: 09-05-2019 Silicone gel-fay led breast implant ()[id number] FDA Start: 09-05-2019 Goals Date Patient Goal Desired Activity /State Functional Status Date Assessment Result Facility 12-24-2023 Functional status Patient at Baseline [facility] Work Phone: Mental Status Date Assessment Result Facility 12-24-2023 Cognitive function Cognitive Sta tus Patient at Baseline [facility] Work Phone: Clinical Notes 08-30-2021 to 12-23-2023 Note Date & Type Note Facility 12-23-2023 Progress note Note Date/Time December 23, 2023 11:33am [facility] [address] [place] [address] Psychiatry Progress Note Signed Patient: Patsy Cody MR #: [id number] : 1985 Acct:[id number] Age/Sex: 38 / F Adm Date: 4 Loc: Room: [address] [place] [address] Type : ADM IN Attending Dr: Theo [...] alternatives explained Documented By: Theo Guzman MD 12/23/23 113 Signed By: <Electronically signed by Theo Guzman MD> 12/23/23 1133 [facility] Work Phone: 1(763) 374-441002-23-2024 History and physical note Author Theo Guzman [facility] December 22, 2023 11:00am Note Date/Time December 22, 2023 10:20am [facility] [address] [place] [address] Psychiatry H&P Signed Patient: Patsy Cody MR #: [id number] : 1985 Acct:[id number] Age/Sex: 38 / F Adm Date: 4 Loc: Room: [address] [place] [address] Type: ADM IN Attending Dr: Theo Guzman [...] states that she knows her is in care home but she still feels worried all the [...] this with the medical student as notedbelow. [facility] Medical History (Updated 12/22/23 @ 10:59 by Theo Guzman MD) No pertinent past medical history Problem List clean-up per request of Phys. [facility]HR [facility] Surgical History History of delivery Problem List clean-up per request of Phys. EHR Cmte History of hemorrhoidectomy Problem List clean-up per request of Phys. [facility] Family History (Updated 09/05/19 @ 09:29 by [...] signed by Theo Guzman MD> 12/22/23 1100 [facility] Work Phone: 1(729) 180-794910-16-2022 Evaluation note* Encounter Date Diagnosis Assessment Notes [...] understanding and is agreeable to treatment plan [facility] Other 07-15-2022 NoteOPERATIVE NOTE OPERATION DATE: 05/13/2022 PROCEDURE: Julianna endometrial ablation with hysteroscopy. PREOPERATIVE DIAGNOSIS: Menorrhagia. POSTOPERATIVE DIAGNOSIS: Menorrhagia. ANESTHESIA: General. SURGEON: Kel Gurrola D.O. DIETARY SUPERVISOR: None. BLOOD LOSS: 5 mL. URINE [...] Patient taken to recovery in stable condition. [facility] Signed and Approved by: DR KEL GURROLA . 05/20/2022 08:19:00[facility]01-12-2022 Evaluation note* Encounter Date Diagnosis Assessment [...] Pt understands and agrees with the plan. [facility] Other 11-01-2021 Evaluation note* Encounter Date Diagnosis Assessment Notes Treatment Notes Treatment Clinical Notes Aug, Dysuria (ICD-10 - R30.0) Patient referred to specialist at this time. Patient has had these symptoms and has been treated with different medications without results. Patient made follow up with Amy Olmos. [facility] Other Discharge summary Author Theo Guzman [facility] December 24, 2023 11:28am Note Date/Time December 24, 2023 11:27am [facility] [address] [place] [address] Discharge Summary Signed Patient: Patsy Cody MR #: [id number] : 1985 Acct:[id number] Age/Sex: 38 / F Adm Date: 4 Loc: Room: [address] [place] [address]: Theo Guzman MD Copies to: [...] states that she knows her is in care home but she still feels worried all the [...] Contact Information You can call [facility]patient [facility] at [phone] any time day or night if you have emergent questions or question regarding discharge instructions. If at any time you are feeling an increase inyour psychiatric symptoms, call your physician or behavioral healthcare provider. If any time you have thoughts of harming yourself or others contact one of the following: Call (available 22/05) Crisis Text Line (available 22/05) text 4HOPE to [phone] [facility] Hope Line (available 8 a.m. Midnight) call [phone] ([phone]) Instructions: Anxiety, Adult (DC), [facility] Behavioral Health DC Instructions [...] unless she really needs it Follow Up: Co-Coding Clerk, Counseling [Other] [facility] [Outside] (You will receive a call on Monday around 10:30am to set up follow up appointments) Joel Clark MD [Primary Care Provider] - (please contact for medical needs or concerns) Documented By: Theo Guzman MD 12/24/23 1125 Signed By: <Electronically signed by Theo Guzman MD> 12/24/23 1128 [facility] Work Phone: Evaluation noteNo assessment information available [facility] Work Phone: Evaluation note* Diagnosis Onset Date Resolution Status Generalized anxiety disorder acute PTSD (post-traumatic stress disorder) acute [facility] Work Phone: History general Narrative - Reported* Type Description Date Medical History chiari malformation type 1 Surgical History , laparascopy, breast implant. Surgical History sphincter Surgical History hemorrhoidectomy [facility] Other History general Narrative - Reported* Type Description Date Medical History chiari malformation type 1 Surgical History , laparascopy, breast implant. Surgical History sphincter Surgical History hemorrhoidectomy Surgical History y-vanoplasty Surgical History fissurectomy Surgical History sphencterotomy Hospitalization History see above [facility] Other [facility] Narrative - Reported* Type Description Date Medical History chiari malformation type 1 Surgical History Uretha sling 12/21 Surgical History Salpingectomy 12/21 Hospitalization History see above [facility] Other Hospital Discharge instructions Additional Instructions Important Contact Information You can call [facility] at [phone] any time day or night if you have emergent questions or question regarding discharge instructions. If at any time you are feeling an increase in your psychiatric symptoms, call your physician or behavioral healthcare provider. If any time you have thoughts of harming yourself or others contact one of the following: Call [phone] (available 22/05) Crisis Text Line (available 22/05) text 4HOPE to [phone] [facility] Line (available 8 a.m. Midnight) call [phone] ([phone]) [facility] Work Phone: Summary Purpose Family History No [...] section and content) DATE CREATED AUTHOR 10/10/2018 [facility] DATE CREATED AUTHOR AUTHOR'S ORGANIZ ATION 02/13/[address] [facility] DATE CREATED AUTHOR AUTHOR'S ORGANIZ ATION 03/17/2020 [facility] DATE CREATED AUTHOR AUTHOR'S ORGANIZ ATION 11/16/2022 [facility] DATE CREATED AUTHOR AUTHOR'S ORGANIZ ATION 04/13/2024 [facility] REASON FOR VISIT (unrecogniz ed [...] 2023 Theo Guzman MD Admit Provider, Atte pateling Provider Active Start: December 22, 2023 End: December 24, 2023 Team Status: Active Member Role Status Dates Joel Clark MD Primary Care Provider Active Start: December 22, 2023 Theo Guzman MD Admit Provider, Attsugar uribe Provider, Other Provider Active Start: December 22, [...] BE BASED ON THE PRIMARY CLINICAL RECORDS. [facility] [employer] provides no warranty or guarantee of the accuracy or completeness of information in this document.
--- NOTE | 2024-05-24 00:24 | ED.GENADUL1 ---
HPI HPI - General Adult General Chief complaint: Abdominal Pain Stated complaint: CHEST PAIN Time Seen by Provider: 05/24/24 00:08 Source: patient Mode of arrival: walk-in Limitations: no limitations History of Present Illness HPI narrative: This 38-year-old female presents for evaluation of epigastric abdominal pain with nausea. The patient states she has had similar symptoms in the past after taking a different medication but around 7 PM she had dinner at a local restaurant. She had tacos and a Sprite. Before going to bed tonight she took her Zoloft which is a typical medication for her. Shortly after that she started having epigastric abdominal pain/burning pain that radiates up into her chest with a sour taste in her mouth. She is also nauseated but has not vomited. She denies any concepción chest pain or shortness of breath. She took 2 Tums prior to coming to the emergency department without significant improvement. Related Data Home Medications ?Medication ?Instructions ?Recorded ?Confirmed alprazolam 0.25 mg tablet 0.25 mg PO TID PRN anxiety 12/21/23 03/01/24 buspirone 10 mg tablet 10 mg PO DAILY 03/01/24 03/01/24 sertraline 50 mg tablet 50 mg PO Q24H 03/01/24 03/01/24 Previous Rx's ?Medication ?Instructions ?Recorded lorazepam 2 mg tablet (Ativan) 2 mg PO Q8H PRN Panic Attack #9 03/01/24 tabs Allergies Allergy/AdvReac Type Severity Reaction Status Date / Time venlafaxine [From Effexor] Allergy Severe Hypertensio Verified 05/24/24 00:20 n Opioid HPI Opioid Management Most Recent Opioid Data: Last Pain Scale 6 04/07/24 00:16 Ur Phencyclidine Scrn Negative (NEGATIVE) 12/21/23 22:55 Review of Systems ROS Status of ROS 10 or more systems reviewed and unremarkable except as noted in history and below [facility] Medical History (Updated 05/24/24 @ 00:59 by Rhianna Aaron MD) Anemia ?D64.9 - Anemia, unspecified (ICD-10) Anxiety ?F41.9 - Anxiety disorder, unspecified (ICD-10) Genital warts ?A63.0 - Anogenital (venereal) warts (ICD-10) Surgical History (Updated 08/11/23 @ 11:16 by Shasha Harvey NP) H/O vein stripping ?Z98.890 - Other specified postprocedural states (ICD-10) History of breast augmentation ?Z98.82 - Breast implant status (ICD-10) History of bilateral salpingectomy ?Z90.79 - Acquired absence of other genital organ(s) (ICD-10) History of tubal ligation ?Z98.51 - Tubal ligation status (ICD-10) History of laparoscopy ?Z98.890 - Other specified postprocedural states (ICD-10) History of section ?Z98.891 - History of uterine scar from previous surgery (ICD-10) Family History (Updated 08/11/23 @ 11:16 by Shasha Harvey NP) Other Family history of diabetes mellitus Family history of hypertension Family history of prostate cancer Social History (Updated 08/11/23 @ 11:12 by Shasha Harvey NP) Within the past year, how often did you have a drink containing alcohol: monthly or less Smoking status: Current every day smoker What tobacco products do you use: cigarettes Cigarettes per day: 20 Years smoked: 20 Smoking pack-years: 20.00 Non-prescribed substance use: denies use Previous occupational history: [employer] Highest level of school completed/degree received: high school graduate Exam Narrative Exam Narrative: Vital signs and Nursing Notes reviewed: Patient is afebrile with normal pulse, blood pressure is elevated 145/92, she is not hypoxic with pulse ox of 100% on room air General: Awake, alert, oriented, uncomfortable appearing female holding her upper abdomen, no respiratory distress, no active vomiting HEENT: Normocephalic atraumatic, mucous membranes are moist and pink, eyes are clear, normal conjunctiva, vision is grossly intact, posterior pharynx is normal in appearance. Neck: Supple, no meningeal signs, no anterior or posterior cervical lymphadenopathy Chest: Lungs are clear to auscultation with good air entry, there is no wheezing rhonchi or rales appreciated no accessory muscle use, patient is speaking in complete sentences-no chest wall tenderness to palpation CVS: Regular rate and rhythm S1-S2, no murmurs rubs or gallops, pulses are brisk and equal bilaterally ABD: Soft, nondistended, mild epigastric tenderness with no rebound guarding or rigidity Extremities: Moving all extremities, no lower extremity tenderness or swelling noted, negative Homans' sign, pulses are brisk and equal bilaterally Skin: Normal in appearance without rash,pallor, petechiae or purpura Neuro: No focal deficits Constitutional Vital Signs, click to edit/add: Last Vital Signs Temp 97.3 F L 05/24/24 00:16 Pulse 69 05/24/24 00:16 Resp 20 05/24/24 00:16 BP 145/92 H 05/24/24 00:16 Pulse Ox 100 05/24/24 00:16 O2 Del Method Room Air 05/24/24 00:16 Course Vital Signs Vital signs: Vital Signs Temperature 97.3 F L 05/24/24 00:16 Pulse Rate 69 05/24/24 00:16 Respiratory Rate 20 05/24/24 00:16 Blood Pressure 145/92 H 05/24/24 00:16 Pulse Oximetry 100 05/24/24 00:16 Oxygen Delivery Method Room Air 05/24/24 00:16 Temperature 97.3 F L 05/24/24 00:16 Pulse Rate 69 05/24/24 00:16 Respiratory Rate 20 05/24/24 00:16 Blood Pressure 145/92 H 05/24/24 00:16 Pulse Oximetry 100 05/24/24 00:16 Oxygen Delivery Method Room Air 05/24/24 00:16 Medical Decision Making MDM Narrative Medical decision making narrative: This 38-year-old female presents for evaluation of epigastric abdominal pain with a burning sensation in her epigastrium up into her esophagus and a sour taste in her mouth after having tacos and Sprite for dinner earlier in the evening and then taking her Zoloft. She was tender in her epigastrium. She was medicated with a dose of IV Pepcid, Toradol and Zofran and given a GI cocktail. After the GI cocktail she requested to be discharged home because her symptoms had resolved. I did suggest that she buy some Maalox to take if she has ongoing or worsening symptoms and she could start taking Pepcid if she wanted to for dyspepsia but this appears to be a isolated incident likely related to the food she took and less likely related to the medication she took. Discharge Plan Discharge Stand Alone Forms: Portal Instructions Chief Complaint: Abdominal Pain Clinical Impression: Dyspepsia Patient Disposition: Home, Self-Care Time of Disposition Decision: 00:57 Condition: Good Prescriptions / Home Meds: No Action buspirone 10 mg tablet 10 mg PO DAILY sertraline 50 mg tablet 50 mg PO Q24H lorazepam [Ativan] 2 mg tablet 2 mg PO Q8H PRN (Reason: Panic Attack) Qty: 9 0RF alprazolam 0.25 mg tablet 0.25 mg PO TID PRN (Reason: anxiety) Print Language: Czech Instructions: GERD (Gastroesophageal Reflux Disease) (ED), Epigastric Pain (ED) Referrals: Arnold Schroeder MD [Primary Care Provider] - 1 week
[2024-05-24] MEDS: lidocaine HCL 15 ML, MAG HYDROX/ALUMINUM HYD/SIMETH 30 ML, HYOSCYAMINE SULFATE 0.25 MG PO (00:45)
[2024-05-24] MEDS: FAMOTIDINE/PF 20 MG/2 ML VIAL IV (00:46)
[2024-05-24] MEDS: KETOROLAC TROMETHAMINE 30 MG/ML VIAL IVP (00:46)
[2024-05-24] MEDS: ONDANSETRON PF 4 MG/2 ML VIAL IV (00:46)
== END 2024-05-24 01:15 | disposition home or self-care (01) ==
PROVIDERS: Emergency Provider Emergency Medicine; PCP Family Medicine
DX: R10.13 Epigastric pain (principal); F17.210 Nicotine dependence, cigarettes, uncomplicated
CPT/HCPCS: 96374; 96375; 99284; J1885; J2405

== ENCOUNTER 2024-10-21 15:15 | Emergency (ER) | payer BC, SELFPAY ==
[2024-10-21 15:18] VITALS: BP 132/83; PULSE 73; TEMP 36.5; O2SAT 100; BMI 23.5
--- NOTE | 2024-10-21 15:30 | XR_ITS ---
The [address] [address] Patient Name: KATIA CODY MRN: [id number] date: 1985 Sex: F Assigned Patient Location: ER Current Patient Location: ER Accession/Order Number: [id number] Exam Date: 10/21/2024 15:45 Report Date: 10/21/2024 16:20 At the request of: TEODORO WELCH Procedure: XR chest 1V EXAMINATION: XR chest 1V HISTORY: Cough COMPARISON: 04/07/2024 TECHNIQUE: AP portable FINDINGS: LUNGS: No significant pulmonary parenchymal abnormalities. VASCULATURE: No increased pulmonary vasculature. PLEURA: No pneumothorax, effusion, or pleural thickening. CARDIAC: No cardiomegaly or cardiac silhouette abnormality. MEDIASTINUM: No visible mass or adenopathy. BONES: No fracture or visible bone lesion. OTHER: Negative. XR/XR chest 1V IMPRESSION: No acute cardiopulmonary process Electronically authenticated by: BENITO SHAVER Date: 10/21/2024 16:20
--- NOTE | 2024-10-21 15:31 | ED.URI1 ---
HPI - URI/Sore Throat General Chief Complaint: Upper Respiratory Infection Stated Complaint: panic attack Time Seen by Provider: 10/21/24 15:16 Source: patient Limitations: no limitations History of Present Illness HPI Narrative: Patient is a 39-year-old female well-known to this emergency department for previous history anxiety who presents to the emergency department for cough and chest congestion that began last night. She states she feels anxious because she is having a hard time taking a deep breath due to the coughing. She has had some sputum production but states she swallows it so she does not know what it looks like. She denies objective fevers but states she has had hot and cold chills, nasal congestion, wheezing. She is a regular tobacco user. She states she still feels anxious, she has been seen in this emergency department for anxiety attacks in the past, she is not currently taking any medication for anxiety. She has no concern for . Related Data Home Medications ?Medication ?Instructions ?Recorded ?Confirmed alprazolam 0.25 mg tablet 0.25 mg PO TID PRN anxiety 12/21/23 03/01/24 Previous Rx's ?Medication ?Instructions ?Recorded albuterol sulfate 90 mcg/actuation 2 inh inhalation Q4H PRN shortness 10/21/24 aerosol inhaler of breath or wheezing #8.5 grams [id number]-[id number]-[id number] 10 ml PO Q6H PRN cold symptoms 10/21/24 2 mg-30 mg-10 mg/5 mL oral syrup #200 mL (Bromfed DM) lorazepam 0.5 mg tablet (Ativan) 0.5 mg PO Q8H PRN anxiety #9 tabs 10/21/24 prednisone 20 mg tablet See Rx Instructions .Route 10/21/24 .COMPLEX #9 tabs Allergies Allergy/AdvReac Type Severity Reaction Status Date / Time venlafaxine (From Effexor) Allergy Severe Hypertensio Verified 05/24/24 00:20 n Review of Systems ROS Constitutional Reports: chills; Denies: fever Ears, nose, mouth, and throat Reports: nasal congestion; Denies: throat pain Cardiovascular Denies: chest pain Respiratory Reports: shortness of breath, cough and wheezing; Denies: change in phlegm color Gastrointestinal Denies: nausea or vomiting Integumentary/Breast Denies: rash Neurological Denies: numbness in extremities or weakness in extremities Hematologic/Lymphatic Denies: easy bruising or easy bleeding PFSH PFSH Medical History (Updated 10/21/24 @ 16:34 by BRIANA George) Anemia ?D64.9 - Anemia, unspecified (ICD-10) Anxiety ?F41.9 - Anxiety disorder, unspecified (ICD-10) Genital warts ?A63.0 - Anogenital (venereal) warts (ICD-10) Surgical History (Updated 08/11/23 @ 11:16 by Shasha Harvey NP) H/O vein stripping ?Z98.890 - Other specified postprocedural states (ICD-10) History of breast augmentation ?Z98.82 - Breast implant status (ICD-10) History of bilateral salpingectomy ?Z90.79 - Acquired absence of other genital organ(s) (ICD-10) History of tubal ligation ?Z98.51 - Tubal ligation status (ICD-10) History of laparoscopy ?Z98.890 - Other specified postprocedural states (ICD-10) History of section ?Z98.891 - History of uterine scar from previous surgery (ICD-10) Family History (Updated 08/11/23 @ 11:16 by Shasha Harvey NP) Other Family history of diabetes mellitus Family history of hypertension Family history of prostate cancer Social History Within the past year, how often did you have a drink containing alcohol: monthly or less Smoking status: Current every day smoker What tobacco products do you use: cigarettes Cigarettes per day: 20 Years smoked: 20 Smoking pack-years: 20.00 Non-prescribed substance use: denies use Previous occupational history: [employer] Highest level of school completed/degree received: high school graduate Little interest or pleasure in doing things: not at all Feeling down, depressed, or hopeless: not at all Exam Narrative Exam Narrative: Gen.: Awake, alert, in no distress Head: Normocephalic, atraumatic ENT: Moist mucous membranes Respiratory: No respiratory distress, lungs clear bilaterally, rhonchi and faint expiratory wheezing in the bilateral lower lobes Cardio: Regular rate and rhythm Extremities: Moves extremities equally Psych: Normal mood and affect Neuro: No focal neuro deficit Skin: Warm, dry, intact Constitutional Vital Signs, click to edit/add: Last Vital Signs Temp 97.7 F 10/21/24 15:18 Pulse 89 10/21/24 16:23 Resp 18 10/21/24 15:18 BP 132/83 10/21/24 15:18 Pulse Ox 100 10/21/24 16:23 O2 Del Method Room Air 10/21/24 16:23 Course Vital Signs Vital signs: Vital Signs Temperature 97.7 F 10/21/24 15:18 Pulse Rate 73 10/21/24 15:18 Respiratory Rate 18 10/21/24 15:18 Blood Pressure 132/83 10/21/24 15:18 Pulse Oximetry 100 10/21/24 15:18 Temperature 97.7 F 10/21/24 15:18 Pulse Rate 89 10/21/24 16:23 Respiratory Rate 18 10/21/24 15:18 Blood Pressure 132/83 10/21/24 15:18 Pulse Oximetry 100 10/21/24 16:23 Oxygen Delivery Method Room Air 10/21/24 16:23 MDM - URI/Sore Throat MDM Narrative Medical decision making narrative: Patient reported improvement with breathing treatment. She was given oral Ativan as well in the ER. Respiratory swabs are negative and chest x-ray shows no evidence of acute cardiopulmonary changes. Patient with no other PE risk factors, she appears well-hydrated and nontoxic and is discharged home with a steroid taper, Bromfed-DM and albuterol. She request a short course of Ativan to help with her anxiety. OARRS shows she is not currently prescribed any benzodiazepines and has not been prescribed any for 6 months. Return to the ER if symptoms change or worsen SUPERVISED APC VISIT, PHYSICIAN ATTESTATION: Based on the medical record the care appears appropriate. ? Medical Records Attestation: I reviewed the patient's medical records. Lab Data Attestation: I reviewed the patient's lab results. Labs: Lab Results 10/21/24 Range/Units 15:20 Influenza Type A Ag Negative Influenza Type B Ag Negative SARS-CoV-2 Ag (CV2AG) Negative (NEGATIVE) Imaging Data Chest x-ray: Attestation: I have reviewed the pertinent imaging results. Radiologist's impression: ITS Impressions Chest X-Ray 10/21/24 15:30 IMPRESSION: No acute cardiopulmonary process Electronically authenticated by: BENITO SHAVER Date: 10/21/2024 16:20 Discharge Plan Discharge Chief Complaint: Upper Respiratory Infection Clinical Impression: Upper respiratory infection Patient Disposition: Home, Self-Care Time of Disposition Decision: 16:34 Condition: Good Mode of Transportation: Private Vehicle Prescriptions / Home Meds: New albuterol sulfate 90 mcg/actuation HFA aerosol inhaler 2 inh inhalation Q4H PRN (Reason: shortness of breath or wheezing) Qty: 8.5 0RF Rx Instructions: administer with a spacer prednisone 20 mg tablet See Rx Instructions .ROUTE .COMPLEX Qty: 9 0RF Rx Instructions: 3 tabs daily for 1 days, then 2 tabs daily for 2 days, then 1 tab daily for 2 days [id number]-vpieqgolx-[id number] [Bromfed DM] 2-30-10 mg/5 mL syrup 10 ml PO Q6H PRN (Reason: cold symptoms) Qty: 200 0RF lorazepam [Ativan] 0.5 mg tablet 0.5 mg PO Q8H PRN (Reason: anxiety) Qty: 9 0RF Rx Instructions: DX: F41.1 No Action alprazolam 0.25 mg tablet 0.25 mg PO TID PRN (Reason: anxiety) Print Language: Ukrainian Instructions: Upper Respiratory Infection (ED) Referrals: Arnold Schroeder MD [Primary Care Provider] - 1 week Discharge Date/Time: 10/21/24 16:45
[2024-10-21 15:50] LABS: Influenza Virus A Antigen Negative; Influenza Virus B Antigen Negative; Internal Control Within Normal Limits; SARS-CoV-2 Ag NEGATIVE (NEGATIVE)
[2024-10-21] MEDS: PREDNISONE 20 MG TABLET 60 MG PO (15:57)
[2024-10-21] MEDS: LORAZEPAM 0.5 MG TABLET PO (15:58)
[2024-10-21] MEDS: ALBUTEROL SULFATE 2.5 MG/3 ML VIAL NEB IH (16:22)
[2024-10-21 16:23] VITALS: PULSE 89; O2SAT 100
== END 2024-10-21 16:45 | disposition home or self-care (01) ==
PROVIDERS: Physician Assistant; Emergency Provider Emergency Medicine; PCP Family Medicine
DX: J06.9 Acute upper respiratory infection, unspecified (principal); Z98.82 Breast implant status; Z98.51 Tubal ligation status; F17.210 Nicotine dependence, cigarettes, uncomplicated; F41.9 Anxiety disorder, unspecified
CPT/HCPCS: 71045; 87804; 87811; 94640; 99285; J7512

== ENCOUNTER 2025-07-30 10:39 | Outpatient (OUT) | payer BC, SELFPAY ==
[2025-07-30 10:58] LABS: Hematocrit 37.8 % (36.0-48.0); Hemoglobin 12.7 g/dL (12.0-16.0); Immature Granulocytes Abs Auto 0.01 10^3/uL (0.00-0.03); Immature Granulocytes Pct Auto 0.2 % (0.0-0.5); Lymphocytes Absolute Auto 1.9 10^3/uL (1.2-3.8); Mean Corpuscular HGB Conc 33.6 g/dL (29.9-35.2); Mean Corpuscular Hemoglobin 29.1 pg (26.7-34.0); Mean Corpuscular Volume 86.7 fL (81.0-99.0); Platelet Count 267 10^3/uL (150-450); Red Blood Count 4.36 10^6/uL (4.20-5.40); White Blood Count 4.6 10^3/uL (4.0-11.0)
[2025-07-30 11:38] LABS: Alanine Aminotransferase 20 U/L (14-59); Albumin Globulin Ratio 1.1; Albumin Level 4.0 g/dL (3.4-5.0); Alkaline Phosphatase 51 U/L (46-116); Blood Urea Nitrogen 12.0 mg/dL (7.0-18.0); Calcium 8.6 mg/dL (8.5-10.1); Carbon Dioxide 25.0 mmol/L (21.0-32.0); Cholesterol 190 mg/dL (<=200); Estimated GFR (African America >60 (>=60 mL/min/1.73m^2); Estimated GFR (Non-African Ame >60 (>=60 mL/min/1.73m^2); Free T3 2.81 pg/mL (2.18-3.98); Globulin 3.6 g/dL; Glucose 96 mg/dL (74-106); HDL Cholesterol 83 mg/dL (40-60); Thyroid Stimulating Hormone 2.618 uIU/mL (0.358-3.740); Total Protein 7.6 g/dL (6.4-8.2); Triglycerides 53 mg/dL (<=150); VLDL CHOLESTEROL 10.6 mg/dL
[2025-07-30 11:49] LABS: Anion Gap 14.0; Chloride 105 mmol/L (98-107); Potassium 4.0 mmol/L (3.5-5.1); Sodium 140 mmol/L (136-145)
[2025-07-30 12:07] LABS: Aspartate Amino Transferase 19 U/L (15-37)
--- NOTE | 2025-07-30 12:33 | MM_ITS ---
Patient Name: KATIA HARRIS MR#: [id number] : 1985 Exam Date: 07/30/2025 Ordering Doctor: DR JOEL CLARK . RADIOLOGY REPORT PROCEDURE: MM TOMOSYNTHESIS SCREENING BI COMPARISON: None. INDICATIONS: Screening Calculator Name NCI Breast Cancer Risk Assessment Tool 5 Year Breast Cancer Risk 0.50% Lifetime Breast Cancer Risk 9.00% Personal Breast Cancer No Personal Ovarian Cancer No Treatments None Family Cancers None LOCATION: [facility] BREAST COMPOSITION: The breasts are heterogeneously dense, which may obscure small masses. FINDINGS: DIAGNOSTIC CATEGORY 1--NEGATIVE. RIGHT BREAST: No significant suspicious finding. LEFT BREAST: No significant suspicious finding. RECOMMENDATIONS: ROUTINE MAMMOGRAM AND CLINICAL EVALUATION IN 12 MONTHS. Dictated by: Harvinder Greco DO on 07/30/2025 at 15:27 Approved by: Harvinder Greco DO on 07/30/2025 at 15:29
== END 2025-07-30 10:40 | disposition home or self-care (01) ==
LOC: MAMMO 10:39
PROVIDERS: PCP Family Medicine; Visit Provider Family Medicine
DX: Z00.00 Encounter for general adult medical examination without abnormal findings (principal); Z12.31 Encounter for screening mammogram for malignant neoplasm of breast
CPT/HCPCS: 36415; 77063; 77067; 80053; 80061; 83036; 84436; 84443; 84481; 85025

== ENCOUNTER 2025-09-30 16:36 | Outpatient (REF) | payer BC, SELFPAY ==
--- OUTSIDE RECORDS SUMMARY | 2025-09-30 09:00 | XMS_ITS | Encounter Summary ---
Author Organization [facility] Address [address] [place] [address] Care Team Providers Care Supply Chain Logistics Manager Name Role Phone Arnold Schroeder MD Primary Care Provider [phone] Reason for Visit * ReasonCommentsGynecologic Exam Encounter Details DateTypeDepartmentCare Team (Latest Contact Info)Ysnjvhgxalb91/02/2025 9:00 AM ESTProcedure Visit [facility] [address] [place] [address] Chastity Farrell PA [address] [place], [facility]11 Well woman exam with routine gynecological exam; History of bilateral tubal ligation; Encounter for screening mammogram for malignant neoplasm of breast; Pelvic pain in female; Vaginal itching; Mood changes Social History Tobacco UseTypesPacks/DayYears UsedDateSmoking Tobacco: Every DayCigarettes Comments:Not ready to quit s moking Alcohol UseStandard Drinks/OsixBvyzxzpoLwk10 (1 standard drink = 0.6 oz pure alcohol)caffeine intake: 1-2 cups per dayAUDIT-CAnswerDate RecordedQ1: How often do you have a drink containing alcohol?2-3 times a week08/30/2023Q2: How many drinks containing alcohol do you have on a typical day when you are drinking?5 or 6110/30/2022Q3: How often do you have six or more drinks on one occasion?Daily or almost daily08/30/2023CommentsNoSex and Gender InformationValueDate RecordedSex Assigned at BirthNot on fileLegal FnkOdleyb15/15/2023 7:14 PM EDT Gender IdentityNot on fileSexual OrientationNot on filedocumented as of this encounter Last Filed Vital Signs Vital SignReadingTime TakenCommentsBlood Pucrjsuc805/6809/30/2025 9:24 AM EST Pulse--Temperature--Respiratory Rate--Oxygen Saturation--Inhaled Oxygen Concentration--Soblek26.9 kg (152 lb)09/30/2025 9:24 AM ESTHeight--Body Mass Index23.1109 8:36 AM EDTdocumented in this encounter Progress Notes * BRIANA Pimentel - 09/30/2025 9:00 AM EST Reason for Appointment: Patient ID: Patsy Atkinson is a 40 y.o. female who presents for Gynecologic Exam Patient presents today for Annual Exam. MEDICATIONS Current Outpatient Medications Medication Instructions fluticasone (Flonase) 50 MCG/ACT nasal spray 2 sprays, Each Nostril, Daily, Shake gently. Before first use, prime pump. After use, clean tip and replace cap. LORazepam (ATIVAN) 2 mg, Oral, Every 8 hours PRN OLANZapine (ZyPREXA) 5 MG tablet 1 tablet, Oral, Nightly ALLERGIES Allergies Allergen Reactions Codeine Venlafaxine Shortness of breath and Palpitations PROBLEMS Active Ambulatory Problems Diagnosis Date Noted Anxiety 07/02/2013 Atopic dermatitis 06/25/2024 Dysmenorrhea 06/25/2024 Generalized anxiety disorder 06/25/2024 PTSD (post-traumatic stress disorder) 06/25/2024 Menorrhagia 06/25/2024 Pain in pelvis 06/25/2024 Pituitary cyst (HCC) 07/22/2016 Vaginal discharge 06/25/2024 Pain in female genitalia on intercourse 06/25/2024 DNS (deviated nasal septum) 07/02/2024 Resolved Ambulatory Problems Diagnosis Date Noted No Resolved Ambulatory Problems Past Medical History: Diagnosis Date Acne Adrenal insufficiency (HCC) Benign neoplasm of pituitary gland (HCC) Chiari I malformation (HCC) Hemorrhoids History of Chiari malformation Mood disorder Other adrenocortical insufficiency (HCC) Overweight Pituitary adenoma (HCC) Smoker Smoker TMJ syndrome Vaginal ulcer HISTORY PAST MEDICAL HISTORY SOCIAL HISTORY Past Medical History: Diagnosis Date Acne Adrenal insufficiency (HCC) Benign neoplasm of pituitary gland (HCC) Chiari I malformation (HCC) Hemorrhoids History of Chiari malformation Menorrhagia Mood disorder Other adrenocortical insufficiency (HCC) Overweight Pituitary adenoma (HCC) Smoker Smoker TMJ syndrome Vaginal ulcer Social History Tobacco Use Smoking status: Every Day Current packs/day: 1.00 Types: Cigarettes Smokeless tobacco: Not on file Tobacco comments: Not ready to quit smoking Substance Use Topics Alcohol use: Yes Alcohol/week: 18.0 standard drinks of alcohol Types: 18 Standard drinks or equivalent per week Comment: caffeine intake: 1-2 cups per day Drug use: Never FAMILY HISTORY Family History Problem Relation Name Age of Onset Morgan's thyroiditis Son 1 Diabetes Maternal Grandmother Cancer Maternal Grandmother Diabetes Paternal Grandfather Cancer Paternal Grandfather SURGICAL HISTORY Past Surgical History: Procedure Laterality Date SECTION, LOW TRANSVERSE DILATION AND CURETTAGE OF UTERUS LAPAROSCOPY DIAGNOSTIC / BIOPSY / ASPIRATION / LYSIS diagnostic OTHER SURGICAL HISTORY 08/2018 y-v anoplasty, hemorrhoidectomy, sphincterotomy OTHER SURGICAL HISTORY 08/25/2023 destruction of genital warts, extensive TUBAL LIGATION VEIN LIGATION AND STRIPPING Right REVIEW OF SYSTEMS Review of Systems: Review of Systems Constitutional: Negative. HENT: Negative. Eyes: Negative. Respiratory: Negative. Cardiovascular: Negative. Gastrointestinal: Negative. Genitourinary: Negative. Musculoskeletal: Negative. Skin: Negative. Neurological: Negative. All other systems reviewed and are negative. Hematological: Negative. Endocrine: Negative. Allergic/Immunologic: Negative. OBJECTIVE Objective: Physical Exam Constitutional: Appearance: Normal appearance. She is well-developed. Genitourinary: Vulva normal. Right Adnexa: not tender and no mass present. Left Adnexa: not tender and no mass present. No cervical discharge. Breasts: Breasts are soft. Right: Normal. Left: Normal. HENT: Head: Normocephalic. Nose: Nose normal. Mouth/Throat: Mouth: Mucous membranes are moist. Cardiovascular: Rate and Rhythm: Normal rate and regular rhythm. Pulmonary: Effort: Pulmonary effort is normal. Breath sounds: Normal breath sounds. Abdominal: General: Bowel sounds are normal. There is no distension. Palpations: Abdomen is soft. Tenderness: There is no abdominal tenderness. There is no guarding or rebound. Musculoskeletal: General: No swelling. Normal range of motion. Cervical back: Normal range of motion. Right lower leg: No edema. Left lower leg: No edema. Neurological: General: No focal deficit present. Mental Status: She is alert and oriented to person, place, and time. Skin: General: Skin is warm and dry. Psychiatric: Mood and Affect: Mood normal. Behavior: Behavior normal. Vitals and nursing note reviewed. Exam conducted with a travel specialist present. Vitals: Estimated body mass index is 24.02 kg/m?? as calculated from the following: Height as of 07/02/24: 5' 8 . Weight as of 07/02/24: 158 lb. BP: No LMP recorded. Assessment/Plan ICD-10-CM 1. Well woman exam with routine gynecological exam Z01.419 THIN PREP TIS PAP AND HR HPV DNA 2. History of bilateral tubal ligation Z98.51 THIN PREP TIS PAP AND HR HPV DNA 3. Encounter for screening mammogram for malignant neoplasm of breast Z12.31 Bilateral screening mammogram Bilateral screening mammogram Assessment/Plan Annual: Patient presents today for an annual exam. Patient states she is having itching w/a rash that pops up before her period and then goes away after her period. Pt states she may have BV back again. Pt has done the metrogel for 3 months for chronic BV however, BV is back again. Pt belives she may have a yeast infection and would like to have cx's done today. Pt is concerned she is having hormone issues w/her anxiety that seems to turn into a full blown panic attack. Pt stated she has discussed the anxiety problem w/Galileo in the past and medication was discussed however, pt is unsure of medicationon a daily basis. Lastly, she complains of having pelvic pain w/intercourse every now and then. Pap/Cx's were obtained without difficulty and patient given mammogram order to have scheduled/obtained. Patient was given pelvic US to have obtained and schedule a f/up visit w/Chastity Farrell. And patient wasprescribed Xanax 0.25 for the panic attacks on the week of her period. Pt was also prescribed Clobetasol cream for the vaginal itching. Orders Placed This Encounter Procedures Bilateral screening mammogram Follow Up: Patient is to return in one year for annual unless needed otherwise. Documented by Kim Samuels MA on behalf of: BRIANA Pimentel documented in this encounter Plan of Treatment DateTypeDepartmentCare Team (Latest Contact Info)Mjgfrsdsouc78/05/2026 9:00 AM ESTProcedure Visit [facility] [address] [place] [phone] Chastity Farrell PA [address] [place] [address] NameTypePriorityAssociated DiagnosesOrder ScheduleTHIN PREP TIS PAP AND HR HPV DNAPathology and CytologyRoutine Well woman exam with routine gynecological exam History of bilateral tubal ligation Ordered: 09/30/2025SURESWAB(R) ADVANCED VAGINITIS PLUS, TMAPathology and CytologyRoutine Pelvic pain in female Expected: 09/30/2025 (Approximate), Expires: 09/30/2026Neisseria gonorrhea DNA probe, directLabRoutine Pelvic pain in female Ordered: 09/30/2025HLAMYDIA TRACHOMATIS (GENITO/STI)LabRoutine Pelvic pain in female Ordered: 09/30/2025US Pelvis w/ TVImagingRoutine Pelvic pain in female Expected: 09/30/2025 (Approximate), Expires: 09/30/2026documented as of this encounter Visit Diagnoses Diagnosis Well woman exam with routine gynecological exam Routine gynecological examination History of bilateral tubal ligation Encounter for screening mammogram for malignant neoplasm of breast Pelvic pain in female Unspecified symptom associated with female genital organs Vaginal itching Pruritus of genital organs Mood changes Unspecified episodic mood disorder documented in this encounter Care Teams Team MemberRelationshipSpecialtyStart DateEnd Date Arnold Schroeder MD [address] [facility] [place] [address] PCP - GeneralFamily Medicine04/05/23documented as of this encounter
--- OUTSIDE RECORDS SUMMARY | 2025-09-30 16:42 | XMS_ITS | Clinical Summary ---
Author Organization [facility] Address [address] [place] [address] Phone Care Team Providers Care Enterprise Software Engineer Name Role Phone Unavailable Primary Care Provider Unavailabl e Allergies Active AllergyReactionsCriticalityNoted DateCommentsVenlafaxinePalpitations, Shortness of keebwhIcfr89/17/2021 Medications MedicationSigDispense QuantityRefillsLast FilledStart DateEnd DateStatus ALPRAZolam (Xanax) 0.25 mg tablet Take 1 tablet (0.25 mg) by mouth once daily as needed for anxiety.Active fluticasone (Flonase) 50 mcg/actuation nasal spray 2 sprays once daily.07/02/2024ctive mupirocin (Bactroban) 2 % ointment Indications:Surgery, elective,Deviated nasal septum,Postoperative pain,Acquired deformity of nose,Hypertrophy of nasal turbinates,Nasal congestionApply ointment liberally to surgical incision sites three times a day for 30 days 30 g 5Active Additional Information Patient not taking.Reported on 02/10/2025 sodium chloride (Bethel) 0.65 % nasal spray Indications:Surgery, elective,Deviated nasal septum,Postoperative pain,Acquired deformity of nose,Hypertrophy of nasal turbinates,Nasal congestionAdminister 1 spray into each nostril 3 times a day. 30 mL 1205Active Additional Information Patient not taking.Reported on 02/10/2025 ondansetron (Zofran) 4 mg tablet Indications:Surgery, elective,Deviated nasal septum,Postoperative pain,Acquired deformity of nose,Hypertrophy of nasal turbinates,Nasal congestionTake 2 tablets (8 mg) by mouth every 8 hours if needed for vomiting or nausea. 20 tablet 5Active Additional Information Patient not taking.Reported on 02/10/2025 Active Problems ProblemNoted DateDiagnosed DateAcquired deformity of nose08/16/2024Nasal atolusyfte14/09/2024eviated nasal stdlmy8907/08/2024Hypertrophy of nasal yscxzjrice93/09/2024 Social History Tobacco UseTypesPacks/DayYears UsedDateSmoking Tobacco: Every DayCigarettes Passive Smoke Exposure: NeverSmokeless Tobacco: Never Tobacco Cessation:Ready to Q uit: Not Asked; Counseling Given: Not Answered Comments:X 20 yr Alcohol UseStandard Drinks/WeekCommentsYes0 (1 standard drink = 0.6 oz pure alcohol)about 10 per weekPHQ-2AnswerDate RecordedPatient Health Questionnaire-2 Nmpii540CommentsNoSex and Gender InformationValueDate Recorded Sex Assigned at BirthNot on fileLegal YflMmiqmi44/04/2024 10:40 AM EDTGender IdentityNot on fileSexual OrientationNot on file Last Filed Vital Signs Vital SignReadingTime TakenCommentsBlood Derfucds056/78011/18/2024 1:20 PM EST Dxwfe582611/18/2024 1:20 PM KMHLwuikgikwks06 ??C (98.6 ??F)11/18/2024 1:20 PM EST Respiratory Jpow241711/18/2024 1:20 PM ESTOxygen Fvurlcsixu65%11/18/2024 1:20 PM ESTInhaled Oxygen Concentration--Msqitb55 kg (150 lb)02/10/2025 1:43 PM EDT Xtfpej662.7 cm (5' 8 )02/10/2025 1:43 PM EDTBody Mass Index22.8104 1:43 PM EDT Plan of Treatment Health MaintenanceDue DateLast DoneCommentsHIV Nsobbtokx1984Lipid Panel 1984MMR Vaccines (1 of 1 - Standard series)1985Hepatitis C Screening 2002Hepatitis B Vaccines (1 of 3 - 19+ 3-dose series)2003 Pneumococcal Vaccine: Pediatrics and At-Risk Adult Patients (1 of 2 - PCV) 2003Cervical Cancer Kvgtqgznc27/26/2005HPV/Zjazun6406/24/2005Pap Smear 08/26/2005DTaP/Tdap/Td Vaccines (1 - Tdap)2006HPV Vaccines (1 - 3-dose standard series)2011Yearly Adult Zrgziedt28//04/2023Mammogram 2024Influenza Vaccine (#1)2025OVID-19 Vaccine (1 - season) 2025Zoster Vaccines (1 of 2)2034HIB VaccinesAged OutNo longer eligible based on patient's age to complete this topicHepatitis A VaccinesAged OutNo longer eligible based on patient's age to complete this topicIPV Vaccines Aged OutNo longer eligible based on patient's age to complete this topic Meningococcal VaccineAged OutNo longer eligible based on patient's age to complete this topicRotavirus VaccinesAged OutNo longer eligible based on patient's age to complete this topic Insurance
--- OUTSIDE RECORDS SUMMARY | 2025-09-30 16:42 | XMS_ITS | Encounter Summary ---
Author Organization [facility] Address [address] [place] [address] Care Team Providers Care Dresser Tender Name Role Phone Arnold Schroeder MD Primary Care Provider [phone] Encounter Details DateTypeDepartmentCare Team (Latest Contact Info)Fxdhjeyitsv18/02/2025amboo flowsheet [facility] [address] [place] [address] Chastity Farrell PA [address] [facility] [address] [place], [facility]11 Social History Tobacco UseTypesPacks/DayYears UsedDateSmoking Tobacco: Every DayCigarettes Comments:Not ready to quit s moking Alcohol UseStandard Drinks/AykkEefdtlvgWct06 (1 standard drink = 0.6 oz pure [...] InformationValueDate RecordedSex Assigned at BirthNot on fileLegal ArpObajhv34/15/2023 7:14 PM EDT Gender IdentityNot on fileSexual OrientationNot on filedocumented as of this encounter Plan of Treatment DateTypeDepartmentCare Team (Latest Contact Info)Fzufjhndpee41/05/2026 9:00 AM ESTProcedure Visit [facility] [address] [place] [phone] Chastity Farrell PA [address] [facility] [address] [place], [place] [id number] documented as of this encounter Visit Diagnoses Not on filedocumented in this encounter Care Teams Team MemberRelationshipSpecialtyStart DateEnd Date Arnold Schroeder MD [address] [facility] [place] [phone] PCP - GeneralFamily Medicine04/05/23documented as of this encounter
--- OUTSIDE RECORDS SUMMARY | 2025-09-30 16:42 | XMS_ITS | Clinical Summary ---
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 Name Role Phone Arnold Schroeder MD Primary Care Provider [phone] Allergies Active AllergyReactionsCriticalityNoted DtifNslxdyaaLgvhvygNbke55/13/2025 VenlafaxineShortness of breath,NuvnnsrggxxsRmnb58/17/2021 Medications MedicationSigDispense QuantityRefillsLast FilledStart DateEnd DateStatus LORazepam (Ativan) 2 MG tablet Take 2 mg by mouth every 8 (eight) hours if tjnjdq8703/01/2024ctive OLANZapine (ZyPREXA) 5 MG tablet Take 1 tablet by mouth at hfkxdyg7803/07/2024ctive fluticasone (Flonase) 50 MCG/ACT nasal spray Indications:DNS (deviated nasal septum)Administer 2 sprays into each nostril Daily Shake gently. Before first use, prime pump. After use, clean tip and replace cap. 48 g ctive clobetasol (Temovate) 0.05 % cream Indications:Pelvic pain in female,Vaginal itchingApply 1 application topically Daily for 14 days 45 g 5Active ALPRAZolam (Xanax) 0.5 MG tablet Indications:Mood changesTake 1 tablet (0.5 mg) by mouth Daily as needed for anxiety (daily PRN for mood changes during Menses) 20 tablet 5Active Active Problems ProblemNoted DateDiagnosed DateDNS (deviated nasal septum)07/02/2024topic skzcjaqxpt64/27/8684Rubtwxrqbczx81/27/2024Generalized anxiety /27/2024 PTSD (post-traumatic stress disorder)06/25/20245579Vixkpqalvyb35/27/2024Pain in isxjgm0506/25/2024Vaginal byqpabtzw70/27/2024Pain in female genitalia on rtzqbohcdbg65/27/2024ituitary cyst07/22/20166063Shlbjla68/03/2013 Encounters DateTypeDepartmentCare BurcTagnapcbmip70/02/2025 9:00 AM ESTProcedure Visit [facility] [address] [place] [phone] Chastity Farrell PA Well woman exam with routine gynecological exam; History of bilateral tubal ligation; Encounter for screening mammogram for malignant neoplasm of breast; Pelvic pain in female; Vaginal itching; Mood kdapskj0409/30/2025amboo flowsheet [facility] [address] [facility] [facility] [place] [phone] Chastity Farrell PA from Last 3 Months Family History Medical HistoryRelationNameCommentsCancerMaternal GrandmotherDiabetesMaternal GrandmotherCancerPaternal GrandfatherDiabetesPaternal GrandfatherHashimoto's mzavvsmvaznXut6ClkmgjhcYbzxFxszetDwydmzmuXnaosaz3FizziGvrdprkx8HfgseQhcgxdKlxgw Maternal GrandmotherMotherAlivePaternal AdodhgsgdicQrnwow6JzbeoKti3Hkbbo Social History Tobacco UseTypesPacks/DayYears UsedDateSmoking Tobacco: Every DayCigarettes Tobacco Cessation:Ready to Q uit: Not Asked; Counseling Given: Not Answered Comments:Not ready to quit smoking Alcohol UseStandard Drinks/RmiaKjhpjrxeHvm92 (1 standard drink = 0.6 oz pure [...] InformationValueDate RecordedSex Assigned at BirthNot on fileLegal MiqOwxhtr40/15/2023 7:14 PM EDT Gender IdentityNot on fileSexual OrientationNot on file Last Filed Vital Signs Vital SignReadingTime TakenCommentsBlood Jqhzmung872/6809/30/2025 9:24 AM EST Mfvxm45304/29/2019 6:40 PM ESTTemperature--Respiratory Wvdo819211/27/2018 6:40 PM ESTOxygen Saturation--Inhaled Oxygen Concentration--Bwshns16.9 kg (152 lb) 09/30/2025 9:24 AM TSUAqezqr644.7 cm (5' 8 )07/02/2024 8:36 AM EDTBody Mass Index23.11007/02/2024 8:36 AM EDT Plan of Treatment DateTypeDepartmentCare Team (Latest Contact Info)Lrzpdkezxdh03/05/2026 9:00 AM ESTProcedure Visit [facility] [address] [place] [address] Chastity Farrell PA [address] [place], [place] [address] Insurance Care Teams Team MemberRelationshipSpecialtyStart Date Arnold Schroeder MD [address] [facility] [place] [place] [address] PCP - GeneralFamily Medicine04/05/23
--- OUTSIDE RECORDS SUMMARY | 2025-09-30 16:42 | XMS_ITS | CCD ---
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 Name Role Phone HATIPOGLU, BETUL A Unavailable Unavailable HATIPOGLU, BETUL A Unavailable Unavailable FOSTER, PENELOPE F Unavailable Unavailable VORKEN BENAVIDEZ Unavailable Unavaila ble HATIPOGLU, BETUL A Unavailable Unavailable HATIPOGLU, BETUL A Unavailable Unavailable KEN JORDAN Unavailable Unavaila Chito Garcia Admitting Unavailable Chito Duarte Attending Unavailable Arnold Clark~[id number] UNKNOWN Primary Care Unavailable Arnold Clark~[id number] UNKNOWN Primary Care Unavailable Daniela Kay Unavailable Obed James Unavailable MD Arnold Clark Primary Care Provider [phone] KATHY Miles Attending Provider [phone] Un[address] DR ARNOLD CLARK Primary Care Unavailable JONG NAVA Attending Unavailable JONG NAVA Admitting Unavailable DR ARNOLD CLARK Consulting Unavailable DR ARNOLD CLARK Primary Care Unavailable DR ARNOLD CLARK Attending Unavailable DR ARNOLD CLARK Admitting Unavailable DR ARNOLD CLARK Consulting Unavailable DR ASHLEY JANSEN Primary Care Unavailable DR ARNOLD CLARK Attending Unavailable DR ARNOLD CLARK Admitting Unavailable BRIELLE IZAGUIRRE Consulting Unavailable BRIELLE IZAGUIRRE Attending Unavailable BRIELLE IZAGUIRRE Admitting Unavailable DR ARNOLD CLARK Primary Care Unavailable DR ARNOLD CLARK Primary Care Unavailable KI, DR MADDEN Attending Unavailable DR KEL GURROLA Admitting Unavailable KI, DR MADDEN Consulting Unavailable DR ARNOLD CLARK Primary Care Unavailable KI, DR MADDEN Attending Unavailable KI, DR MADDEN Admitting Unavailable DR ARNOLD CLARK Primary Care Unavailable JONG NAVA Attending Unavailable JONG NAVA Admitting Unavailable BRIANA JENNINGS Consulting Unavailable AMBER, DR MALDONADO Primary Care Unavailable BRIANA JENNINGS Attending Unavailable BRIANA JENNINGS Admitting Unavailable KI, DR MADDEN Consulting Unavailable DARNELLY, DR MALDONADO Primary Care Unavailable KI, DR [...] Admitting Unavailable KI, DR MADDEN Consulting Unavailable DARNELLY, DR MALDONADO Primary Care Unavailable KI, DR [...] Unavailable AMBER, DR MALDONADO Admitting Unavailable MD Arnold Clark Primary Care Provider [phone] MD Obdulia Guzmanmi Admit Provider MD Theo Guzman Attending Provider TIMMIS, REYES H Attending Unavailable ARNOLD CLARK Referring Unavailable Theo Guzman Attending Unavailable Theo Guzman Admitting Unavailable Arnold Clark Primary Care Unavailable Arnold Clark Primary Care Unavailable Phil Singleton Attending Unavailab le Phil Singleton Admitting Unavailab brennen Unavailable Primary Care Provider UnavailArnold Coker MD Primary Care Provider [phone] AMBIKA AMAYA Admitting Unavai lable GOURISHLIZET SAIKRISHNA C Attending Unavai lable VANIA AMAYARISHNA C Admitting Unavai lable GOURISHETTI, SAIKRISHNA C Attending Unavai lable Unavailable Primary Care Provider UnavailAMBIKA Osman Attending Unavai lable VANIA AMAYARISHNChristiano Sotomayor Attending Unavai lable VANIA AMAYARISHNChristiano Sotomayor Attending Arnold Breaux MD Primary Care Provider [phone] Maeve Mitchell APRN Attending Provider [phone] Unavailable Unavailable Unavailable Allergies Allergy ClassificationReported Allergen(s)Allergy TypeDate of OnsetReaction(s) Facility (12 sources)venlafaxine; Translations: [VENLAFAXINE]Drug Fajqdfi93-10-3365 Palpitations, Shortness of breathOhioHealth Van Wert Hospital (2 sources)venlafaxine; Translations: [Effexor]Drug Allergyhigh BP/HeartrateThe [facility]ository (1 source)CodeineDrug AllergyThe [facility] (1 source)venlafaxineDrug Uefzjrn66-47-3193UgyfkroxrMemorial Health System [facility] Medications Current Medications MedicationDrug Class(es)DatesSig (Normalized)Sig (Original)acetaminophen 325 mg oral tablet (1 source)Start: 00-53-1972cxle 1 tablet by mouth every four hours as uiuvog546 mg, oral, Every 4 hours PRN, pain mild (1-3), first line, Starting on Mon11/18/24 at 1140, Recovery (only), When able to take oral medications., If ordered PRN for pain, nurse is permitted to administer this medication for higher pain scores based on patient preference? Yesacetaminophen 325 mg / oxyCODONE hydrochloride 5 mg oral tablet (1 source)Opioid AgonistStart: 34-01-6521gnvr 1 tablet by mouth every four hours as needed1 tablet, oral, Every 4 hours PRN, pain moderate (4-6), second line, pain severe (7-10), second line, Starting on Mon11/18/24 at 1140, Recovery (only), When able to take oral medications., If orderedPRN for pain, nurse is permitted to administer this medication for higher pain scores based on patient preference? Yesalbuterol 0.83 mg/ml inhalation solution (1 source)beta2-Adrenergic AgonistStart: .5 mg, nebulization, Once as needed, wheezing, Starting on Mon11/18/24 at 1140, For 1 dose, Recovery (only)1 ml fentaNYL 0.05 mg/ml injection (2 sources)Opioid AgonistStart: 75-15-236873 mcg, intravenous, Every 5 min PRN, pain moderate (4-6), first line, Starting on Mon11/18/24 at 1140, Recovery (only), Max total of 200 micrograms regardless of dose., If ordered PRN for pain, nurse is permitted to administer this medication for higher pain scores based on patient preference? YesStart: 46-78-551749 mcg, intravenous, Every 5 min PRN, pain severe (7-10), first line, Starting on Mon11/18/24 at 1140, Recovery (only), Max total of 200 micrograms regardless of dose., If ordered PRN for pain, nurseis permitted to administer this medication for higher pain scores based on patient preference? Yesfluticasone propionate 0.05 mg/actuat metered dose nasal spray (6 sources)CorticosteroidStart: 07-02-2024 End: 56-76-4079jfaftfeazgs (Flonase) 50 mcg/actuation nasal spray 2 sprays once daily. 07/02/2024 07/02/2025 ActiveStart: 07-02-2024 End: 33-60-5095nzra 2 spray(s) nasal route once dailyfluticasone (Flonase) 50 MCG/ACT nasal spray Indications: DNS (deviated nasal septum) Administer 2 sprays into each nostril Daily Shake gently. Before first use, prime pump. After use, clean tip and replace cap. 48 g 3 07/02/2024 07/02/2025 Active1 ml hydrALAZINE hydrochloride 20 mg/ml injection (1 source)Arteriolar VasodilatorStart: mg, intravenous, Administer over 2 Minutes, Every 30 min PRN, systolic blood pressure greater than 180 mmHg and heart rate less than 60 BPM, Starting on Mon11/18/24 at 1140, For 2 doses, Recovery (only)LORazepam 2 mg oral tablet (3 sources)BenzodiazepineStart: 80-08-7951ttrg 1 tablet by mouth every eight hours as neededLORazepam (Ativan) 2 MG tablet Take 2 mg by mouth every 8 (eight) hours if needed 03/01/2024 Activemupirocin 0.02 mg/mg topical ointment (3 sources)RNA Synthetase Inhibitor AntibacterialStart: 87-83-5806qffwlccyo (Bactroban) 2 % ointment Indications: Surgery, elective , Deviated nasal septum , Postoperative pain , Acquired deformity of nose , Hypertrophy of nasal turbinates , Nasal congestion Apply ointment liberally to surgical incision sites three times a day for 30 days 30 g 3 11/18/2024 ActiveNo Name (No Known Home Meds) (1 source)Start: 59-27-3848Na Name (No Known Home Meds) Active September 05, 2019 1:00amOLANZapine 5 mg oral tablet (3 sources)Atypical AntipsychoticStart: 41-03-8452plnh 1 tablet by mouth at bedtimeOLANZapine (ZyPREXA) 5 MG tablet Take 1 tablet by mouth at bedtime 03/07/2024 Activeondansetron 4 mg oral tablet (5 sources)Serotonin-3 Receptor AntagonistStart: 04-10-5364hqgn 2 tablets by mouth every eight hours for nauseaondansetron (Zofran) 4 mg tablet Indications: Surgery, elective , Deviated nasal septum , Postoperative pain , Acquired deformity of nose , Hypertrophy of nasal turbinates , Nasal congestion Take 2 ta blets (8 mg) by mouth every 8 hours if needed for vomiting or nausea. 20 tablet 11/18/2024 ActiveStart: 11-18-2024 End: 68-02-7559pcfe 1 tablet by mouth once4 mg, oral, Once, On Mon11/18/24 at 1400, For 1 dose, Recovery (only), Patient should allow tablet to dissolve on tongue. Do not remove from blister pack until just before administering.Start: mg, intravenous, Once as needed, nausea/vomiting, first line, Starting on Mon11/18/24 at 1140, For 1 dose, Recovery (only), When administering via IV Push, administer over 3-5 minutes.oxyCODONE hydrochloride 5 mg oral tablet (2 sources)Opioid AgonistStart: 11-18-2024 End: 77-08-5841dvkt 1 tablet by mouth every six hours for painoxyCODONE (Roxicodone) 5 mg immediate release tablet Indications: Surgery, elective , Deviated nasal septum , Postoperative pain , Acquired deformity of nose , Hypertrophy of nasal turbinates , Nasalcongestion Take 1 tablet (5 mg) by mouth every 6 hours if needed for severe pain (7 - 10) for up to4 days. 16 tablet 11/18/2024 11/22/2024 ActiveStart: 11-18-2024 End: 38-39-5288uohh 5 mg by mouth once as needed for pain5 mg, oral, Once, On Mon11/18/24 at 1315, For 1 dose, Recovery (only), If ordered PRN for pain, nurse is permitted to administer this medication for higher pain scores based on patient preference? Yespolymyxin b 14455 unt/ml / trimethoprim 1 mg/ml ophthalmic solution (1 source)Dihydrofolate Reductase Inhibitor Antibacterial, Polymyxin-class AntibacterialStart: 47-44-4299aonc 1 drop(s) into the eye(s) four times daily Polymyxin B-Trimethoprim 79312-8.1 UNIT/ML 1 drop into both eyes Ophthalmic Four times a day for 7 day(s) Oct, ActivepredniSONE 10 mg oral tablet (2 sources)Start: 68-50-0375Cuixbkmhsl 10 mg tablet Active MG PO April 28, 2025 12:00am Complies with drug therapyStart: 10-12-2024 End: 34-59-5224ckbx 1 tablet by mouth twice dailyPrednisone 20 mg tablet Discontinued 20 MG PO Twice daily 10 October 12, 2024 1:00am April 28, 2025 9:17amProsacea (1 source)Prosacea Activesodium chloride 0.111 meq/ml nasal spray (3 sources)Start: 72-27-6458ubxszh chloride ([place]) 0.65 % nasal spray Indications: Surgery, elective , Deviated nasal septum ,Postoperative pain , Acquired deformity of nose , Hypertrophy of nasal turbinates , Nasal congestion Administer 1 spray into each nostril 3 times a day. 30 mL 12 11/18/2024 Active Completed/Discontinued Medications MedicationDrug Class(es)DatesSig (Normalized)Sig (Original)ALPRAZolam 0.25 mg oral tablet (8 sources)BenzodiazepineStart: 12-24-2023 End: 19-07-8651txhf 1 tablet by mouth once daily as needed for anxietyAlprazolam 0.25 mg Tablet Discontinued 0.25 MG PO Daily as needed for anxiety 03 03December 24, 2023 1:00am October 12, 2024 1:49pmStart: 12-22-2023 End: 96-49-1779voxl 1 tablet by mouth three times daily as needed for anxiety Alprazolam 0.25 mg tablet Discontinued 0.25 MG PO Three times daily as needed for anxiety December 22, 2023 1:00am December 24, 2023 12:28pmaprepitant 40 mg oral capsule (1 source)Substance P/Neurokinin-1 Receptor AntagonistStart: 11-18-2024 End: 62-77-4086fcaq 40 mg by mouth once40 mg, oral, Once, On Mon11/18/24 at 0745, For 1 dose, PreprocedureStart: 11-18-2024 End: 18-50-1329flob 40 mg by mouth once40 mg, oral, Once, On Mon11/18/24 at 0745, For 1 dose, PreprocedurebusPIRone hydrochloride 10 mg oral tablet (2 sources)Start: 12-24-2023 End: 45-82-8159zgzs 1 tablet by mouth three times dailyBuspirone 10 mg Tablet Discontinued 10 MG PO Three times daily December 24, 2023 1:00am Dece mber 2023 1:49pmcephalexin 500 mg oral capsule (2 sources)Cephalosporin AntibacterialStart: 11-18-2024 End: 56-51-3966fepw 1 capsule by mouth four times dailycephalexin (Keflex) 500 mg capsule Indications: Surgery, elective , Deviated nasal septum , Postoper ative pain , Acquired deformity of nose , Hypertrophy of nasal turbinates , Nasal congestion Take 1capsule (500 mg) by mouth 4 times a day for 10 days. 40 capsule 11/18/2024 11/28/2024 Expiredcyclobenzaprine hydrochloride 10 mg oral tablet (1 source)Muscle RelaxantStart: 10-12-2024 End: 10-74-8749hyiq 1 tablet by mouth three times daily as needed for muscle spasmsCyclobenzaprine 10 mg tablet Discontinued 10 MG PO Three times daily as needed for muscle spasm 15 October 12, 2024 1:00am April 28, 2025 9:27am hydrocortisone 5 mg oral tablet (6 sources)CorticosteroidStart: 05-14-2018 End: 91-10-7735wnso 1 tablet by mouth once daily in the morningHydrocortisone 10 mg Tablet Discontinued 10 MG PO Every morning May 14, 2018 12:00am September 05, 2019 10:43amStart: 05-14-2018 End: 19-06-4509nlpw 1 tablet by mouth at bedtimeHydrocortisone 5 mg Tablet Discontinued 5 MG PO Bedtime May 14, 2018 12:00am September 05, 2019 10:43am sertraline 50 mg oral tablet (2 sources)Serotonin Reuptake InhibitorStart: 12-24-2023 End: 21-56-5245mged 1 tablet by mouth once daily in the morningSertraline 50 mg Tablet Discontinued 50 MG PO Every morning December 24, 2023 1:00am October 12, 2024 1:49pmSulfamethoxazole (2 sources)Sulfonamide AntimicrobialSulfamethoxazole Not-TakingSulfamethoxazole Active Problems Active Problems Problem ClassificationProblemDateDocumented DateEpisodic/ChronicAllergic reactions (3 sources)Atopic dermatitis; Translations: [Atopic dermatitis, unspecified] Onset: 636062-17-3719RbwgorgZpsokvy disorders (20 sources)Generalized anxiety disorder; Translations: [Generalized anxiety disorder]Onset: 58-31-0020IeimrreVosxasg dysrhythmias (4 sources)Supraventricular tachycardia; Translations: [SUPRAVENTRICULAR TACHYCARDIA]Onset: 74-40-7256KaudvglXqyfibxznjhkl symptoms and ill-defined conditions (6 sources)Dysuria; Translations: [Dysuria]Onset: 08-30-2021 Resolved: 22-28-6447FuybilteZqvfphbtvmcxx and screening for infectious disease (6 sources)Contact with and (suspected) exposure to infections with a predominantly sexual mode of transmission; Translations: [Encounter for screening for human papillomavirus (HPV)]Onset: 53-04-4409OzbkfxurQsuwqwqxb disorders (11 sources)Excessive and frequent menstruation with regular cycle; Translations: [Dysmenorrhea]Onset: 78-78-8892TvxexfcWwbzk aftercare (1 source)Other retirement (current) drug therapy; 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]Onset: 60-39-4581XtjdpsnvZtkxe aftercare (1 source)Postoperative visit; Translations: [Encounter for other specified surgical aftercare]60-13-6616HuhohbfwXiglu circulatory disease (1 source)Low blood pressure; Translations: [Hypotension, unspecified]04-28-2025 EpisodicOther connective tissue disease (1 source)Swelling of hand; Translations: [Other specified soft tissue disorders]07-31-8861InqyxtysBenfw endocrine disorders (4 sources)Pituitary cyst; Translations: [Other disorders of pituitary gland] Onset: 961945-94-4460McernwfYmcyd female genital disorders (3 sources)Pain in female genitalia on intercourse; Translations: [Unspecified dyspareunia]Onset: 723834-73-6193RwnofekGxnmf nervous system disorders (1 source)Chiari malformation type I; Translations: [Compression of brain] 13-17-2592GparyyyVnpog nervous system disorders (1 source)Postoperative pain ; Translations: [Other acute postprocedural pain] 22-63-4210GmuevmlrOtzcs nervous system disorders (2 sources)Other acute postprocedural pain; Translations: [Other acute postprocedural pain]Onset: 13-28-0300LprljokkZkmbp non-traumatic joint disorders (1 source)Pain in right ankle and joints of right footEpisodicOther upper respiratory disease (2 sources)Nasal obstruction; Translations: [Other specified disorders of nose and nasal sinuses]42-38-6655SvdajqkhGddsn upper respiratory disease (2 sources)Hypertrophy of nasal turbinates; Translations: [Hypertrophy of nasal turbinates]Onset: 36-73-1154FeyupygpPywhjvnv codes; unclassified (1 source)Patient encounter status; Translations: [Encounter for procedure for purposes other than remedying health state, unspecified]28-79-6150Pnizrsxt Residual codes; unclassified (2 sources)Encounter for procedure for purposes other than remedying health state, unspecified; Translations: [Encounter for procedure for purposes other than remedying health state, unspecified]Onset: 73-93-2400DrqbqwhdIiwoclm and strains (2 sources)Sprain of unspecified ligament of right ankle, initial encounter; Translations: [Strain of neck muscle]EpisodicSubstance-related disorders (1 source)Nicotine dependence, cigarettes, uncomplicated; Translations: [NICOTINE DEPEND CIGARETTES UNCOMP]Onset: 83-39-8190QhxvbipJaegihdkxuek (3 sources)COUGH, UNSPECIFIED; Translations: [COUGH, UNSPECIFIED]Onset: 14-56-9959Cdnkgbpvlutz (1 source)UNVACCINATED FOR COVID-19; Translations: [UNVACCINATED FOR COVID-19] Onset: 04-67-8899Qdrujmjlbmlq (4 sources)CONTACT W/AND (SUSP) EXPOS COVID-19; Translations: [CONTACT W/AND (SUSP) EXPOS COVID-19]Onset: 69-97-1115Nvsguafbhswc (2 sources)Post-op Visit; Translations: [Post-op Visit]Onset: 11-25-2024 Past or Other Problems Problem ClassificationProblemDateDocumented DateEpisodic/ChronicAbdominal pain (3 sources)Pain in pelvis; Translations: [Pelvic and perineal pain]Onset: 756179-19-0879XqfspwefZdxpo and chronic tonsillitis (1 source)Acute tonsillitis, unspecified; Translations: [ACUTE TONSILLITIS UNSPECIFIED]Onset: 11-80-9734YnfhgizkLtwcrzknyg and other anemia (4 sources)Iron deficiency anemia, unspecified; Translations: [IRON DEFICIENCY ANEMIA UNSPECIFIED]Onset: 19-20-9239DtvjoletOfbwnxhjjvkb; infection of eye (except that caused by tuberculosis or sexually transmitteddisease) (1 source)Unspecified conjunctivitisOnset: 11-10-2021 Resolved: 03-89-1802CvxmslaqWrper acquired deformities (1 source)Incompetence of nasal valve; Translations: [Acquired deformity of nose]30-54-5696KinostbhDvdvf acquired deformities (6 sources)Acquired deformity of nose; Translations: [Acquired deformity of nose]Onset: 830585-04-2603MptjytowYnnre acquired deformities (1 source)Acquired deformity of nose; Translations: [Acquired deformity of nose] Onset: 69-22-7660JpmwglfuAuawo female genital disorders (5 sources)Other specified noninflammatory disorders of vagina; Translations: [OTH SPEC NONINFLAMMATORY D/O VAGINA]Onset: 10-94-8902XgrxqojxWwxdu female genital disorders (3 sources)Vaginal discharge; Translations: [Other specified noninflammatory disorders of vagina]Onset: 930093-65-9255NqamsbqtVymjq screening for suspected conditions (not mental disorders or infectious disease) (4 sources)Encounter for screening for malignant neoplasm of cervix; Translations: [ENC SCREENING MALIG NEOPLASM CERV]Onset: 18-62-6606QxmhpvwnPpfwg upper respiratory disease (13 sources)Deviated nasal septum; Translations: [Deviated nasal septum]Onset: 901757-51-0991KnchawvtFkgal upper respiratory disease (6 sources)Hypertrophy of nasal turbinates; Translations: [Hypertrophy of nasal turbinates]Onset: 453585-68-4965KxuvuiupQtxkq upper respiratory disease (6 sources)Nasal congestion; Translations: [Nasal congestion]Onset: 07-08-2024 76-52-7639XrayiqgcFkiit upper respiratory disease (1 source)Nasal congestion; Translations: [Nasal congestion]Onset: 08-16-2024 EpisodicOther upper respiratory disease (1 source)Deviated nasal septum; Translations: [Deviated nasal septum]Onset: 72-89-0142FjgyattxLirtr upper respiratory infections (3 sources)Acute pharyngitis, unspecified; Translations: [ACUTE PHARYNGITIS UNSPECIFIED]Onset: 83-60-8536XutaotppUzfguwlw codes; unclassified (1 source)Acquired absence of other genital organ(s); Translations: [ACQUIRED ABSENCE OTH GENITAL ORGANS]Onset: 93-59-4421MageukcgGxkwbnrw codes; unclassified (1 source)Tobacco use and exposure - finding; Translations: [Tobacco use] 99-32-5270WhmhtmryBgasyggosjbn (1 source)COUGH, UNSPECIFIED; Translations: [COUGH, UNSPECIFIED]Onset: 50-31-4123Ldkigcsdfudu (1 source)CONTACT W/AND (SUSP) EXPOS COVID-19; Translations: [CONTACT W/AND (SUSP) EXPOS COVID-19]Onset: 86-95-1795Nmpnkljvijnv (4 sources)Onset: 07-08-2024 Resolved: Results Test NameValueInterpretationReference RangeFacilityHCG ( test) Ql (U)on 76-13-1220Alovpzdadvxgle and review of laboratory resultsNormalUniversGibson General Hospital Work Phone: Preg Test, UrNegativeNegativeUnMer[facility] Health [facility] Work Phone: UnMer[facility] Work Phone: basic metabolic 2000 panelon 03-86-4657Lhycz gap [Moles/Vol]12 mmol/L10 - 20 mmol/[facility] WestCalcium [Mass/Vol]9.2 mg/dL8.6 - 10.3 mg/dLUnMercy Health Kings Mills HospitalChloride [Moles/Vol]104 mmol/L98 - 107 mmol/[facility] - WestCO2 [Moles/Vol]27 mmol/L21 - 32 mmol/[facility] WestCreatinine [Mass/Vol]0.7 mg/dL0.50 - 1.05 mg/dLUnMercy Health Kings Mills HospitaleG- [facility] Medical CenterComment on above:Calculations of estimated GFR are performed using the 2020 CKD-EPI Study Refit equation without therace variable for the IDMS-Traceable creatinine methods. https://jasn.asnjournals.org/content//ASN.9061361180 Glucose [Mass/Vol]96 mg/dL74 - 99 mg/dLUnMercy Health Kings Mills Hospital Interpretation and review of laboratory resultsNormalUniKettering Health PreblePotassium [Moles/Vol]4 mmol/L3.5 - 5.3 mmol/[facility] WestSodium [Moles/Vol]139 mmol/L136 - 145 mmol/[facility] - WestUrea nitrogen [Mass/Vol]11 mg/dL6 - 23 mg/dLUnMercy Health Kings Mills HospitalUnMercy Health [facility] HospitalAnion gap [Moles/Vol]12 mmol/LNormal 10-20UnCleveland Clinic Avon HospitalComment on above:Performed By: #### [id number] #### KOBY MARTINEZ ([id number]) [facility] ([facility]) [address] [place] [address] 25540Rmqxagg [Mass/Vol]9.2 mg/dLNormal8.6-10.3UnCleveland Clinic Avon HospitalComment on above:Performed By: #### [id number] #### KOBY MARTINEZ ([id number]) [facility] ([facility]) [address] [place], [place] [address]Ldlhyzra [Moles/Vol]104 mmol/PFcmfmq60-762SchkfxdyrmCleveland Clinic Avon HospitalComment on above:Performed By: #### 08170-2 #### KOBY MARTINEZ ([id number]) [facility] ([facility]) [address] [place], [place] [address]YC0 [Moles/Vol]27 mmol/NViukjj18-36DhxazuvtsxCleveland Clinic Avon HospitalComment on above:Performed By: #### 15882-8 #### KOBY MARTINEZ ([id number]) [facility] ([facility]) [facility] [place], [place] [address]Kjmytnwwcf [Mass/Vol]0.70 mg/dLNormal0.50-1.05UnCleveland Clinic Avon HospitalComment on above:Performed By: #### [id number] #### KOBY MARTINEZ ([id number]) [facility] ([facility]) [facility] [place], [place] [address]WSP/1.73 sq M.predicted MDRD (S/P/Bld) [Vol rate/Area] mL/min/{1.73_m2}Normal>60UnCleveland Clinic Avon HospitalComment on above:Result Comment: Calculations of estimated GFR are performed using the 2020 CKD-EPI Study Refit equation without the race variable for the IDMS-Traceable creatinine methods. https://jasn.asnjournals.org/content/early/ASN.9125007006Awplcvimc By: #### [id number] #### KOBY MARTINEZ ([id number]) [facility] ([facility]) [address] [place] [address] 44546Kkpmioz [Mass/Vol]96 mg/sPMlrzto28-63WeypkycaobCleveland Clinic Avon HospitalComment on above:Performed By: #### 93240-0 #### KOBY MARTINEZ ([id number]) [facility] ([facility]) [address] [place] [address] 65331Otabcgbmb [Moles/Vol]4.0 mmol/LNormal3.5-5.3UnCleveland Clinic Avon HospitalComment on above:Performed By: #### [id number] #### KOBY MARTINEZ ([id number]) [facility] ([facility]) [address] [place] [address] 61928Ulqdnx [Moles/Vol]139 mmol/ZZdjkmp145-320WbyswqrasoCleveland Clinic Avon HospitalComment on above:Performed By: #### 39143-3 #### KOBY MARTINEZ ([id number]) [facility] ([facility]) [address] [place] [address] 43786Vzen nitrogen [Mass/Vol]11 mg/dLNormal6-23UnCleveland Clinic Avon HospitalComment on above:Performed By: #### 27222-9 #### KOBY MARTINEZ ([id number]) [facility] ([facility]) [address] [place] [address] 99389UVY panel Auto (Bld)on 47-24-7934Lzcrpokcekd distribution width (RBC) [Ratio]14.8 %High11.5 - 14.5 %[facility] HospitalHematocrit (Bld) [Volume fraction]38.4 %36.0 - 46.0 %[facility] Hemoglobin (Bld) [Mass/Vol]12.4 g/dL12.0 - 16.0 g/dLOhioHealth Van Wert HospitalInterpretation and review of laboratory resultsAbnormalUJoint Township District [facility] (RBC) [Entitic mass]28.1 pg26.0 - 34.0 pgOhioHealth Van Wert HospitalMCHC (RBC) [Mass/Vol]32.3 g/dL32.0 - 36.0 g/dLOhioHealth Van Wert HospitalMCV (RBC) [Entitic vol]87 fL80 - 100 fLUniKettering Health PrebleNucleated RBC/100 WBC (Bld) [Ratio]0 %[facility] HospitalPlatelets (Bld) [#/Vol]367 10*3/[facility] RBC (Bld) [#/Vol]4.42 10*6/[facility] HospitalWBC (Bld) [#/Vol] 6.9 10*3/[facility] HospitalUnMercy Health [facility] Hospital Erythrocyte distribution width (RBC) [Ratio]14.8 %High11.5-14.5UnCleveland Clinic Avon HospitalComment on above:Performed By: #### 28438-5 #### KOBY MARTINEZ ([id number]) [facility] ([facility]) [address] [place] [address] 24818Oniuszhpdy (Bld) [Volume fraction]38.4 %Voegpi18.0-46.0 [facility]aritan HospitalComment on above:Performed By: #### 74405-2 #### KOBY MARTINEZ ([id number]) [facility] ([facility]) [address] [place] [address] 23298Qsqcwxqgsq (Bld) [Mass/Vol]12.4 g/oLSficbh03.0-16.0UnCleveland Clinic Avon HospitalComment on above:Performed By: #### 92489-2 #### KOBY MARTINEZ ([id number]) [facility] ([facility]) [address] [place] [address] 85634RWE (RBC) [Entitic mass]28.1 hnEahfrv95.0-34.0[facility] Samaritan HospitalComment on above:Performed By: #### 79750-1 #### KOBY MARTINEZ ([id number]) [facility] ([facility]) [address] [place] [address] 26011CPCF (RBC) [Mass/Vol]32.3 g/zYPdfhdu75.0-36.0UnCleveland Clinic Avon HospitalComment on above:Performed By: #### 08324-9 #### KOBY MARTINEZ ([id number]) [facility] ([facility]) [address] [place] [address] 34993NEY (RBC) [Entitic vol]87 zSBppmew24-702HadkxbecsvCleveland Clinic Avon HospitalComment on above:Performed By: #### 09309-0 #### KOBY MARTINEZ ([id number]) [facility] ([facility]) [address] [place] [address] 88379Sdzibxasj RBC/100 WBC (Bld) [Ratio]0.0 /100 WBCsNormal0.0-0.0 [facility] Samaritan HospitalComment on above:Performed By: #### 49049-4 #### KOBY MARTINEZ ([id number]) [facility] ([facility]) [address] [place] [address] 74868Skaduxqkp (Bld) [#/Vol]367 x10*3/aOImsdtk571-243TldtperghxCleveland Clinic Avon HospitalComment on above:Performed By: #### 12754-7 #### KOBY MARTINEZ ([id number]) [facility] ([facility]) [address] [place] [address] 65596LML (Bld) [#/Vol]4.42 x10*6/uLNormal4.00-5.20UnCleveland Clinic Avon HospitalComment on above:Performed By: #### 19520-3 #### KOBY MARTINEZ ([id number]) [facility] ([facility]) [address] [place] [address] 95453VWT (Bld) [#/Vol]6.9 x10*3/uLNormal4.4-11.3[facility] Samaritan HospitalComment on above:Performed By: #### 09057-2 #### WHALEN MICHELLE ([id number]) [facility] ([facility]) [address] [place], [place] [address]Qtvaevvfypd [Mass/volume] in Serum or PlasmaOrdered By: Theo Guzman on 14-60-0510Oqblzplzmvy [Mass/Vol]157 mg/nAIbptdh789-214BiwbeonkeMemorial Health System Marietta Memorial HospitalComment on above:Chol less than 200 mg/dl low riskChol 201-239 mg/dl borderline riskChol 240 mg/dl and greater high riskResult Comment: Chol less than 200 mg/dl low risk Chol 201-239 mg/dl borderline risk Chol 240 mg/dl and greater high riskPerformed By: #### [id number], LIPID, TSH3 wRFLX #### [facility] [address] [place] [address] USACholesterol in LDL Calc [Mass/Vol]Ordered By: Theo Guzman on 07-90-4181Tahgsxkvyxr in LDL [Mass/Vol]69 mg/dL0-100[facility] Memorial HospitalComment on above:LDL ATP III CLASSIFICATIONLDL less than 100 mg/dL OptimalLDL 100-129 mg/dL Near or above ubimhrqDMR710-446 mg/dL Borderline highLDL 160-189 mg/dL HighLDL greater than 189 mg/dL Very highCholesterol in VLDL Calc [Mass/Vol]Ordered By: Theo Guzman on 53-18-8976Bhjstokjbzx in VLDL [Mass/Vol]16 mg/dLMemorial Health System Marietta Memorial HospitalECG 12 lead ECGon 12-22-2023 ECG 12 lead [facility]OM[facility] [place] [address] [place] [address] Electrocardiograph Report Signed Patient: Pasty Cody MR#: [id number] : 1985 Acct:[id number] Age/Sex: 38 / F ADM Date: 12/22/23 Loc: Room: [address] [place] [address] Type: ADM IN Attending Dr: Theo Guzman [...] ECG No previous ECGs available Confirmed by EDMAR HAUSER MD, FACC ([id number]) on 12/22/2023 6:07:07 PM Referred By: Electronically Signed By:EDMAR HAUSER MD [facility] Transcribed By: MUS Signed By Vini Hauser MD 12/22/23 1807NoSelect Medical Specialty Hospital - AkronLipid Panelon 57-45-8034QAA Cholesterol,Yrukxzvrge27 mg/dLNormal0-100[facility] Physician [facility] WesleyComment on above:Result Comment: LDL ATP III CLASSIFICATION LDL less than 100 mg/dL Optimal LDL 100-129 mg/dL Near or above optimal LDL 130-159 mg/dL Borderline high LDL 160-189 mg/dL High LDL greater than 189 mg/dL Very highPerformed By: #### [id number], LIPID, TSH3 wRFLX #### [facility] [address] [place] [address] USATriglyceride w/Shrama57 mg/dLNormal0-149[facility] Physician [facility] WesleyComment on above:Result Comment: TRIG ATP III CLASSIFICATION TRIG less than 150 mg/dL Normal TRIG 150-199 mg/dL Borderline high TRIG 200-500 mg/dL High TRIG greater than 500 mg/dL Very high Standard traceable to the Center for Disease Conrtrol and Prevention (CDC) test method.Performed By: #### [id number], LIPID, TSH3 wRFLX #### [facility] [address] [place] [address] USAVLDL LGIJIQDHMYB02 mg/dLNormPalm Beach Gardens Medical Center Physician [facility] WesleyComment on above:Performed By: #### [id number], LIPID, TSH3 wRFLX #### [facility] [address] [place] [address] USASerum or plasma high density lipoprotein (HDL) cholesterol measurementOrdered By: Theo Guzman on 62-88-8488Sdpcdkqihfn in HDL [Mass/Vol]72 mg/fCUqicrs00-81HvtjipkrzMemorial Health System Marietta Memorial HospitalComment on above: HDL CHOL ATP-III CLASSIFICATION Cardiovascular RiskHDL > or equal to 60 mg/dL LOWHDL < 40 mg/dL HIGHResult Comment: HDL CHOL ATP-III CLASSIFICATION Cardiovascular Risk HDL > or equal to 60 mg/dL LOW HDL < 40 mg/dL HIGHPerformed By: #### [id number], LIPID, TSH3 wRFLX #### [facility] [address] [place] [address] USASerum or plasma total cholesterol/high density lipoprotein (HDL) cholesterol mass ratOrdered By: Theo Guzman on 12-22-2023 Cholesterol.total/Cholesterol in HDL [Mass ratio]2.2 {ratio}Normal<5.0[facility] Memorial HospitalComment on above:Performed By: #### [id number], LIPID, TSH3 wRFLX #### [facility] [address] [place], [place] [id number] USAThyroid Stim Hormone w/Rflxon 46-06-8761Ogkgphv Stim Hormone w/Rflx3.43 u[iU]/mLNormal0.45-5.33The [facility] Physician GroupComment on above:Performed By: #### [id number], LIPID, TSH3 wRFLX #### [facility] [address] [place] [id number] USAThyrotropin [Units/volume] in Serum or PlasmaOrdered By: Theo Guzman on 13-72-6594CFB Qn3.43 m[IU]/L0.45-5.33[facility] Memorial HospitalTriglyceride [Mass/volume] in Serum or PlasmaOrdered By: Theo Guzman on 74-72-9873Tftfaofsjrrn [Mass/Vol]82 mg/dL0-149[facility] Memorial HospitalComment on above:TRIG ATP III CLASSIFICATIONTRIG less than 150 mg/dL NormalTRIG 150-199 mg/dL Borderline highTRIG 200-500 mg/dL High TRIG greater than 500 mg/dL Very highStandard traceable to the Center for Disease Co nrtrol and Prevention (CDC) test method.Vitamin D 25 Hydroxy Totalon 12-22-2023 Vitamin D 25 Hydroxy Total20.5 ng/lHLcs92-990Ncr [facility] Comment on above:Result Comment: VITAMIN D STATUS 25(OH)VITAMIN D RANGE (ng/mL) Deficient <20 Insufficient 20 to <30 Sufficient 30 to 100 Reference: Michael Joel, Zari CRUZ, et al. Evaluation,treatment, and prevention of vitamin D deficiency; an Endocrine Society clinical practice guideline. JCEM. 2010; 96(7):191-. PERFORMED BY: [facility] [address] [place] [address] PATHOLOGIST CLIENT CARE SPECIALIST JEFF CARDENAS M.D.Performed By: #### [id number], LIPID, TSH3 wRFLX #### [address] [address] USAVitamin D+Metabolites [Mass/volume] in Serum or Plasma Ordered By: Theo Guzman on 03-60-0559Wvfnsuj D+Metabolites [Mass/Vol]20.5 ng/gO45-540IdapidzkzMemorial Health System Marietta Memorial HospitalComment on above:VITAMIN D STATUS 25(OH)VITAMIN D RANGE (ng/mL) Deficient <20 Insufficient 20 to <94Yrqmuumxda73 to 100Reference: Michael Joel, Zari CRUZ, et al. Evaluation,treatment, and prevention of vitamin D deficiency; an Endocrine Society clinical practice guideline. JCEM. 2010; 96(7):191-. CHLAMYDIA/GONOCOCCUS ADRIEL (SWAB/URINE/PAPon 03-51-4453Hentwliqb trachomatis, ADRIEL NegativeNormalNegativeThe [facility] CenterComment on above:Performed By: #### VAGINT #### [facility] [address] [place] [address] [address] Ximena BillingsNeisseria gonorrhoeae, NAANegativeNormalNegativeThe [facility] CenterComment on above:Performed By: #### VAGINT #### [facility] [address] [place] [address] [address] Ximena BillingsVAGINITIS/VAGINOSIS DNA PROBEon 49-29-4566Mqeqldx speciesNegative NormalNegativeThe Adriana HospitalComment on above:Performed By: #### VAGINT #### [facility] [address] [place] [address] Dr. Ximena Todd vaginalisNegativeNormalNegativeFostoria City Hospital Comment on above:Performed By: #### VAGINT #### [facility] [address] [place] [address] [address] Ximena Wanghomdallin vaginalisNegativeNormalNegativeFostoria City Hospital Comment on above:Performed By: #### VAGINT #### [facility] [address] [place] [address] [address] Ximena BillingsCovid-19 PCR ([facility])on 50-14-2803VDGK-CoV-2 (COVID-19) RNA ADRIEL+probe Ql (Unsp spec)Not detectedNormalNOT DETECTEDFostoria City Hospital Comment on above:Result Comment: When diagnostic testing is negative, the [...] for this test is supported by the [place] of Health and Human Service's declaration that circumstances exist to justify the emergency use of in vitro diagnostics for the detection and/or diagnosis of the virus that causes COVID-19. This EUA will remain in effect for the duration of the COVID-19 declaration justifying emergency of IVDs, unless it is terminated or revoked by the FDA (after which the test may no longer be used).Performed By: #### CT/NGNA #### [facility] [address] [place] [address] Dr. Ximena BillingsXR CHEST 1 Von 41-18-1259JA CHEST 1 VEXAMINATION: XR CHEST 1 V HISTORY: Acute cough COMPARISON: Chest x-rays 10/14/2018 TECHNIQUE: Portable chest FINDINGS: The lung parenchyma is free of consolidation or infiltrate. No pneumothorax or pleural effusion. The cardiac, mediastinal and hilar contours are normal. The visualized osseous structures exhibit no gross abnormality. IMPRESSION: Normal chest x-ray Electronically authenticated by: BENITO ROWLAND Date: 2022-09-03 21:[address] [place], [place] [address]XR ankle RT min 3V*on 98-56-6538KT ankle RT min 3V*[facility] [employer] Other XR ankle RT min 3V*[facility] [employer] Other XR ankle RT min 3V*[address] [place] [address] [employer] Other XR ankle RT min 3V*[place] [address] [place] [address] [employer] Other XR ankle RT min 3V*[facility] [employer] Other xr ankle RT min 3V*[facility] [employer] Other XR ankle RT min 3V*Patient: Patsy Cody MR#: [id number] [employer] Other XR ankle RT min 3V*[id number] [employer] Other xr ankle RT min 3V*: 1985 Acct:[id number] [facility] [employer] Other xr ankle RT min 3V*Age/Sex: 37 / F ADM Date: 08/14/22 [employer] Other XR ankle RT min 3V*Loc: XDUCLY Room: Type: [facility] [employer] Other xr ankle RT min 3V*Attending Dr: Jamia Miles [facility] [employer] Other xr ankle RT min 3V*Copies to: Jamia Miles APRN [employer] Other xr ankle RT min 3V*Ordering Provider: Jamia Miles APRSaint John's Bree[facility] [employer] Other XR ankle RT min 3V*Date of Service: 08/14/22[place] [employer] Other XR ankle RT min 3V* XR/XR ankle RT min 3V*: RIGHT ANKLE PAINNossm health cardinal [facility] [employer] Other XR ankle RT min 3V*RIGHT ANKLE - 3 viewsNossm health cardinal glennon children's hospital [employer] Other XR ankle RT min 3V*CLINICAL DATA: Medial ankle pain without specific injury.[employer] Other XR ankle RT min 3V*COMPARISON: [facility] [employer] Other XR ankle RT min 3V*AP, lateral and oblique views were obtained. There is no evidence of fracture or dislocation.[employer] Other XR ankle RT min 3V*The talar dome is intact. There is slight lateral soft tissue swelling.[employer] Other XR ankle RT min 3V* XR/XR ankle RT min 3V*[employer] Other xr ankle RT min 3V*IMPRESSION:[employer] Other XR ankle RT min 3V*NO ACUTE BONY FINDINGS.[employer] Other xr ankle RT min 3V*Impression dictated by: Aurora Keith M.D.08/14/2022 2:07 [facility] [employer] Other xr ankle RT min 3V*Dictation Location: [place] [address] [employer] Other xr ankle RT min 3V*Transcribed By: KRISTIN 08/14/[address] [place] [address] [employer] Other XR ankle RT min 3V*Dictated By: Aurora Keith MD 08/14/[address] [place] [address] [employer] Other XR ankle RT min 3V*Signed By:[facility] [employer] Other XR ankle RT min 3V*08/14/22 1407NoWell[facility] [employer] Other CBC AUTO DIFFon 31-57-2891JNCI #0.0 103/ulNormal 0.0-0.1The [facility] CenterComment on above:Performed By: #### VAGINT #### [facility] [address] [place] [address] Dr. Ximena BillingsBasophils/100 WBC (Bld)0.5 %Normal0.2-2.0The [facility] Comment on above:Performed By: #### VAGINT #### [facility] [address] [place] [address] Dr. Ximena Kent #0.1 103/ulNormal0.0-0.7The [facility] Medical CenterComment on above: Performed By: #### VAGINT #### [facility] [address] [place] [address] Dr. Ximena Haydenosinophils/100 WBC (Bld)1.4 %Normal0.9-7.0The [facility] Comment on above:Performed By: #### VAGINT #### [facility] [address] [place] [address] Dr. Ximena Haydenrythrocyte distribution width (RBC) [Ratio]13.3 %Hxxcet98.0-15.0 The [facility] CenterComment on above:Performed By: #### VAGINT #### [facility] [address] [place] [address] Dr. Ximena BillingsHematocrit (Bld) [Volume fraction]39.2 %Ghbtsa00.0-48.0The [facility] CenterComment on above:Performed By: #### VAGINT #### [facility] [address] [place] [address] Dr. Ximena BillingsHemoglobin (Bld) [Mass/Vol]12.8 g/kGHwhswt08.0-16.0The [facility] CenterComment on above:Performed By: #### VAGINT #### [facility] [address] [place] [address] Dr. Ximena Sterling #0.01 10e3/ulNormal0.00-0.03The [facility] on above:Performed By: #### VAGINT #### [facility] [address] [place] [address] Dr. Ximena Sterling %0.2 %Normal0.0-0.5The [facility] Medical CenterComcorewell health pennock hospital on above: Performed By: #### VAGINT #### [facility] [address] [place] [address] Dr. Ximena Hammonds #1.9 103/ulNormal1.2-3.8The [facility] Medical CenterComcorewell health pennock hospital on above:Performed By: #### VAGINT #### [facility] [address] [place] [address] Dr. Ximena Galohocytes/100 WBC (Bld)34.5 %Zfrisz08.5-60.0The [facility] on above:Performed By: #### VAGINT #### [facility] [address] [place] [address] Dr. Ximena MontenegroUAL DIFF REQNONormalThe [facility] on above: Performed By: #### VAGINT #### [facility] [address] [place] [address] Dr. Ximena Wharton (RBC) [Entitic mass]30.5 izMlrerr37.7-34.0The [facility] on above:Performed By: #### VAGINT #### [facility] [address] [place] [address] Dr. Ximena Wharton (RBC) [Mass/Vol]32.7 g/mPUjttmv11.9-35.2The [facility] on above:Performed By: #### VAGINT #### [facility] [address] [place] [address] Dr. Ximena Wharton (RBC) [Entitic vol]93.3 xOIgokad37.0-99.0The [facility] HospitalComment on above:Performed By: #### VAGINT #### [facility] [address] [place] [address] [address] Ximena Valenzuela #0.5 103/ulNormal0.3-0.8The [facility] Medical CenterComment on above:Performed By: #### VAGINT #### [facility] [address] [address] [address] Ximena Chaparroocytes/100 WBC (Bld)8.6 %Normal1.7-12.0The [facility] Comment on above:Performed By: #### VAGINT #### [facility] [address] [place] [address] Dr. Ximena Kessler #3.1 103/ulNormal1.4-6.5The [facility] CenterComment on above:Performed By: #### VAGINT #### [facility] [address] [place] [address] Dr. Ximena Thomsonutrophils/100 WBC (Bld)54.8 %Tmfikp80.0-75.0The [facility] CenterComment on above:Performed By: #### VAGINT #### [facility] [address] [place] [address] Dr. Ximena Bell mean volume (Bld) [Entitic vol]9.2 fLCritically low 9.5-13.5The [facility] CenterComment on above:Performed By: #### VAGINT #### [facility] [address] [place] [address] Dr. Ximena BillingsPLT258 103/kbWuwxyx130-460Qwe [facility] CenterComment on above: Performed By: #### VAGINT #### [facility] [address] [place] [address] Dr. Ximena BillingsRBC4.20 106/ulNormal4.20-5.40The [facility] CenterComment on above:Performed By: #### VAGINT #### [facility] [address] [place] [address] Dr. Ximena BillingsWBC5.6 103/ulNormal4.0-11.0The [facility] CenterComment on above: Performed By: #### VAGINT #### [facility] [address] [address] [address] Ximena Gallo HCG QUALon 87-18-9163AKGNGNVWI, QUALNegativeNormalNEGATIVE The [facility] CenterComment on above:Performed By: #### PREG #### [facility] [address] [address] [address] Ximena BillingsCovid-19 PCR (CVDTB)on 64-35-8285FOFX-CoV-2 (COVID-19) RNA ADRIEL+probe Ql (Unsp spec)Not detectedNormalNOT DETECTEDThe [facility] Comment on above:Result Comment: This test is not yet approved or cleared by the [place] FDA. When there are no FDA-approved or cleared tests available, and other criteria are met, FDA can make tests available under an emergency access mechanism called an Emergency Use Authorization (EUA). The EUA for this test is supported by the [place] of Health and Human Service's (HHS's) declaration that circumstances exist to justify the emergency use of in vitro diagnostics for the detection and/or diagnosis of the virus that causes COVID- 19. This EUA will remain in effect (meaning [...] of clinical signs and symptoms consistent with SARS-CoV-2.Performed By: #### CVDTBH #### [facility] [address] [address] [address] Ximena BillingsCHLAMYDIA/GONOCOCCUS ADRIEL (SWAB/URINE/PAPon 29-76-9030Gehwbwswp trachomatis, NAANegativeNormalNegativeThe [facility] Medical CenterComment on above: Performed By: #### CT/NGNA #### [facility] [address] [address] [address] Ximena BillingsNeisseria gonorrhoeae, NAANegativeNormalNegativeThe [facility] Medical CenterComment on above:Performed By: #### CT/NGNA #### [facility] [address] [place] [address] Dr. Ximena BillingsVAGINITIS/VAGINOSIS DNA PROBEon 03-96-1549Cgvslkp speciesNegative NormalNegativeThe [facility] Medical CenterComment on above:Performed By: #### CT/NGNA #### [facility] [address] [place] [address] Dr. Ximena Tineodnerella vaginalisPositiveAbnormalNegativeFostoria City HospitalComment on above:Performed By: #### CT/NGNA #### [facility] [address] [place] [address] Dr. Ximena BillingsTrichomonas vaginalisNegativeNormalNegativeFostoria City Hospital Comment on above:Performed By: #### CT/NGNA #### [facility] [address] [place] [address] Dr. Ximena BillingsCBC AUTO DIFFon 87-57-9957DBSO #0.0 103/ulNormal0.0-0.1Fostoria City HospitalComment on above:Performed By: #### CBC #### [facility] [address] [place] [address] Dr. Ximena BillingsBasophils/100 WBC (Bld)0.7 %Normal0.2-2.0[facility] Comment on above:Performed By: #### CBC #### [facility] [address] [place] [address] Dr. Ximena Kent #0.1 103/ulNormal0.0-0.7The [facility] Medical CenterComment on above: Performed By: #### CBC #### [facility] [address] [place] [address] Dr. Ximena Haydenosinophils/100 WBC (Bld)1.8 %Normal0.9-7.0[facility] Comment on above:Performed By: #### CBC #### [facility] [address] [place] [address] Dr. Ximena Haydenrythrocyte distribution width (RBC) [Ratio]14.6 %Libvtl71.0-15.0 The [facility] Medical CenterComment on above:Performed By: #### CBC #### [facility] [address] [place] [address] Dr. Ximena BillingsHematocrit (Bld) [Volume fraction]38.1 %Abvtlq14.0-48.0The [facility] Medical CenterComment on above:Performed By: #### CBC #### [facility] [address] [place] [address] Dr. Ximena BillingsHemoglobin (Bld) [Mass/Vol]12.5 g/vYJbzmrq83.0-16.0The [facility] CenterComment on above:Performed By: #### CBC #### [facility] [address] [place] [address] Dr. Ximena Sterling #0.01 10e3/ulNormal0.00-0.03The [facility] Medical CenterComment on above:Performed By: #### CBC #### [facility] [address] [place] [address] Dr. Ximena Sterling %0.2 %Normal0.0-0.5The [facility] Medical CenterComment on above: Performed By: #### CBC #### [facility] [address] [place] [address] Dr. Ximena Hammonds #1.9 103/ulNormal1.2-3.8The [facility] Medical CenterComment on above:Performed By: #### CBC #### [facility] [address] [place] [address] Dr. Ximena Galomphocytes/100 WBC (Bld)34.6 %Npjhnv60.5-60.0The [facility] CenterComment on above:Performed By: #### CBC #### [facility] [address] [place] [address] Dr. Ximena MontenegroUAL DIFF REQNONormalThe [facility] Medical CenterComment on above: Performed By: #### CBC #### [facility] [address] [place] [address] Dr. Yilan ChangMCH (RBC) [Entitic mass]30.1 mbQxnplc99.7-34.0The [facility] CenterComment on above:Performed By: #### CBC #### [facility] [address] [place] [address] Dr. Ximena Wharton (RBC) [Mass/Vol]32.8 g/zOXzegyy20.9-35.2The [facility] CenterComment on above:Performed By: #### CBC #### [facility] [address] [place] [address] Dr. Ximena Wharton (RBC) [Entitic vol]91.8 aOAiyfrf88.0-99.0The [facility] CenterComment on above:Performed By: #### CBC #### [facility] [address] [place] [address] Dr. Ximena Valenzuela #0.4 103/ulNormal0.3-0.8The [facility] CenterComment on above:Performed By: #### CBC #### [facility] [address] [place] [address] Dr. Ximena Chaparroocytes/100 WBC (Bld)7.0 %Normal1.7-12.0The [facility] Comment on above:Performed By: #### CBC #### [facility] [address] [place] [address] Dr. Ximena Kessler #3.1 103/ulNormal1.4-6.5The [facility] CenterComment on above:Performed By: #### CBC #### [facility] [address] [place] [address] Dr. Ximena Thomsonutrophils/100 WBC (Bld)55.7 %Ydandb10.0-75.0The [facility] CenterComment on above:Performed By: #### CBC #### [facility] [address] [place] [address] Dr. Ximena Medinalet mean volume (Bld) [Entitic vol]9.0 fLCritically low 9.5-13.5The [facility] CenterComment on above:Performed By: #### CBC #### [facility] [address] [place] [address] Dr. Ximena BillingsPLT261 103/srTlydra859-032Ygr [facility] CenterComcorewell health [facility] on above: Performed By: #### CBC #### [facility] [address] [place] [address] Dr. Ximena BillingsRBC4.15 106/ulCritically low4.20-5.40The [facility] CenterComment on above:Performed By: #### CBC #### [facility] [address] [place] [address] Dr. Ximena BillingsWBC5.6 103/ulNormal4.0-11.0The [facility] CenterComment on above: Performed By: #### CBC #### [facility] [address] [place] [address] Dr. Ximena Gallo QUANT HCGon 54-92-4470ATU QUANT1 mIU/mLNormalThe [facility] CenterComment on above:Performed By: #### PREGQNT, TSH #### [facility] [address] [place] [address] [address] of God HospitalComment on above: Result Comment: 5-50 0-1 WEEK 40-300 1-2 WEEKS 100-1,000 2-3 WEEKS 500-6,000 3-4 WEEKS 5,000-200,000 1-2 MONTHS 10,000-100,000 2-3 MONTHS 3,000-50,000 2ND TRIMESTER 1,000-50,000 3RD TRIMESTERPerformed By: #### PREGQNT, TSH #### [facility] [address] [place] [address] Dr. Ximena BillingsPROTIMEon 47-49-0177LEN Coag (PPP) [Relative time]1.07 {INR} NormalWilson Memorial Hospital on above:Performed By: #### CT/NGNA #### [facility] [address] [place] [address] Dr. Ximena Sebastian [facility] HospitalComcorewell health [facility] on above:Result Comment: DESIRED INR: 2.0 - 3.0 CONDITIONS NOT LISTED BELOW 2.5 - 3.5 FOR PROSTHETIC HEART VALVE REPLACEMENT 2.5 - 3.5 RECURRENT THROMBOSIS Performed By: #### CT/NGNA #### [facility] [address] [place] [address] Dr. Ximena Gipson Coag (PPP) [Time]11.5 sNormal9.0-11.6ThAvita Health System Comment on above:Performed By: #### CT/NGNA #### [facility] [address] [place] [address] Dr. Ximena Messina 27-16-5034hTVD Coag (Bld) [Time]28.3 oOnjqte39.3-36.2Fostoria City HospitalComment on above:Performed By: #### CT/NGNA #### [facility] [address] [place] [address] Dr. Ximena Weldon 15-52-0575DXX0.116 uIU/mLNormal0.358-3.740The [facility] CenterComment on above:Performed By: #### PREGQNT, TSH #### [facility] [address] [place] [address] Dr. Ximena Mccurdy [facility] HospitalComment on above: Result Comment: <0.34 UIU/ml HYPERTHYROID 0.34-5.60 UIU/ml EUTHYROID >5.60 UIU/ml HYPOTHYROIDPerformed By: #### PREGQNT, TSH #### [facility] [address] [place] [address] Dr. Ximena BillingsUS PELVIS AND TRANSVAGon 82-35-7386RG PELVIS AND TRANSVAG EXAMINATION: US PELVIS AND [...] Electronically authenticated by: JULIAN GARCIA Date: 2022-04-01 08:40[facility] ACOG PANEL 2: 30 to 65on 03-29-2022..NormalThe [facility] CenterComment on above:Result Comment: Performed at: BAPerformed By: #### VAGINT #### [facility] [address] [place] [address] Dr. Ximena Lemus Gdln ACOG Olgqjmv07-98YxwcjjFxnMercy Health Clermont HospitalComment on above:Performed By: #### VAGINT #### [facility] [address] [place] [address] Dr. Ximena BillingsDIAGNOSIS:CommentOhioHealth Van Wert HospitalComment on above: Result Comment: NEGATIVE FOR INTRAEPITHELIAL LESION OR MALIGNANCY. THIS SPECIMEN WAS RESCREENED PART OF OUR GLOBAL VP CREATIVE + CONTENT MARKETING PROGRAM. Performed at: BAPerformed By: #### VAGINT #### [facility] [address] [place] [address] Dr. Ximena BillingsHPV AptimaNegativeNormalNegativeFostoria City HospitalComment on above:Result Comment: This nucleic acid amplification test detects fourteen high-risk HPV types (16,18,31,33,35,39,45,51,52,56,58,59,66,68) without differentiation. Performed at: =GPerformed By: #### VAGINT #### [facility] [address] [place] [address] Dr. Ximena BillingsMethodology:CommentOhioHealth Van Wert HospitalComment on above: Result Comment: This liquid based ThinPrep(R) pap test was screened with the use of an image guided system. Performed at: WBPerformed By: #### VAGINT #### [place] [address] Dr. Ximena BillingsNote:CommentMount St. Mary Hospital on above:Result Comment: The Pap smear is a screening test designed to aid in the detection of premalignant and malignant conditions of the uterine cervix. It is not a diagnostic procedure and should not be used as the sole means of detecting cervical cancer. Both false-positive and false-negative reports do occur. . Performed at: Performed By: #### VAGINT #### [facility] [address] [place] [address] Dr. Ximena BillingsPerformed by:CommentMount St. Mary Hospital on above: Result Comment: Omaira Ferreira, Semi Truck Driver (ASCP) Performed at: [facility] ([place])formed By: #### VAGINT #### [place] [address] Dr. Ximena BillingsQC reviewed by:CommentMount St. Mary Hospital on above:Result Comment: Anthony Garvin, Semi Truck Driver (ASCP) Performed at: [facility] ([place])formed By: #### VAGINT #### [place] [address] Dr[address] Ximena BillingsSpecimen adequacy:[facility] on above:Result Comment: Satisfactory for evaluation. Endocervical and/or squamous metaplastic cells (endocervical component) are present. Areas of partially obscuring inflammatory exudate are present. Performed at: BAPerformed By: #### VAGINT #### [facility] [address] [place] [address] Dr. Ximena BillingsCHLAMYDIA/GONOCOCCUS ADRIEL (SWAB/URINE/PAPon [id number] trachomatis, NAANegativeNormalNegativeWilson Memorial Hospital on above: Performed By: #### CT/NGNA #### [place] [address] Dr[address] Ximena BillingsNeisseria gonorrhoeae, NAANegativeNormalNegativeThe [facility] on above:Performed By: #### CT/NGNA #### [facility] [address] [place] [address] Dr. Ximena BillingsVAGINITIS/VAGINOSIS DNA PROBEon 70-48-2570Ypekvhr speciesNegative NormalNegativeThe [facility] CenterComment on above:Performed By: #### VAGINT #### [facility] [address] [place] [address] Dr. Ximena BillingsGardnerella vaginalisPositiveAbnormalNegativeFostoria City HospitalComment on above:Performed By: #### VAGINT #### [facility] [address] [place] [address] Dr. Ximena BillingsTrichomonas vaginalisNegativeNormalNegativeFostoria City Hospital Comment on above:Performed By: #### VAGINT #### [facility] [address] [place] [address] Dr. Ximena BillingsGROUP A STREP CULTUREon 01-02-2022. pyogenes Ag Ql (Unsp spec) Culture Observations: NEGATIVE FOR GROUP A STREPTOCOCCUS.NormalThe [facility] CenterComment on above: Performed By: #### VAGINT #### [facility] [address] [place] [address] Dr. Ximena BillingsSTREPT SCREENon 16-01-3674MQTNN SCREEN ANegativeNormalNEGATIVEThe [facility] CenterComment on above:Performed By: #### VAGINT #### [facility] [address] [place] [address] Dr. Ximena BillingsCBC AUTO DIFFon [id number] #0.0 103/ulNormal0.0-0.1Fostoria City HospitalComment on above:Performed By: #### CBC #### [facility] [address] [place] [address] Dr. Ximena BillingsBasophils/100 WBC (Bld)0.7 %Normal0.2-2.0[facility] Comment on above:Performed By: #### CBC #### [facility] [address] [place] [address] Dr. Bueno ChangEO #0.1 103/ulNormal0.0-0.7The [facility] CenterComment on above: Performed By: #### CBC #### [facility] [address] [place] [address] Dr. Ximena Haydenosinophils/100 WBC (Bld)1.0 %Normal0.9-7.0The [facility] Comment on above:Performed By: #### CBC #### [facility] [address] [place] [address] Dr. Ximena Haydnerythrocyte distribution width (RBC) [Ratio]18.9 %Critically high 11.0-15.0The [facility] CenterComment on above:Performed By: #### CBC #### [facility] [address] [place] [address] Dr. Ximena BillingsHematocrit (Bld) [Volume fraction]27.9 %Critically low36.0-48.0 The [facility] CenterComment on above:Performed By: #### CBC #### [facility] [address] [place] [address] Dr. Ximena BillingsHemoglobin (Bld) [Mass/Vol]8.4 g/dLCritically low12.0-16.0The [facility] CenterComment on above:Performed By: #### CBC #### [facility] [address] [place] [address] Dr. Ximena Sterling #0.01 10e3/ulNormal0.00-0.03The [facility] CenterComment on above:Performed By: #### CBC #### [facility] [address] [place] [address] Dr. Ximena Sterling %0.2 %Normal0.0-0.5The [facility] CenterComment on above: Performed By: #### CBC #### [facility] [address] [place] [address] Dr. Ximena Hammonds #2.2 103/ulNormal1.2-3.8The [facility] CenterComment on above:Performed By: #### CBC #### [facility] [address] [place] [address] Dr. Ximena Galomphocytes/100 WBC (Bld)37.6 %Itjhtp74.5-60.0The [facility] CenterComment on above:Performed By: #### CBC #### [facility] [address] [place] [address] Dr. Ximena MontenegroUAL DIFF REQNONormalThe [facility] CenterComment on above: Performed By: #### CBC #### [facility] [address] [place] [address] Dr. Ximena Wharton (RBC) [Entitic mass]21.9 pgCritically low26.7-34.0The [facility] CenterComment on above:Performed By: #### CBC #### [facility] [address] [place] [address] Dr. Ximena Wharton (RBC) [Mass/Vol]30.1 g/tABrihpe46.9-35.2The [facility] CenterComment on above:Performed By: #### CBC #### [facility] [address] [place] [address] Dr. Ximena Wharton (RBC) [Entitic vol]72.7 fLCritically low81.0-99.0The [facility] CenterComment on above:Performed By: #### CBC #### [facility] [address] [place] [address] Dr. Ximena Valenzuela #0.7 103/ulNormal0.3-0.8The [facility] CenterComment on above:Performed By: #### CBC #### [facility] [address] [place] [address] Dr. Ximena Chaparroocytes/100 WBC (Bld)11.4 %Normal1.7-12.0The [facility] Comment on above:Performed By: #### CBC #### [facility] [address] [place] [address] Dr. Ximena Kessler #2.8 103/ulNormal1.4-6.5The [facility] CenterComment on above:Performed By: #### CBC #### [facility] [address] [place] [address] Dr. Ximena Thomsonutrophils/100 WBC (Bld)49.1 %Izdjao87.0-75.0The [facility] CenterComment on above:Performed By: #### CBC #### [facility] [address] [place] [address] Dr. Ximena BillingsPlatelet mean volume (Bld) [Entitic vol]8.8 fLCritically low 9.5-13.5The [facility] CenterComment on above:Performed By: #### CBC #### [facility] [address] [place] [address] Dr. Ximena BillingsPLT262 103/eoXbqpfq831-402Axt [facility] CenterComment on above: Performed By: #### CBC #### [facility] [address] [place] [address] Dr. Ximena BillingsRBC3.84 106/ulCritically low4.20-5.40The [facility] CenterComment on above:Performed By: #### CBC #### [facility] [address] [place] [address] Dr. Ximena BillingsWBC5.7 103/ulNormal4.0-11.0The [facility] CenterComment on above: Performed By: #### CBC #### [facility] [address] [place] [address] Dr. Ximena BillingsCovid-19 PCR ([facility])on 18-81-4208FSPJ-CoV-2 (COVID-19) RNA ADRIEL+probe Ql (Unsp spec)Not detectedNormalNOT DETECTEDThe [facility] Comment on above:Result Comment: This test is not yet approved or cleared by the [place] FDA. When there are no FDA-approved or cleared tests available, and other criteria are met, FDA can make tests available under an emergency access mechanism called an Emergency Use Authorization (EUA). The EUA for this test is supported by the Seconds Inspector of Health and Human Service's (HHS's) declaration that circumstances exist to justify the emergency use of in vitro diagnostics for the detection and/or diagnosis of the virus that causes COVID- 19. This EUA will remain in effect (meaning [...] of clinical signs and symptoms consistent with SARS-CoV-2.Performed By: #### VAGINT #### [facility] [address] [place] [address] Dr. Ximena BillingsASYMPTOMATIC COVID-19 ANTIGENon [id number] StatementSEE BELOW NormalThe [facility] CenterComment on above:Result Comment: This test has not been FDA [...] declaration is terminated or authorization is revoked sooner.Performed By: #### VAGINT #### [facility] [address] [place] [address] Dr. Ximena Lakhani-CoV-2 (COVID-19) RNA ADRIEL+probe Ql (Unsp spec)NegativeNormal NEGATIVEThe [facility] CenterComment on above:Result Comment: Negative results are presumptive. They do not preclude infection and should not be used as the sole basis for treatment decisions. Additional confirmatory testing by a molecular method should be considered.Performed By: #### VAGINT #### [facility] [address] [place] [address] Dr. Ximena BillingsUrinalysis - AUTOMATEDon 48-26-4773Mnrzxvxqte (U)clearTopChalks Other Bilirubin Ql (U)NegativeTopChalks Other Color (U)yellowHonolulu BrainMass Other Glucose Ql (U)[facility] HospitalMid[facility] Other Hemoglobin Ql (U)[facility]Mid[facility] Other Ketones Ql (U)[facility] HospitalMid[facility] Other Leukocyte esterase Test strip Ql (U)Golf121[employer] Other Nitrite Ql (U)[facility] [employer] Other pH (U)6.0 [pH][place] [employer] Other Protein Ql (U)Golf121[employer] Other Specific gravity (U) [Rel density]1.010[place] [employer] Other Urobilinogen (U) [Mass/Vol]0.2 mg/dLHonolulu BrainMass Other Urinalysis - AUTOMATEDHonolulu BrainMass Other CNPNon 33-00-3465RYHHPqfpbncns (NECineFlowFV) PATSY CODY ([id number]) 1985 F Date Time Provider Department 03/17/20 KEN JORDAN During your visit today, we recorded the following information about you: Sarah Mor[facility]edward [facility] 03/17/2020 10:19 AM Signed Patient called stating she has two upcoming procedures in [place] (ECT therapy for seizures with Dr. Obrien and a TMS procedure with Dr Foster). She will need neurology clearance from Dr. Jordan because of the Chiari. Please call patient at [phone] Xavi Ferris RN, RN 03/17/2020 10:21 AM Signed Please [...] 07/22/2016 Encounter Status:Closed by XAVI FERRIS on 03/17/20NoNewton[facility] on 90-76-2856KGXZDkvwtw Visit (ENDPMN) --------PATSY CODY ([id number]) 1985 FDate Time Provider Aezvtsazge25/7/18 12:15 PM ROXANNA HAN ENDPMN During your visit today, we recorded the following information about you: Temperature Pulse Respiration Blood pressure 98.2 degrees 92/minute 20/minute 123/82 Weight Last Period 72.8 k g 09/21/18Genna Larsen Ma 10/05/2018 12:19 PM SignedAdditional intake questions:Has the patient had nausea, vomiting, diarrhea, constipation, fatigue for > 1week? None of the aboveDoes the patient have a decreased appetite? NoDoes patient want to see a Pad Machine Operator? No(yes to any of above refer patient to schedulers for dietitian appointment) )Does patient have any new or increased numbness or tingling of extremities? NoIs patient interested in fertility information? NoDoes patientneed any prescription refills? NoElectronically Signed By: Genna Han MD 10/05/2018 5:29 PM SignedCc Pituitary adenomaAdrenal insufficiencyLast seen June 2016HPAmniah is a very pleasant female 33y/oShe was originally seen during dizziness episode. She was found and toldtohave pituitary adenoma as well as lesion most cystic around1.03x0.9 cm she wasalso seen for Chiari malformation when an MRI was done for dizzinessDuring her workup or originallyCortisol Basal ug/dL5.8Comment: Cortisol Reference Range: AM = 3.4-26.9, PM = 0.9-15.8Cortisol 30 min ug/dL 15.1Cortisol 60 min ug/dL 10.3Interpretation (ACTHST) A peak value ofWe started her on small dose of hydrocortisone 10 and 5We will see him this was secondary to a general insufficiencyAs her ACTH was only 13Sheis here. She was seen by neurosurgery and [...] stim test.She said arranged [facility] reviewed with Javier Of SystemsGENERAL:Negative for malaise, [...] joint pain or swelling, back pain, and musclepain.NEUROLOGIC:Negative for focal numbness or weakness, headaches and dizziness.SKIN:Negative for lesions, rash, and itching.PSYCHIATRIC: Negative for sleep disturbance, mood disorder and recentpsychosocial stressors.HEMATOLOGIC/LYMPHATIC/IMMUNOLOGIC:Negative for prolonged bleeding, bruisingeasily, and swollen nodes.ENDOCRINE: Negative for cold or heat intolerance, polyuria, polydipsia andgoiter.PAST MEDICAL HISTORYDiagnosis Date- Anemia- Hypotension- Pituitary cyst (HCC) pituitary cystNo past surgical history on file. negative surgical historySocial History Marital status: Spouse name: Years of education: Number of children:Social History MainTopics Smoking status: Current Every Day Smoker Packs/day: 1.00 Years: 0.00 Types: Cigarettes Smokeless tobacco: Never Used Alcohol use: Yes Drug use: NoFAMILY HISTORYProblem Relation Age of Onset- Di abetes Paternal Grandmother- Cancer Paternal Grandmother- No Ocular Disease OtherALLERGIESNo Known AllergiesCurrent Outpatient Prescriptions:hydrocortisone (CORTEF) 5 mg tablet TAKE 2 TABLETS BY MOUTH EVERY MORNING ANDTAKE 1 TABLET BY MOUTH EVERY EVENING, double the dose for 3 (THREE) days ifsickNocurrent facility-administered medications for this visit.BP 123/82 Pulse 92 Temp (Src) 98.2 (Oral) Resp 20 Wt 160 lb 6.4 oz(72.8kg) SpO2 100% LMP 09/21/2018General appearance: NAD, conversantEyes: anicteric sclerae, moist conjunctivae; no lid-lag; PERRLAHENT: Atraumatic; oropharynx clear with moist mucous membranes and no mucosalulcerations; normal hard and soft palateNeck: Trachea midline; FROM, supple, no thyromegaly or lymphadenopathyLungs: CTA, with normal respiratory effort andno intercostal retractionsCV: RRR, no MRGsAbdomen: Soft, non-tender; no masses or HSMExtremities: No peripheral edema or extremity lymphadenopathySkin: Normal temperature, turgor and texture; no rash, ulcers or subcutaneousnodulesPsych: Appropriate affect, alert and oriented to person, place and timeACTHDate Value Ref Range Twalza0707/26/2016 13 8 - 42 pg/mL Final ProlactinDate Value Ref Range Lrkmij8007/26/2016 6.2 2.0 - 17.4 ng/mL Final TSHDate Value Ref Range Dbjlcf2507/26/2016 2.250 0.400 - 5.500 uU/mL FinalComment:If the patient is , TSH reference range varies by gestational period:First Trimester 0.1-2.5 uU/mLSecond Trimester 0.2-3.0 uU/mLThird Trimester 0.3-3.0 uU/mL Free T3Date Value Ref Range Dtnfbl0707/26/2016 2.9 1.8 - 4.6 pg/mL Final Free T4Date Value Ref Range Npuzlv3007/26/2016 1.2 0.7 - 1.8 ng/dL Final FSHDate Value Ref Range Stat us07/26/2016 2.1 mU/mL FinalComment:Reference range: Follicular: 2-11 Midcycle: 10-30 Luteal: 1-9 Post Animas: 20-100 Male: 1.0-10.0 ]A/pLabs and history and records reviewedPituitary adenoma/cyst. Secondary adrenal insufficiency diagnosed June 2016Currently she tapered down her hydrocortisoneHer last ACTH was borderlineShe is scheduled to have another one ACTH stim test [facility] discussed that she might be slow [...] the medical care of Lucy Alvarado [facility]AMIonsultation requested by Dr. Kristin ALVARADO for an opinion regarding pituitary adenoma . 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 NoDoes patient want to see a Pad Machine Operator? No(yes to anyof above refer patient to schedulers for dietitianappointment) )Does patient have any new or increased numbness or tingling ofextremities? NoIs patient interested in fertility information? NoDoes patient need any prescription refills? NoElectronically Signed By: Genna Larsen MaEncounter Number: [id number] Status:Closed by ROXANNA HAN MD on 10/05/18NoDayton [facility] [id number] mass concHNO ID: [id number]: Roxanna Pepervice: (none)Author Type: PhysicianType: Progress NotesFiled: [...] test. She said arranged in October in [facility] reviewed with ptRevcirow Haris syGENERAL:Negative for malaise, significant weight loss and feverHEENT:Negative for frequent orsignificant headaches, significant changesin vision or vision problems, significant ear problems orhearing loss,nasal discharge or nose bleeds and sore throat, difficulty swallowing,mouth lesionsNECK:Negative for lumps, goiter, pain and significant neck swellingRESPIRATORY: Negative for cough, wheezing and shortness of breathCARDIOVASCULAR: Negative for chest pain, leg swelling and palpitationsGA STROINTESTINAL: Negative for abdominal discomfort, blood in stools orblack stools and change in bowel habitsGENITOURINARY: Negative for dysuria, frequency and incontinenceMUSCULOSKELETAL: Negative for joint pain or swelling, back pain, andmuscle pain.NEUROLOGIC:Negative for focal numbness or weakness, headaches anddizziness.SKIN:Negative for lesions, rash, and itching.PSYCHIATRIC: Negative for sleep disturbance, mood disorder and recentpsychosocial stressors.HEMATOLOGIC/LYMPHATIC/IMMUNOLOGIC:Negative for prolonged bleeding,bruising easily, and swollen nodes.ENDOCRINE: [...] Grandmother- Cancer Paternal Grandmother- No Ocular Disease OtherALLERGIESNoKnown AllergiesCurrent Outpatient Prescriptions:hydrocortisone (CORTEF) 5 mg tablet TAKE 2 TABLETS BY MOUTH EVERY MORNINGAND TAKE 1 TABLET BY MOUTH EVERY EVENING, double the dose for 3 (THREE) daysifsickNo current facility-administered medications for this visit.BP 123/82 Pulse 92 Temp (Src) 98.2 (Oral) Resp 20 Wt 160 lb 6.4 oz(72.8kg) SpO2 100% LMP 09/21/2018General appearance: NAD,conversantEyes: anicteric sclerae, moist conjunctivae; no lid-lag; PERRLAHENT: Atraumatic; oropharynx clear with moist mucous membranes and nomucosal ulcerations; normal hard and soft palateNeck: Trachea midline; FROM, supple, no thyromegaly or lymphadenopathyLungs: CTA, with normal respiratory effort and no intercostal retractionsCV: RRR, no MRGsAbdomen: Soft, non-tender; no masses or HSMExtremit ies: No peripheral edema or extremity lymphadenopathySkin: Normal temperature, turgor and texture; no rash, ulcers orsubcutaneous nodulesPsych: Appropriate affect, alert and oriented to person, placeand timeACTHDate Value Ref Range Ycqlem7707/26/2016 13 8 - 42 pg/mL Final ProlactinDate Value Ref Range Mbcmiq3707/26/2016 6.2 2.0 - 17.4 ng/mL Final TSHDate Value Ref Range Gemish2507/26/2016 2.250 0.400 - 5.500 uU/mL FinalComment:If the patient is , TSH reference range varies by gestationalperiod:First Trimester 0.1- 2.5 uU/mLSecond Trimester 0.2-3.0 uU/mLThird Trimester 0.3-3.0 uU/mL Free T3Date Value Ref Range Mguxrd0407/26/2016 2.9 1.8 - 4.6 pg/mL Final Free T4Date Value Ref Range Ezuzow2007/26/2016 1.2 0.7 - 1.8 ng/dL Final FSHDate Value Ref Range Qmfmlb9107/26/2016 2.1 mU/mL FinalComment:Reference range: Follicular: 2-11 Midcycle: 10-30 Luteal:1-9 Post Animas: 20-100 Male: 1.0-10.0 ]A/pLabs and history and records reviewedPituitary adenoma/cyst. Secondary adrenal insufficiency diagnosed June 2016Currently she tapered down her hydrocortisoneHer last ACTH was borderlineShe is scheduled to have another [facility]We discussed that she might be slow metabolizerAnd [...] for allowing me to participate in the medicalcare of AXEL Ashleyonsultation requested by Dr. Kristin ALVARADO for an opinion regarding pituitary adenoma . My final recommendationswill be communicated back to the requesting physician by way of sharedmedical record or letter via US mailNormMercy Health Fairfield HospitalCNOVon [id number] Visit (NSCAMN) --------PATSY CODY ([id number]) 1985 FDate Time Provider Galbsidfeo06/13/18 8:10 AM PENELOPE FOSTER During your visit today, we recorded the following information about you: TemperaturePulse Respiration Blood pressure 98.5 degrees 83/minute 18/minute 125/80 Weight Height 74.8 kg 1.727 Lauraluiz Luis Enrique CARTWRIGHT 09/11/2018 8:27 AM SignedAdditional intake questions:Has the patient had nausea, vomiting, diarrhea, constipation, fatigue for > 1week? Vomiting, Yes, NotifiedNausea, Yes, NotifiedFatigue, Yes, NotifiedDiarrhea, Yes, NotifiedConstipation, Yes, MD NotifiedDoes the patient have a decreased appetite? NoDoes patient want to see a Pad Machine Operator? No(yes to any of above refer patient to schedulers for dietitian appointment) )Does patient have any new or increased numbness or tingling of extremities? NoIs patient interested in fertility information? NoDoes patient need any prescription refills? NoElectronically Signed By: Julian Foster MD 09/14/2018 12:54 PM SignedSECTION OF SKULL BASE SURGERYMINIMALLY INVASIVE CRANIAL BASE AND PITUITARY SURGERY PROGRAMRyderwood Laverne Hernandez Brain Tumor and Neuro- Oncology CenterCOBALT REHABILITATION (TBI) HOSPITALHead and Neck [place], [facility] SystemCC: Cristine Grimes, DEWAYNESSESSMENT: In summary, Patsy Cody is a very pleasant 33 year oldfemale with pituitary cystic lesion. 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 Han given that Ithink it [...] requesting physician by way of the shared med icalrecords, or letters to requesting physician via US Mail.Chief Complaint: Pituitary adenomaHistory of Present Illness: Patient is accompanied by her , Romario . Thepatient is a 33 year old female who presents with a cystic pituitary lesion.She has a history of pituitary adenoma and chiari malformation first diagnosedin 2016 and complains of anxiety and headaches. Patient states that shefollowed up with the operations assistant, and she was put on hydrocortisone drrtn5572 .Her dizziness has improved after taking hydrocortison . She complainsabout headaches and severe anxiety. She feels likeshe is overstimulated, andshe has a heightened sense [...] double the dose for 3 (THREE) days ifrustyNo current facility-administered medications on file prior to [...] comprehensionFunds of knowledge: NormalAttention span and concentration: Omdh7dw cranial nerve: Full visual fieldsFundoscopyrevealed no obvious papilledema or vvwlmujnipi4kz, 4th, and 6th cranial nerves: Pupils equally round and reactive to light,extraocularmovements intact without nystagmus or subjective cyayyhyi1ig cranial nerve: V1-3 intact to light touch lcptuiglvdp7dn cranial nerve: Facial muscles full and symmetric ynvgixzhchy1kf cranial nerve: hearing intact to finger rub jukzirbftuw7yz cranial nerve: gag reflex test ovdvcmqi80gw cranial nerve: Palate elevates symmetrically and uvula in the xpzvqzo79xe cranial nerve: shoulder shrug 5/5 sahtjlyxckh64kz cranial nerve: tongue protrudes in the midlineMotors: Normal muscle tone, 5/5 strength throughout without pronator driftSensation: Intact to light touch andproprioception in all extremitiesCoordination: no dysmetria on fingers-nose testing bilaterallyReflexes: 2+ reflexes throughout with no Tinsley or clonus bilaterallyGait: able to stand and ambulate independently with normal gait includingtandem gaitCardiovascular: regular rate and rhythm, normal S1/2 sounds, no carotid bruitsLungs: clear to auscultation bilaterallyExtremities: no peripheral edemaData Review:Component Latest Ref Rng AND Units 07/26/2016Protein, Total 6.3 - 8.0 g/dL 7.5Albumin 3.9- 4.9 g/dL 4.3Calcium 8.5 - 10.5 mg/dL 9.0Bilirubin, Total 0.2 - 1.3 mg/dL 0.2Alkaline Phosphatase 32 - 117 U/L 60AST 13 - 35 U/L 13Glucose 74 - 99 mg/dL 85BUN 7 - 21 mg/dL 10Creatinine 0.58 - 0.96 mg/dL 0.63Sodium 136 - 144 mmol/L 140Potassium 3.7 - 5.1 mmol/L 3.9Chloride 97 - 105 mmol/L 103CO2 22- 30 mmol/L 23Anion Gap 9 - 18 [...] a pituitary cyst (so called parsintermedia cyst) althoughthe possibility that this could less likely representa [...] hesitate tocall with questions.Referring Provider: KEN JORDAN [[id number]]Allergies As of Date: 09/11/2018(No Known Allergies)Date Reviewed: 09/11/2018Reviewed by: Henrry CARTWRIGHT - Fully AssessedReason for Visit: Consult [173]Primary Visit Diagnosis: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 In this case, I recommend re-evaluation with Dr. Han given that I think it unlikely to be the cause give that it was present prior to you developing the symptoms and has not changed. We also discussed that if things continue as they are, that I would not recommend surgeryas I think it extremely unlikely to provide benefit with risk of the procedure. If additional information were obtained with Dr. Han which would change this, we could certainly reconsider this.Thank you for allowing me to participate in [...] appetite? NoDoes patient want to see a Pad Machine Operator? No(yes to any of above refer patient to schedulers for dietitianappointment) )Does patient have any new or increased numbness or tingling ofextremities? NoIs patient interested in fertility information? NoDoes patient need any prescription refills? NoElectronically Signed By: Julian Dudley NFollow-up and Disposition History RecordedEncounter Number: [id number] Status:Closed by PENELOPE FOSTER MD on 09/14/18NormalCSuburban Community Hospital & Brentwood HospitalPROGRESSon 16-18-1650Skvgrrw mass concHNO ID: [id number]: Penelope FosterService: (none)Author Type: PhysicianType: Progress NotesFiled: 09/14/2018 12:54 PMNote Text:SECTION OF SKULL BASE SURGERYMINIMALLY INVASIVE CRANIAL BASE AND PITUITARY SURGERY PROGRAMRyderwood Laverne Wittt Brain Tumor and Neuro- Oncology CenterCOBALT REHABILITATION (TBI) HOSPITALHead and Neck [place], [facility] SystemCC: Cristine Grimes, DEWAYNESSESSMENT:In summary, Patsy Cody is a very pleasant [...] a history of pituitary adenoma and chiari m alformation firstdiagnosed in 2016 and complains of anxiety and headaches. Patient statesthat she followed up with the operations assistant, and she was put onhydrocortisone since 2016 .Her dizziness has improved after takinghydrocortison . She complains about headaches and severe anxiety. Shefeels likeshe is overstimulated, and she has a heightened [...] dose for 3 (THREE) daysif sickNo current facility-administeredmedications on file prior to visit.Allergies: ALLERGIESNo Known AllergiesIndependentReview of System s:Constitutional: no fever/chills, unintentional weight loss, she feelstired.Neurologic: [...] or bleedingPhysical Examination:Constitutional: BP 125/80 Pulse 83 Temp(Src) 98.5 (Oral) Resp 18 Ht 5' 8 (1.73m) Wt 164 lb 12.8 oz (74.8kg) SpO2 100% BMI 25.06kg /(m2). Well developed, well nourishedNeurological:Higher integrative functions: Oriented to person,place, and timeMemory: Good recent and remoteSpeech: Normal fluency and comprehensionFunds of knowledge: NormalAttention span and concentration: Wxnv6fj cranial nerve: Full visual fieldsFundoscopy revealed no obvious papilledema or oxgklkukggb4db, 4th, and 6th cranial nerves: Pupils equally round and reactive tolight, extraocularmovements intact without nystagmus or subjective samkzwsr9vw cranialnerve: V1-3 intact to light touch ryahyxwiwaw9kj cranial nerve: Facial muscles full and symmetric evjzegvzffp3ar cranial nerve: hearing intact to finger rub zuzrgsowxdf2zx cranial nerve: gag reflex test ogkwmnqf85sm cranial nerve: Palate elevates symmetrically and uvula in the nqhzyfm16lf cranial nerve: shoulder shrug 5/5 rrbkxiqoodf34fn cranial nerve: tongue protrudes in the midlineMotors: Normal muscle tone, 5/5 strength throughout without pronator driftSensation: Intact to light touch and pro prioception in all extremitiesCoordination: no dysmetria on fingers-nose testing bilaterallyReflexes: 2+ reflexes throughout with no Tinsley or clonus bilaterallyGait: able to stand and ambulate independently with normal gait includingtandem gaitCardiovascular: regular rate and rhythm, normal S1/2 sounds, no carotidbruitsLungs: clear to auscultation bilaterallyExtremities: no peripheral edemaDataReview:Component Latest Ref Rng AND Units 07/26/2016Protein, Total 6.3 - 8.0 g/dL 7.5Albumin 3.9 - 4.9 g/dL 4.3Calcium 8.5 - 10.5 mg/dL 9.0Bilirubin, Total 0.2 - 1.3 mg/dL 0.2Alkaline Phosphatase 32 -117 U/L 60AST 13 - 35 U/L 13Glucose 74 - 99 mg/dL 85BUN 7 - 21 mg/dL 10Creatinine 0.58 - 0.96 mg/dL0.63Sodium 136 - 144 mmol/L 140Potassium 3.7 - 5.1 mmol/L 3.9Chloride 97 - 105 mmol/L 103CO2 22 - 30 mmol/L 23Anion Gap 9 - 18 mmol/L 14ALT 7 - 38 U/L 7eGFR- >60eGFR-All Other Races . >60Cortisol Basal ug/dL 5.8Cortisol 30 min ug/dL 15.1Cortisol 60 min ug/dL 10.3Interpretation(ACTHST) A peak value of at least 18 ug/dL is a normalresponse to cortrosyn stimulation.TSH 0.400 -5.500 uU/mL 2.250ACTH 8 - 42 pg/mL 13Insulin-like Growth Factor I 93 - 278 ng/mL 154Prolactin 2.0 -17.4 ng/mL 6.2Estradiol 17B pg/mL 146FSH mU/mL 2.1 NormalFairfield Medical CenterCNOVon 15-72-1560NFIMUxegwo Visit (NSFRVW) --------PATSY CODY ([id number]) 1985 FDate Time Provider Afiqommfov12/23/18 3:10 PM KEN JORDAN NSFRVW During your [...] states that she followed up with the operations assistant, and she was puton hydrocortisone. She states [...] : most recent imaging. 08/17/18 MRI Pituitary W /WOCON compared with MRI from 01/2017Assessment : Pituitary adenoma and chiari malformation .Plan : Per Dr. Jordan refer to endocrinology to adjust hydrocortisone dose,and refer to Rosalba Foster forsurgical consult.Patsy FarooqHaylee 20172:48 Harry WARREN-Student under the kenny pervision of Keila WARREN-CFindings discussed with ptShe is using Steroid replacement therapy and wants to consider surgicaltreatment of her non-secretory pituitary adenomaI have referred her to my colleague Dr Penelope Foster for consideration of TSHShe Hernesto Jordan, TINAeferrjuanito Provider: SELF [200]Allergies As of Date: 08/21/2018(No Known Allergies)Date Reviewed: 08/21/2018Reviewed by: Amanda Corado Ma - Fully AssessedReason for Visit: Follow Up [171]Primary Visit Diagnosis:Pituitary adenoma (HCC) [D35.2]Order(s):CONSULT TO NEUROSURGERY [19991105] Order #: [id number]: 1Prescriptions as of 08/21/2018 Sig:X HYDROCORTISONE 5 MG TABLET Take 2 tb in am ( 10 mg) and *Problem List AsOf Date 08/21/2018 Noted Resolved Pituitary adenoma (HCC) [D35.2] INVALID FOR* Status:Closed by KEN JORDAN MD on 08/24/18NoDayton [facility] [id number] mass concHNO ID: [id number]: Ken Templeice: (none)Author Type: PhysicianType: ProgressNotesFiled: 08/24/2018 2:18 PMNote Text:CC : Paitent with a chief complaint of anxiety.Interval HPI: Ms. Cody is 33 year old female with a history ofpituitary adenoma and chiari malformation and complains of anxiety andheadaches. Patient states that she followed up with the operations assistant,and she was put on hydrocortisone. She states that she is not sure if thehydrocortisone is helping. Ifshe does not take it she gets anxious, ifshe takes too much of it she also gets anxious. She statesthat she cannotdrive due to anxiety. She has severe anxiety and she cannot processthings. She feelslike she is overstimulated, and she has a [...] gotten significantly worse. She is here to talkabout havingthe pituitary adenoma removed.ROS: see chartCurrent Medications : all meds are on the chart and have been reviewed byme. No changes.-- Xanax for anxiety. Has only taken 1.5 pillsAllergies: allergies are on the chart and have [...] refer to Rosalba Foster for surgical consult.[facility]atsy [facility] 20172:48 Harry WARREN-Student underthe supervision of Keila WARREN-CFindings discussed with ptShe is using Steroid replacement therapy and wants to consider surgicaltreatment of her non-secretory pituitary adenomaI have referred her to my colleague Dr Penelope Foster for consideration ofTSHShe agreesSaremigio Jordan MDNormalCSuburban Community Hospital & Brentwood HospitalMR-MRI PITUITARY W/WO CON IMPORTon 08-17-2018 MR-MRI PITUITARY W/WO CON IMPORTImages were obtained outside of [facility] [id number] Medical CenterCoding Summary.on 12-24-9149Tcdyqq Summary.CODING DATE: 06/22/2018 FINAL [facility] STATUS: Home (Routine DC) PAYOR: [...] By: Trupti Oliva Date Saved: 06/22/2018 02:32 [facility] Vital Signs Date TimeVital SignValuePerforming TilccshcaZpnvcogp92-96-2736 09:54-0400 Diastolic blood iebtujps87 mm[Hg]Arnold Clark MD Work Phone: [phone])[address] [place], [place] 1377406-30-2025 09:54-0400 Systolic blood nfgeifwu156 mm[Hg]Arnold Clark MD Work Phone: 1(980)[address] [place], [place] 1377406-30-2025 09:28-0400 Body .72 cmArnold Clark MD Work Phone: [phone])[address] [place], [place] 1377406-30-2025 09:28-0400 Body mass index (BMI) [Ratio]23.4 kg/a8LatirwcArnold Clark MD Work Phone: 1(080)[address] [place], [place] 1377406-30-2025 09:28-0400 Body eyawchygcyk02.9 [degF]Arnold Clark MD Work Phone: 1(763)[address] [place], [place] 1377406-30-2025 09:28-0400 Body xuredb48.85 kgArnold Clark MD Work Phone: 1(110)[address] [place], [place] 1377406-30-2025 09:28-0400 Heart rate89 /Cleo Clark MD Work Phone: 1(668)[address] [place], [place] 1377406-30-2025 09:28-0400 Respiratory rate18 /Cleo Clark MD Work Phone: 1(337)[address] [place], [place] 1377406-30-2025 09:28-0400 SaO2% (BldA) [Mass fraction]99 %Arnold Clark MD Work Phone: 1(448)[address] [place], [place] 1377404-14-2025 13:43-0400 Body yycpmh655.7 Afshin Amaya MD Work Phone: 1(216)[address]04-14-2025 13:43-0400 Body mass index (BMI) [Ratio]22.81 kg/d5HrvvususbpAmbika Amaya MD Work Phone: 1(216)[address] [place], [place] 7858304-14-2025 13:43-0400 Body krldub38.04 kgAmbika Amaya MD Work Phone: 1(216)[address] [place], [place] 7858301-27-2025 13:26-0500 Body .7 Afshin Amaya MD Work Phone: 1(216)[address] [place], [place] 7858301-27-2025 13:26-0500 Body mass index (BMI) [Ratio]22.96 kg/w3DxquncpvmyAmbika Amaya MD Work Phone: 1(216)[address] [place], [place] 7858301-27-2025 13:26-0500 Body .49 kgAmbika Amaya MD Work Phone: 1(216)[address] [place], [place] 7858301-20-2025 13:20-0500 Body qtkvncymftq82.6 [degF]Ambika Amaya MD Work Phone: 1(216)[address] [place], [place] 7858301-20-2025 13:20-0500 Diastolic blood jijgmdng53 mm[Hg]Ambika Amaya MD Work Phone: 1(216)[address] [place], [place] 7858301-20-2025 13:20-0500 Heart rate85 /Kourtney Amaya MD Work Phone: 1(216)[address] [place], [place] 7858301-20-2025 13:20-0500 Respiratory rate16 /Kourtney Amaya MD Work Phone: 1(216)[address] [place], [place] 7858301-20-2025 13:20-0500 SaO2% (BldA) [Mass fraction]98 %Ambika Amaya MD Work Phone: 1(216)[address] [place], [place] 7858301-20-2025 13:20-0500 Systolic blood pycsbouk152 mm[Hg]Ambika Amaya MD Work Phone: 1(216)[address] [place], [place] 7858301-20-2025 07:17-0500 Body ybionh633.7 Afshin Amaya MD Work Phone: 1(216)[address] [place], [place] 7858301-20-2025 07:17-0500 Body mass index (BMI) [Ratio]22.79 kg/a1SvicrqvgisAmbika Amaya MD Work Phone: 1(216)[address] [place], [place] 7858301-20-2025 07:17-0500 Body vmsmdo99 kgAmbika Amaya MD Work Phone: 1(216)[address] [place], [place] 7858309-09-2024 09:00-0400 Body adebdi960.7 Afshin Amaya MD Work Phone: 1(216)[address] [place], [place] 7858309-09-2024 09:00-0400 Body mass index (BMI) [Ratio]23.63 kg/b1SbjiioqwgzAmbika Amaya MD Work Phone: 1(216)[address] [place], [place] 7858309-09-2024 09:00-0400 Body gfgyif91.49 kgAmbika Amaya MD Work Phone: 1(216)[address] [place], [place] 7858309-03-2024 08:36-0400 Body mdalet232.7 Balbir Guevara MD Work Phone: [facility]Jbczqgtksv55[facility]87-5187 08:36-0400Body mass index (BMI) [Ratio]24.02 kg/a1KztpgvReyes Guevara MD Work Phone: [facility] HospitalRyakfdiban67-72-3460 08:36-0400Body .67 kgReyes Guevara MD Work Phone: [facility] HospitalRrrzjmvvxj59-18-5538 08:36-0400Diastolic blood keytrrfe70 mm[Hg]Reyes Guevara MD Work Phone: [facility] HospitalAuazcwqhoa32-99-9048 08:36-0400Systolic blood hfwsowpv967 mm[Hg]Reyes Guevara MD Work Phone: [facility] HospitalHuugnvprbf28-08-1510 07:30-0500Body temperature 97.9 [degF]MD Arnold Clark Work Phone: [phone])[address]02-25-2024 07:30-0500 Heart rate70 /minMD Arnold Clark Work Phone: 1(932)[address] [place], [place] 1377402-25-2024 07:30-0500 Respiratory rate16 /minMD Arnold Clark Work Phone: 1(459)[address] [place], [place] 1377402-25-2024 07:30-0500 SaO2% (BldA) [Mass fraction]97 %MD Arnold Clark Work Phone: 1(427)[address] [place], [place] 1377402-24-2024 20:24-0500 Diastolic blood wbrcvyum22 mm[Hg]MD Arnold Clark Work Phone: 1(277)[address] [place], [place] 1377402-24-2024 20:24-0500 Systolic blood bkvzgtxu323 mm[Hg]MD Arnold Clark Work Phone: 1(957)[address] [place], [place] 1377402-23-2024 12:42-0500 Body .72 cmMD Arnold Hoy Work Phone: 1(749)[address] [place], [place] 1377402-23-2024 04:16-0500 Body iizftb75.03 kgMD Arnold Clark Work Phone: 1(641)[address] [place], [place] 1377410-16-2022 14:00-0400 Body .72 Thai Miles Other [facility] [employer] Other 10-16-2022 14:00-0400Body mass index (BMI) [Ratio] 22.35 kg/f7VksmoJamia Miles Other [facility] [employer] Other 10-16-2022 14:00-0400Body tiaoxrkursx49.1 [degF]Jamia Miles Other [employer] Other 10-16-2022 14:00-0400Body resygb34.68 kgJamia Miles Other [employer] Other 10-16-2022 14:00-0400Diastolic blood mm[Hg] Jamia Miles Other [employer] Other 10-16-2022 14:00-0400Respiratory rate18 /minJamia Miles Other [employer] Other 10-16-2022 14:00-0130JnA5% (BldA) [Mass fraction]98 % Jamia Miles Other [employer] Other 10-16-2022 14:00-0400Systolic blood ywodyxqx472 mm[Hg] Jamia Miles Other [employer] Other 01-12-2022 10:45-0500Body slabjv506.72 cmThomronit James Other [employer] Other 01-12-2022 10:45-0500Body mass index (BMI) [Ratio] 22.96 kg/w3Xywqye Jacob Other [employer] Other 01-12-2022 10:45-0500Body bqtffpotfba68.4 [degF]Obed Jacob Other [employer] Other 01-12-2022 10:45-0500Body .49 kgThomas Jacob Other [employer] Other 01-12-2022 10:45-0500Diastolic blood zzjydceu24 mm[Hg] Obed James Other [employer] Other 01-12-2022 10:45-0500Respiratory rate18 /minThvasquez James Other [employer] Other 01-12-2022 10:45-6113JsF6% (BldA) [Mass fraction]100 % Obed James Other [employer] Other 01-12-2022 10:45-0500Systolic blood assubamr874 mm[Hg] Obed James Other [employer] Other 11-01-2021 13:35-0400Body sbyelh100.72 cmStepjosefina Kay Other [employer] Other 11-01-2021 13:35-0400Body mass index (BMI) [Ratio] 23.26 kg/j2Zxtgpykzbjulianna Kay Other [employer] Other 11-01-2021 13:35-0400Body njxjdsqbcao45 [degF] Daniela Kay Other [employer] Other 11-01-2021 13:35-0400Body cejjvf54.4 kgStjulianna Kay Other [employer] Other 11-01-2021 13:35-0400Diastolic blood cwlbxhpi78 mm[Hg] Daniela Kay Other [employer] Other 11-01-2021 13:35-0400Respiratory rate18 /minStepjosefina Kay Other [facility] Other 11-01-2021 13:35-1804RcD2% (BldA) [Mass fraction]100 % Daniela Kay Other [facility] [employer] Other 11-01-2021 13:35-0400Systolic blood pkaxbhjr011 mm[Hg] Daniela Kay Other [facility] [employer] Other Encounters Encounter DateEncounter TypeCare ProviderFacilityStart: 04-28-2025 End: 11-09-4067bczlsjutgmLzfdeks M Hoy MD Work Phone: [facility] Work Phone: Start: 04-28-2025 End: 15-38-6813Gxftioi encounter procedureLauren Paula Ge [facility] [place] Work Phone: Start: 02-10-2025 End: 40-69-7331Orsxfo follow up visit related to original Herrera Amaya MD Work Phone: uh [facility] CenterComment on above:Postoperative visit (Primary Dx)Start: 02-10-2025 End: 97-85-4148gbevxcwzeePKWQBFLNOYBarton County [facility] Hospital [facility] Start: 11-25-2024 End: 15-88-6034Knaocy follow up visit related to original Herrera Amaya MD Work Phone: uh [facility] CenterComment on above:Nasal obstruction (Primary Dx)Start: 11-25-2024 End: 97-54-2263jrhddshcpsHDPLQGPYCWBarton County Memorial Hospital Ambulatory Start: 11-18-2024 End: 59-43-6174zyqofbgsgfQBYCVUZNVIMercy Health Kings Mills Hospitaltart: 11-18-2024 End: 34-32-9708Rqbderjaxf hospital visit by Rohit Amaya MD Work Phone: uh [facility] ORComment on above:Deviated nasal septum (Primary Dx); Surgery, elective; Postoperative pain; Acquired deformity of nose; Hypertrophy of nasal turbinates; Nasal congestionStart: 11-12-2024 End: 92-87-5531olvfhlinrhTPDMWZFHFLSycamore Medical Centertart: 57-10-1554oupzkyrejeWSFYYBYFRDWright-Patterson Medical Centertart: 07-08-2024 End: 22-48-8381rftymtbmfeJRLZYDSXOIBarton County Memorial Hospital Ambulatory Start: 07-08-2024 End: 42-10-4545Aucpfe outpatient ciaran 44 Ivory Amaya MD Work Phone: [facility] CenterComment on above:Deviated nasal septum (Primary Dx); Nasal obstruction; Nasal valve collapse; Hypertrophy of inferior nasal turbinate; Tobacco use; Pituitary cyst (Multi)Start: 07-02-2024 End: 44-91-4443Ujqxgc flowsLeonardo Guevara MD Work Phone: [facility] ENTStart: 07-02-2024 End: 20-43-4892Covpvtaleksandar Guevara MD Work Phone: [facility] ENTStart: 07-02-2024 End: 39-83-1123Vtxccj outpatient new 45 Francisco Guevara MD Work Phone: [facility] CI ENTComment on above:DNS (deviated nasal septum) (Primary Dx)Start: 07-02-2024 End: 81-43-3429bqlchpqatoJLURFG H TIMMISNot AvailableStart: 89-83-1451ygvxpdhdny Arnold ClarkFacility:[facility] Dublintart: 94-95-4002Jzy- patient / Non-visitMD Arnold Clark Work Phone: [facility] Work Phone: Start: 12-22-2023 End: 71-09-8817Jcbsmixnft and management of inpatientMD Arnold Hugginsy Work Phone: [facility] Work Phone: Start: 11-14-2022 End: 53-27-5609xkiqpqvjfpDL SVETLANA HAYFacility:O2Tabiy: 09-29-2022 End: 33-97-6144tzwtckiaqvIK CLAUDE HUMPHREYEYFacility:B7Mjhyy: 09-03-2022 End: 58-64-3647ohbqvvegwpLN JOSE LUIS CORADOFacility:L5Hoosd: 31-72-1011Jpqdfs outpatient visit 15 minutesAmber JdHAVASU [facility] ClydeStart: 08-14-2022 End: 02-99-3133aacxkrigdpTJ Arnold Clark Work Phone: [facility] Work Phone: Start: 08-14-2022 End: 35-20-6546Fqdzaed encounter procedureMD Arnold Clark Work Phone: [facility] Qasim Start: 08-24-2471Zdncbfmvc for preprocedural laboratory examinationDR KEL ISAKBluffton Hospital HospitalStart: 05-13-2022 End: 72-56-9206synupfaopwUQ KEL FAZIOFacility:S2Xatqf: 05-10-2022 End: 69-40-4413qeplidndnhDI KEL FAZIOFacility:F4Dzupj: 05-10-2022 End: 82-59-6826Qodjdxkir for preprocedural laboratory examinationDR KEL KI Facility:L3Xiyer: 64-42-2274Arlegsskc for other preprocedural examinationDR KEL FABluffton Hospital HospitalStart: 05-05-2022 End: 75-30-6782xkaujyjpkcCO ARNOLD HOYFacility:L4Raavs: 05-05-2022 End: 96-83-6073Qhupxhpzc for other preprocedural examinationDR ARNOLD HOY Facility:B2Rhmqz: 04-28-2022 End: 89-73-1632oyqcnxmbqjLA KEL FAZIOFacility:N7Pfkur: 04-04-2022 End: 84-46-9104pwftrhwzbuQU KEL FAZIOFacility:Q1Enxqv: 03-31-2022 End: 79-58-5209ifrtfxjrwmHC KEL FAZIOFacility:L1Ldtoh: 03-22-2022 End: 58-59-6122cmphaimyeuPB KEL FAZIOFacility:E9Xuzyk: 43-04-2449qzehtzjsbgJE ARNOLD HOYFacility:N0Jnmle: 01-02-2022 End: 67-12-3964kuhodyrpneGHKZNY RODRIGUEZFacility:P1Svkwt: 12-31-2021 End: 31-96-7780nbwazazthiPA ARNOLD HOYFacility:I9Zzvxu: 12-24-2021 End: 44-83-0432kqumrpusjoOB ARNOLD HOYFacility:T8Qdltm: 12-11-2021 End: 04-38-0343rbfensamglRZ ARNOLD HOYFacility:O8Sobzi: 12-10-2021 End: 50-89-1309ftfjlkaakaSU ARNOLD HOYFacility:W5Wkyyu: 11-27-2021 End: 00-58-6140utszswcreuKI ARNOLD HOYFacility:K1Ifmxl: 11-10-2021 End: 15-76-2233kiulutckcsKbgmkq [place] Other [employer] Other Start: 59-56-0533Bjyiss outpatient visit 15 minutes Obed JacobFPG [facility] Care ClydeStart: 08-30-2021 End: 07-13-7801udmqgrlflpTvvwaufhp [place] Other noQuietly Other Start: 01-90-7753Ebumyh outpatient visit 5 minutes Daniela KayFPG [facility]gent Care ClydeStart: 00-95-5912Bnzekgc encounter procedureDouglas~[id number] UNKNOWN HoyFacility:CD:[id number]: 10-05-2018 End: 48-55-7535Btndgkk encounter procedureBETMICHELLE VASQUEZIPOGLUCSt. John of God Hospital: 09-11-2018 End: 00-17-4188Zbqnpao encounter procedurePAJOSEPH FOSTERCleKindred Hospital Lima: 08-21-2018 End: 02-41-6940Gtmgayr encounter procedureSAREElijah HUBBARDSt. John of God Hospital: 06-19-2018 End: 86-00-1918Pnzacog encounter procedureMiceugenio Ortiz NillFacility:FTMCStart: 97-04-6255Jlhquyu encounter procedureBETMICHELLE BAOGLUCSuburban [facility] Procedures DateProcedureProcedure DetailPerforming ClinicianStart: 08-48-5457Msqubs-up visitFollow-upSAIKRPO GORDONETTIStart: 40-28-3862MNZER OXIMETRY, CONTINUOUSErica Charlene Rubin MD Work Phone: Start: 62-81-6968Kjuzc test visual color cmprsn methsErica Charlene Rubin MD Work Phone: Start: 10-32-8901O-ray of right ankleMD Arnold Hugginstamy Work Phone: Plan of Treatment DateCare ActivityDetailAuthorStart: 06-02-2619Tfhyot Vaccines (1 of 2)Zoster Vaccines (1 of 2)[facility]Start: 51-56-2163Tyinhrbjr vaccinationInfluenza Vaccine (Season Ended)[facility] Start: 02-05-2025 End: 02-58-3851Zviionc encounter phisuwpzv25/09/2025 11:45 AM EDT Office Visit [facility] [address] [place] [address] [place] [address] [place] [address] [facility]: 11-25-2024 End: 96-69-9876Kansrbn encounter yggrydhus33/27/2025 1:15 PM EST Office Visit [facility] [address] [place] [address] [place] [address] [address] Department [place] [address] [facility]ertart: 11-18-2024 End: 73-92-0381Kbcbefjrbcf/submucous resecj w/wo cartilage grfSEPTOPLASTY, NOSE, WITH NASAL TURBINATE REDUCTION Nasal congestion Deviated nasal septum Hypertrophy of nasal turbinates Acquired deformity of nose 11/18/2024 7:46 AM ESTVirtual [facility] SUBASC ORStart: 07-02-2024 End: 31-88-1768Fyljhwg encounter fuoygiaqa43/03/2024 8:40 AM EDT Office Visit [facility] [address] [facility] [address] [place] [id number] Reyes Guevara MD [address] [facility] [address] [place], [place] [id number] ArrivedNOMS CI ENTComment on above:ArrivedStart: 27-86-9371NUWMH-19 Vaccine ( season)COVID-19 Vaccine ( season)[facility]: 58-70-0920PSPQD-19 Vaccine ( season)COVID-19 Vaccine ( season)[facility]: 65-08-1191Tuputdizv vaccinationInfluenza Vaccine (#1)[facility]: 21-01-6997Doqugcdeq for malignant neoplasm of breastMammogramUnFisher-Titus Medical Center: 66-23-4936AlpielgvlSelect Medical [facility] Rehabilitation Hospital - Dublintart: 48-90-4387Tcvgyimu admissionSelect Medical Ohio[facility] Rehabilitation Hospital - Dublintart: 74-84-4556JUjW/Tdap/Td Vaccines (1 - Tdap)DTaP/Tdap/Td Vaccines (1 - Tdap)[facility]: 09-54-6063Lwcailsuw for malignant neoplasm of cervixTriHealth: 33-38-5369Qaqtjyzly A Vaccines (1 of 2 - Risk 2-dose series)Hepatitis A Vaccines (1 of 2 - Risk 2-dose series)[facility]: 2003 Hepatitis B Vaccines (1 of 3 - 19+ 3-dose series)Hepatitis B Vaccines (1 of 3 - 19+ 3-dose series)[facility]: 15-83-7438Yzzwursipnff Vaccine: Pediatrics and At-Risk Adult Patients (1 of 2 - PCV)Pneumococcal Vaccine: Pediatrics and At-Risk Adult Patients (1 of 2 - PCV)[facility]: 16-84-2431Innoerglf C screeningHepatitis C ScreeningUnFisher-Titus Medical Center: 50-13-1224Ixpmeplzx vaccination Varicella Vaccines (1 of 2 - 13+ 2-dose series)[facility] Start: 87-94-0870YHM Vaccines (1 of 1 - Standard series)MMR Vaccines (1 of 1 - Standard series)[facility]: 05-66-5154SJQ screening HIV ScreeningUnFisher-[facility] Medical Center: 13-84-6153Bkwod panelLipid PanelUnFisher-Titus Medical Center: 51-71-1754Kstpwz Adult Physical Yearly Adult PhysicalUnMercy Health [facility] End: 35-03-2935Ajphl type and Indirect antibody screen panel - BloodType And Screen Lab Timed As needed (Lab) until discontinued starting 11/18/2024[facility] Service Area Work Phone: Comment on above:As needed (Lab) until discontinued starting 11/18/2024Patient EducationAnxiety, Adult (DC) [facility] InstructionsMercy Health Ctr Work Phone: Patient referralMercy Health Ctr Work Phone: Payers DatePayer CategoryPayerPolicy [id number] [id number]mar 1.2.840.173175.1.13.647.2.7.3.041288.00689-27-9410LkjwtvdJ9015720332-86-2589 [facility] HavertownvubR911270 q11nkept-73ox-1766-3o1w-v88b67[id number] [id number] 2.16840.1.573318.3.579.2.25615-25-0358Ttfwxgk3783815 2.840.1.123392.3.579.2.93969-21-5361Kuapgjd1731371 2.0.1.485041.3.579.2.36200-71-9093Jjhcvdk5517717 2.840.1.696717.3.579.2.68953-86-6730Zsqpumh0425273 2.840.1.902704.3.579.2.59571-32-6818Zzqoeea3081089 2.840.1.195593.3.579.2.31079-54-5813Epyglxc0545106 2.0.1.369514.3.579.2.24107-17-9702Unyonps3323069 2.840.1.978894.3.579.2.36305-13-7501Qhppijf1515023 2.0.1.133279.3.579.2.09061-84-6106Sjmncmd2547283 2.840.1.694831.3.579.2.24007-31-0147Imozafc6645720 2.0.1.644413.3.579.2.91104-63-8593Adhrwta9398636 2.840.1.764968.3.579.2.29486-50-8203Rznpmdc5790619 2.840.1.293647.3.579.2.17482-82-1387Pfwxnnx6588657 2.16.840.1.892954.3.579.2.35143-30-1556Mfnozmf5613219 2.16840.1.115798.3.579.2.53738-88-3485Oinbysl6569278 2.840.1.299931.3.579.2.81081-84-2639Qlhrijq5129087 2.840.1.670212.3.579.2.25503-78-5745Wiqnnkj8628195 2.840.1.154345.3.579.2.69328-34-0562Ljmrzyb8663927 2.840.1.369486.3.579.2.08198-22-3929Tfrhgxk0713512 2.0.1.533374.3.579.2.97739-50-5357Kwhlfhv3615604 2.840.1.538856.3.579.2.497200-38-2577Wmwgyku643585519 2.0.1.530087.3.579.2.084845-06-6496Pyjuqpj666272310 2.840.1.296085.3.579.2.951045-81-3812Nklyaya15526343 2.0.1.617318.3.579.2.955451-78-4174Hychuqi423898380 2.840.1.957072.3.579.2.754138-75-3100Wwjymap804451118 2.0.1.138078.3.579.2.231709-09-9006Bhvmsey46903311 2.840.1.336141.3.579.2.947850-01-3812Iyri-dvc 08870e04-4426-594n-j363-4vc2j14y414147-06-9598Njisokl19074464359 2..840.1.015587.19UnknownReverify Wszamukcl319-05-1839 60q05329-11cl-00dm-uv5s-t729124ptw56Piouaue18686333 2.16.840.1.908713.3.579.2.705Yognxea46296025 2..840.1.790463.3.579.2.531 Social History DateTypeDetailFacilityTobacco smoking status NHISUnknown if ever smokedMercy Health CtrStart: 30-78-7362Etr Assigned At BirthChillicothe Hospital CenterStart: 07-08-2024 End: 00-08-2391Zjl [facility] At [facility] HealthcareStart: 25-54-8215Unkacrb smoking status NHISEx-smoker (finding)[facility] CenterStart: 14-04-7213Ddzoeld smoking status NHISSmoker (finding)[facility] CenterStart: 07-08-2024 End: 38-18-7733Kxczcie smoking status NHISSmokes tobacco dailyNOMT Healthcare History of tobacco useCigarette SmokerNOMT HealthcareStart: 07-08-2024 End: 03-93-1048Ohcjapg use and exposureSmokeless tobacco non-userOhioHealth Van Wert Hospital Work Phone: Start: 07-08-2024 End: 67-62-1966Lcfacos of Social functionNOMS HealthcareStart: 13-82-0863Eyb assigned at birthNot on fileNOMT HealthcareStart: 06-28-2024 End: 24-82-4943Drwlfqlx to SARS-CoV-2 (event)Not sureOhioHealth Van Wert HospitalStart: 07-02-2024 End: 65-24-1176Kjexpmgmc beverage intakeCurrent drinker of alcohol (finding)[facility] HealthcareHow often to you have a drink containing alcohol?2-3 time sa weekNOMS HealthcareHow many standard drinks containing alcohol do you have on a typical day?5 or 6NOMS HealthcareHow often do you have 6 or more drinks on 1 occasion? Daily or almost dailyNOMT HealthcareStart: 51-70-9366Chsralh CommentNot ready to quit smokingNOMT HealthcareStart: 80-93-5017Yssuhqg Commentcaffeine intake: 1-2 cups per dayNOMT HealthcareStart: 21-85-0860Iostzll CommentX 20 yrOhioHealth [facility] Hospital Work Phone: Start: 00-14-0215Tljrnul Commentabout 10 per week [facility] Work Phone: SexFemale (finding)[facility] NEGATED: Highlighted rowStart: NINFHistory of tobacco usePassive smoker [facility] Work Phone: Medical Equipment Procedure CodeEquipment CodeEquipment Original TextEquipment IdentifierDates ()[id number] FDAStart: 28-44-5405Bwqjticx gel- filled breast implant()[id number] FDAStart: 09-05-2019 Goals DatePatient GoalDesired Activity/State Functional Status BssfGfsqoigafsQmhcbiQnqbyzen29-69-7111Yypcampask statusPatient at Baseline [facility] Work Phone: Mental Status CbanCzzblnhgxsJpfsvjFrjqkvhk12-36-2688Fgnzylywj functionCognitive Status Patient at BaselineSelect [facility] Work Phone: Clinical Notes 08-30-2021 to 02-10-2025 Note Date & RlnwIufkLxezwxjl04-02-8475 History of Present illness Narrative* Ambika Amaya MD - 02/10/2025 1:45 PM EDT Images from the original note were not included. Facial Plastic & Reconstructive Surgery POV s/p nasal surgery on 11/18/24 Doing well, endorses improved breathing bilaterally Continues salt water sprays and ointment to nares Nasal splint removed Septum midline Nasal airway patent Incisions c/d/I Plan: Continue nasal saline sprays and ointment to nares RTC prn if needed Ambika Amaya MD [employer] Division of Facial Plastic & Reconstructive Surgery Department of Otolaryngology - Head and Neck Surgery P: [phone] F: [phone] documented in this encounterOhioHealth Van Wert Hospital Work Phone: 1(824) 791-478201-27-2025 History of Present illness Narrative* Ambika Amaya MD - 11/25/2024 1:15 PM EST Images from the original note were not included. Facial Plastic & Reconstructive Surgery POV s/p nasal surgery on 11/18/24 Doing well, endorses improved breathing bilaterally Continues salt water sprays and ointment to nares Nasal splint removed Septum midline Nasal airway patent Incisions c/d/I Plan: Continue nasal saline sprays and ointment to nares RTC 6 weeks or sooner if needed Pat Blackburn PA-C documented in this encounterOhioHealth Van Wert Hospital Work Phone: 1(602) 251-115901-20-2025 History and physical note* Pat Blackburn PA-C - 11/18/2024 6:47 AM EST History Of Present Illness Patsy Mc is a 39 y.o. female presenting with nasal airway obstruction, here for nasal surgery. Past Medical History Past Medical History: Diagnosis Date PONV (postoperative nausea and vomiting) Surgical History Past Surgical History: Procedure Laterality Date BLADDER SURGERY placement of mid-urethral sling COLONOSCOPY DILATION AND CURETTAGE OF UTERUS ND BREAST AUGMENTATION WITH IMPLANT SALPINGECTOMY Bilateral Social History She reports that she has been smoking cigarettes. She has never been exposed to tobacco smoke. She has never used smokeless tobacco. She reports current alcohol use. She reports that she does not currently use drugs after having used the following drugs: Marijuana. Family History No family history on file. Allergies Venlafaxine ROS negative except what is otherwise specified in the HPI. HENT: Head: Normocephalic and atraumatic. Eyes: Conjunctiva/sclera: Conjunctivae normal. Pupils: Pupils are equal, round, and reactive to light. Cardiovascular: Rate and Rhythm: Normal rate and regular rhythm. Pulmonary: Effort: Pulmonary effort is normal. No respiratory distress. Breath sounds: Normal breath sounds. Abdominal: General: Bowel sounds are normal. Palpations: Abdomen is soft. Musculoskeletal: Cervical back: Normal range of motion and neck supple. Skin: General: Skin is warm and dry. Neurological: Mental Status: Alert and oriented to person, place, and time. Cranial Nerves: No cranial nerve deficit. Coordination: Coordination normal. Psychiatric: Mood and Affect: Affect normal. Last Recorded Vitals There were no vitals taken for this visit. Relevant Results Assessment/Plan Assessment & Plan Acquired deformity of nose Nasal congestion Deviated nasal septum Hypertrophy of nasal turbinates PLAN: Septoplasty, nasal valve repair, inferior turbinate reduction I spent 15 minutes in the professional and overall care of this patient. Pat Blackburn PA-C [facility] Work Phone: 1(310) 167-985501-20-2025 History and physical note* Pat Blackburn PA-C - 11/18/2024 6:47 AM EST History Of Present Illness Patsy Mc is a 39 y.o. female presenting with nasal airway obstruction, here for nasal surgery. Past Medical History Past Medical History: Diagnosis Date PONV (postoperative nausea and vomiting) Surgical History Past Surgical History: Procedure Laterality Date BLADDER SURGERY placement of mid-urethral sling COLONOSCOPY DILATION AND CURETTAGE OF UTERUS ND BREAST AUGMENTATION WITH IMPLANT SALPINGECTOMY Bilateral Social History She reports that she has been smoking cigarettes. She has never been exposed to tobacco smoke. She has never used smokeless tobacco. She reports current alcohol use. She reports that she does not currently use drugs after having used the following drugs: Marijuana. Family History No family history on file. Allergies Venlafaxine ROS negative except what is otherwise specified in the HPI. HENT: Head: Normocephalic and atraumatic. Eyes: Conjunctiva/sclera: Conjunctivae normal. Pupils: Pupils are equal, round, and reactive to light. Cardiovascular: Rate and Rhythm: Normal rate and regular rhythm. Pulmonary: Effort: Pulmonary effort is normal. No respiratory distress. Breath sounds: Normal breath sounds. Abdominal: General: Bowel sounds are normal. Palpations: Abdomen is soft. Musculoskeletal: Cervical back: Normal range of motion and neck supple. Skin: General: Skin is warm and dry. Neurological: Mental Status: Alert and oriented to person, place, and time. Cranial Nerves: No cranial nerve deficit. Coordination: Coordination normal. Psychiatric: Mood and Affect: Affect normal. Last Recorded Vitals There were no vitals taken for this visit. Relevant Results Assessment/Plan Assessment & Plan Acquired deformity of nose Nasal congestion Deviated nasal septum Hypertrophy of nasal turbinates PLAN: Septoplasty, nasal valve repair, inferior turbinate reduction I spent 15 minutes in the professional and overall care of this patient. Pat Blackburn PA-C documented in this [facility] Work Phone: 1(223) 344-338301-20-2025 Hospital Discharge instructions* Discharge Instructions* Pat Blackburn PA-C - 11/18/2024 6:44 AM EST Images from the original note were not included. Facial Plastic & Reconstructive Surgery NASAL SURGERY POST-OPERATIVE PATIENT INSTRUCTIONS Thank you for choosing the [facility] Facial Plastic and Reconstructive Surgery Team for your upcoming surgery. We want you to have the best and safest experience possible. If you have any questions or concerns, please do not hesitate to contact our office. We look forward to helping you a chieve your goals! Surgery and General Postoperative Expectations: Most incisions for surgery are concealed within the nose. Frequently with rhinoplasty and sometimeswith nasal airway surgery (septoplasty), an additional external incision is made in the columella (tissue that links the nasal tip to the nasal base, and separates the nostrils); this incision typically heals very well. Bruising of the nose and around the eyes is normal and typically resolves about 1-2 weeks after surgery. Most patients return to school or work in 7-10 days, after their first postoperative appointment. Much of the swelling resolves over the first several weeks after surgery. Most patients are comfortable at school, work, and social events after about a week or so. It takes over a year for all of the swelling in the nose to resolve. This is a slow process and the final result reveals itself about 15 months after the operation. At Home after Surgery: Head Elevation: Keep your head elevated (the height of 2-3 pillows is appropriate) for 3 days to help with swelling. Ice: Apply cold compresses to the cheeks, eyes and forehead, up to 20 minutes of each hour while awake after surgery, for the first 48 hours. This will help reduce swelling and bruising. Nasal Packing: If you have splints inside the nose that are sutured into place, they will be removed at your follow-up appointment. Nasal Care: Use nasal saline spray, 4 sprays to each nostril every hour while awake. This will helpkeep the nasal passages moist and prevent scabbing in the nose. It is normal to feel congested for several weeks after surgery. Do not blow your nose for one week after surgery. Incision/Cast Care: If you have a visible incision on the nose, apply antibiotic ointment (Bacitracin) or Mupirocin using a Q-tip four times a day. The incision will heal most optimally if it is keptmoist and clean. You can use hydrogen peroxide on Q-tips to gently clean any crusts. Do not rub butgently dab the incision to clean. If you have a cast or dressing on the outside of your nose, this will remain in place until your follow-up appointment. If the cast does fall off, do not worry. Tapeit to your nose at nighttime while you sleep and if/when you wear glasses. Shower: You may shower 24 hours after surgery. Do not let the shower spray hit your face/nose directly and do not soak your face in water. If you have a cast or dressing on the outside of the nose, it is OK for it to get wet. Towel blot your nose/cast after your shower. Bleeding: Most patients have mild, active bleeding the first night (saturating a gauze underneath your nose about every hour). Some blood-tinged drainage is normal for 1-2 weeks after surgery. Afrin nasal spray may be helpful for bleeding after surgery but should not be used for more than 3 days. Excessive bleeding that does not stop is not expected; please call the office or seek medical attention if this occurs. Medications: Please refer to the separate recommended medication regimen from your surgeon. Activity: Resume normal activities of daily living, as you feel able. However, avoid strenuous activity and heavy lifting (more than 10 lbs) for 4 weeks after surgery. Light activity such as walking may be resumed after 1 week after surgery. Sport activities may be resumed 1 month after surgery buttry to protect your nose as it is still healing. Seek Medical Attention: Call the office or seek medical attention if you develop fever greater jodm583 degrees, excessive bleeding, excessive pain that is not well-controlled, skin rash, visual disturbances, or other unusual symptoms. Follow-Up Care: First Appointment: You will return approximately one week after surgery for a post-operative appointment. If need, suture and cast/dressing will be removed at that visit. There are additional suturesinside your nose that will dissolve on their own. Postoperative Healing: Your nose will be swollen and will remain so for several weeks. It is important to keep in mind that although much of the swelling resolves over the first several weeks after surgery, it takes 12 to 15 months for all of the swelling in the nose to resolve. Additional Appointments: Ideally, we would like to see you about 1-2 months after surgery to examine the healing. After this, the follow-up is quite variable, and depends on how you are doing and feeling. Please call the office at any time if you have any questions or concerns and would like to be seen sooner than your next scheduled visit. Dr. Kory Butt: [phone] Dr. Edmond Riley: [phone] Rhianna England RN & Michelle Dave RN. Evenings/Weekends Emergency Dr. Butt: [phone] - please ask for the ENT resident on-call Evenings/Weekends Emergency Dr. Riley: [phone] documented in this [facility] Work Phone: 1(990) 926-728901-10-2025 Note* CPM/PAT H&P - Areli Maguire PA-C - 11/08/2024 2:53 PM EST CPM/PAT Evaluation Name: Patsy Mc /Age: 7 1985 TELEMEDICINE ENCOUNTER Patient was interviewed by telephone for preadmission testing perioperative risk assessment prior to surgery. DATE OF CONSULT: 11/08/2024 REFERRING PROVIDER: Dr. Amaya SURGERY, DATE, AND LENGTH: Septoplasty, inferior turbinate reduction, nasal valve repair, rib graft; 11/18/2024; 210 minutes CHIEF COMPLAINT Nasal obstructed breathing, deviated nasal septum HPI Patsy Mc is a 39-year-old female complaining of nasal obstructed breathing. Patient states that it is constant regardless of time of day, or year. It is diminishing the quality of sleep, affecting ability to exercise, and is bothersome throughout the day. Nasal steroid sprays have provided minimal relief. Symptoms began years ago. Clinical endoscopic intranasal examination revealed deviated nasal septum, hypertrophy of nasal turbinates, and internal nasal valve collapse. ACTIVE PROBLEMS Patient Active Problem List Diagnosis Nasal congestion Deviated nasal septum Hypertrophy of nasal turbinates Acquired deformity of nose PAST MEDICAL HISTORY Past Medical History: Diagnosis Date PONV (postoperative nausea and vomiting) SURGICAL HISTORY Past Surgical History: Procedure Laterality Date BLADDER SURGERY placement of mid-urethral sling COLONOSCOPY DILATION AND CURETTAGE OF UTERUS ND BREAST AUGMENTATION WITH IMPLANT SALPINGECTOMY Bilateral ANESTHESIA HISTORY Patient reports history of postoperative nausea. Denies other problems with anesthesia in the past such as prolonged sedation, awareness, dental damage, aspiration, cardiac arrest, difficult intubation, or unexpected hospital admissions. Denies family history of malignant hyperthermia, or pseudochol inesterase deficiency. SOCIAL HISTORY Current everyday smoker smokes 1 pack/day x 20 years; EtOH: About 10 drinks a week; no recreationaldrug use. 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 She states she exercises at the gym a few times a week doing combination of training and cardio. He is able to do moderate ADLs. Denies history of chest pain, ROJO. METS 4 FAMILY HISTORY No family history on file. ALLERGIES Allergies Allergen Reactions Venlafaxine Palpitations and Shortness of breath MEDICATIONS No current facility-administered medications for this encounter. Current Outpatient Medications: ALPRAZolam (Xanax) 0.25 mg tablet, Take 1 tablet (0.25 mg) by mouth once daily as needed for anxiety., Disp: , Rfl: fluticasone (Flonase) 50 mcg/actuation nasal spray, 2 sprays once daily., Disp: , Rfl: REVIEW OF SYSTEMS Review of Systems HENT: Positive for congestion (Nasal obstructed breathing). All other systems reviewed and are negative. STOP BANG: Obstructive Sleep Apnea (UMESH): Low Risk Total Score: 0 Criteria that do not apply: Patient snores loudly Patient is often tired Patient has been observed to stop breathing during sleep Patient has high blood pressure or is being treated for high blood pressure Patient BMI is greater than 35 kg/m2 Patient is over 50 years old Patient's neck circumference is greater than 17 inches (male) or 16 inches (female) Patient is male PHYSICAL EXAM Deferred AIRWAY EXAM Deferred VITALS No vitals taken for telemedicine visit BMI Readings from Last 1 Encounters: 07/08/24 23.63 kg/m BP Readings from Last 4 Encounters: No data found for BP LABS Lab orders placed for CBC, BMP on 11/08/2024. Patient expressed understanding that lab work was to be completed before surgery. ASSESSMENT/PLAN Nasal obstructed breathing, deviated nasal septum Septoplasty, inferior turbinate reduction, nasal valve repair, rib graft This note was created in part upon personal review of patient's medical records. Speech recognitiontranscription software was used in the creation of this note. Despite proofreading, several typographical errors might be present that might affect the meaning of the content. [facility] Work Phone: [phone] 139-887301-10-2025 Miscellaneous Notes* CPM/PAT H&P - Areli Maguire PA-C - 11/08/2024 2:53 PM EST CPM/PAT Evaluation Name: Patsy BRYANT/Age: 8 1985 TELEMEDICINE ENCOUNTER Patient was interviewed by telephone for preadmission testing perioperative risk assessment prior to surgery. DATE OF CONSULT: 11/08/2024 REFERRING PROVIDER: Dr. Amaya SURGERY, DATE, AND LENGTH: Septoplasty, inferior turbinate reduction, nasal valve repair, rib graft; 11/18/2024; 210 minutes CHIEF COMPLAINT Nasal obstructed breathing, deviated nasal septum HPI Patsy Mc is a 39-year-old female complaining of nasal obstructed breathing. Patient states that it is constant regardless of time of day, or year. It is diminishing the quality of sleep, affecting ability to exercise, and is bothersome throughout the day. Nasal steroid sprays have provided minimal relief. Symptoms began years ago. Clinical endoscopic intranasal examination revealed deviated nasal septum, hypertrophy of nasal turbinates, and internal nasal valve collapse. ACTIVE PROBLEMS Patient Active Problem List Diagnosis Nasal congestion Deviated nasal septum Hypertrophy of nasal turbinates Acquired deformity of nose PAST MEDICAL HISTORY Past Medical History: Diagnosis Date PONV (postoperative nausea and vomiting) SURGICAL HISTORY Past Surgical History: Procedure Laterality Date BLADDER SURGERY placement of mid-urethral sling COLONOSCOPY DILATION AND CURETTAGE OF UTERUS ND BREAST AUGMENTATION WITH IMPLANT SALPINGECTOMY Bilateral ANESTHESIA HISTORY Patient reports history of postoperative nausea. Denies other problems with anesthesia in the past such as prolonged sedation, awareness, dental damage, aspiration, cardiac arrest, difficult intubation, or unexpected hospital admissions. Denies family history of malignant hyperthermia, or pseudochol inesterase deficiency. SOCIAL HISTORY Current everyday smoker smokes 1 pack/day x 20 years; EtOH: About 10 drinks a week; no recreationaldrug use. 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 She states she exercises at the gym a few times a week doing combination of training and cardio. He is able to do moderate ADLs. Denies history of chest pain, ROJO. METS 4 FAMILY HISTORY No family history on file. ALLERGIES Allergies Allergen Reactions Venlafaxine Palpitations and Shortness of breath MEDICATIONS No current facility-administered medications for this encounter. Current Outpatient Medications: ALPRAZolam (Xanax) 0.25 mg tablet, Take 1 tablet (0.25 mg) by mouth once daily as needed for anxiety., Disp: , Rfl: fluticasone (Flonase) 50 mcg/actuation nasal spray, 2 sprays once daily., Disp: , Rfl: REVIEW OF SYSTEMS Review of Systems HENT: Positive for congestion (Nasal obstructed breathing). All other systems reviewed and are negative. STOP BANG: Obstructive Sleep Apnea (UMESH): Low Risk Total Score: 0 Criteria that do not apply: Patient snores loudly Patient is often tired Patient has been observed to stop breathing during sleep Patient has high blood pressure or is being treated for high blood pressure Patient BMI is greater than 35 kg/m2 Patient is over 50 years old Patient's neck circumference is greater than 17 inches (male) or 16 inches (female) Patient is male PHYSICAL EXAM Deferred AIRWAY EXAM Deferred VITALS No vitals taken for telemedicine visit BMI Readings from Last 1 Encounters: 07/08/24 23.63 kg/m BP Readings from Last 4 Encounters: No data found for BP LABS Lab orders placed for CBC, BMP on 11/08/2024. Patient expressed understanding that lab work was to be completed before surgery. ASSESSMENT/PLAN Nasal obstructed breathing, deviated nasal septum Septoplasty, inferior turbinate reduction, nasal valve repair, rib graft This note was created in part upon personal review of patient's medical records. Speech recognitiontranscription software was used in the creation of this note. Despite proofreading, several typographical errors might be present that might affect the meaning of the content. * Preprocedure Instructions - Areli Maguire PA-C - 11/08/2024 2:45 PM EST Pre-Op Instructions &?Checklist Your surgery has been scheduled at [facility] at [address], in [place], [place], [facility], [address], in the [facility]. Parking is to the left of the main entrance. You will be contacted about the time of your surgery the day before your surgery (if your surgery is on a Monday, you will be called the Monday before surgery). If you are unable to answer the phone,a detailed voicemail message will be left. Make sure that your voicemail box is not full so a message can be left. If you have not received a call by 3:00 pm you may call [phone] between the hours of 3:00 and 4:00 pm. Please be available by phone the night before/day of surgery in case there is a change in the schedule which may require you to arrive earlier/later. ? 14 DAYS BEFORE SURGERY STOP TAKING WEIGHT LOSS MEDICATIONS ?7 DAYS BEFORE SURGERY STOP THESE MEDICATIONS: * Multiple Vitamins containing Vitamin E * Herbal supplements, Fish Oil, garlic pills, turmeric, CoQ enzyme *Stop taking aspirin, aspirin-containing products, and NSAID's like Advil, Motrin, Aleve, Ibuprofen, Meloxicam, Celecoxib, and Diclofenac. Tylenol is okay to take for pain relief. *If you are currently taking Coumadin/Warfarin, we will have to coordinate that with your PCP &/or the Anticoagulation Clinic. THE DAY BEFORE SURGERY: *Do not eat any food after midnight the night before surgery. *You are permitted to have no more than 4 ounces of clear liquids such as water, apple juice, plaintea or coffee (no milk or creamer), clear electrolyte- replenishing drinks such as Pedialyte, Gatorade, or Powerade (not yogurt or pulp-containing smoothies or juices such as orange juice) up to 3 hours before your arrival time. DAY OF SURGERY TAKE THESE MEDICATIONS (if it is not listed, do not take it.) There are no medications for you to take on the morning of surgery. ON THE MORNING OF SURGERY: *Shower either the night before your surgery or the morning of your surgery *Do not use moisturizers, creams, lotions or perfume, or make-up. *Wear comfortable, loose fitting clothing. *All jewelry and valuables should be left at home. *Prosthetic devices such as contact lenses, hearing aids, dentures, eyelash extensions, hairpins and body piercings must be removed before surgery. Bring containers for eyeglasses/contacts, dentures,or hearing aids with you. ? Diabetics: Please check fasting blood sugars upon waking up. ?If fasting blood sugars are <80ml/dl, please drink 100ml/3oz. of apple juice no later than 2 hours prior to surgery. ?BRING WITH YOU: *Photo ID and insurance card *Current list of medicines and allergies *Pacemaker/Defibrillator/Heart stent cards *Copy of your complete Advanced Directive/DHPOA-if applicable ?SMOKING: *Quitting smoking can make a huge difference to your health and recovery from surgery. ? *If you need help with quitting, call 7-728-NMXG-NOW. ALCOHOL: *No alcoholic beverages for 48 hours before surgery. ?AFTER OUTPATIENT SURGERY: *A responsible adult MUST accompany you at the time of discharge and stay with you for 24 hours after your surgery. *You may NOT drive yourself home after surgery. *You may use a taxi or ride sharing service ([employer], [employer]) to return home ONLY if you are accompaniedby a friend or family member *Instructions for resuming your medications will be provided by your surgeon. CONTACT SURGEON'S OFFICE IF YOU DEVELOP: *Fever =/>?100.4 F *New respiratory symptoms (e.g. cough, shortness of breath, respiratory distress, sore throat) *Recent loss of taste or smell *Flu like symptoms such as headache, fatigue or gastrointestinal symptoms *If you develop any open sores, shingles, burning or painful urination AND/OR: *You no longer wish to have the surgery. *Any other personal circumstances change that may lead to the need to cancel or defer this surgery. *You were admitted to any hospital within one week of your planned procedure. ?If you have any questions regarding these preoperative instructions, you may call [phone]. Ifyou have questions regarding you surgical procedure, or post-operative care/recovery please call your surgeon's office. Link to [facility] Laboratory Services Locations [email or web address] Link to [facility] [employer] [email or web address] documented in this [facility] Work Phone: 1([phone]) 332-581001-10-2025 Note* Preprocedure Instructions - Areli Maguire PA-C - 11/08/2024 2:45 PM EST Pre-Op Instructions &?Checklist Your surgery has been scheduled at [facility] at [address] in [place], [place], [facility], [address], in the [facility]. Parking is to the left of the main entrance. You will be contacted about the time of your surgery the day before your surgery (if your surgery is on a Monday, you will be called the Monday before surgery). If you are unable to answer the phone,a detailed voicemail message will be left. Make sure that your voicemail box is not full so a message can be left. If you have not received a call by 3:00 pm you may call [phone] between the hours of 3:00 and 4:00 pm. Please be available by phone the night before/day of surgery in case there is a change in the schedule which may require you to arrive earlier/later. ? 14 DAYS BEFORE SURGERY STOP TAKING WEIGHT LOSS MEDICATIONS ?7 DAYS BEFORE SURGERY STOP THESE MEDICATIONS: * Multiple Vitamins containing Vitamin E * Herbal supplements, Fish Oil, garlic pills, turmeric, CoQ enzyme *Stop taking aspirin, aspirin-containing products, and NSAID's like Advil, Motrin, Aleve, Ibuprofen, Meloxicam, Celecoxib, and Diclofenac. Tylenol is okay to take for pain relief. *If you are currently taking Coumadin/Warfarin, we will have to coordinate that with your PCP &/or the Anticoagulation Clinic. THE DAY BEFORE SURGERY: *Do not eat any food after midnight the night before surgery. *You are permitted to have no more than 4 ounces of clear liquids such as water, apple juice, plaintea or coffee (no milk or creamer), clear electrolyte- replenishing drinks such as Pedialyte, Gatorade, or Powerade (not yogurt or pulp-containing smoothies or juices such as orange juice) up to 3 hours before your arrival time. DAY OF SURGERY TAKE THESE MEDICATIONS (if it is not listed, do not take it.) There are no medications for you to take on the morning of surgery. ON THE MORNING OF SURGERY: *Shower either the night before your surgery or the morning of your surgery *Do not use moisturizers, creams, lotions or perfume, or make-up. *Wear comfortable, loose fitting clothing. *All jewelry and valuables should be left at home. *Prosthetic devices such as contact lenses, hearing aids, dentures, eyelash extensions, hairpins and body piercings must be removed before surgery. Bring containers for eyeglasses/contacts, dentures,or hearing aids with you. ? Diabetics: Please check fasting blood sugars upon waking up. ?If fasting blood sugars are <80ml/dl, please drink 100ml/3oz. of apple juice no later than 2 hours prior to surgery. ?BRING WITH YOU: *Photo ID and insurance card *Current list of medicines and allergies *Pacemaker/Defibrillator/Heart stent cards *Copy of your complete Advanced Directive/DHPOA-if applicable ?SMOKING: *Quitting smoking can make a huge difference to your health and recovery from surgery. ? *If you need help with quitting, call 6-796-ZQQW-NOW. ALCOHOL: *No alcoholic beverages for 48 hours before surgery. ?AFTER OUTPATIENT SURGERY: *A responsible adult MUST accompany you at the time of discharge and stay with you for 24 hours after your surgery. *You may NOT drive yourself home after surgery. *You may use a taxi or ride sharing service ([employer], [employer]) to return home ONLY if you are accompaniedby a friend or family member *Instructions for resuming your medications will be provided by your surgeon. CONTACT SURGEON'S OFFICE IF YOU DEVELOP: *Fever =/>?100.4 F *New respiratory symptoms (e.g. cough, shortness of breath, respiratory distress, sore throat) *Recent loss of taste or smell *Flu like symptoms such as headache, fatigue or gastrointestinal symptoms *If you develop any open sores, shingles, burning or painful urination AND/OR: *You no longer wish to have the surgery. *Any other personal circumstances change that may lead to the need to cancel or defer this surgery. *You were admitted to any hospital within one week of your planned procedure. ?If you have any questions regarding these preoperative instructions, you may call [phone]. Ifyou have questions regarding you surgical procedure, or post-operative care/recovery please call your surgeon's office. Link to [facility] Laboratory Services Locations [email or web address] Link to [facility] MyChart [email or web address] [facility] Work Phone: [phone]) 739-133609-09-2024 History of Present illness Narrative* Ambika Amaya MD - 07/08/2024 8:30 AM EDT Images from the original note were not included. Facial Plastic & Reconstructive Surgery Referring Provider: No ref. provider found CC: No ref. provider found Chief complaint: Nasal obstruction. MYLES Cody is a pleasant 39 y.o. female who presents in consultation for the evaluation ofnasal obstruction. The patient reports obstructed breathing, which is constant, present year round, does not fluctuate. It affects the patients ability to sleep, exercise, and is troubling during the day. Symptoms began 1 year ago. The patient has used nasal steroid sprays for without any benefit. The patient has not trailed nasal cones/breathe right strips. Site of obstruction: left Previous surgery: Denies Trauma history: 1 yr ago Allergic rhinitis, sinusitis history: denies Smokin ppd UMESH: denies Aesthetic concern: none Past Medical History She has no past medical history on file. Past Surgical History She has no past surgical history on file. Social History She reports that she has been smoking cigarettes. She has never been exposed to tobacco smoke. She has never used smokeless tobacco. No history on file for alcohol use and drug use. Review of Systems: 11 point ROS was performed. Pertinent positives are for above complaint. All other systems were negative. Family History No family history on file. Allergies Venlafaxine Physical exam There were no vitals filed for this visit. General: No acute distress or pain Head: Normal cephalic, atraumatic Eyes: EOMI; PERRL; Normal lids, sclera, conjunctiva, and cornea; No epiphora; No nystagmus Ears: Normal pinnae without any external deformities Nose and Sinuses: See Endoscopy procedure note below for findings Oral Cavity: Good dentition; Normal gums, tongue, floor of the mouth, retromolar trigone, buccal mucosa, hard palate are normal; Tonsillar fossae, palate, and uvula are normal without lesions or masses; Symmetric palatal elevation; FOM is soft; Tongue is midline upon protrusion without restriction,and without masses or lesions Neck: Soft, supple; No lymphadenopathy; No thyromegaly or masses Neuro: Cranial nerve 2-12 intact; Alert and oriented x3 Skin: Warm and well perfused; no lesions or rashes Respiratory: Chest symmetric with bilateral expansion Cardiac: No peripheral edema, no varicosities. A comprehensive facial exam was performed with the following highlights: Narrow airway bilaterally. Deep inspiration / Moderate inspiration produces dynamic collapse of the internal valves. Modified Aren Maneuver: Performed with a cotton tipped applicator, markedly improves breathing bilaterally. Nasal analysis: Frontal View 1. Facial proportions a. Symmetry: facial symmetry b. Height, width: Normal 2. Skin type a. Cortez type: 3 b. Quality: thick 3. Nasal deviation: dorsal deviation 4. Dorsal aesthetic lines: asymmetric 5. Bony vault: wide and asymmetric 6. Midvault: narrow 7. Nasal tip: bulbous, supratip fullness, and asymmetric tip-defining points 8. Alar rims: gull-shaped 9. Alar base: narrow 10. Upper lip: long Lateral View 1. Nasofrontal angle and radix: obtuse and high radix 2. Nasal length, dorsum, supratip: short, dorsal hump, and polybeak 3. Tip projection: overprojected 4. Tip rotation: over-rotated 5. Alar-columellar relationship: hanging ala 6. Periapical hypoplasia: soft-tissue deficiency 7. Lip-chin relationship: under-projected Base View 1. Nasal projection: over-projected, ill-defined tip-defining points, and inappropriate columellar-lobular ratio 2. Nostril: symmetric 3. Columella: flaring of medial crura 4. Alar base: wide 5. Alar flaring: absent Radiographic Studies: A CT scan of the sinuses performed. Outside records reviewed. Pertinent radiology and labs reviewed. Intranasal endoscopic examination performed with limited view on anterior rhinoscopy. Procedures: Procedure: Rigid diagnostic nasal endoscopy Surgeon: Ambika Amaya MD Findings: A 0-degree rigid endoscope was passed through the patient's bilateral naris via a 3 pass maneuver. The first pass was along the floor of the nose to the nasopharynx. The second pass was to the area of the middle meatus. The third pass was to the sphenoethmoidal recess. Septum: Deviation is towards the left caudal and posterior with nasal obstruction approximately 75%on the left side/sides, no perforations, synechia. Internal Nasal Valve: Angle is reduced, narrowing the nasal airway bilaterally. Right nasal cavity: Inferior turbinate: 2+ Inferior meatus: Clear, no discharge, no polyps/masses/lesions Middle meatus: Clear, no discharge, no polyps/masses/lesions Left nasal cavity: Inferior turbinate: 2+ Inferior meatus: Clear, no discharge, no polyps/masses/lesions Middle meatus: Clear, no discharge, no polyps/masses/lesions Nasopharynx: Clear, no discharge, no masses/lesions Assessment/Plan: Patsy Cody is a pleasant 39 y.o. female presents with significant mechanical nasal obstruction. The cause is multifactorial, with an obvious septal deviation, turbinate hypertrophy, and static internal nasal valve collapse. There is dynamic nasal valve collapse as well. Correction of this n nola obstruction will require a septoplasty, repair of nasal valve collapse with structural grafting, bilateral turbinate reduction and out fracturing, possible harvest of septal/auricular/or rib cartilage or use of cadaveric rib cartilage. Additionally, the patient's cosmetic concerns were addressed as well. We discussed the medical necessity of this at length, as well as the risks and limitations of the procedures. All questions were answered. Will tentatively plan for surgery at [facility] on 07/26 Ambika Amaya MD [employer] Division of Facial Plastic & Reconstructive Surgery Department of Otolaryngology - Head and Neck Surgery P: [phone] F: [phone] documented in this [facility] Work Phone: [phone]) 761-726409-09-2024 Instructions* Patient Instructions* Ambika Amaya MD - 07/08/2024 8:30 AM EDT Images from the original note were not included. Facial Plastic & Reconstructive Surgery POST-OPERATIVE CARE Following Nasal Surgery Call promptly if: Your temperature is over 100 You experience an unusual amount of bleeding Re-injury of the operative site. What Can I expect? Nasal stuffiness is the most annoying problem you will encounter. It is most distressful the first week after surgery. Often you will find that the pain medication will not alleviate the pressure. Significant improvement can be expected when the nasal dressings are removed one week after surgery, and further gradual improvement can be expected several weeks thereafter. Mild nasal or facial pain is expected after surgery and is well managed with oral pain medication except in the most unusual circumstances. Some bloody discharge is expected after surgery. During the first 24 hours after surgery, you may need to change the nasal absorbent dressing 10-20 times. This is typical. The nurses at the surgery center will instruct you on how to change these absorbent dressings and this can be easily accomplished at home. Some oozing is expected because we avoid packing the nose, which causes considerable discomfort. Some bruising after surgery is to be expected. The amount of bruising that occurs varies significantly from one individual to the next. Most swelling occurs around the eyes and reaches a peak the second day following surgery and then steadily improves. Numbness in the tip of the nose, upper front teeth, or roof of the mouth following surgery is to beexpected because the intranasal surgery has caused a temporary disruption of some of the nerves in this area. Some decrease in the sense of smell and alterations of taste is typical after surgery as the nerve fibers that are responsible for your sense of smell are present high in the nose and the nasal congestion blocks the flow of air to this area. This will improve within the first one to two weeks following surgery. Swelling from the surgery will give some distorted appearance to the nose and should not be a causefor alarm. The nose will appear excessively broad and the tip turned up more than is desirable. This is due to the swelling and will improve in the days following surgery. A special icepack will be given to you by the nurse before going home and is very helpful if used as much as possible in the first 24 hours after surgery to minimize the swelling. Thereafter, its useis not essential. Blowing the nose is prohibited after surgery because it can stimulate bleeding and compromise your final result. If you feel the urge to sneeze, sneeze with your mouth open, as this will minimize anydisturbance of the nasal tissues. If you wear glasses, the nurse will need to instruct you on the use of alternate methods for suspension of the glasses. They must NOT rest on the nose for any more than a brief period of time within the first 3 to 4 weeks following surgery. It is also important to note that your glasses may need marcos refitted because of alterations in the shape of the nose may change the resting place for the glasses. Exercise is prohibited for at least two weeks following surgery because of the possibility of nasalbleeding. The dressing must be kept dry or the external splint may be disrupted, again compromising your final result. Bathing is permitted but soaking the nasal area and dressing is to be avoided. Typically a light tape and plastic external nasal dressing is present after surgery along with surgical rubber splints, which have been placed inside the nose. Both the internal and eternal dressingsare removed one week following surgery and arrangements for an office visit will be made prior to your leaving the surgical area. Sun avoidance for several months is important following surgery so as to avoid any excess sun damage to the nasal skin. If you anticipate outdoor activity, sunscreen is mandatory. A sun protection factor (SPF) of 15 or greater is advisable. Airline travel should be limited in the immediate week following surgery so as to avoid any possibility of sinus blockage. Taking Care of Your Nose Nasal Saline Saline mist spray is an over the counter medication that must be used the day after surgery and for3 weeks of recovery [place] each nostril 4-5 times a day This will make splint removal a week after surgery easier and less uncomfortable Hydrogen Peroxide mixed with water (1:1) Dilute hydrogen peroxide (half water, half peroxide) If your incision or nostrils have crusted, dried drainage use a Q-tip and gently roll it over the incision two times daily with the solution If incisions are clean, then a moist Q-tip can be used Aquaphor After cleaning the external incision, place Aquaphor, an over the counter medication, on the incision two times a day. Place and roll a Q-tip with Aquaphor in each nostril twice a day, just on the outer area Exercise Restrictions Refrain from rigorous exercise for the first 2 weeks after surgery. Do not lift anything greater than 10 pounds. Avoid activities that would cause you to hold your breath, which would increase pressure. After 2 weeks from surgery you can slowly and gradually increase your activity Recovery time table - The following are approximate recovery guidelines for nasal surgery Day 1-7 - Nasal saline and suture care Day 7-12 - Post operative visit, splints and cast removed 3 weeks after surgery - Post operative check 2-3 months after surgery - Post operative check documented in this [facility] Work Phone: 1(147) 153-699309-03-2024 History of Present illness Narrative* Reyes Guevara MD - 07/02/2024 8:40 AM EDT Subjective Patient ID: Patsy Cody is a 39 y.o. female who presents for Nasal Obstruction (CT maxillofacial 08/31/23 [facility]. States nasal obstruction x 1 yr and getting worse.) Pt has a long h/o left nasal obstruction and noted a weird red thing on the left side. Tx with bactroban and abx. Used flonase [address] maxillofacial obtained that shows duran IT hyp and a DNS to the left. Pt also c/o a many year h/op globus. Review of Systems All other systems reviewed and are negative. 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/2016 Vaginal discharge 06/25/2024 Pain in female genitalia on intercourse 06/25/2024 Resolved Ambulatory Problems Diagnosis Date Noted No Resolved Ambulatory Problems Past Medical History: Diagnosis Date Acne Adrenal insufficiency (CMS/HCC) Hemorrhoids History of Chiari malformation Mood disorder ([facility]/HCC) Pituitary adenoma ([facility]/HCC) TMJ syndrome Vaginal ulcer Past Surgical History: Procedure Laterality Date SECTION, LOW TRANSVERSE LAPAROSCOPY DIAGNOSTIC / BIOPSY / ASPIRATION / LYSIS diagnostic OTHER SURGICAL HISTORY 08/2018 y-v anoplasty, hemorrhoidectomy, sphincterotomy OTHER SURGICAL HISTORY 08/25/2023 destruction of genital warts, extensive TUBAL LIGATION VEIN LIGATION AND STRIPPING Right Allergies Allergen Reactions Venlafaxine Shortness of breath Current Outpatient Medications on File Prior to Visit Medication Sig Dispense Refill LORazepam (Ativan) 2 MG tablet Take 2 mg by mouth every 8 (eight) hours if needed OLANZapine (ZyPREXA) 5 MG tablet Take 1 tablet by mouth at bedtime No current facility-administered medications on file prior to visit. Objective Last Recorded Vitals Vitals: 07/02/24 0836 BP: 129/85 ENT Physical Exam Constitutional Appearance: patient appears well-developed, well-nourished and well-groomed, Head and Face Appearance: head appears normal and face appears atraumatic; Ear Ear Canals: right ear canal normal; left ear canal normal; Tympanic Membranes: right tympanic membrane normal; left tympanic membrane normal; Nose External Nose: nares patent bilaterally; external nose normal; Internal Nose: nasal septal deviation present; Oral Cavity/Oropharynx Tongue: normal; Oral mucosa: normal; Hard palate: normal; Soft palate: normal; Tonsils: normal; Neck Neck: neck normal; neck palpation normal; Thyroid: thyroid normal; Respiratory Inspection: breathing unlabored; normal breathing rate; Auscultation: breath sounds are clear; Cardiovascular Inspection: extremities are warm and well perfused; no peripheral edema present; Auscultation: regular rate and rhythm; Assessment/Plan Diagnoses and all orders for this visit: DNS (deviated nasal septum) Pt has a sig anterior DNS and a post spur likely causing Sluder pain. Because of her fine features and the sig cartilaginous defect I will have her see Dr Butt for tx. In the mean time I will start flonase as she has not had an adequate trial to be declared a medical failure documented in this encounterLiberty [id number] Progress note Author Theo Guzman [facility] December 23, 2023 11:33amNote Date/TimeFebruary 2023 11:33[place] [address] Psychiatry Progress Note Signed Patient: Patsy Cody MR #: [id number] : 1985 Acct:[id number] Age/Sex: 38 / F Adm Date: 4 Loc: Room: [address] [place] [address] Type : ADM IN Attending Dr: Theo Guzman MD Copies to: ~ Date of Service: 12/23/2023 Subjective Subjective Narrative: Ms. Cody reported that she feels a bit tired today. She reported that she does not like the prazosin as it caused her increased anxiety and some stomach issues. She reported that it took a whilefor her to fall asleep. She does feel [...] <Electronically signed by Theo Guzman MD> 12/23/23 113 [facility] Work Phone: 1(127) 948-928202-23-2024 History and physical note Author Theo Guzman [facility] December 22, 2023 11:00amNote Date/TimeFebruary 2023 10:20[place] [address] Psychiatry H&P Signed Patient: Patsy Cody MR #: [id number] : 1985 Acct:[id number] Age/Sex: 38 / F Adm Date: 4 Loc: Room: 2L8828-3 Type: ADM IN Attending Dr: Theo Guzman MD Copies to: MD Arnold Arroyo MD~ Date of Service: 12/22/2023 HPI History of Present Illness History of present illness: Ms. Cody is a 38 year old female with a history of anxiety and panic attacks who is presentingdue to concern for suicidal ideation and worsening [...] states that she knows her is in correction but she still feels worried all the [...] Patient states that she hopes to get outof this panic that she is in and [...] the encounter. I reviewed the history and performedthe austin elements of the physical examination. I formulated the plan of care and confirmed this withthe medical student as notedbelmichael. [facility] Medical History (Updated 12/22/23 @ 10:59 by Theo Guzman MD) No pertinent past medical history Problem List clean-up per request of Phys. [facility] Surgical History History of delivery Problem List clean-up per request of Phys. EHR Cmte History of hemorrhoidectomy Problem List clean-up per request of Phys. [facility] Family History (Updated 09/05/19 @ 09:29 by [...] signed by Theo Guzman MD> 12/22/23 1100 [facility] Work Phone: 1(828) 271-171110-16-2022 Evaluation note* Encounter Date Diagnosis Assessment Notes Treatment Notes Treatment Clinical Notes 16 Oct, 2022 Acute right ankle pain (ICD-10 - M25.571) Jul,prain of right ankle, unspecified ligament, initial encounter (ICD- 10 - S93.401A) XR images and final report [...] understanding and is agreeable to treatment plan [facility] Other 07-15-2022 NoteOPERATIVE NOTE OPERATION DATE: 05/13/2022 PROCEDURE: Julianna endometrial ablation with hysteroscopy. PREOPERATIVE DIAGNOSIS: Menorrhagia. POSTOPERATIVE DIAGNOSIS: Menorrhagia. ANESTHESIA: General. SURGEON: Kel Gurrola D.O. TUBE DRAW HELPER: None. BLOOD LOSS: 5 mL. URINE OUTPUT: [...] Patient taken to recovery in stable condition. [facility] Signed and Approved by: DR KEL GURROLA . 05/20/2022 08:19:00[facility]01-12-2022 Evaluation note* Encounter Date Diagnosis Assessment Notes Treatment Notes Treatment Clinical Notes Oct, Bacterial conjunctivitis of righ t eye (ICD-10 - H10.9) Use medication as [...] Pt understands and agrees with the plan. [facility] Other 11-01-2021 Evaluation note* Encounter Date Diagnosis Assessment Notes Treatment Notes Treatment Clinical Notes Aug, Dysuria (ICD-10 - R30.0) Patient referred to specialist at this time. Patient has had these symptoms and has been treated with different medications without results. Patient made follow up with UroBryant Olmos. [facility] Other Discharge summary Author Theo Guzman [facility] December 24, 2023 11:28amNote Date/TimeFebruary 2023 11:27[place] [id number] Discharge Summary Signed Patient: Patsy Cody MR #: [id number] : 1985 Acct:[id number] Age/Sex: 38 / F Adm Date: 4 Loc: 1S Room: [address] [place] [address]: Theo Guzman MD Copies to: MD Arnold Arroyo MD~ Providers Date of Discharge: 12/24/23 Discharging Provider: Theo Guzman Primary Care Provider: Arnold Clark Discharge Diagnosis (1) Generalized anxiety disorder: [...] states that she knows her is in correction but she still feels worried all the [...] Patient states that she hopes to get outof this panic that she is in and [...] any depression or suicidality. She was comfortable wi th discharge plan home and following up with [...] Instructions: Important Contact Information You can call [facility] Inpatient [facility] Health at [phone] any timeday or night if you have emergent questions or question regarding discharge instructions. If at anytime you are feeling an increase inyour psychiatric symptoms, call your physician or behavioral healthcare provider. If any time you have thoughts of harming yourself or others contact one of the following: Call (available 22/05) Crisis Text Line (available 22/05) text 4HOPE to [phone] [facility] Hope Line (available 8 a.m. Midnight) call [phone] ([phone]) Instructions: Anxiety, Adult (DC), [facility] [place] Instructions Stand Alone Forms: [...] unless she really needs it Follow Up: [facility] [Other] [facility] [Outside] (You will receive a call on Monday around 10:30am to set up followup appointments) Arnold Clark MD [Primary Care Provider] - (please contact for medical needs or concerns) Documented By: Theo Guzman MD 12/24/23 1125 Signed By: <Electronically signed by Theo Guzman MD> 12/24/23 1128 [facility] Work Phone: Evaluation noteNo assessment information available [facility] Work Phone: Evaluation note* Diagnosis Onset Date Resolution Status Generalized anxiety disorder acutePTSD (post-traumatic stress disorder)acute [facility] Work Phone: Evaluation note* Diagnosis Deviated nasal septum- Primary Nasal obstruction Other diseases of nasal cavity and sinuses Nasal valve collapse Hypertrophy of inferior nasal turbinate Tobacco use Pituitary cyst (Multi) Other disorders of the pituitary and other syndromes of diencephalohypophyseal origin documented in this encounter [facility] Work Phone: Evaluation note* Diagnosis DNS (deviated nasal septum)- Primary Deviated nasal septum [facility] Diagnosis Acquired deformity of nose- Primary Surgery, elective Unspecified elective surgery for purposes other than remedying health states Deviated nasal septum Postoperative pain Other acute postoperative pain Acquired deformity of nose Hypertrophy of nasal turbinates Nasal congestion Other diseases of nasal cavity and sinuses Nasal congestion Other diseases of nasal cavity and sinuses Deviated nasal septum Hypertrophy of nasal turbinates documented in this encounter [facility] Work Phone: Evaluation note* Diagnosis Nasal obstruction- Primary Other diseases of nasal cavity and sinuses documented in this encounter [facility] Work Phone: Evaluation note* Diagnosis Postoperative visit- Primary documented in this encounter [facility] Work Phone: Evaluation note* Diagnosis Onset Date Resolution Status Admit Date Dysuria acuteJune 2024 9:16amLow blood pressurenoneactiveJune 2024 9:16am [facility] Work Phone: Hisflmp general Narrative - Reported* Type Description Date Medical History chiari malformation type 1 Surgical Historyc-section, laparascopy, breast implant.Surgical Historysphincter Surgical Historyhemorrhoidectomy [facility] Other Hisqmdp general Narrative - Reported* Type Description Date Medical History chiari malformation type 1 Surgical Historyc-section, laparascopy, breast implant.Surgical Historysphincter Surgical HistoryhemorrhoidectomySurgical Historyy-vanoplastySurgical History fissurectomySurgical HistorysphencterotomyHospitalization Historysee above [facility] Other Hiscnky general Narrative - Reported* Type Description Date Medical History chiari malformation type 1 Surgical HistoryUretha sling2/22Surgical HistorySalpingectomy2/22Hospitalization Historysee above [facility] Other Hospital Discharge instructions Additional Instructions Important Contact Information You can call [facility] at [phone] any time day or night if you have emergent questions or question regarding discharge instructions. If at any time you are feeling an increase in your psychiatric symptoms, call your physician or behavioral healthcare provider. If any time you have thoughts of harming yourself or others contact one of the following: Call (available 22/05) Crisis Text Line (available 22/05) text 4HOPE to [phone] [facility] Hope Line (available 8 a.m. Midnight) call [phone] ([phone]) [facility] Work Phone: Reason for referral (narrative)No reason for referral information availableCleveland Clinic Foundation Work Phone: Revoye for visit Narrative* Auth/CertSpecialty Diagnoses / ProceduresReferred By ContactReferred To Contact Diagnoses Nasal congestion Deviated nasal septum Hypertrophy of nasal turbinates Acquired deformity of nose Nasal congestion [R09.81] Deviated nasal septum [J34.2] Hypertrophy of nasal turbinates [J34.3] Acquired deformity of nose [M95.0] Procedures ND SEPTOPLASTY/SUBMUCOUS RESECJ W/WO CARTILAGE GRF ND REPAIR NASAL VESTIBULAR STENOSIS ND FRACTURE NASAL INFERIOR TURBINATE THERAPEUTIC ND ABLTJ SOF TISS INF TURBS UNI/BI SUPFC INTRAMURAL ND CARTILAGE GRAFT NASAL SEPTUM ND GRAFT RIB CRTLG AUTOGENOUS FACE/CHIN/NOSE/EAR septoplasty, inferior turbinate reduction, [place] [address] [facility] [place] [address] Phone: tel: fax: [facility] OR [address] [facility] [address] [place] [address] Phone: tel: fax: Referral IDStatusReasonStart DateExpiration DateVisits RequestedVisits [id number] [facility] Work Phone: Summary Purpose Family History Relationship Condition Age at Onset Recorded Date/T zenon Not Specified No pertinent family history Unknown Advance Directives Advance Directive Response Recorded Date/ Time Advance Directives No May 10 1:56pm Advance Directive Response Recorded Date/ Time Advance Directives No May 10 12:56pm Assessments No Assessments Information AvailableNo Assessments Information AvailableNo Assessments Information AvailableNo Assessments Information Available Chief Complaint and Reason for Visit Chief Complaint PTDS,AMANDA PTDS,GADReason for VisitGeneralized anxiety disorder PTSD (post-traumatic stress disorder) Chief Complaint Admit Date Rash, fever, nuasea April 28, 2025 9:16 am Reason for Visit Admit Date Dysuria April 28, 2025 9:16 am Low blood pressure April 28, 2025 9:16 am Additional Source Comments INFORMATION SOURCE (unrecogn ized section and content) DATE CREATED AUTHOR 10/10/2018 [facility] DATE CREATED AUTHOR AUTHOR'S ORGANIZ ATION 02/13/2019 [facility] DATE CREATED AUTHOR AUTHOR'S ORGANIZ ATION 03/17/2020 [facility] DATE CREATED AUTHOR AUTHOR'S ORGANIZ ATION 11/16/2022 [facility] DATE CREATED AUTHOR AUTHOR'S ORGANIZ ATION 07/02/2024 [facility] DATE CREATED AUTHOR AUTHOR'S ORGANIZ ATION 10/15/2024 [facility] DATE CREATED AUTHOR AUTHOR'S ORGANIZ ATION 11/23/2024 [facility] DATE CREATED AUTHOR AUTHOR'S ORGANIZ ATION 02/12/2025 [facility] REASON FOR VISIT (unrecogniz ed section and content) ReasonCommentsDeviated Nasal SeptumPiece of bone, growing upwardReasonComments Nasal ObstructionCT maxillofacial 08/31/23 [facility]. States nasal obstruction x 1 yr and getting worse.ReasonCommentsPost-op Visit#1ReasonCommentsFollow-up Care Teams (unrecognized sec tion and content) Team Status: Inactive Member Role Status Dates Arnold Clark MD Primary Care Provider Active Don Snow ProviderActive Team Status: Active Member Role Status Dates Arnold Clark MD Primary Care Provider Active Team Status: Inactive Member Role Status Dates Arnold Clark MD Primary Care Provider Active Start: December 22, 2023 End: December 24Jaren Ojeda Provider, Attending Provider ActiveStart: December 22, 2023 End: December 24, 2023 Team Status: Active Member Role Status Dates Arnold Clark MD Primary Care Provider Active Start: December 22, 2023 Jaren Arroyo Provider, Attending Provider, Other ProviderActive Start: December 22, 2023 Team MemberRelationshipSpecialtyStart DateEnd Date Arnold Clark MD [address] [place] [id number] PCP - GeneralFamily Medicine04/05/23Team MemberRelationshipSpecialtyStart DateEnd Arnold Clark MD [address] [place] [id number] PCP - GeneralFamily Medicine04/05/23 Team Status: Inactive Member Role Status Dates Arnold Clark MD Primary Care Provider Active Start: April 28, 2025 End: April 28, 2025Don Metcalf ProviderActiveStart: April 28, 2025 End: April 28, 2025 Goals (unrecognized section and content) Goals may be documented in a n alternate section Scheduled Active and Recently Administ ered Medications (unrecognized section and content) Medication Order/ aprepitant (Emend) capsule 40 mg (COMPLETED) 40 mg, oral, Once, On Mon11/18/24 at 0745, For 1 dose, Preprocedure * 0730 (Given - Provider: Dahlia Carrero RN) ondansetron ODT (Zofran-ODT) disintegrating tablet 4 mg (COMPLETED) 4 mg, oral, Once, On Mon11/18/24 at 1400, For 1 dose, Recovery (only), Patient should allow tablet to dissolve on tongue. Do not remove from blister pack until just before administering. * 1320 (Given - Provider: Dahlia Carrero RN) oxyCODONE (Roxicodone) immediate release tablet 5 mg (COMPLETED) 5 mg, oral, Once, On Mon11/18/24 at 1315, For 1 dose, Recovery (only), If ordered PRN for pain, nurse is permitted to administer this medication for higher pain scores based on patient preference? Yes * 1245 (Given - Provider: Alma Martínez RN) Medication Order// acetaminophen (Tylenol) tablet 650 mg 650 mg, oral, Every 4 hours PRN, pain mild (1-3), first line, Starting on Mon11/18/24 at 1140, Recovery (only), When able to take oral medications., If ordered PRN for pain, nurse is permitted to administer this medication for higher pain scores based on patient preference? Yes * 1203 (Given - Provider: Alma Martínez RN - Comment: temp) albuterol 2.5 mg /3 mL (0.083 %) nebulizer solution 2.5 mg 2.5 mg, nebulization, Once as needed, wheezing, Starting on Mon11/18/24 at 1140, For 1 dose, Recovery (only) balanced salts (BSS) intraocular solution (CANCELED) As needed, Starting on Mon11/18/24 at 0810, Intraprocedure * 0810 (Given - Provider: Ambika Amaya MD) fentaNYL PF (Sublimaze) injection 25 mcg 25 mcg, intravenous, Every 5 min PRN, pain moderate (4-6), first line, Starting on Mon11/18/24 at 1140, Recovery (only), Max total of 200 micrograms regardless of dose., If ordered PRN for pain, nurse is permitted to administer this medication for higher pain scores based on patient preference? Yes fentaNYL PF (Sublimaze) injection 50 mcg 50 mcg, intravenous, Every 5 min PRN, pain severe (7-10), first line, Starting on Mon11/18/24 at 1140, Recovery (only), Max total of 200 micrograms regardless of dose., If ordered PRN for pain, nurseis permitted to administer this medication for higher pain scores based on patient preference? Yes * 1217 (Given - Provider: Alma Martínez RN) hydrALAZINE (Apresoline) injection 5 mg 5 mg, intravenous, Administer over 2 Minutes, Every 30 min PRN, systolic blood pressure greater than 180 mmHg and heart rate less than 60 BPM, Starting on Mon11/18/24 at 1140, For 2 doses, Recovery (only) lidocaine-epinephrine (Xylocaine W/EPI) 1 %-1:100,000 injection (CANCELED) As needed, Starting on Mon11/18/24 at 0812, Intraprocedure * 0812 (Given - Provider: Ambika Amaya MD) * 0931 (Given - Provider: Ambika Amaya MD) mupirocin (Bactroban) 2 % ointment (CANCELED) As needed, Starting on Mon11/18/24 at 1047, Intraprocedure * 1047 (Given - Provider: Ambika Amaya MD) ondansetron (Zofran) injection 4 mg 4 mg, intravenous, Once as needed, nausea/vomiting, first line, Starting on Mon11/18/24 at 1140, For 1 dose, Recovery (only), When administering via IV Push, administer over 3-5 minutes. oxyCODONE-acetaminophen (Percocet) 5-325 mg per tablet 1 tablet 1 tablet, oral, Every 4 hours PRN, pain moderate (4-6), second line, pain severe (7-10), second line, Starting on Mon11/18/24 at 1140, Recovery (only), When able to take oral medications., If ordered PRN for pain, nurse is permitted to administer this medication for higher pain scores based on patient preference? Yes oxymetazoline (Afrin) 0.05 % nasal spray (CANCELED) As needed, Starting on Mon11/18/24 at 0804, Intraprocedure * 0804 (Given - Provider: Ambika Amaya MD - Comment: bottle poured on sterile field to soak cottonoids) sodium chloride 0.9 % irrigation solution (CANCELED) As needed, Starting on Mon11/18/24 at 0808, Intraprocedure * 0808 (Given - Provider: Ambika Amaya MD - Comment: on the sterile field) FOR RECORDS PERTAINING TO PATIENTS WHO ARE [...] BE BASED ON THE PRIMARY CLINICAL RECORDS. [employer] [facility]. provides no warranty or guarantee of the accuracy or completeness of information in this document.
== END 2025-09-30 16:37 | disposition home or self-care (01) ==
LOC: LAB 16:36
PROVIDERS: PCP Family Medicine; Visit Provider Physician Assistant
DX: Z01.419 Encounter for gynecological examination (general) (routine) without abnormal findings (principal); Z98.51 Tubal ligation status
CPT/HCPCS: 87624; 88175